=== PATIENT | female | born 1975 | race Hispanic/Latino ===

== ENCOUNTER 2021-03-12 21:48 | Emergency (ER) | payer BC ==
--- OUTSIDE RECORDS SUMMARY | 2021-03-12 21:56 | XMS REPORT | Continuity of Care Document ---
:1975 Author Organization [facility] t Address [address] [place] [address] Dr. Mel[address]. [address] [place] [address] Care Team Providers Name Role Phone General RNKesha Primary Care Physician Unavailable Kaylynn Alexander MD Attending Clinician Dillon Gonzáles MD Attending Clinician Ld CHAUDHRY Attending Clinician Jelly Cruz MD Attending Clinician Jonathan Oconnor MD Attending Clinician Lexie Chris MD Attending Clinician Patrick CHAUDHRY Attending Clinician ERICH ALEXANDER Attending Clinician Unavailable DR ANTON Attending Clinician Unavailable Natalya CHAUDHRY Attending Clinician DILLON GONZÁLES Admitting Clinician Unavailable Amy WILBURN Admitting Clinician Unavailable Payers Payer Name Policy Type Policy Effective Date Expiration Date Sour ce Number BLUE CROSS/BLUE [id number] 2021 [facility] [id number] -Tunde [id number], [place] [address] Problems Condition Condition Condition Status Onset Resolution Last Treating Co mments Source Name Details Category Date Date Treatment Clinician Date Type 2 Type [address] [facility]16 [facility] - mellitus mellitus 00:00: Medica l without without 00 Center complicati complicati on, on, without without long-term long-term current current use of use of insulin insulin Essential Essential Disease Active [facility] hypertensi hypertensi 4-16 Ailyn kes - on on 00:00: Medical 00 Center Diverticul Diverticul Disease Active [facility] of itis of -15 [facility] - large large 00:00: Medical intestine intestine 00 Cent er with with perforatio perforatio n and n and abscess abscess Diverticul Diverticul Disease Active Overview : [facility] Added [facility] - 00:00: automatic Medical 00 ally from Center request for surgery [id number] Allergies, Adverse Reactions, Alerts This patient has no known allergies or adverse reactions. Family History Family Member Diagnosis Comments Start Date Stop Date Source Natural father Heart disease [facility] Natural mother Diabetes [facility] Natural mother Hyperlipidemia [facility] Social History Social Habit Start Date Stop Date Quantity Comments Source Sex Assigned At [facility] Exposure to Not sure [facility] SARS-CoV-2 [facility] (event) Tobacco use and 2021-02-27 2021-02-27 Never used [facility] - exposure 00:00:00 00:00:00 [facility] Alcohol intake 2021-02-27 2021-02-27 Current drinker [facility] Yogesh Gomez - 00:00:00 00:00:00 of [facility] (finding) Alcohol Comment 2021-02-16 2021-02-16 2-[address] [facility] u[facility] - 00:00:00 00:00:[address] everyday Smoking Status Start Date Stop Date Source Never sm[facility] Ordered Filled Start Stop Current Ordering Indication Dosage Frequency Signature Comments Components Source Medication Medication Date Date Medication? Clinician (SIG) Name Name psyllium 2021- Yes 1{packe QD Take [address] [address] (METAMUCIL 5-04 05-04 t} packet by Jamila es - SUGAR-FREE) 00:00: 23:59 mouth Medi denise 3.4 gram 00 :00 daily. Center packet metoprolol Yes 50mg Q.5D Take [address] tartrate 5-03 by mouth 2 [facility] - (LOPRESSOR) 16:39: (two) Medic al 50 MG 02 times Center tablet daily. lisinopriL Yes 20mg Take [address] (PRINIVIL,Z 5-03 by mouth 2 Ailyn kes - ESTRIL) 20 16:39: (two) Medica l MG tablet 02 times Center daily before meals. metFORMIN Yes 500mg Take [address] [facility] (GLUCOPHAGE 5-03 mg by [facility] - ) 500 MG 16:39: mouth. Medical tablet 02 Center gabapentin 2021- Yes 300mg Q.[id number] Take [address] (NEURONTIN) 5- 05- [id number] capsule [facility] - 300 MG 00:00: 23:59 3D (300 mg Medical capsule 00 :00 total) by Center mouth 3 (three) times daily. cyclobenzap 2020- Yes 10mg Q.[id number] Take [address] rine -01 06- [id number] tablet (10 Ailyn kes - (FLEXERIL) 00:00: 23:59 3D mg total) M edical 10 MG 00 :00 by mouth 3 Center tablet (three) times daily for 10 days. simethicone 2020- Yes 80mg Take [address] [facility] (MYLICON) 03-06-13 tablet (80 Jamila es - 80 MG 00:00: 23:59 mg total) Medica l chewable 00 :00 by mouth Center tablet every 6 (six) hours as needed for Flatulence for up to 10 days. oxyCODONE 2020- Yes 5mg Take 1 [facility] (ROXICODONE - 05-13 tablet (5 Ailyn kes - ) 5 MG 00:00: 23:59 mg total) Medic al immediate 00 :00 by mouth Center release every 4 tablet (four) hours as needed for up to 10 days. Max Daily Amount: 30 mg FLUoxetine Yes 1{tbl} QD Take [address] 60 mg Tab 4-13 tablet by [facility] - 00:00: mouth Medical 00 daily. Center Vital Signs Vital Name Observation Time Observation Value Comments Source Systolic blood 2021-03-06 11:00:00 136 mm[Hg] [facility] Diastolic blood 2021-03-06 11:00:00 95 mm[Hg] [facility] Heart rate 2021-03-06 11:00:00 130 /min [facility] Respiratory rate 2021-03-06 11:00:00 18 /min [facility] Oxygen saturation in 2021-03-06 11:00:00 100 /min [facility] Arterial blood by Medical Ce nter Pulse oximetry Body temperature 2021-03-06 04:06:00 37 Tanisha [facility] Body weight 2021-03-04 05:58:00 82.146 kg [facility] BMI 2021-03-04 05:58:00 30.14 kg/m2 [facility] Body height 2021-02-16 20:34:00 165.1 cm [facility] Procedures Procedure Date / Time Performing Clinician Source Performed POCT-GLUCOSE METER 2021-03-06 07:36:00 [facility] CBC W/PLT COUNT & AUTO 2021-03-06 04:34:00 Duane Keys [facility] BASIC METABOLIC PANEL (7) 2021-03-06 04:34:00 Duane Keys [facility] MAGNESIUM 2021-03-06 04:34:00 Duane Keys [facility] PHOSPHORUS 2021-03-06 04:34:00 Duane Keys [facility] POCT-GLUCOSE METER 2021-03-05 21:32:00 Catherine, [facility] POCT-GLUCOSE METER 2021-03-05 11:39:00 [facility] POCT-GLUCOSE METER 2021-03-05 07:55:00 Catherine, [facility] CBC W/PLT COUNT & AUTO 2021-03-05 05:26:00 Duane Keys [facility] BASIC METABOLIC PANEL (7) 2021-03-05 05:26:00 Duane Keys [facility] MAGNESIUM 2021-03-05 05:26:00 Duane Keys [facility] PHOSPHORUS 2021-03-05 05:26:00 Duane Keys [facility] POCT-GLUCOSE METER 2021-03-04 21:06:00 Catherine, [facility] POCT-GLUCOSE METER 2021-03-04 17:26:00 Catherine, [facility] POCT-GLUCOSE METER 2021-03-04 11:51:00 Catherine, [facility] CBC (HEMOGRAM ONLY) 2021-03-04 11:13:00 Rodolfo Martinez [facility] POCT-GLUCOSE METER 2021-03-04 07:41:00 Catherine, [facility] CBC W/PLT COUNT & AUTO 2021-03-04 05:33:00 Duane Keys [facility] BASIC METABOLIC PANEL (7) 2021-03-04 05:33:00 Duane Keys [facility] MAGNESIUM 2021-03-04 05:33:00 Duane Keys [facility] PHOSPHORUS 2021-03-04 05:33:00 Duane Keys [facility] POCT-GLUCOSE METER 2021-03-03 21:07:00 Catherine, [facility] POCT-GLUCOSE METER 2021-03-03 16:45:00 Catherine, [facility] POCT-GLUCOSE METER 2021-03-03 11:34:00 Catherine, [facility] POCT-GLUCOSE METER 2021-03-03 04:58:00 Catherine, [facility] CBC W/PLT COUNT & AUTO 2021-03-03 04:51:00 MassimoDuane villagomez [facility] BASIC METABOLIC PANEL (7) 2021-03-03 04:51:00 Duane Keys [facility] MAGNESIUM 2021-03-03 04:51:00 MassimoDuane villagomez [facility] PHOSPHORUS 2021-03-03 04:51:00 MassimoDuane villagomez [facility] HEPATIC FUNCTION PANEL 2021-03-03 04:51:00 Cruz, Janette Reaves [facility] POCT-GLUCOSE METER 2021-03-02 22:14:00 Catherine, [facility] POCT-GLUCOSE METER 2021-03-02 18:19:00 Catherine, [facility] SARS-COV2/RT-PCR ([facility] & 2021-03-02 18:13:00 Cruz, Janette Ch [facility] POCT-GLUCOSE METER 2021-03-02 11:56:00 Catherine, [facility] POCT-GLUCOSE METER 2021-03-02 05:21:00 Catherine, [facility] CBC W/PLT COUNT & AUTO 2021-03-02 03:26:00 Duane Keys [facility] BASIC METABOLIC PANEL (7) 2021-03-02 03:26:00 Duane Keys [facility] MAGNESIUM 2021-03-02 03:26:00 MassimoDuane villagomez [facility] PHOSPHORUS 2021-03-02 03:26:00 Duane Keys [facility] POCT-GLUCOSE METER 2021-03-01 23:55:00 [facility] PO[facility] 2021-03-01 17:54:00 Catherine, [facility] POCT-GLUCOSE METER 2021-03-01 12:08:00 Catherine, [facility] POCT-GLUCOSE METER 2021-03-01 06:30:00 Cruz, Janette Reaves [facility] CBC W/PLT COUNT & AUTO 2021-03-01 04:19:00 Duane Keys [facility] BASIC METABOLIC PANEL (7) 2021-03-01 04:19:00 Duane Keys [facility] MAGNESIUM 2021-03-01 04:19:00 Duane Keys [facility] PHOSPHORUS 2021-03-01 04:19:00 Duane Keys [facility] POCT-GLUCOSE METER 2021-03-01 00:25:00 Cruz, Janette Reaves [facility] XR ABDOMEN / KUB 1 VIEW 2021-02-28 18:24:00 Lena Laura [facility] POCT-GLUCOSE METER 2021-02-28 17:59:00 Cruz, Janette Reaves [facility] POCT-GLUCOSE METER 2021-02-28 11:34:00 Cruz, Janette Reaves [facility] POCT-GLUCOSE METER 2021-02-28 05:53:00 Cruz, Janette Reaves [facility] CBC W/PLT COUNT & AUTO 2021-02-28 04:24:00 Duane Keys [facility] BASIC METABOLIC PANEL (7) 2021-02-28 04:24:00 Duane Keys [facility] MAGNESIUM 2021-02-28 04:24:00 Duane Keys [facility] PHOSPHORUS 2021-02-28 04:24:00 Duane Keys [facility] HEPATIC FUNCTION PANEL 2021-02-28 04:24:00 Cruz, Janette Jelly [facility] POCT-GLUCOSE METER 2021-02-28 00:09:00 Cruz, Janette Jelly [facility] PREPARE LEUKO-REDUCED RBC 2021-02-27 23:54:00 Cruz, Janette [facility] POCT-GLUCOSE METER 2021-02-27 18:09:00 Cruz, Janette Jelly [facility] HEMOGLOBIN AND HEMATOCRIT 2021-02-27 15:07:00 Khloe Phelps [facility] POCT-GLUCOSE METER 2021-02-27 11:49:00 Cruz, Janette Jelly [facility] POCT-GLUCOSE METER 2021-02-27 05:25:00 Cruz, Janette [facility] HEMOGLOBIN AND HEMATOCRIT 2021-02-27 03:16:00 Cruz, Janette Reaves [facility] CBC W/PLT COUNT & AUTO 2021-02-27 03:16:00 MassimoDuane villagomez [facility] BASIC METABOLIC PANEL (7) 2021-02-27 03:16:00 Duane Keys [facility] MAGNESIUM 2021-02-27 03:16:00 Duane Keys [facility] PHOSPHORUS 2021-02-27 03:16:00 Duane Keys [facility] POCT-GLUCOSE METER 2021-02-27 00:05:00 Cruz, Janette Reaves [facility] TRANSFUSE LEUKO-REDUCED 2021-02-26 23:49:[address] [facility] RED BLOOD CELLS [facility] TRANSFUSE LEUKO-REDUCED 2021-02-26 21:17:31 Cruz, Janette Reaves [facility] RED BLOOD CELLS [facility] ABORH, MANUAL 2021-02-26 17:00:00 Radha Gar [facility] TYPE AND SCREEN, 2021-02-26 15:32:00 Cruz, Janette [facility] CBC (HEMOGRAM ONLY) 2021-02-26 14:29:00 DawnaDiana anderson [facility] POCT-GLUCOSE METER 2021-02-26 11:08:00 Cruz, Janette Jelly [facility] POCT-GLUCOSE METER 2021-02-26 06:08:00 Cruz, Janette Jelly [facility] CBC W/PLT COUNT & AUTO 2021-02-26 03:26:00 Duane Keys [facility] BASIC METABOLIC PANEL (7) 2021-02-26 03:26:00 Duane Keys [facility] MAGNESIUM 2021-02-26 03:26:00 Duane Keys [facility] PHOSPHORUS 2021-02-26 03:26:00 Duane Keys [facility] POCT-GLUCOSE METER 2021-02-26 00:41:00 Cruz, Janette Reaves [facility] POCT-GLUCOSE METER 2021-02-25 18:25:00 Cruz, Janette Jelly [facility] POCT-GLUCOSE METER 2021-02-25 12:06:00 Cruz, Janette Jelly [facility] CBC W/PLT COUNT & AUTO 2021-02-25 05:24:00 Duane Keys [facility] BASIC METABOLIC PANEL (7) 2021-02-25 05:24:00 Duane Keys C [facility] MAGNESIUM 2021-02-25 05:24:00 Duane Keys [facility] PHOSPHORUS 2021-02-25 05:24:00 Duane Keys [facility] CALCIUM, IONIZED 2021-02-25 05:24:00 Duane Keys [facility] HEPATIC FUNCTION PANEL 2021-02-25 05:24:00 Duane Keys [facility] POCT-GLUCOSE METER 2021-02-25 05:08:00 Cruz, Janette Reaves [facility] POCT-GLUCOSE METER 2021-02-24 22:46:00 Cruz, Janette [facility] POCT-GLUCOSE METER 2021-02-24 18:45:00 Cruz, Janette [facility] POCT-GLUCOSE METER 2021-02-24 17:14:00 Cruz, Janette [facility] POCT-GLUCOSE METER 2021-02-24 14:25:00 Cruz, Janette [facility] POCT-GLUCOSE METER 2021-02-24 12:30:00 Crzu, Janette Jelly [facility] TISSUE EXAM 2021-02-24 10:11:00 Nelson Oconnor [facility] AFB CULTURE + SMEAR 2021-02-24 09:28:15 Nelson Oconnor [facility] (NON-SPUTUM) [facility] ANAEROBIC CULTURE 2021-02-24 09:28:15 [facility] + SMEAR 2021-02-24 09:28:15 Nelson Oconnor [facility] SURGICALLY OBTAINED 2021-02-24 09:28:15 Nelson Oconnor [facility] - CULTURE + GRAM STAIN Medical [facility] ter SPIN/CONCENTRATION CHARGE 2021-02-24 09:28:00 Nelson Oconnor [facility] LAPAROSCOPY,SIGMOIDECTOMY 2021-02-24 07:41:00 Nelson Oconnor reese [facility] CREATION,OSTOMY 2021-02-24 07:41:00 Nelson Oconnor [facility] SCREEN, URINE 2021-02-24 04:57:00 Ilene Coates [facility] CBC W/PLT COUNT & AUTO 2021-02-24 04:27:00 Duane Keys [facility] BASIC METABOLIC PANEL (7) 2021-02-24 04:27:00 Duane Keys [facility] MAGNESIUM 2021-02-24 04:27:00 Duane Keys [facility] PHOSPHORUS 2021-02-24 04:27:00 Duane Keys [facility] POCT-GLUCOSE METER 2021-02-24 00:11:00 Cruz, Janette Reaves [facility] SARS-COV2/RT-PCR ([facility] & 2021-02-23 18:27:00 Cruz, Janette Ch [facility] REF LABS) [facility] POCT-GLUCOSE METER 2021-02-23 17:40:00 Cruz, Janette Reaves [facility] POCT-GLUCOSE METER 2021-02-23 13:23:00 Cruz, Janette Reaves [facility] IR PICC LINE PLACEMENT 2021-02-23 12:22:00 Rodolfo Martinez [facility] OLDER THAN 5 YRS [facility] POCT-GLUCOSE METER 2021-02-23 06:17:00 Cruz, Janette Reaves [facility] CBC W/PLT COUNT & AUTO 2021-02-23 04:31:00 Duane Keys [facility] BASIC METABOLIC PANEL (7) 2021-02-23 04:31:00 Duane Keys [facility] MAGNESIUM 2021-02-23 04:31:00 Duane Keys [facility] PHOSPHORUS 2021-02-23 04:31:00 Duane Keys [facility] TRIGLYCERIDES 2021-02-23 04:31:00 Cruz, Janette Reaves [facility] POCT-GLUCOSE METER 2021-02-23 00:22:00 Cruz, Janette Reaves [facility] POCT-GLUCOSE METER 2021-02-22 18:17:00 Cruz, Janette Reaves [facility] CT ABDOMEN/PELVIS WITH IV 2021-02-22 16:32:00 Danielito Martinezhector THOMAS I [facility] POCT-GLUCOSE METER 2021-02-22 11:17:00 Nancy Janette Reaves [facility] POCT-GLUCOSE METER 2021-02-22 05:56:00 Ld, [facility] CBC W/PLT COUNT & AUTO 2021-02-22 04:02:00 Duane Keys [facility] BASIC METABOLIC PANEL (7) 2021-02-22 04:02:00 Duane Keys [facility] MAGNESIUM 2021-02-22 04:02:00 Duane Keys [facility] PHOSPHORUS 2021-02-22 04:02:00 Duane Keys [facility] POCT-GLUCOSE METER 2021-02-22 00:06:00 Ld, [facility] POCT-GLUCOSE METER 2021-02-21 17:58:00 Ld, [facility] POCT-GLUCOSE METER 2021-02-21 11:47:00 Ld, [facility] POCT-GLUCOSE METER 2021-02-21 05:56:00 Ld, [facility] CBC W/PLT COUNT & AUTO 2021-02-21 05:21:00 Duane Keys [facility] BASIC METABOLIC PANEL (7) 2021-02-21 05:21:00 Duane Keys [facility] MAGNESIUM 2021-02-21 05:21:00 MassimoDuane villagomez [facility] PHOSPHORUS 2021-02-21 05:21:00 Duane Keys [facility] POCT-GLUCOSE METER 2021-02-21 00:17:00 Ld, [facility] POCT-GLUCOSE METER 2021-02-20 17:56:00 Ld, [facility] POCT-GLUCOSE METER 2021-02-20 11:38:00 Ld, [facility] XR ABDOMEN / KUB 1 VIEW 2021-02-20 06:54:00 Rodolfo Martinez [facility] POCT-GLUCOSE METER 2021-02-20 05:09:00 Ld, [facility] CBC W/PLT COUNT & AUTO 2021-02-20 04:35:00 Duane Keys [facility] BASIC METABOLIC PANEL (7) 2021-02-20 04:35:00 Duane Keys [facility] MAGNESIUM 2021-02-20 04:35:00 Duane Keys [facility] PHOSPHORUS 2021-02-20 04:35:00 Duane Keys [facility] POCT-GLUCOSE METER 2021-02-19 23:26:00 Dl, [facility] POCT-GLUCOSE METER 2021-02-19 17:53:00 Ld, [facility] POCT-GLUCOSE METER 2021-02-19 12:14:00 Ld, [facility] POCT-GLUCOSE METER 2021-02-19 05:41:00 Ld, [facility] CBC W/PLT COUNT & AUTO 2021-02-19 04:01:00 Duane Keys [facility] BASIC METABOLIC PANEL (7) 2021-02-19 04:01:00 Duane Keys [facility] MAGNESIUM 2021-02-19 04:01:00 Duane Keys [facility] PHOSPHORUS 2021-02-19 04:01:00 Duane Keys [facility] POCT-GLUCOSE METER 2021-02-18 23:05:00 Ld, [facility] POCT-GLUCOSE METER 2021-02-18 18:23:00 Ld, [facility] WOUND CULTURE + GRAM 2021-02-18 13:08:00 Ld, [facility] POCT-GLUCOSE METER 2021-02-18 11:46:00 Ld, [facility] CBC W/PLT COUNT & AUTO 2021-02-18 10:10:00 Duane Keys [facility] BASIC METABOLIC PANEL (7) 2021-02-18 10:10:00 Duane Keys [facility] MAGNESIUM 2021-02-18 10:10:00 Duane Keys [facility] PHOSPHORUS 2021-02-18 10:10:00 [facility] POCT-GLUCOSE METER 2021-02-17 [facility] [facility] [address] [facility] 2021-02-17 13:47:00 Rodolfo Martinez [facility] POCT-GLUCOSE METER 2021-02-17 05:23:00 Guillermo Gonzáles [facility] CBC W/PLT COUNT & AUTO 2021-02-17 04:19:00 [facility] BASIC METABOLIC PANEL (7) 2021-02-17 04:19:00 [facility] HEPATIC FUNCTION PANEL 2021-02-17 04:19:00 [facility] HEMOGLOBIN A1C 2021-02-17 04:19:00 [facility] PROTHROMBIN TIME/INR 2021-02-17 04:19:00 [facility] MAGNESIUM 2021-02-17 04:19:00 [facility] SCREEN, URINE 2021-02-16 23:29:00 [facility] POCT-GLUCOSE METER 2021-02-16 23:28:00 Marcy [facility] Plan of Care Planned Activity Planned Date Details Comments Source Future Scheduled 2021-08-19 Hemoglobin A1c [facility] Test 00:00:00 measurement Medical Center (procedure) [code = 36828097] Future Scheduled 2021-07-[address] [facility] - Test 00:00:00 (Season Ended) [code = Medic al Center INFLUENZA VACCINE (Season Ended)] Future Scheduled 2021-06-04 INFLU[facility]ZA VACCINE [facility] 00:00:00 [code = INFLUENZA VACCINE] Future Scheduled [address] [facility] Test 00:[facility]:00 (procedure) [code = Medical Center 78158771] Future Scheduled 1994 [facility] 00:00:00 malignant neoplasm of cervix (procedure) [code = 632023718] Future Scheduled [address] [facility] - Test 00:00:00 [facility] cervix (procedure) [code = 860214376] Future Scheduled 1992 DTAP/TDAP/TD VACCINES [facility] Test 00:00:00 (1 - Tdap) [code = Medical C enter DTAP/TDAP/TD VACCINES (1 - Tdap)] Future Scheduled 1991 HEPATITIS C SCRE[facility]ING [facility] Test 00:00:00 [code = HEPATITIS C Medical Center SCREENING] Future Scheduled 1989 COVID-19 VACCINE (1) [facility] Test 00:00:00 [code = COVID-19 VACCINE (1)] Future Scheduled 1983 DIABETIC EYE EXAM [facility] - Test 00:00:00 [code = DIABETIC EYE Medical Center EXAM] Future Scheduled [address] [facility] - Test 00:00:00 examination Medical Center (regime/therapy) [code = 378970205] Future Scheduled 1983 Urine screening for [facility] - Test 00:00:00 protein (procedure) Medical Center [code = 964294465] Future Scheduled [address] [facility] - Test 00:00:00 0-64 YRS (1 of 1 - Medical C enter PPSV23) [code = PNEUMOCOCCAL VACCINE 0-64 YRS (1 of 1 - PPSV23)] Encounters Start End Encounter Admission Attending Care Care Encounter Source Date/Time Date/Time Type Type Clinicians Facility Department ID 2020-12-06 2020-12-06 [facility] [id number] [place] 10:27:00 23:59:00 [facility] 2020-11-09 2020-11-09 [facility] [id number] [place] 07:37:00 23:59:00 [facility] 2019-06-18 2019-06-19 Office GALLO Hoang [id number] 17:27:50 07:41:30 Visit Aymer AMBULATOR [id number] Y [id number] Results Test Description Test Time Test Comments Results Result Comments Source POC-Glucose meter 2021-03-06 07:50:00 Test Item Value Reference Range Interpretation Comme nts POC-Glucose Meter (test code = 146 mg/dL 70-110 H : TESTED AT [facility] [address]) [facility], [address] 30: Auditing Manager/Techni lyudmila ID = [id number] for GREGORY SHYANNESanchez Lab Interpretation (test code = Abnormal 31787-6) [facility] [id number] 07:50:00 Test Item Value Reference Range Interpretation Comments POC-GLUCOSE METER 146 mg/dL 70-110 H : TESTED A T [facility] [address] (BEAKER) (test code = [address]ERT[address] [facility], 1538) [address]: Auditing Manager/Techni lyudmila ID = [id number] for DAPHNE GHOTRA Basic Metabolic [id number] 05:39:00 Test Item Value Reference Range Interpretation Comments Sodium (test code = 133 meq/L 136-145 L 2951-2) Potassium (test code 3.9 meq/L 3.5-5.1 Specime n = 2823-3) moderately hemolyzed Chloride (test code = 99 meq/L 98-107 2074-0) CO2 (test code = 18 meq/L 22-29 L 2027-) BUN (test code = 15 mg/dL 7-21 3094-0) Creatinine (test code 0.79 mg/dL 0.57-1.25 Specim en = 2160-0) moderately hemolyzed Glucose (test code = 139 mg/dL 70-105 H 2345-7) Calcium (test code = 9.6 mg/dL 8.4-10.2 71727-9) EGFR ([place] = [place] [address]-4) CLINICAL DATA T O CALCULATE ESTIMATED GFR. LUZ (test code = LUZ) Auditing Manager ID - ADMIN Lab Interpretation Abnormal (test code = 90290-8) [facility] [id number] 05:39:00 Test Item Value Reference Range Interpretation Comments SODIUM (BEAKER) (test 133 meq/L 136-145 L code = 381) POTASSIUM (BEAKER) 3.9 meq/L 3.5-5.1 Specimen moderately (test code = 379) hemolyzed CHLORIDE (BEAKER) 99 meq/L 98-107 (test code = 382) CO2 (BEAKER) (test 18 meq/L 22-29 L code = 355) BLOOD UREA NITROGEN 15 mg/dL 7-21 (BEAKER) (test code = 354) CREATININE (BEAKER) 0.79 mg/dL 0.57-1.25 Specimen moderately (test code = 358) hemolyzed GLUCOSE RANDOM 139 mg/dL 70-105 H (BEAKER) (test code = 652) CALCIUM (BEAKER) 9.6 mg/dL 8.4-10.2 (test code = 697) EGFR (BEAKER) (test INSUFFIC IENT CLINICAL code = 1092) DATA TO CALCULA TE ESTIMATED GFR. Auditing Manager ID - [id number] 05:34:00 Test Item Value Reference Range Interpretation Comments Magnesium (test code = 1.6 mg/dL 1.6-2.6 Speci men 57951-1) moderately hemolyzed LUZ (test code = LUZ) Auditing Manager ID - ADMIN Lab Interpretation Normal (test code = 54266-4) [facility] 05:34:00 Test Item Value Reference Range Interpretation Comments Phosphorus (test code 4.5 mg/dL 2.3-4.7 Specim en = 2777-1) moderately hemolyzed LUZ (test code = LUZ) Auditing Manager ID - ADMIN Lab Interpretation Normal (test code = 75555-1) [facility] Test Item Value Reference Range Interpretation Comments MAGNESIUM (BEAKER) 1.6 mg/dL 1.6-2.6 Specimen moderately (test code = 627) hemolyzed Auditing Manager ID - [id number] 05:34:00 Test Item Value Reference Range Interpretation Comments PHOSPHORUS (BEAKER) 4.5 mg/dL 2.3-4.7 Specimen moderately (test code = 604) hemolyzed Auditing Manager ID - ADMINCBC with platelet count + automated [id number] 05:25:00 Test Item Value Reference Range Interpretation Comments WBC (test code = 6690-2) 8.0 See_Comment [A utomated message] The system TaKaDu generated this result transmitted ref erence range: 3.5 - 10 .5 K/L. The refe rence range was not u sed to interpret this result as normal/abnor mal. RBC (test code = 789-8) 4.07 See_Comment [Au tomated message] The system [employer] generated this result transmitted ref erence range: 3.93 - 5 .22 M/L. The refe rence range was not u sed to interpret this result as normal/abnor mal. MCHC (test code = 786-4) 33.0 See_Comment [A utomated message] The system [employer] generated this result transmitted ref erence range: 32.2 - 3 5.5 GM/DL. The refe rence range was not u sed to interpret this result as normal/abnor mal. Hematocrit (test code = 36.1 % 34.1-44.9 4544-3) MCV (test code = 787-2) 88.7 fL 79.4-94.8 MCH (test code = 785-6) 29.2 pg 25.6-32.2 RDW (test code = 788-0) 14.9 % 11.7-14.4 H Platelets (test code = 355 See_Comment [Aut omated message] 437-3) The system [employer] generated this result transmitted ref erence range: 150 - 45 0 K/CU MM. The referen ce range was not u sed to interpret this result as normal/abnor mal. MPV (test code = 11.1 fL 9.4-12.3 74176-7) nRBC (test code = 413) 0 See_Comment [Aut omated message] The system [employer] generated this result transmitted ref erence range: 0 - 0 /1 00 WBC. The refere nce range was not u sed to interpret this result as normal/abnor mal. % Neutros (test code = 48 % 429) % Lymphs (test code = 37 % 430) % Monos (test code = 9 % 431) % Eos (test code = 432) 5 % % Baso (test code = 437) 1 % # Neutros (test code = 3.79 See_Comment [Aut omated message] 670) The system [employer] generated this result transmitted ref erence range: 1.56 - 6 .13 K/L. The refe rence range was not u sed to interpret this result as normal/abnor mal. # Lymphs (test code = 2.96 See_Comment [Auto mated message] 414) The system [employer] generated this result transmitted ref erence range: 1.18 - 3 .74 K/L. The refe rence range was not u sed to interpret this result as normal/abnor mal. # Monos (test code = 0.71 See_Comment H [Autom ated message] 415) The system [employer] generated this result transmitted ref erence range: 0.24 - 0 .36 K/L. The refe rence range was not u sed to interpret this result as normal/abnor mal. # Eos (test code = 416) 0.43 See_Comment H [Au tomated message] The system [employer] generated this result transmitted ref erence range: 0.04 - 0 .36 K/L. The refe rence range was not u sed to interpret this result as normal/abnor mal. # Baso (test code = 417) 0.05 See_Comment [A utomated message] The system [employer] generated this result transmitted ref erence range: 0.01 - 0 .08 K/L. The refe rence range was not u sed to interpret this result as normal/abnor mal. Immature 0 % 0-1 Granulocytes-Relative (test code = 2801) Lab Interpretation (test Abnormal code = 40597-1) [facility] W/PLT COUNT & AUTO [id number] 05:25:00 Test Item Value Reference Range Interpretation Comments WHITE BLOOD CELL COUNT (BEAKER) 8.0 K/ L 3.5-10.5 (test code = 775) RED BLOOD CELL COUNT (BEAKER) 4.07 M/ L 3.93-5.22 (test code = 761) HEMOGLOBIN (BEAKER) (test code = 11.9 GM/DL 11.2-15.7 410) HEMATOCRIT (BEAKER) (test code = 36.1 % 34.1-44.9 411) MEAN CORPUSCULAR VOLUME (BEAKER) 88.7 fL 79.4-94.8 (test code = 753) MEAN CORPUSCULAR HEMOGLOBIN 29.2 pg 25.6-32.2 (BEAKER) (test code = 751) MEAN CORPUSCULAR HEMOGLOBIN CONC 33.0 GM/DL 32.2-35.5 (BEAKER) (test code = 752) RED CELL DISTRIBUTION WIDTH 14.9 % 11.7-14.4 H (BEAKER) (test code = 412) PLATELET COUNT (BEAKER) (test 355 K/CU MM 150-450 code = 756) MEAN PLATELET VOLUME (BEAKER) 11.1 fL 9.4-12.3 (test code = 754) NUCLEATED RED BLOOD CELLS 0 /100 WBC 0-0 (BEAKER) (test code = 413) NEUTROPHILS RELATIVE PERCENT 48 % (BEAKER) (test code = 429) LYMPHOCYTES RELATIVE PERCENT 37 % (BEAKER) (test code = 430) MONOCYTES RELATIVE PERCENT 9 % (BEAKER) (test code = 431) EOSINOPHILS RELATIVE PERCENT 5 % (BEAKER) (test code = 432) BASOPHILS RELATIVE PERCENT 1 % (BEAKER) (test code = 437) NEUTROPHILS ABSOLUTE COUNT 3.79 K/ L 1.56-6.13 (BEAKER) (test code = 670) LYMPHOCYTES ABSOLUTE COUNT 2.96 K/ L 1.18-3.74 (BEAKER) (test code = 414) MONOCYTES ABSOLUTE COUNT (BEAKER) 0.71 K/ L 0.24-0.36 H (test code = 415) EOSINOPHILS ABSOLUTE COUNT 0.43 K/ L 0.04-0.36 H (BEAKER) (test code = 416) BASOPHILS ABSOLUTE COUNT (BEAKER) 0.05 K/ L 0.01-0.08 (test code = 417) IMMATURE GRANULOCYTES-RELATIVE 0 % 0-1 PERCENT (BEAKER) (test code = 2801) POCT-GLUCOSE [id number] 21:44:00 Test Item Value Reference Range Interpretation Comments POC-GLUCOSE METER 156 mg/dL 70-110 H : TESTED A T [facility] 6720 (BEAKER) (test code = [facility], 1538) [address]: Auditing Manager/Techni lyudmila ID = [id number] for CORNELIO BENAVIDEZ POCT-GLUCOSE [id number] 11:50:00 Test Item Value Reference Range Interpretation Comments POC-GLUCOSE METER 136 mg/dL 70-110 H : TESTED A T [facility] 67[address] (BEAKER) (test code = [facility], 1538) 28[address]: Auditing Manager/Techni lyudmila ID = [id number] for JESU SAMANIEGO POCT-GLUCOSE [id number] 08:06:00 Test Item Value Reference Range Interpretation Comments POC-GLUCOSE METER 141 mg/dL 70-110 H : TESTED A T [facility] 67[address] (BEAKER) (test code = [facility], 1538) 78[address]: Auditing Manager/Techni lyudmila ID = [id number] for JESU SAMANIEGO BASIC METABOLIC [id number] 06:35:00 Test Item Value Reference Range Interpretation Comments SODIUM (BEAKER) (test 134 meq/L 136-145 L code = 381) POTASSIUM (BEAKER) 3.6 meq/L 3.5-5.1 (test code = 379) CHLORIDE (BEAKER) 101 meq/L 98-107 (test code = 382) CO2 (BEAKER) (test 19 meq/L 22-29 L code = 355) BLOOD UREA NITROGEN 10 mg/dL 7-21 (BEAKER) (test code = 354) CREATININE (BEAKER) 0.75 mg/dL 0.57-1.25 (test code = 358) GLUCOSE RANDOM 139 mg/dL 70-105 H (BEAKER) (test code = 652) CALCIUM (BEAKER) 9.3 mg/dL 8.4-10.2 (test code = 697) EGFR (BEAKER) (test INSUFFIC IENT CLINICAL code = 1092) DATA TO CALCULA TE ESTIMATED GFR. Auditing Manager ID - [id number] 06:21:00 Test Item Value Reference Range Interpretation Comments MAGNESIUM (BEAKER) (test code = 1.5 mg/dL 1.6-2.6 L 627) Auditing Manager ID - [id number] 06:21:00 Test Item Value Reference Range Interpretation Comments PHOSPHORUS (BEAKER) (test code = 4.4 mg/dL 2.3-4.7 604) Auditing Manager ID - ADMINCBC W/PLT COUNT & AUTO [id number] 06:03:00 Test Item Value Reference Range Interpretation Comments WHITE BLOOD CELL COUNT (BEAKER) 8.1 K/ L 3.5-10.5 (test code = 775) RED BLOOD CELL COUNT (BEAKER) 3.98 M/ L 3.93-5.22 (test code = 761) HEMOGLOBIN (BEAKER) (test code = 11.7 GM/DL 11.2-15.7 410) HEMATOCRIT (BEAKER) (test code = 35.6 % 34.1-44.9 411) MEAN CORPUSCULAR VOLUME (BEAKER) 89.4 fL 79.4-94.8 (test code = 753) MEAN CORPUSCULAR HEMOGLOBIN 29.4 pg 25.6-32.2 (BEAKER) (test code = 751) MEAN CORPUSCULAR HEMOGLOBIN CONC 32.9 GM/DL 32.2-35.5 (BEAKER) (test code = 752) RED CELL DISTRIBUTION WIDTH 15.2 % 11.7-14.4 H (BEAKER) (test code = 412) PLATELET COUNT (BEAKER) (test 343 K/CU MM 150-450 code = 756) MEAN PLATELET VOLUME (BEAKER) 10.8 fL 9.4-12.3 (test code = 754) NUCLEATED RED BLOOD CELLS 0 /100 WBC 0-0 (BEAKER) (test code = 413) NEUTROPHILS RELATIVE PERCENT 54 % (BEAKER) (test code = 429) LYMPHOCYTES RELATIVE PERCENT 31 % (BEAKER) (test code = 430) MONOCYTES RELATIVE PERCENT 8 % (BEAKER) (test code = 431) EOSINOPHILS RELATIVE PERCENT 5 % (BEAKER) (test code = 432) BASOPHILS RELATIVE PERCENT 1 % (BEAKER) (test code = 437) NEUTROPHILS ABSOLUTE COUNT 4.36 K/ L 1.56-6.13 (BEAKER) (test code = 670) LYMPHOCYTES ABSOLUTE COUNT 2.54 K/ L 1.18-3.74 ([facility]) (test code = 414) MONOCYTES ABSOLUTE COUNT (AKER) 0.68 K/ L 0.24-0.36 H (test code = 415) EOSINOPHILS ABSOLUTE COUNT 0.43 K/ L 0.04-0.36 H ([facility]) (test code = 416) BASOPHILS ABSOLUTE COUNT ([facility]) 0.06 K/ L 0.01-0.08 (test code = 417) IMMATURE GRANULOCYTES-RELATIVE 0 % 0-1 PERCENT ([facility]) (test code = 2801) POCT-GLUCOSE [id number] 21:18:00 Test Item Value Reference Range Interpretation Comments POC-GLUCOSE METER 136 mg/dL 70-110 H : Notified RN/MD: ([facility]) (test code = TESTED AT [place] [address] 153) [facility], [address]: Auditing Manager/Techni lyudmila ID = [id number] for [place], Ozzie POCT-GLUCOSE [id number] 17:37:00 Test Item Value Reference Range Interpretation Comments POC-GLUCOSE METER 98 mg/dL 70-110 : TESTED A T [place] [address] ([facility]) (test code = [facility], 1538) [address]: Auditing Manager/Techni lyudmila ID = [id number] for REBEKA S, MICHAEL POCT-GLUCOSE [id number] 12:03:00 Test Item Value Reference Range Interpretation Comments POC-GLUCOSE METER 117 mg/dL 70-110 H : TESTED A T [facility] ([facility]) (test code = [facility], 1538) [address]: Auditing Manager/Techni lyudmila ID = [id number] for RA MOS, MICHAEL CBC (Hemogram only)2021-03-04 11:22:00 Test Item Value Reference Range Interpretation Comments WBC (test code = 6690-2) 7.2 See_Comment [A utomated message] The system [employer]Ka[employer] generated this result transmitted ref erence range: 3.5 - 10 .5 K/L. The refe rence range was not u sed to interpret this result as normal/abnor mal. RBC (test code = 789-8) 3.68 See_Comment L [Au tomated message] The system [employer] generated this result transmitted ref erence range: 3.93 - 5 .22 M/L. The refe rence range was not u sed to interpret this result as normal/abnor mal. MCHC (test code = 786-4) 32.5 See_Comment L [A utomated message] The system [employer] generated this result transmitted ref erence range: 32.2 - 3 5.5 GM/DL. The refe rence range was not u sed to interpret this result as normal/abnor mal. Hematocrit (test code = 33.8 % 34.1-44.9 L 4544-3) MCV (test code = 787-2) 91.8 fL 79.4-94.8 MCH (test code = 785-6) 29.9 pg 25.6-32.2 RDW (test code = 788-0) 15.4 % 11.7-14.4 H Platelets (test code = 307 See_Comment [Aut omated message] 777-3) The system [employer] generated this result transmitted ref erence range: 150 - 45 0 K/CU MM. The referen ce range was not u sed to interpret this result as normal/abnor mal. MPV (test code = 10.3 fL 9.4-12.3 97882-6) nRBC (test code = 413) 0 See_Comment [Aut omated message] The system [employer] generated this result transmitted ref erence range: 0 - 0 /1 00 WBC. The refere nce range was not u sed to interpret this result as normal/abnor mal. Lab Interpretation (test Abnormal code = 71050-4) [facility] (HEMOGRAM ONLY)2021-03-04 11:22:00 Test Item Value Reference Range Interpretation Comments WHITE BLOOD CELL COUNT (BEAKER) 7.2 K/ L 3.5-10.5 (test code = 775) RED BLOOD CELL COUNT (BEAKER) 3.68 M/ L 3.93-5.22 L (test code = 761) HEMOGLOBIN (BEAKER) (test code = 11.0 GM/DL 11.2-15.7 L 410) HEMATOCRIT (BEAKER) (test code = 33.8 % 34.1-44.9 L 411) MEAN CORPUSCULAR VOLUME (BEAKER) 91.8 fL 79.4-94.8 (test code = 753) MEAN CORPUSCULAR HEMOGLOBIN 29.9 pg 25.6-32.2 (BEAKER) (test code = 751) MEAN CORPUSCULAR HEMOGLOBIN CONC 32.5 GM/DL 32.2-35.5 (BEAKER) (test code = 752) RED CELL DISTRIBUTION WIDTH 15.4 % 11.7-14.4 H (BEAKER) (test code = 412) PLATELET COUNT (BEAKER) (test 307 K/CU MM 150-450 code = 756) MEAN PLATELET VOLUME (BEAKER) 10.3 fL 9.4-12.3 (test code = 754) NUCLEATED RED BLOOD CELLS 0 /100 WBC 0-0 (BEAKER) (test code = 413) POCT-GLUCOSE [id number] 07:52:00 Test Item Value Reference Range Interpretation Comments POC-GLUCOSE METER 142 mg/dL 70-110 H : TESTED A T [facility] (BEAKER) (test code = [facility], 1538) [address]: Auditing Manager/Techni lyudmila ID = [id number] for RA MOS, MICHAEL CBC W/PLT COUNT & AUTO [id number] 06:32:00 Test Item Value Reference Range Interpretation Comments WHITE BLOOD CELL COUNT (BEAKER) 7.5 K/ L 3.5-10.5 (test code = 775) RED BLOOD CELL COUNT (BEAKER) 3.50 M/ L 3.93-5.22 L (test code = 761) HEMOGLOBIN (BEAKER) (test code = 10.5 GM/DL 11.2-15.7 L 410) HEMATOCRIT (BEAKER) (test code = 31.6 % 34.1-44.9 L 411) MEAN CORPUSCULAR VOLUME (BEAKER) 90.3 fL 79.4-94.8 (test code = 753) MEAN CORPUSCULAR HEMOGLOBIN 30.0 pg 25.6-32.2 (BEAKER) (test code = 751) MEAN CORPUSCULAR HEMOGLOBIN CONC 33.2 GM/DL 32.2-35.5 (BEAKER) (test code = 752) RED CELL DISTRIBUTION WIDTH 15.4 % 11.7-14.4 H (BEAKER) (test code = 412) PLATELET COUNT (BEAKER) (test 287 K/CU MM 150-450 code = 756) MEAN PLATELET VOLUME (BEAKER) 10.9 fL 9.4-12.3 (test code = 754) NUCLEATED RED BLOOD CELLS 0 /100 WBC 0-0 (BEAKER) (test code = 413) NEUTROPHILS RELATIVE PERCENT 51 % (BEAKER) (test code = 429) LYMPHOCYTES RELATIVE PERCENT 32 % (BEAKER) (test code = 430) MONOCYTES RELATIVE PERCENT 11 % (BEAKER) (test code = 431) EOSINOPHILS RELATIVE PERCENT 6 % (BEAKER) (test code = 432) BASOPHILS RELATIVE PERCENT 1 % (BEAKER) (test code = 437) NEUTROPHILS ABSOLUTE COUNT 3.80 K/ L 1.56-6.13 (BEAKER) (test code = 670) LYMPHOCYTES ABSOLUTE COUNT 2.37 K/ L 1.18-3.74 (BEAKER) (test code = 414) MONOCYTES ABSOLUTE COUNT (BEAKER) 0.80 K/ L 0.24-0.36 H (test code = 415) EOSINOPHILS ABSOLUTE COUNT 0.42 K/ L 0.04-0.36 H (BEAKER) (test code = 416) BASOPHILS ABSOLUTE COUNT (BEAKER) 0.04 K/ L 0.01-0.08 (test code = 417) IMMATURE GRANULOCYTES-RELATIVE 1 % 0-1 PERCENT (BEAKER) (test code = 2801) BASIC METABOLIC [id number] 06:20:00 Test Item Value Reference Range Interpretation Comments SODIUM (BEAKER) (test 135 meq/L 136-145 L code = 381) POTASSIUM (BEAKER) 3.3 meq/L 3.5-5.1 L (test code = 379) CHLORIDE (BEAKER) 100 meq/L 98-107 (test code = 382) CO2 (BEAKER) (test 24 meq/L 22-29 code = 355) BLOOD UREA NITROGEN 8 mg/dL 7-21 (BEAKER) (test code = 354) CREATININE (BEAKER) 0.70 mg/dL 0.57-1.25 (test code = 358) GLUCOSE RANDOM 132 mg/dL 70-105 H (BEAKER) (test code = 652) CALCIUM (BEAKER) 8.8 mg/dL 8.4-10.2 (test code = 697) EGFR (BEAKER) (test INSUFFIC IENT CLINICAL code = 1092) DATA TO CALCULA TE ESTIMATED GFR. Auditing Manager ID - GABRIELA [id number] 06:19:00 Test Item Value Reference Range Interpretation Comments MAGNESIUM (BEAKER) (test code = 1.5 mg/dL 1.6-2.6 L 627) Auditing Manager ID - GABRIELA [id number] 06:19:00 Test Item Value Reference Range Interpretation Comments PHOSPHORUS (BEAKER) (test code = 4.6 mg/dL 2.3-4.7 604) Auditing Manager ID - GABRIELA MPOCT-GLUCOSE [id number] 21:19:00 Test Item Value Reference Range Interpretation Comments POC-GLUCOSE METER 112 mg/dL 70-110 H : TESTED A T [facility] 67[facility] (BEAKER) (test code = [facility], 1538) [address]: Auditing Manager/Techni lyudmila ID = [id number] for Cindy Cordova POCT-GLUCOSE [id number] 16:56:00 Test Item Value Reference Range Interpretation Comments POC-GLUCOSE METER 133 mg/dL 70-110 H : TESTED A T [facility] 67[facility] (BEAKER) (test code = [facility], 1538) [address]: Auditing Manager/Techni lyudmila ID = [id number] for JESU SAMANIEGO POCT-GLUCOSE [id number] 11:45:00 Test Item Value Reference Range Interpretation Comments POC-GLUCOSE METER 180 mg/dL 70-110 H : TESTED A T [facility] 67[address] (BEAKER) (test code = [facility], 1538) [address]: Auditing Manager/Techni lyudmila ID = [id number] for JESU SAMANIEGO BASIC METABOLIC [id number] 05:49:00 Test Item Value Reference Range Interpretation Comments SODIUM (BEAKER) (test 137 meq/L 136-145 code = 381) POTASSIUM (BEAKER) 3.5 meq/L 3.5-5.1 (test code = 379) CHLORIDE (BEAKER) 102 meq/L 98-107 (test code = 382) CO2 (BEAKER) (test 25 meq/L 22-29 code = 355) BLOOD UREA NITROGEN 9 mg/dL 7-21 (BEAKER) (test code = 354) CREATININE (BEAKER) 0.63 mg/dL 0.57-1.25 (test code = 358) GLUCOSE RANDOM 117 mg/dL 70-105 H (BEAKER) (test code = 652) CALCIUM (BEAKER) 8.9 mg/dL 8.4-10.2 (test code = 697) EGFR (BEAKER) (test INSUFFIC IENT CLINICAL code = 1092) DATA TO CALCULA TE ESTIMATED GFR. Auditing Manager ID - EDASIHepatic function [id number] 05:45:00 Test Item Value Reference Range Interpretation Comments Protein, Total (test 7.0 See_Comment [Autom ated code = 2885-2) message] The system which generated this result transmit alcon reference range : 6.0 - 8.3 gm/dL . The reference range was not u sed to interpret th is result as normal/abnormal . Albumin (test code = 3.3 g/dL 3.5-5 L 50248-0) Total Bilirubin (test 1.0 mg/dL 0.2-1.2 code = 1975-2) Bilirubin, Direct 0.4 mg/dL 0.1-0.5 (test code = 1967-7) Alkaline Phosphatase 101 U/L 40-150 (test code = 6768-6) AST (test code = 24 U/L 5-34 1920-8) ALT (test code = 23 U/L 6-55 1742-6) LUZ (test code = LUZ) Auditing Manager ID - EDASI Lab Interpretation Abnormal (test code = 19002-4) [facility] Test Item Value Reference Range Interpretation Comments MAGNESIUM (BEAKER) (test code = 1.6 mg/dL 1.6-2.6 627) Auditing Manager ID - [id number] 05:45:00 Test Item Value Reference Range Interpretation Comments PHOSPHORUS (BEAKER) (test code = 4.6 mg/dL 2.3-4.7 604) Auditing Manager ID - EDASIHEPATIC FUNCTION [id number] 05:45:00 Test Item Value Reference Range Interpretation Comments TOTAL PROTEIN (BEAKER) (test code = 7.0 gm/dL 6.0-8.3 770) ALBUMIN (BEAKER) (test code = 1145) 3.3 g/dL 3.5-5.0 L BILIRUBIN TOTAL (BEAKER) (test code 1.0 mg/dL 0.2-1.2 = 377) BILIRUBIN DIRECT (BEAKER) (test 0.4 mg/dL 0.1-0.5 code = 706) ALKALINE PHOSPHATASE (BEAKER) (test 101 U/L 40-150 code = 346) AST (SGOT) (BEAKER) (test code = 24 U/L 5-34 353) ALT (SGPT) (BEAKER) (test code = 23 U/L 6-55 347) Auditing Manager ID - EDASICBC W/PLT COUNT & AUTO [id number] 05:33:00 Test Item Value Reference Range Interpretation Comments WHITE BLOOD CELL COUNT 7.6 K/ L 3.5-10.5 (BEAKER) (test code = 775) RED BLOOD CELL COUNT 3.42 M/ L 3.93-5.22 L (BEAKER) (test code = 761) HEMOGLOBIN (BEAKER) 10.3 GM/DL 11.2-15.7 L (test code = 410) HEMATOCRIT (BEAKER) 30.6 % 34.1-44.9 L (test code = 411) MEAN CORPUSCULAR 89.5 fL 79.4-94.8 Discordant MCV VOLUME (BEAKER) (test result s compared to code = 753) previous result s; clinical correl ation required. MEAN CORPUSCULAR 30.1 pg 25.6-32.2 HEMOGLOBIN (BEAKER) (test code = 751) MEAN CORPUSCULAR 33.7 GM/DL 32.2-35.5 HEMOGLOBIN CONC (BEAKER) (test code = 752) RED CELL DISTRIBUTION 15.6 % 11.7-14.4 H WIDTH (BEAKER) (test code = 412) PLATELET COUNT 284 K/CU MM 150-450 (BEAKER) (test code = 756) MEAN PLATELET VOLUME 10.8 fL 9.4-12.3 (BEAKER) (test code = 754) NUCLEATED RED BLOOD 0 /100 WBC 0-0 CELLS (BEAKER) (test code = 413) NEUTROPHILS RELATIVE 53 % PERCENT (BEAKER) (test code = 429) LYMPHOCYTES RELATIVE 30 % PERCENT (BEAKER) (test code = 430) MONOCYTES RELATIVE 10 % PERCENT (BEAKER) (test code = 431) EOSINOPHILS RELATIVE 6 % PERCENT (BEAKER) (test code = 432) BASOPHILS RELATIVE 0 % PERCENT (BEAKER) (test code = 437) NEUTROPHILS ABSOLUTE 4.02 K/ L 1.56-6.13 COUNT (BEAKER) (test code = 670) LYMPHOCYTES ABSOLUTE 2.29 K/ L 1.18-3.74 COUNT (BEAKER) (test code = 414) MONOCYTES ABSOLUTE 0.74 K/ L 0.24-0.36 H COUNT (BEAKER) (test code = 415) EOSINOPHILS ABSOLUTE 0.46 K/ L 0.04-0.36 H COUNT (BEAKER) (test code = 416) BASOPHILS ABSOLUTE 0.03 K/ L 0.01-0.08 COUNT (BEAKER) (test code = 417) IMMATURE 0 % 0-1 GRANULOCYTES-RELATIVE PERCENT (BEAKER) (test code = 2801) POCT-GLUCOSE [id number] 05:10:00 Test Item Value Reference Range Interpretation Comments POC-GLUCOSE METER 114 mg/dL 70-110 H : TESTED Amy Dunn [facility] [address] (BEAKER) (test code = [facility] [place], 1538) [address]: Auditing Manager/Techni lyudmila ID = [id number] for AN CORNELIO HICKEY SARS-CoV2/RT-PCR (Asymptomatic ONLY)2021-03-03 04:28:00 Test Item Value Reference Range Interpretation Comments SARS-COV2/RT-PCR Negative Not Detected, (test code = Negative, See 74509-2) external report for linked test SARS-COV-2 [facility] (test code = 74037-0) LUZ (test code = Negative result for this LUZ) test determines that SARS-CoV-2 RNA was not present in the specimen above the Limit of Detection (LOD). However, Negative results do not preclude SARS-CoV-2 infection and should not be used as the sole basis for treatment or patient management decisions. Negative results must be combined with clinical observations, patient history, and epidemiological information. A false negative result may occur if a specimen is improperly collected, transported or handled. A false negative result should be considered if patient's recent exposures or clinical presentation indicate that COVID-19 (SARS-CoV-2) is likely and diagnostic tests for other causes of illness are negative. Re-testing should be considered in cases of suspected false negatives. The limit of detection for this assay is 100 copies/mL. This SARS CoV-2 test is a real-time RT-PCR test intended for the qualitative detection of nucleic acid from SARS-CoV-2 in a nasopharyngeal swab specimen collected from individuals suspected of COVID-19 by their healthcare provider. This test has not been Food and Drug Administration (FDA) cleared or approved. This is a modified version of an approved Emergency Use Authorization (EUA) and is in the process of review by the FDA. Once authorized by the FDA, the issued EUA will be effective until the declaration that circumstances exist justifying the authorization of the emergency use of in vitro diagnostic tests for detection and/or diagnosis of COVID-19 is terminated under Section 564(b)(2) of the Act or the EUA is revoked under Section 564(g) of the Act. Testing was performed using the [employer] SARS-CoV-2 assay. Fact Sheet for Healthcare Providers:https://www.[employer]/dave/RT_SA YA-YrH-5_KAY_Tacp_Iiron_ [email or web address].pdf Fact Sheet for Healthcare Patients:https://www.[employer]/dave/RT_SAR G-HoC-6_Rwbrqyh_Sqfk_Nnu et_EN_[email or web address].pdf Performing Laboratory:[facility] [address], [place] [id number] [place], [place] [address]ARS-COV2/RT-PCR ([facility])2021-03-03 04:28:00 Test Item Value Reference Range Interpretation Comments SARS-COV2/RT-PCR (test Negative Not Detected, Negative, code = 3259530) See external report for linked test SARS-COV-[address] [facility] (test code = 2273153) Negative result for this test determines that SARS-CoV-2 RNA was not present in the specimen above the Limit of Detection (LOD). However, Negative results do not preclude SARS-CoV-2 infection and should not be used as the sole basis for treatment or patient management decisions. Negative results mustbe combined with clinical observations, patient history, and epidemiological information. A false negative result may occur if a specimen is improperly collected, transported or handled. A false negative result should be considered if patient's recent exposures or clinical presentation indicate that COVID-19 (SARS-CoV-2) is likely and diagnostic tests for other causes of illness are negative. Re-testing should be considered in cases of suspected false negatives.The limit of detection for this assay is 100 copies/mL.This SARS CoV-2 test is a real-time RT-PCR test intended for the qualitative detection of nucleic acid from SARS-CoV-2 in a nasopharyngeal swab specimen collected from individuals susp ected of COVID-19 by their healthcare provider.This test has not been Food and Drug Administration (FDA) cleared or approved. This is a modified version of an approved Emergency Use Authorization (EUA) and is in the process of review by the FDA. Once authorized by the FDA, the issued EUA will be effective until the declaration that circumstances exist justifying the authorization of the emergency use of in vitro diagnostic tests for detection and/or diagnosis of COVID-19 is terminated under Section 564(b)(2) of the Act or the EUA is revoked under Section 564(g) of the Act.Testing was performed using the [employer] SARS-CoV-2 assay.Fact Sheet for Healthcare Providers:https://www.[employer].mcmillan/dave/ JP_NJQN-SwV-2_CBA_Brkp_Qcnvf_80-765094.pdfFact Sheet for Healthcare Patients:https://www.[employer].BRIKA elda/dave/JC_XDWT-BqN-8_Kchrosm_Ccsv_Gqrxz_YB_59-647116C8.pdfPerforming Laboratory:[facility] [address] POCT-GLUCOSE [id number] 22:25:00 Test Item Value Reference Range Interpretation Comments POC-GLUCOSE METER 96 mg/dL 70-110 : TESTED A T [facility] 6720 (BEAKER) (test code = [facility] Alyson [facility], 1538) 50210: Auditing Manager/Techni lyudmila ID = [id number] for CORNELIO BATISTA POCT-GLUCOSE [id number] 18:30:00 Test Item Value Reference Range Interpretation Comments POC-GLUCOSE METER 127 mg/dL 70-110 H : TESTED A T [facility] 6720 (BEAKER) (test code = [facility] Alyson [facility], 1538) 57839: Auditing Manager/Techni lyudmila ID = [id number] for JESU SAMANIEGO POCT-GLUCOSE [id number] 12:08:00 Test Item Value Reference Range Interpretation Comments POC-GLUCOSE METER 130 mg/dL 70-110 H : TESTED A T [facility] 6720 (BEAKER) (test code = [facility], 1538) 68661: Auditing Manager/Techni lyudmila ID = [id number] for JESU SAMANIEGO POCT-GLUCOSE [id number] 05:33:00 Test Item Value Reference Range Interpretation Comments POC-GLUCOSE METER 106 mg/dL 70-110 : TESTED A T [facility] 6720 (BEAKER) (test code = [facility], 1538) 90301: Auditing Manager/Techni lyudmila ID = [id number] for Cindy Cordova BASIC METABOLIC [id number] 04:26:00 Test Item Value Reference Range Interpretation Comments SODIUM (BEAKER) (test 137 meq/L 136-145 code = 381) POTASSIUM (BEAKER) 3.7 meq/L 3.5-5.1 (test code = 379) CHLORIDE (BEAKER) 102 meq/L 98-107 (test code = 382) CO2 (BEAKER) (test 23 meq/L 22-29 code = 355) BLOOD UREA NITROGEN 6 mg/dL 7-21 L (BEAKER) (test code = 354) CREATININE (BEAKER) 0.60 mg/dL 0.57-1.25 (test code = 358) GLUCOSE RANDOM 104 mg/dL 70-105 (BEAKER) (test code = 652) CALCIUM (BEAKER) 9.1 mg/dL 8.4-10.2 (test code = 697) EGFR (BEAKER) (test INSUFFIC IENT CLINICAL code = 1092) DATA TO CALCULA TE ESTIMATED GFR. Auditing Manager ID - GABRIELA [id number] 04:21:00 Test Item Value Reference Range Interpretation Comments MAGNESIUM (BEAKER) (test code = 1.6 mg/dL 1.6-2.6 627) Auditing Manager ID - GABRIELA [id number] 04:21:00 Test Item Value Reference Range Interpretation Comments PHOSPHORUS (BEAKER) (test code = 4.4 mg/dL 2.3-4.7 604) Auditing Manager ID - GABRIELA [facility] W/PLT COUNT & AUTO [id number] 04:06:00 Test Item Value Reference Range Interpretation Comments WHITE BLOOD CELL COUNT (BEAKER) 10.5 K/ L 3.5-10.5 (test code = 775) RED BLOOD CELL COUNT (BEAKER) 3.37 M/ L 3.93-5.22 L (test code = 761) HEMOGLOBIN (BEAKER) (test code = 10.1 GM/DL 11.2-15.7 L 410) HEMATOCRIT (BEAKER) (test code = 31.6 % 34.1-44.9 L 411) MEAN CORPUSCULAR VOLUME (BEAKER) 93.8 fL 79.4-94.8 (test code = 753) MEAN CORPUSCULAR HEMOGLOBIN 30.0 pg 25.6-32.2 (BEAKER) (test code = 751) MEAN CORPUSCULAR HEMOGLOBIN CONC 32.0 GM/DL 32.2-35.5 L (BEAKER) (test code = 752) RED CELL DISTRIBUTION WIDTH 16.0 % 11.7-14.4 H (BEAKER) (test code = 412) PLATELET COUNT (BEAKER) (test 264 K/CU MM 150-450 code = 756) MEAN PLATELET VOLUME (BEAKER) 10.9 fL 9.4-12.3 (test code = 754) NUCLEATED RED BLOOD CELLS 0 /100 WBC 0-0 (BEAKER) (test code = 413) NEUTROPHILS RELATIVE PERCENT 66 % (BEAKER) (test code = 429) LYMPHOCYTES RELATIVE PERCENT 21 % (BEAKER) (test code = 430) MONOCYTES RELATIVE PERCENT 7 % (BEAKER) (test code = 431) EOSINOPHILS RELATIVE PERCENT 6 % (BEAKER) (test code = 432) BASOPHILS RELATIVE PERCENT 0 % (BEAKER) (test code = 437) NEUTROPHILS ABSOLUTE COUNT 6.86 K/ L 1.56-6.13 H (BEAKER) (test code = 670) LYMPHOCYTES ABSOLUTE COUNT 2.18 K/ L 1.18-3.74 (BEAKER) (test code = 414) MONOCYTES ABSOLUTE COUNT (BEAKER) 0.76 K/ L 0.24-0.36 H (test code = 415) EOSINOPHILS ABSOLUTE COUNT 0.60 K/ L 0.04-0.36 H (BEAKER) (test code = 416) BASOPHILS ABSOLUTE COUNT (BEAKER) 0.04 K/ L 0.01-0.08 (test code = 417) IMMATURE GRANULOCYTES-RELATIVE 0 % 0-1 PERCENT (BEAKER) (test code = 2801) POCT-GLUCOSE [id number] 00:07:00 Test Item Value Reference Range Interpretation Comments POC-GLUCOSE METER 104 mg/dL 70-110 : TESTED A T [facility] 6720 (BEAKER) (test code = [facility], 1538) 67276: Auditing Manager/Techni lyudmila ID = [id number] for Cindy Cordova POCT-GLUCOSE [id number] 18:05:00 Test Item Value Reference Range Interpretation Comments POC-GLUCOSE METER 91 mg/dL 70-110 : TESTED A T [facility] 6720 (BEAKER) (test code = [facility], 1538) 98635: Auditing Manager/Techni lyudmila ID = [id number] for Rj s, Jennifer POCT-GLUCOSE [id number] 12:19:00 Test Item Value Reference Range Interpretation Comments POC-GLUCOSE METER 96 mg/dL 70-110 : TESTED A T [facility] 6720 (BEAKER) (test code = [facility], 1538) 04244: Auditing Manager/Techni lyudmila ID = [id number] for Rj s, Jenniefr POCT-GLUCOSE [id number] 06:42:00 Test Item Value Reference Range Interpretation Comments POC-GLUCOSE METER 117 mg/dL 70-110 H : TESTED A T [facility] 6720 (BEAKER) (test code = [facility], 1538) 42947: Auditing Manager/Techni lyudmila ID = [id number] for ISHMAEL CAMARILLO, ADA BASIC METABOLIC [id number] 05:29:00 Test Item Value Reference Range Interpretation Comments SODIUM (BEAKER) (test 140 meq/L 136-145 code = 381) POTASSIUM (BEAKER) 3.7 meq/L 3.5-5.1 (test code = 379) CHLORIDE (BEAKER) 106 meq/L 98-107 (test code = 382) CO2 (BEAKER) (test 25 meq/L 22-29 code = 355) BLOOD UREA NITROGEN 10 mg/dL 7-21 (BEAKER) (test code = 354) CREATININE (BEAKER) 0.60 mg/dL 0.57-1.25 (test code = 358) GLUCOSE RANDOM 92 mg/dL 70-105 (BEAKER) (test code = 652) CALCIUM (BEAKER) 8.7 mg/dL 8.4-10.2 (test code = 697) EGFR (BEAKER) (test INSUFFIC IENT CLINICAL code = 1092) DATA TO CALCULA TE ESTIMATED GFR. Auditing Manager ID - GABRIELA [id number] 05:27:00 Test Item Value Reference Range Interpretation Comments MAGNESIUM (BEAKER) (test code = 1.8 mg/dL 1.6-2.6 627) Auditing Manager ID - GABRIELA [id number] 05:27:00 Test Item Value Reference Range Interpretation Comments PHOSPHORUS (BEAKER) (test code = 4.8 mg/dL 2.3-4.7 H 604) Auditing Manager ID - GABRIELA [facility] W/PLT COUNT & AUTO [id number] 04:57:00 Test Item Value Reference Range Interpretation Comments WHITE BLOOD CELL COUNT (BEAKER) 9.4 K/ L 3.5-10.5 (test code = 775) RED BLOOD CELL COUNT (BEAKER) 2.96 M/ L 3.93-5.22 L (test code = 761) HEMOGLOBIN (BEAKER) (test code = 9.0 GM/DL 11.2-15.7 L 410) HEMATOCRIT (BEAKER) (test code = 28.1 % 34.1-44.9 L 411) MEAN CORPUSCULAR VOLUME (BEAKER) 94.9 fL 79.4-94.8 H (test code = 753) MEAN CORPUSCULAR HEMOGLOBIN 30.4 pg 25.6-32.2 (BEAKER) (test code = 751) MEAN CORPUSCULAR HEMOGLOBIN CONC 32.0 GM/DL 32.2-35.5 L (BEAKER) (test code = 752) RED CELL DISTRIBUTION WIDTH 16.0 % 11.7-14.4 H (BEAKER) (test code = 412) PLATELET COUNT (BEAKER) (test 235 K/CU MM 150-450 code = 756) MEAN PLATELET VOLUME (BEAKER) 10.7 fL 9.4-12.3 (test code = 754) NUCLEATED RED BLOOD CELLS 0 /100 WBC 0-0 (BEAKER) (test code = 413) NEUTROPHILS RELATIVE PERCENT 66 % (BEAKER) (test code = 429) LYMPHOCYTES RELATIVE PERCENT 20 % (BEAKER) (test code = 430) MONOCYTES RELATIVE PERCENT 8 % (BEAKER) (test code = 431) EOSINOPHILS RELATIVE PERCENT 5 % (BEAKER) (test code = 432) BASOPHILS RELATIVE PERCENT 0 % (BEAKER) (test code = 437) NEUTROPHILS ABSOLUTE COUNT 6.12 K/ L 1.56-6.13 (BEAKER) (test code = 670) LYMPHOCYTES ABSOLUTE COUNT 1.89 K/ L 1.18-3.74 (BEAKER) (test code = 414) MONOCYTES ABSOLUTE COUNT (BEAKER) 0.78 K/ L 0.24-0.36 H (test code = 415) EOSINOPHILS ABSOLUTE COUNT 0.50 K/ L 0.04-0.36 H (BEAKER) (test code = 416) BASOPHILS ABSOLUTE COUNT (BEAKER) 0.04 K/ L 0.01-0.08 (test code = 417) IMMATURE GRANULOCYTES-RELATIVE 0 % 0-1 PERCENT (BEAKER) (test code = 2801) POCT-GLUCOSE [id number] 00:37:00 Test Item Value Reference Range Interpretation Comments POC-GLUCOSE METER 120 mg/dL 70-110 H : TESTED A T [facility] 6720 (BEAKER) (test code = SHARLA [facility], 1538) 65303: Auditing Manager/Techni lyudmila ID = [id number] for SAÚL TODD RAD, ABDOMEN/KUB, 1 VIEW [id number] 19:30:00Reason for exam:->nausea, vomiting, abdominal distentionShould this be performed at the bedside?->Yes [facility] : 1975 Sex: FFINAL REPORT CLINICAL HISTORY: Nausea, vomiting and abdominal distention COMPARISON: None. FINDINGS: 2 supine images of the abdomen are submitted. There are several gas dilated loops of small bowel in the central abdomen. The appearance is nonspecific and could reflect ileus though a small bowel obstruction is a consideration, depending on clinical presentation. A surgical drain overlies the pelvis. There is radiographic evidence of organomegaly. No acute bony abnormality is present. Please note that a supine examination is insensitive in the detection of free intraperitoneal air. Signed: [facility] Verified Date/Time: 02/28/2021 19:30:20 Electronic ally signed by: PAT SHAH M.D. on 02/28/2021 07:30 PMXR abdomen / KUB 1 [id number] 19:30:00Interface, External Ris In - 02/28/2021 7:32 PM CDTFINAL REPORT CLINICAL HISTORY: Nausea, vomiting and abdominal distention COMPARISON: None. FINDINGS: 2 supine images of the abdomen are submitted. There are several gas dilated loops of small bowel in the central abdomen. The appearance is nonspecific and could reflect ileus though a small bowel obstruction is a consideration, depending on clinical presentation. A surgical drain overlies the pelvis. There is radiographic evidence of organomegaly. No acute bony abnormality is present. Please note that a supine examination isinsensitive in the detection of free intraperitoneal air. Signed: [facility] Verified Date/Time: 02/28/2021 19:30:20 [facility] [id number] 18:10:00 Test Item Value Reference Range Interpretation Comments POC-GLUCOSE METER 156 mg/dL 70-110 H : TESTED A T [facility] 6720 ([employer]) (test code = [employer] [facility], 1538) 42710: Auditing Manager/Techni lyudmila ID = [id number] for Wi lliams, Areiona POCT-GLUCOSE [id number] 11:48:00 Test Item Value Reference Range Interpretation Comments POC-GLUCOSE METER 122 mg/dL 70-110 H : TESTED A T [facility] 6720 ([employer]) (test code = [employer] [facility], 1538) 92043: Auditing Manager/Techni lyudmila ID = [id number] for Shayla Luis Anaerobic [id number] 07:22:00 Test Item Value Reference Range Interpretation Comments Result (test code = No anaerobes isolated 6463-4) [facility] Center[facility] [id number] 07:22:00 Test Item Value Reference Range Interpretation Comments CULTURE (BEAKER) (test No anaerobes isolated code = 1095) POCT-GLUCOSE [id number] 06:17:00 Test Item Value Reference Range Interpretation Comments POC-GLUCOSE METER 136 mg/dL 70-110 H : TESTED A T [facility] 6720 (BEAKER) (test code = SHARLA R [facility], 1538) 81870: Auditing Manager/Techni lyudmila ID = [id number] for Cindy Cordova BASIC METABOLIC [id number] 05:12:00 Test Item Value Reference Range Interpretation Comments SODIUM (BEAKER) (test 136 meq/L 136-145 code = 381) POTASSIUM (BEAKER) 4.0 meq/L 3.5-5.1 (test code = 379) CHLORIDE (BEAKER) 103 meq/L 98-107 (test code = 382) CO2 (BEAKER) (test 25 meq/L 22-29 code = 355) BLOOD UREA NITROGEN 16 mg/dL 7-21 (BEAKER) (test code = 354) CREATININE (BEAKER) 0.56 mg/dL 0.57-1.25 L (test code = 358) GLUCOSE RANDOM 114 mg/dL 70-105 H (BEAKER) (test code = 652) CALCIUM (BEAKER) 8.2 mg/dL 8.4-10.2 L (test code = 697) EGFR (BEAKER) (test INSUFFIC IENT CLINICAL code = 1092) DATA TO CALCULA TE ESTIMATED GFR. Auditing Manager ID - GABRIELA [id number] 05:07:00 Test Item Value Reference Range Interpretation Comments MAGNESIUM (BEAKER) (test code = 1.8 mg/dL 1.6-2.6 627) Auditing Manager ID - GABRIELA [id number] 05:07:00 Test Item Value Reference Range Interpretation Comments PHOSPHORUS (BEAKER) (test code = 3.6 mg/dL 2.3-4.7 604) Auditing Manager ID - GABRIELA EPATIC FUNCTION [id number] 05:07:00 Test Item Value Reference Range Interpretation Comments TOTAL PROTEIN (BEAKER) (test code = 6.3 gm/dL 6.0-8.3 770) ALBUMIN (BEAKER) (test code = 1145) 3.1 g/dL 3.5-5.0 L BILIRUBIN TOTAL (BEAKER) (test code 0.8 mg/dL 0.2-1.2 = 377) BILIRUBIN DIRECT (BEAKER) (test 0.4 mg/dL 0.1-0.5 code = 706) ALKALINE PHOSPHATASE (BEAKER) (test 62 U/L 40-150 code = 346) AST (SGOT) (BEAKER) (test code = 15 U/L 5-34 353) ALT (SGPT) (BEAKER) (test code = 16 U/L 6-55 347) Auditing Manager ID - GABRIELA [facility] W/PLT COUNT & AUTO [id number] 04:48:00 Test Item Value Reference Range Interpretation Comments WHITE BLOOD CELL COUNT (BEAKER) 10.7 K/ L 3.5-10.5 H (test code = 775) RED BLOOD CELL COUNT (BEAKER) 2.78 M/ L 3.93-5.22 L (test code = 761) HEMOGLOBIN (BEAKER) (test code = 8.4 GM/DL 11.2-15.7 L 410) HEMATOCRIT (BEAKER) (test code = 26.4 % 34.1-44.9 L 411) MEAN CORPUSCULAR VOLUME (BEAKER) 95.0 fL 79.4-94.8 H (test code = 753) MEAN CORPUSCULAR HEMOGLOBIN 30.2 pg 25.6-32.2 (BEAKER) (test code = 751) MEAN CORPUSCULAR HEMOGLOBIN CONC 31.8 GM/DL 32.2-35.5 L (BEAKER) (test code = 752) RED CELL DISTRIBUTION WIDTH 16.2 % 11.7-14.4 H (BEAKER) (test code = 412) PLATELET COUNT (BEAKER) (test 204 K/CU MM 150-450 code = 756) MEAN PLATELET VOLUME (BEAKER) 10.6 fL 9.4-12.3 (test code = 754) NUCLEATED RED BLOOD CELLS 0 /100 WBC 0-0 (BEAKER) (test code = 413) NEUTROPHILS RELATIVE PERCENT 68 % (BEAKER) (test code = 429) LYMPHOCYTES RELATIVE PERCENT 20 % (BEAKER) (test code = 430) MONOCYTES RELATIVE PERCENT 6 % (BEAKER) (test code = 431) EOSINOPHILS RELATIVE PERCENT 5 % (BEAKER) (test code = 432) BASOPHILS RELATIVE PERCENT 1 % (BEAKER) (test code = 437) NEUTROPHILS ABSOLUTE COUNT 7.32 K/ L 1.56-6.13 H (BEAKER) (test code = 670) LYMPHOCYTES ABSOLUTE COUNT 2.12 K/ L 1.18-3.74 (BEAKER) (test code = 414) MONOCYTES ABSOLUTE COUNT (BEAKER) 0.69 K/ L 0.24-0.36 H (test code = 415) EOSINOPHILS ABSOLUTE COUNT 0.49 K/ L 0.04-0.36 H (BEAKER) (test code = 416) BASOPHILS ABSOLUTE COUNT (BEAKER) 0.05 K/ L 0.01-0.08 (test code = 417) IMMATURE GRANULOCYTES-RELATIVE 1 % 0-1 PERCENT (BEAKER) (test code = 2801) POCT-GLUCOSE [id number] 00:20:00 Test Item Value Reference Range Interpretation Comments POC-GLUCOSE METER 133 mg/dL 70-110 H : TESTED A T [facility] 6720 (BEAKER) (test code = [facility] [place], 1538) 61656: Auditing Manager/Techni lyudmila ID = [id number] for Cindy Cordova Prepare Leuko-Red [id number] 23:54:00 Test Item Value Reference Range Interpretation Comments CROSSMATCH (test code = 2264) COMPATIBLE Unit ABO (test code = O Pos 0807815) UNIT NUMBER (test code = [id number] 934-0) Status (test code = 1442836) TX_TIMEINCHART Blood Bank Product (test code RED BLOOD CELLS = 2263) PRODUCT CODE (test code = U6724Z73 933-2) [facility] [id number] 18:26:00 Test Item Value Reference Range Interpretation Comments POC-GLUCOSE METER 131 mg/dL 70-110 H : TESTED A T [facility] 6720 (BEAKER) (test code = [facility] [place], 1538) 65711: Auditing Manager/Techni lyudmila ID = [id number] for Pavel Boyle Tissue [id number] 18:09:00 Test Item Value Reference Range Interpretation Comments Case Report (test code Surgical Pathology = 104) Report Case: [id number] Authorizing Provider: Nelson Oconnor MD Collected: 02/24/2021 10:11 AM Ordering Location: [facility] Received: 02/24/2021 01:24 PM SERVICES Pathologist: Tony Sy MD Specimens: A) - Large Intestine, Colon - Sigmoid, sigmoid colon B) - Biopsy, Anastomotic Site, anastomotic rings C) - Small Bowel, NOS D) - Omentum DIAGNOSIS (test code = g1dlnJWnPKVbl3hnWKEzsKG 3220) uZzEwMzNcZnRuYmpcdWMxIH tccnRmMVxlcGljOTIwMlxhb yQxSIHygIQbI6OboaclABtk RH7sSH3voWainBMnnVQcYGT hRlKhu2mkk126gQKep0fcAV CVpeoipYu2mMwcO78ht4P8Y oakC08yhPBbGAecmKVpvtzg jaOrILSdEINADL5EPHURDYx CY6yBIELKIPEGN2CPM954XK BhciAtIERJVkVSVElDVUxJV HuMFYfPAExgZBYMRq6NTBMR Y70clNAvEV9pW0EOX2oIOVs zAGCMC9uQOrEAQLNCLJZjxP FvZB0rKAiFXFOTNedCMpUTS J5JUVXEU9BKVhRwYC4lVJzy KMQmrPGkICGoUHTAIF2WDVO CCzNBTF4WI5ZDBnGIHY7YTf zqXGoOHXUMZ966UVNseyBlQ Q7RKRVYIRwXHT2SKTEwAYbX J33MI4nGEPLplabxNSWgWz8 qS74ZHUguPa4IWIzdOXAVM8 PVLHxEKgjonTSqLT5pK20NC YoaKj4QBLyhC7sKNUGPONNG P1QZCOfUMajtSMOTZGMNHJg EYbtICG5NHIeIZjruHgzYZu 8FDPJsLA1PKKmFNR6XKYRVM M7KUVGEN6KHOHlnEXCdQRUE CDZQXGZAUEYIQYYKUB8XNYW JQUJMRVxwYXJccGFyIEQuIE 8YFE2PGG0dRYBIV7zEAO7ZM gqwSIKzPSYOPM6DH44wSpqV Py7AMJhPO6GCXANMI0LGVYF XZOAHCFPHZdTAL8pEDETEQl FOVUxBVElPTiBUSVNTVUUgQ E4KYCPYDTEDOObCKllCCN5P BYgNTotrFOU2f5turYCgJJO zdGUxODAwMFxhbnNpXGRlZm loqzyfFKHnXAK0xePxTKQrT HdkJBIcUInbAn4mnKGgjIma EhJkKEGjr5dtxqDNvelneTx 5z6avGBTkXkS0tYZqWBpeW5 jwyrCqmXDcPONqZJj5tP65C AOziV6rbWRzBLhctmRlUnQ4 FHwlJHQtWaU3ZUTvoNQxBIP nS5bxEIBwEAuuMCQbPZrxuI UvBRL3zMpfy7A6sRZehWIrb WvzJbUrFyNkSjRPa4QjFVh1 aPusP0TkCGUzCdF5uLAmHVE bXUhsCBTzWPTvuyB5kH27EM cpwhK0cIEjj1Bgp06yb794g P3tfSOvYWD8LPItDPIzxPIw WXDiWWW8LPNrqEUeJ6prWCX lMS9zvbyuLBzqXWxjVPStwP M0HCSkrEYpX6NwBZGiIMnbS IJgiyr1HrPnDh6ijYZgqEas JYafy6dgo8jamSNiDsd8WTW eBcPeJyhiDTtck2Zrt3vvHL Kjcx8zTUF8aTDubPqqw5K3o HUsQYOtmPOpHBIbIQ4bcDNv ZIJxxV5pcazlHFKqApIgsls jQOWccCcqjuGxZm9lkJgmVI U4XCpnA8owsO9eAvW0RGifL 8rywT9sZTe2REuwWIEvhKF9 jeX3PSNoxCQpM6PcvI7vKXM kUJ5letv4n9dgZPH8JZfaQC TuOsV3vbJ6EVSocYOdAPTvz RfmQAtix187DGP0UsUbOBSz m4IwZ2MlwMllK88jxProL84 jWGWfbKpndV6bxCyhlT9mUx ElIrIvRWxsgCbcUQ5sOURwJ 3whhHIpEPIvHLSbZ9ydLlCn mQ1qiJpaTRrfknLxXHGlLcm 4OVSygYKvDMImLip5EXTuAL DwM80bphmiING4xI4mo6uin 5ObPLipOKI1RMZex04jFCzw viK0OIfxJc8eBLQtQdc1Bua dLVK7bB== CPT Code(s) (test code f9coeRRkUTXobEA4SyLjHZA = 3357) zk1acu0GwzRGjsUThRCfdtL ZquxIdme58kTH0dV73UJ1dS ZRdXxM2CBUemrY9Syh8EUIl IWFfvKGhE554z6cbb2llefP igHK7jZkkXUHvLQPuUYirRH ZzMjAgODgzMDcgWCAyXHBhc iM5AJIlLQczXDQhWIxfQLWe cGFyfQ== CLINICAL HISTORY (test a7galJFaIKPysGO3IqQlZKV code = 3356) jl2qdv8PbkIJhzRSmWDmkpM QbhpYmpn59dCX8dA20WN0dW WDkDqY6EZDrynC0Wbr5RRBe YJErkRUtC073o9zll4grbpP fvEC6mKohUYZfMPXfPXaiTI PnTrWvWJx2RMS8kXL1qKi3c XNccGFyfQ== SPECIMEN SOURCE (test b8aliUFqXURdfLS3DgKrPNN code = 3377) fc6kyl3UmqOOflXCuHStijE YcxeCvqo48iEY8uD43EM7oJ DAhXpA0GFMzooP1Ylv5WIRm NBLzxPAuZ921i1rhl1zypwE huOX7vYhcBCFqICRrUPuqIC JgBsSjPU3fQXOpN89qhXHaW 41me23toOikGXGXQmXfCN8l v4CxcD58cDKdq5t4BWtkeA8 jLZSgKJWLcFVhdOZpk8docW piWc7VYGeldbWmYL7uQQ9uP O98sY6vaFKgpE== GROSS DESCRIPTION k8qarYXnAUEasQMgVcMgBVG (test code = 3366) bHYRus4pnHMLhhXQkQyXgMo NcZnRuYmpcdWMxXGRlZmYwe 3pgt897uDXct6noHXMhWiV2 sYVwMTMcbIVvP598b5non7h hsaXppUK3UBAnZEF5DNoyzr KnnnN0DJbkiYUbAkF0CQomc rHcEIqmcnQjqtGfKke6DNYd O312YHB9rEbqe5hbWYF5TMN zHCRuWzXbXi7liFWtF574SH JmMIHQRLUxtWt5ZYCqsyHvu jKobAFSq063O325j4sbWJOy zgQaqMuImoizf3hqT500LQS hcGVydzEyMjQwXHBhcGVyaD M6XVJiML4zwnbgRzAsRI7yw lonYdRxBS1vgqw2WlMgMU5h cmdiNzIwXGhlYWRlcnkwXGZ ei1XdjyhsKY2rM1Ovv7H7oN 9maXRcZGVmdGFiNzIwXGZvc r9olDWkZLkyj8AbTWD5bqN5 qTYskBMnGNTqXN15Cusmz2T mQxhyIHT5ZQFcgeXgz1Nln0 xbFvEgpgBdU4yaO3HbCERkI KCdPPOfAmSktjQym8Gea1Df zOXngHn8m5whQJOdWWAsbSn mi7amXFK7EVJgW1N5yRCna8 akMPiqBWGwuKA6vnzcAJyoQ AUkieL4ozdfSOiaKESbnYX9 qmqvWFvqQJLvVwA0gpuxZSy lCLMoEOK4MDaip589ARG6PZ xzYmtwYWdlXHBnbmNvbnRcc GduZGVjXHBsYWluXHBsYWlu XGYwXGZzMjRccWxccGxhaW5 mJyKgLoVqEAvhTI9xHPFdK4 scyCMoZGCwFRJrU3ibLhHkj B5yxUzxAXhwqkFpREQuWUYW ZWNlaXZlZCBmcmVzaCBsYWJ hbDPoAKYwPZNqIMCkZH50G4 QcdxSySLzcTRGvQQNycH0pE M22aEGrssVmmdGpLqVcQ85s oIWiK74mw39iUHWjCOKuSLY ld1DoZF51WEFzu3QupKRtbL Fng9UeF94an29rhFdpdAQaB M9rEEBtch1vZKSjNcTwLVYg MCBjbSBpbiBncmVhdGVzdCB zZC1izMuhPnxyYv8xTBXjBV osHMEtYL3zyLSrDjzwMETzn AKbLZFgFYHhg08sBRCim2Oh cLAplLOeChPrRBUuts7bNRC pcyByZWQtcGluaywgaHlwZX KxoPdaOMSfAGWsbHSlhMQ4q rUfDPTdZxN8YKQbUfOsvID6 thTau347rbQaYXUaKyOeeND 7bXMqSVJ1cmPbrJ0yaK5bLA AojJClaO0xteK5fDX4BUfbP UJjUbOfrQBtra5vGIZuSXCy wM1oUUS0TQ4xsmlpzcRwbL1 vKMNoHyp7ZVmdQCIqFMBbGK 4nGLMsVZJld09zlShjBU4oe E4cmE9cILWhXUTiGncaN5km LiAgVGhlIHNwZWNpbWVuIGl yZP9sET5uDLG3hwIzKQXrDI elDOD4IY3zzXpcggGasNJme 0DnmCkwkIFmbMTjzAC7yqJq b4XxGAtlQd2cDIBpKQISzeA iuTQpqtL0PYLgGKLof61qCH XlYOUnwu4zr3e3LITnpMRqP 5qwjTLjDkFfA4VktJfggljq BeRgQEVwKSjwLW24lQPvcBe lIGRpdmVydGljdWxpIHRocm 54M1qliVXqhEjiFASdgDlfI AXek6sbzp4aHQQdKSV3OWue NG5qLIC3xjRcMIUgZSHkION aFGZsxKL5zZckmf2ojBPgRK XcdgPTiWOgc0pfjoHjluQuB HhlCF35DKyZAoiip3Zuh0An LZoqPQVkty5fkN1zQKLwrUG nbbAljIUuUM8bAWAyOBNynE stXQ98mSemk8MsCxAsBQTdI nkgbXVsdGlwbGUgYWRoZXNp n50rZrPfVXvdWBPwXEOtuCK zJGudTF3cHH8xRUH9ptYjXQ TdGAmsORN5SD9oqLlsicQsy CYsb3OsdPviqSCjhATzuLP0 mtAiu3PrQXakjV3pHjlxnAB rxfCwVLQkzLIuHwOgFv6qRF qvW1KwtDWaaFZhyJ2ieoYjv fFcT3Zie8ZcyJXywOIdMKUy GXFiOR0jBTCjL8Xfd97zdjm fqqT2ZMBeaqYyIUbhgBoegJ bfwFChYGWxlZBlrwA0oBF2d cXqTnTqD99exYibY4tkTUGR hbHhwHRslwC5GJJyRYIge41 tYA5eWFYmpaQfkpA3yS2znl XiomHtD2Agi7JkxIOcpGUrT XFxUKJwRJ2cYSJejAWry9Fy vDP8zXXzRYSxE5Jzg86mWDC oWWFspDVjfIG2KBVkYITgSa 3ehV61kkzvpAAdRBUfsmIWD VE9hS5iDXTiSVKvfYGyUYQs ONIfYBAofA1mXM7xtfpedgE hRP9rUbNoAByvXRhvDlXkKB 32eHVecTwwvE9wMWAuGvg5V JLrzvYrYuhlU6yzrJToYQCr FPEhPNCpALHoQN5grLKnRQe rPDCdEIB0FUWmrhRPZF9GSP 1EPGDvnCPpgnMpG9FoVAboG PEyPFLzQoUiS99rq10ewFRg R5qhlaXbgtNqQXRgSNDboIW mZXJlbnRpYWxseSBpbmtlZC FjeVTkRPSiKDMieHKeo5ljT UZpBWxgnnGyxcSfFN64DFXq znGhPpOshNTgDLX8HJ73eAY smDyjLNf4sTZwIO4pHUHdYS PllqwgCVOdDx4lCVLqE3Mag mVkIGZyZXNoIGxhYmVsZWQg dGhlIHBhdGllbnQncyBuYW1 rBHXyY1Psc6Zum82juzNcYz JiZXRwEMZyXN1rs1NdkF79y TCzdqatJ9EyTWWpRYCcKAZt w3FbPF58JXCgWSHmbfIfJWX gxG0gcUqixeVjq4UmL63zc3 2uqOxcfBGeMR4vZMZkvn7bY JFyMh9hFaJeE66clW4iA4Df SEQjy2NxSKpufMM8CWPtWWS gPJYqeoVceVWstLrbpAk2PF F7onIdF2CbQVI1IWIwcb3mq L7yLTPzx2GzbGg4IWNsjDAg KM8qdP28ywjxw99qv0CaLL5 8D43aGI7dRSYzRVRoIOBqzN 5zIGFyZSBkaWZmZXJlbnRpY WxseSBpbmtlZCBibHVlIGFu MSWcrMZbxqzbKI5nNGNlFPI ksYCqqH7qijIjTLXmDJLbHC clkWb7ZLTtT2Whe52dHC1mN RFcoQLru0UzvGE1zAXsYPSp L1Tdg24zAYZeAULooZZdcTN 5FFTbvN3bIsJlBdUpXHKiyc uaYPSzCC1nSGDgIOWotDBuR SS9oEJfTWNvyvkaXdwtSdd3 YUkvNSQzD3PnlZhmUPAhaN1 bVcIBjHMib9njOUBwrMBcTD MuICBSZWNlaXZlZCBmcmVza CBsYWJlbGVkIHRoZSBwYXRp ZH30G6JfqqUfXOqcYXKmBRJ alZ8qNW25nLIsnmSebgKzCq GrILyrMJJvz6KnFVALE9NwN YEySFPqBLPna9QwHT55FMQc v5KzoBBmtMOfp6Bon43icIl qMe34EYtnmJzboCDzKN9aYW Qfba4tIQarGH4xRV6hZUJbR RylYNpyVWK5FFF8GHhueuo6 bXJahJFgXgTlW17qrG1zGRy jpGR2IADuUZVKePHus4Zad6 MaDSwxFGImGN8xgB7eSLUwe XBlcmVtaWMsIHByZWRvbWlu PU48dWsam4CsPmVvPQLbBba gbXVsdGlwbGUgYWRoZXNpb2 3hJATkgDPch9U5eoLrTY49B WP1mUOjkJDhVL5eZALcb9Re KFuzIT49vJUzrCvnQJVvZY7 zvJOhMDkxAAYcLRX2cdS2vT TzEGE0jfHmmI7rkR5cBGyqe Y8fjykiM6IzaqXfC2jhFkPg nv0uAYWfBh7lGhvjS55tkD0 lP9ZwAGZjl3MmPMpyAE6lpF 9uLiAgVGhlIGRlZmVjdHMgY XZtQZszB3F5ZRNuBl0mYOZu LUPvn34umPsmHYUtx3Fts4P fpMWpP8ovZlHaVZqsAWKdKZ TaqBJaJBntXY8sYV0lCKV2k cVtEPAdABhsERZ4WR4jlGol etncIx9aXPlfvHNjHHHgKKY epJUeeHYdg9WvGKYqRQTeQT utbCaemWGvli8jjHAeSQRsq BFeXtRxZo3wRJlwM3UhtBBk sPMteS2obqCerbQnzBWjujH xSoxtEW3lUNBcDYK1IKcdMY 4xBYG7cgRjUMDkWRTfFHImD YMprEH4rPnhei4aFHVjeDBh m1XykLO7vTTsBDQvK4Opl78 gJVDpCWTfcCJxsFA4TSNkAV RiDk6djO66dmzopHJzJQZrc kOKYGM0cO8zDCZnWBPlbEBp ZHOdJBnfarcjm5Rde0IanPI upNNqMVZabT4aRMMvWQEzX3 FdDUWhGzSxvtIuqQccnTe0P Ylyn3AfQXPyxVFmQU1oQNAp DDIhQHBcasUMWo4JHi7zs60 kSTU2IUAhJ49mwuOjfCClvy ZlpXSrzMDzLVVrG0JoiXKkG TZ0CBkjpcuyz7Qdd8UekVTh fLIrMGhoa7vgsqYpnLYtXAS 9DXYcF60cTNZol08tGBH1RN OkL10pmwLeuHQcN0hcfbPqb iBmYWNlLCBkaWZmZXJlbnRp YWxseSBibHVlLWJsYWNrXHB jcxZAWg3hUCKdvfYhxR1xU4 SqhSOlKNgySI36LJXpIN5rp JJcSReqSPIuMQG2QZHvswPK Pt0dyR2xeGGxmMBqCXhfTC8 1RI6latgtjcMzRZ5gZnDqJR iuXLvlCaEqIQ61mGXobYoyn R4kUGLjWgi3KAEdagAqMfdt D2rfiMPxKMA5ETJ7MGLdu7F 5QXT6ZADvA76mflGzqXAdrz UteQLvvXIqFGOhQ5ArxMMpO WDogxUDWuNkMqHdCIx3SWGq LdEai0fjmSVfADioKJZ9yGU zpAW7lYZbrIswMI4hpLFnJC XsJ4Kxe5yzntMsvT8oFCUkP C5eRXSluTTahWHaJjQrgbVk FFV3IvWueFW7FmvhyUSaGoB eO77slL5njEvfeoGmRaF9ZV 9umVMibX11SPPtm0QcfJv8D DwtcF5pynawH3zfHPRflKHe v3BukKS1VFTmIRH3cHNnrHg lzV2qyTNmgHStSV8aOX98iH 7lGYEXLSG8qD4piV7qBGOqp oQlwEYmASM8WB1gzDPpqB62 FANoaJTcu9HxyMJ1QFY1nBW wnYEdQPBdFdBgKs1mMGxxB2 VelYJfhNQmrM4foqReciZnY 9Ccr4WxcGEupKZcWJGvJPMx JK0xIBTkpEPbs4CvnRM2fEP cJXCgJ6Lmb30dVFTdNJFbrX YshNX2WWZzhE9gOVKrEHRpV HBhclxwYXIgUGlsYXIgQXJn dWVsbGVzLCBQQSwgSFQgKEF AI4MzCOJinx2= MICROSCOPIC v2yylRQtJRAtkGF3HnTqMMT DESCRIPTION (test code ud8woq0FddQRtvTOsBCzmxX = 3371) PbiyRfng93iEQ6oH38NS0cI QQwOdH5MVJjisO5Kmw7DHUl EJBgiUEvN120w6ibr1itovI asAI0tJakSQUiGSDsLLggVU NzZaObPXWpOf0kpDWiYwucW XJ9 Gross assessment was [facility] performed at ([facility], code = 2777) Department of Pathology, [address] [place] [address], Technical component [facility]. [place] was performed at ([facility], code = 2778) Department of Pathology, [address] [place] [address], Professional component [facility] [place]'s was performed at ([facility], code = 2779) Department of Pathology, [address] [place] [address], [facility] [id number] 18:09:00Surgical Pathology Report Case: [id number] Authorizing Provider: Nelson Oconnor MD Collected: 02/24/2021 10:11 AM Ordering Location: [facility] Received: 02/24/2021 01:24 PM SERVICES Pathologist: Tony Sy MD Specimens: A) -Large Intestine, Colon - Sigmoid, sigmoid colon B) - Biopsy, Anastomotic Site, anastomotic rings C) - SmallBowel, NOS D) - Omentum A. COLON, SIGMOID, RESECTION:- DIVERTICULITIS WITH PERFORATION- SURGICAL MARGINS VIABLE- TWO BENIGN LYMPH NODES (0/2)B. COLON, ANASTOMOTIC RINGS, EXCISION:- NO PATHOLOGIC DIAGNOSISC. SMALL BOWEL, RESECTION:- SMALL BOWEL WITH PERFORATION, ACUTE INFLAMMATION, FIBROSIS AND GRANULATION TISSUE- SURGICAL MARGINS VIABLED. OMENTUM, EXCISION:- BENIGN FIBROADIPOSE TISSUE WITH FIBROSIS, GRANULATION TISSUE AND ACUTE INFLAMMATION Signing Pathologist Direct Phone Line: [phone] signed by Tony Sy MD on at 6:09 [id number]. Sigmoid colonB. Anastomotic siteC. Small bowel, NOSD. OmentumA. Received fresh labeled the patient's name, accession number and "sigmoid colon" are 2 unoriented segments of colon that range from 13.5-16.0 cm in greatest length by 3.0 cm in di ameter.The longer segment (S1) serosa is red-pink, hyperemic and displays a 0.2 x 0.2 cm transmural defect with surrounding adhesions that is 4.2 cm from the closest margin (inked blue), and 11.0 cm from the opposing end (black). The specimen is opened to reveal a sanders-pink mucosa that displays normalfolds. No discrete lesions are grossly appreciated. Sectioning reveals multiple diverticuli throughout the entire colon. The wall measures up to 0.4 cm thick.The shorter segment (S2) serosa is sanders-pink, hyperemic and predominantly surfaced by multiple adhesions. The specimen is opened to reveal a sanders-pink mucosa that displays normal to flattened folds. No discrete lesions are grossly appreciated. Sectioning reveals a wall that measures up to 0.2 cm thick. No discrete lesions or perforations are grossly appreciated. [employer] sections are submitted as follows:Section codeA1-S1 colon margins en face, differentially inked blue and ooirmU4-V2-J6 transmural iepyhlJ2-J7-E2 diverticulaA6-S2 colon margins en face, differentially inked blue and blackA7- in store representative M8Y9-npodjssu lymph nodesB. Received fresh labeled the patient's name, accession number and "anastomotic rings" are 2 unoriented, annular portions of colon that range from 1.7-2.6 cm in greatest diameter, and are partially surfaced by sanders-pink, focally erythematous, smooth mucosa. The margins are differentially inked blue and black, and the specimens are radially sectioned. [employer] sections are submitted in B1-B2.Ink codeSutured ring: BlueStapled ring: BlackC. Received fresh labeled the patient's name, accession number and "small bowel, NOS" are 3 unoriented segments of small bowel that range from 7.8-11.0 cm in greatest length by 3.0 cm in diameter. The serosa is red-pink, hyperemic, predominantly surfaced by multiple adhesions, fibropurulent exudate and displays multiple transmural defects with surrounding hemorrhage ranging from 0.2-0.7 cm in greatest dimension. The defects are located 2.3 cm from the closest margin. The specimen is opened to reveal a sanders-pink, focally edematous mucosa that displays normal folds. No discrete lesions are identified. The wall measures up to 0.4 cm thick. [employer] sections are submitted as follows:Section codeC1-longest segment margins en face, differentially inked blue and epltfY7-Y2-cqkslwd segment transmural defectC4- longest segment adhesionsC5-second longest segment margins en face, differentially wupe-yurilL0-jvzzjn longest segment transmural defectC7-shortest segment margins en face, differentially inked blue and jmzxzE8-K6-dibdwfcv segment transmural defectD. Received fresh labeled the patient's name, accession number and "omentum" is a 16.0 x 6.7 x 2.2 cm portion of sanders-yellow, focally hemorrhagic, fibrofatty, partially indurated omentum. Sectioning reveals a sanders-yellow, fibrofatty cut surface. No discrete lesions are grossly appreciated. [employer] sections are submitted in D1-D3.SARIKA Song, HT (ASCP)Performed.[facility], Department of Pathology, [address] [place] [address], [facility], Department of Pathology, [address] [place] [address], [facility], Department of Pathology, [address] [place] [address], Ozsschojep and [id number] 15:16:00 Test Item Value Reference Range Interpretation Comments Hemoglobin (test code 8.4 See_Comment L [Auto mated = 786-4) message] The system which generated this result transmit alcon reference range : 11.2 - 15.7 GM/ DL. The reference range was not u sed to interpret th is result as normal/abnormal . Hematocrit (test code 26.4 % 34.1-44.9 L = 4544-3) LUZ (test code = LUZ) Auditing Manager ID - [id number] Lab Interpretation Abnormal (test code = 25262-7) [facility] AND [id number] 15:16:00 Test Item Value Reference Range Interpretation Comments HEMOGLOBIN (BEAKER) (test code = 8.4 GM/DL 11.2-15.7 L 410) HEMATOCRIT (BEAKER) (test code = 26.4 % 34.1-44.9 L 411) Auditing Manager ID - [id number]-GLUCOSE [id number] 12:07:00 Test Item Value Reference Range Interpretation Comments POC-GLUCOSE METER 136 mg/dL 70-110 H : TESTED A T [facility] 6720 (BEAKER) (test code = [facility], 153) [address]: Auditing Manager/Techni lyudmila ID = [id number] for Pavel Boyle POCT-GLUCOSE [id number] 05:38:00 Test Item Value Reference Range Interpretation Comments POC-GLUCOSE METER 144 mg/dL 70-110 H : TESTED A T [facility] 6720 (BEAKER) (test code = [facility], 153) 33367: Auditing Manager/Techni lyudmila ID = [id number] for NADEGE LUIS BASIC METABOLIC [id number] 04:04:00 Test Item Value Reference Range Interpretation Comments SODIUM (BEAKER) (test 142 meq/L 136-145 code = 381) POTASSIUM (BEAKER) 4.1 meq/L 3.5-5.1 (test code = 379) CHLORIDE (BEAKER) 107 meq/L 98-107 (test code = 382) CO2 (BEAKER) (test 26 meq/L 22-29 code = 355) BLOOD UREA NITROGEN 17 mg/dL 7-21 (BEAKER) (test code = 354) CREATININE (BEAKER) 0.59 mg/dL 0.57-1.25 (test code = 358) GLUCOSE RANDOM 113 mg/dL 70-105 H (BEAKER) (test code = 652) CALCIUM (BEAKER) 8.4 mg/dL 8.4-10.2 (test code = 697) EGFR (BEAKER) (test INSUFFIC IENT CLINICAL code = 1092) DATA TO CALCULA TE ESTIMATED GFR. Auditing Manager ID - GABRIELA MCBC W/PLT COUNT & AUTO [id number] 04:02:00 Test Item Value Reference Range Interpretation Comments WHITE BLOOD CELL COUNT (BEAKER) 10.8 K/ L 3.5-10.5 H (test code = 775) RED BLOOD CELL COUNT (BEAKER) 2.86 M/ L 3.93-5.22 L (test code = 761) HEMOGLOBIN (BEAKER) (test code = 8.7 GM/DL 11.2-15.7 L 410) HEMATOCRIT (BEAKER) (test code = 27.3 % 34.1-44.9 L 411) MEAN CORPUSCULAR VOLUME (BEAKER) 95.5 fL 79.4-94.8 H (test code = 753) MEAN CORPUSCULAR HEMOGLOBIN 30.4 pg 25.6-32.2 (BEAKER) (test code = 751) MEAN CORPUSCULAR HEMOGLOBIN CONC 31.9 GM/DL 32.2-35.5 L (BEAKER) (test code = 752) RED CELL DISTRIBUTION WIDTH 17.2 % 11.7-14.4 H (BEAKER) (test code = 412) PLATELET COUNT (BEAKER) (test 230 K/CU MM 150-450 code = 756) MEAN PLATELET VOLUME (BEAKER) 10.4 fL 9.4-12.3 (test code = 754) NUCLEATED RED BLOOD CELLS 0 /100 WBC 0-0 (BEAKER) (test code = 413) NEUTROPHILS RELATIVE PERCENT 59 % (BEAKER) (test code = 429) LYMPHOCYTES RELATIVE PERCENT 31 % (BEAKER) (test code = 430) MONOCYTES RELATIVE PERCENT 6 % (BEAKER) (test code = 431) EOSINOPHILS RELATIVE PERCENT 3 % (BEAKER) (test code = 432) BASOPHILS RELATIVE PERCENT 1 % (BEAKER) (test code = 437) NEUTROPHILS ABSOLUTE COUNT 6.41 K/ L 1.56-6.13 H (BEAKER) (test code = 670) LYMPHOCYTES ABSOLUTE COUNT 3.36 K/ L 1.18-3.74 (BEAKER) (test code = 414) MONOCYTES ABSOLUTE COUNT (BEAKER) 0.66 K/ L 0.24-0.36 H (test code = 415) EOSINOPHILS ABSOLUTE COUNT 0.27 K/ L 0.04-0.36 (BEAKER) (test code = 416) BASOPHILS ABSOLUTE COUNT (BEAKER) 0.05 K/ L 0.01-0.08 (test code = 417) IMMATURE GRANULOCYTES-RELATIVE 1 % 0-1 PERCENT (BEAKER) (test code = 2801) [id number] 04:02:00 Test Item Value Reference Range Interpretation Comments MAGNESIUM (BEAKER) (test code = 1.9 mg/dL 1.6-2.6 627) Auditing Manager ID - GABRIELA [id number] 04:02:00 Test Item Value Reference Range Interpretation Comments PHOSPHORUS (BEAKER) (test code = 3.1 mg/dL 2.3-4.7 604) Auditing Manager ID - GABRIELA MHEMOGLOBIN AND [id number] 03:43:00 Test Item Value Reference Range Interpretation Comments HEMOGLOBIN (BEAKER) (test code = 8.7 GM/DL 11.2-15.7 L 410) HEMATOCRIT (BEAKER) (test code = 27.3 % 34.1-44.9 L 411) POCT-GLUCOSE [id number] 00:19:00 Test Item Value Reference Range Interpretation Comments POC-GLUCOSE METER 125 mg/dL 70-110 H : TESTED A T [facility] 6720 (BEAKER) (test code = SHARLA Shields [facility], 1538) 85267: Auditing Manager/Techni lyudmila ID = [id number] for GA NADEGE MOSS, [id number] 17:42:00 Test Item Value Reference Range Interpretation Comments ABO Grouping (test code = 2588) O Rh Factor (test code = 2589) POS [facility] CenterType and screen, [id number] 16:21:00 Test Item Value Reference Range Interpretation Comments ABO/RH AUTOMATED (BEAKER) (test O POSITIVE code = 2260) Ab Scrn (test code = 890-4) NEGATIVE [facility]CBC (HEMOGRAM ONLY)2021-02-26 14:43:00 Test Item Value Reference Range Interpretation Comments WHITE BLOOD CELL COUNT (BEAKER) 13.6 K/ L 3.5-10.5 H (test code = 775) RED BLOOD CELL COUNT (BEAKER) 2.07 M/ L 3.93-5.22 L (test code = 761) HEMOGLOBIN (BEAKER) (test code = 6.8 GM/DL 11.2-15.7 L 410) HEMATOCRIT (BEAKER) (test code = 21.3 % 34.1-44.9 L 411) MEAN CORPUSCULAR VOLUME (BEAKER) 102.9 fL 79.4-94.8 H (test code = 753) MEAN CORPUSCULAR HEMOGLOBIN 32.9 pg 25.6-32.2 H (BEAKER) (test code = 751) MEAN CORPUSCULAR HEMOGLOBIN CONC 31.9 GM/DL 32.2-35.5 L (BEAKER) (test code = 752) RED CELL DISTRIBUTION WIDTH 13.6 % 11.7-14.4 (BEAKER) (test code = 412) PLATELET COUNT (BEAKER) (test 233 K/CU MM 150-450 code = 756) MEAN PLATELET VOLUME (BEAKER) 10.3 fL 9.4-12.3 (test code = 754) NUCLEATED RED BLOOD CELLS 0 /100 WBC 0-0 (BEAKER) (test code = 413) Surgically obtained culture + gram [id number] 11:42:00 Test Item Value Reference Range Interpretation Comments Result (test code = 6463-4) No growth Gram Stain Result (test No organisms seen code = 1123) [facility]AM [id number] 11:42:00 Test Item Value Reference Range Interpretation Comments CULTURE (BEAKER) (test code No growth = 1095) GRAM STAIN RESULT (BEAKER) <1+ WBCs (test code = 1123) GRAM STAIN RESULT (BEAKER) No organisms seen (test code = 04141) POCT-GLUCOSE [id number] 11:20:00 Test Item Value Reference Range Interpretation Comments POC-GLUCOSE METER 135 mg/dL 70-110 H : [facility] ([facility]ER[facility] (test code = SHARLA Shield[place], 1538) 112[address]: Auditing Manager/Techni lyudmila ID = [id number] for PRINCESS JEOVANNY POCT-GLUCOSE [id number] 06:19:00 Test Item Value Reference Range Interpretation Comments POC-GLUCOSE METER 152 mg/dL 70-110 H : TESTED A T [facility] 6720 (BEAKER) (test code = [facility] Alyson [facility], 1538) 09878: Auditing Manager/Techni lyudmila ID = [id number] for Cindy Cordova BASIC METABOLIC [id number] 05:55:00 Test Item Value Reference Range Interpretation Comments SODIUM (BEAKER) (test 138 meq/L 136-145 code = 381) POTASSIUM (BEAKER) 4.3 meq/L 3.5-5.1 (test code = 379) CHLORIDE (BEAKER) 107 meq/L 98-107 (test code = 382) CO2 (BEAKER) (test 23 meq/L 22-29 code = 355) BLOOD UREA NITROGEN 18 mg/dL 7-21 (BEAKER) (test code = 354) CREATININE (BEAKER) 0.66 mg/dL 0.57-1.25 (test code = 358) GLUCOSE RANDOM 138 mg/dL 70-105 H (BEAKER) (test code = 652) CALCIUM (BEAKER) 8.5 mg/dL 8.4-10.2 (test code = 697) EGFR (BEAKER) (test INSUFFIC IENT CLINICAL code = 1092) DATA TO CALCULA TE ESTIMATED GFR. Auditing Manager ID - [id number] 05:22:00 Test Item Value Reference Range Interpretation Comments MAGNESIUM (BEAKER) (test code = 2.2 mg/dL 1.6-2.6 627) Auditing Manager ID - [id number] 05:22:00 Test Item Value Reference Range Interpretation Comments PHOSPHORUS (BEAKER) (test code = 2.5 mg/dL 2.3-4.7 604) Auditing Manager ID - DBCBC W/PLT COUNT & AUTO [id number] 05:00:00 Test Item Value Reference Range Interpretation Comments WHITE BLOOD CELL COUNT (BEAKER) 19.2 K/ L 3.5-10.5 H (test code = 775) RED BLOOD CELL COUNT (BEAKER) 2.37 M/ L 3.93-5.22 L (test code = 761) HEMOGLOBIN (BEAKER) (test code = 7.5 GM/DL 11.2-15.7 L 410) HEMATOCRIT (BEAKER) (test code = 23.9 % 34.1-44.9 L 411) MEAN CORPUSCULAR VOLUME (BEAKER) 100.8 fL 79.4-94.8 H (test code = 753) MEAN CORPUSCULAR HEMOGLOBIN 31.6 pg 25.6-32.2 (BEAKER) (test code = 751) MEAN CORPUSCULAR HEMOGLOBIN CONC 31.4 GM/DL 32.2-35.5 L (BEAKER) (test code = 752) RED CELL DISTRIBUTION WIDTH 13.8 % 11.7-14.4 (BEAKER) (test code = 412) PLATELET COUNT (BEAKER) (test 295 K/CU MM 150-450 code = 756) MEAN PLATELET VOLUME (BEAKER) 10.6 fL 9.4-12.3 (test code = 754) NUCLEATED RED BLOOD CELLS 0 /100 WBC 0-0 (BEAKER) (test code = 413) NEUTROPHILS RELATIVE PERCENT 81 % (BEAKER) (test code = 429) LYMPHOCYTES RELATIVE PERCENT 11 % (BEAKER) (test code = 430) MONOCYTES RELATIVE PERCENT 7 % (BEAKER) (test code = 431) EOSINOPHILS RELATIVE PERCENT 0 % (BEAKER) (test code = 432) BASOPHILS RELATIVE PERCENT 0 % (BEAKER) (test code = 437) NEUTROPHILS ABSOLUTE COUNT 15.64 K/ L 1.56-6.13 H (BEAKER) (test code = 670) LYMPHOCYTES ABSOLUTE COUNT 2.17 K/ L 1.18-3.74 (BEAKER) (test code = 414) MONOCYTES ABSOLUTE COUNT (BEAKER) 1.25 K/ L 0.24-0.36 H (test code = 415) EOSINOPHILS ABSOLUTE COUNT 0.01 K/ L 0.04-0.36 L (BEAKER) (test code = 416) BASOPHILS ABSOLUTE COUNT (BEAKER) 0.02 K/ L 0.01-0.08 (test code = 417) IMMATURE GRANULOCYTES-RELATIVE 1 % 0-1 PERCENT (BEAKER) (test code = 2801) POCT-GLUCOSE [id number] 00:53:00 Test Item Value Reference Range Interpretation Comments POC-GLUCOSE METER 165 mg/dL 70-110 H : [facility] ([facility]) (test code = [facility], 153) [address]: Auditing Manager/Techni lyudmila ID = [id number] for Cindy Cordova POCT-GLUCOSE [id number] 19:10:00 Test Item Value Reference Range Interpretation Comments POC-GLUCOSE METER 151 mg/dL 70-110 H : Notified RN/MD: ([facility]) (test code = TESTED AT [facility] 6720 1538) [facility], [address]: Auditing Manager/Techni lyudmila ID = [id number] for [place], Ozzie POCT-GLUCOSE [id number] 18:50:00 Test Item Value Reference Range Interpretation Comments POC-GLUCOSE METER 148 mg/dL 70-110 H : Notified RN/MD: ([facility]) (test code = TESTED AT [facility] 67[address] 1538) [facility], [address]: Auditing Manager/Techni lyudmila ID = [id number] for [place], Ozzie POCT-GLUCOSE [id number] 18:22:00 Test Item Value Reference Range Interpretation Comments POC-GLUCOSE METER 156 mg/dL 70-110 H : [facility] ([facility]) (test code = [facility], 153) [address]13[address]: Auditing Manager/Techni lyudmila ID = [id number] for NADEGE LUIS SPIN/CONCENTRATION [id number] 09:26:00 Test Item Value Reference Range Interpretation Comments Concentration charged (test code = Done 2657) [facility] [id number] 09:26:00 Test Item Value Reference Range Interpretation Comments CONCENTRATION CHARGED (BEAKER) (test Done code = 2657) [id number] 06:37:00 Test Item Value Reference Range Interpretation Comments PHOSPHORUS (BEAKER) (test code = 1.5 mg/dL 2.3-4.7 LL 604) Auditing Manager ID - GABRIELA [id number] 06:32:00 Test Item Value Reference Range Interpretation Comments MAGNESIUM (BEAKER) (test code = 2.1 mg/dL 1.6-2.6 627) Auditing Manager ID - GABRIELA MHEPATIC FUNCTION [id number] 06:32:00 Test Item Value Reference Range Interpretation Comments TOTAL PROTEIN (BEAKER) (test code = 6.5 gm/dL 6.0-8.3 770) ALBUMIN (BEAKER) (test code = 1145) 3.3 g/dL 3.5-5.0 L BILIRUBIN TOTAL (BEAKER) (test code 0.6 mg/dL 0.2-1.2 = 377) BILIRUBIN DIRECT (BEAKER) (test 0.3 mg/dL 0.1-0.5 code = 706) ALKALINE PHOSPHATASE (BEAKER) (test 56 U/L 40-150 code = 346) AST (SGOT) (BEAKER) (test code = 21 U/L 5-34 353) ALT (SGPT) (BEAKER) (test code = 21 U/L 6-55 347) Auditing Manager FAM OCHOA MBASIC METABOLIC [id number] 06:32:00 Test Item Value Reference Range Interpretation Comments SODIUM (BEAKER) (test 136 meq/L 136-145 code = 381) POTASSIUM (BEAKER) 4.8 meq/L 3.5-5.1 (test code = 379) CHLORIDE (BEAKER) 109 meq/L 98-107 H (test code = 382) CO2 (BEAKER) (test 20 meq/L 22-29 L code = 355) BLOOD UREA NITROGEN 21 mg/dL 7-21 (BEAKER) (test code = 354) CREATININE (BEAKER) 0.66 mg/dL 0.57-1.25 (test code = 358) GLUCOSE RANDOM 151 mg/dL 70-105 H (BEAKER) (test code = 652) CALCIUM (BEAKER) 8.3 mg/dL 8.4-10.2 L (test code = 697) EGFR (BEAKER) (test INSUFFIC IENT CLINICAL code = 1092) DATA TO CALCULA TE ESTIMATED GFR. Auditing Manager FAM OCHOA MCBC W/PLT COUNT & AUTO [id number] 05:52:00 Test Item Value Reference Range Interpretation Comments WHITE BLOOD CELL COUNT (BEAKER) 16.3 K/ L 3.5-10.5 H (test code = 775) RED BLOOD CELL COUNT (BEAKER) 2.72 M/ L 3.93-5.22 L (test code = 761) HEMOGLOBIN (BEAKER) (test code = 8.8 GM/DL 11.2-15.7 L 410) HEMATOCRIT (BEAKER) (test code = 26.5 % 34.1-44.9 L 411) MEAN CORPUSCULAR VOLUME (BEAKER) 97.4 fL 79.4-94.8 H (test code = 753) MEAN CORPUSCULAR HEMOGLOBIN 32.4 pg 25.6-32.2 H (BEAKER) (test code = 751) MEAN CORPUSCULAR HEMOGLOBIN CONC 33.2 GM/DL 32.2-35.5 (BEAKER) (test code = 752) RED CELL DISTRIBUTION WIDTH 13.2 % 11.7-14.4 (BEAKER) (test code = 412) PLATELET COUNT (BEAKER) (test 324 K/CU MM 150-450 code = 756) MEAN PLATELET VOLUME (BEAKER) 10.1 fL 9.4-12.3 (test code = 754) NUCLEATED RED BLOOD CELLS 0 /100 WBC 0-0 (BEAKER) (test code = 413) NEUTROPHILS RELATIVE PERCENT 88 % (BEAKER) (test code = 429) LYMPHOCYTES RELATIVE PERCENT 6 % (BEAKER) (test code = 430) MONOCYTES RELATIVE PERCENT 6 % (BEAKER) (test code = 431) EOSINOPHILS RELATIVE PERCENT 0 % (BEAKER) (test code = 432) BASOPHILS RELATIVE PERCENT 0 % (BEAKER) (test code = 437) NEUTROPHILS ABSOLUTE COUNT 14.29 K/ L 1.56-6.13 H (BEAKER) (test code = 670) LYMPHOCYTES ABSOLUTE COUNT 1.02 K/ L 1.18-3.74 L (BEAKER) (test code = 414) MONOCYTES ABSOLUTE COUNT (BEAKER) 0.91 K/ L 0.24-0.36 H (test code = 415) EOSINOPHILS ABSOLUTE COUNT 0.00 K/ L 0.04-0.36 L (BEAKER) (test code = 416) BASOPHILS ABSOLUTE COUNT (BEAKER) 0.01 K/ L 0.01-0.08 (test code = 417) IMMATURE GRANULOCYTES-RELATIVE 1 % 0-1 PERCENT (BEAKER) (test code = 2801) Calcium, [id number] 05:34:00 Test Item Value Reference Range Interpretation Comments Calcium, Ion (test code = 1993-) 1.20 mmol/L 1.12-1.27 pH, Blood (test code = 81721-6) 7.37 [facility], [id number] 05:34:00 Test Item Value Reference Range Interpretation Comments CALCIUM IONIZED (BEAKER) (test 1.20 mmol/L 1.12-1.27 code = 698) PH, BLOOD (BEAKER) (test code = 7.37 1810) POCT-GLUCOSE [id number] 23:05:00 Test Item Value Reference Range Interpretation Comments POC-GLUCOSE METER 181 mg/dL 70-110 H : TESTED A T [facility] 6720 (BEAKER) (test code = [facility], 153) [address]: Auditing Manager/Techni lyudmila ID = [id number] for NADEGE LUIS POCT-GLUCOSE [id number] 18:56:00 Test Item Value Reference Range Interpretation Comments POC-GLUCOSE METER 273 mg/dL 70-110 H : TESTED A T [facility] 6720 (BEAKER) (test code = [facility], 153) 72443: Auditing Manager/Techni lyudmila ID = [id number] for PA ANMOL, WALLY POCT-GLUCOSE [id number] 17:26:00 Test Item Value Reference Range Interpretation Comments POC-GLUCOSE METER 328 mg/dL 70-110 H : TESTED A T [facility] 6720 (BEAKER) (test code = [facility], 153) 28517: Auditing Manager/Techni lyudmila ID = [id number] for PA ANMOL, WALLY POCT-GLUCOSE [id number] 14:36:00 Test Item Value Reference Range Interpretation Comments POC-GLUCOSE METER 300 mg/dL 70-110 H : TESTED A T [facility] 6720 (BEAKER) (test code = [facility], 153) 89292: Auditing Manager/Techni lyudmila ID = [id number] for PAULINE ECHEVERRIA POCT-GLUCOSE [id number] 12:42:00 Test Item Value Reference Range Interpretation Comments POC-GLUCOSE METER 267 mg/dL 70-110 H : TESTED A T [facility] 6720 (BEAKER) (test code [facility], = 1538) [address]: Auditing Manager/Techni lyudmila ID = [id number] for JESSE Z, MARYAN Screen, [id number] 05:54:00 Test Item Value Reference Range Interpretation Comments Preg Test, Ur (test code = 2112-1) Negative [facility] SCREEN, [id number] 05:54:00 Test Item Value Reference Range Interpretation Comments TEST URINE (BEAKER) (test Negative code = 583) SARS-COV2/RT-PCR ([facility])2021-02-24 05:23:00 Test Item Value Reference Range Interpretation Comments SARS-COV2/RT-PCR (test Negative Not Detected, Negative, code = 7226531) See external report for linked test SARS-COV-[address] [facility] (test code = 9509841) Negative result for this test determines that SARS-CoV-2 RNA was not present in the specimen above the Limit of Detection (LOD). However, Negative results do not preclude SARS-CoV-2 infection and should not be used as the sole basis for treatment or patient management decisions. Negative results mustbe combined with clinical observations, patient history, and epidemiological information. A false negative result may occur if a specimen is improperly collected, transported or handled. A false negative result should be considered if patient's recent exposures or clinical presentation indicate that COVID-19 (SARS-CoV-2) is likely and diagnostic tests for other causes of illness are negative. Re-testing should be considered in cases of suspected false negatives.The limit of detection for this assay is 100 copies/mL.This SARS CoV-2 test is a real-time RT-PCR test intended for the qualitative detection of nucleic acid from SARS-CoV-2 in a nasopharyngeal swab specimen collected from individuals susp ected of COVID-19 by their healthcare provider.This test has not been Food and Drug Administration (FDA) cleared or approved. This is a modified version of an approved Emergency Use Authorization (EUA) and is in the process of review by the FDA. Once authorized by the FDA, the issued EUA will be effective until the declaration that circumstances exist justifying the authorization of the emergency use of in vitro diagnostic tests for detection and/or diagnosis of COVID-19 is terminated under Section 564(b)(2) of the Act or the EUA is revoked under Section 564(g) of the Act.Testing was performed using the [employer] SARS-CoV-2 assay.Fact Sheet for Healthcare Providers:https://www.[employer].mcmillan/dave/ GG_SMZW-LhZ-8_BJC_Bxdr_Cbsdf_04-717482.pdfFact Sheet for Healthcare Patients:https://www.[employer].BRIKA elda/dave/AC_BYZM-TuX-7_Lnzpkmv_Skgt_Brtrw_OZ_60-201653G9.pdfPerforming Laboratory:[place] [address] [place] [address] BASIC METABOLIC [id number] 05:05:00 Test Item Value Reference Range Interpretation Comments SODIUM (BEAKER) (test 135 meq/L 136-145 L code = 381) POTASSIUM (BEAKER) 3.9 meq/L 3.5-5.1 (test code = 379) CHLORIDE (BEAKER) 104 meq/L 98-107 (test code = 382) CO2 (BEAKER) (test 20 meq/L 22-29 L code = 355) BLOOD UREA NITROGEN 11 mg/dL 7-21 (BEAKER) (test code = 354) CREATININE (BEAKER) 0.69 mg/dL 0.57-1.25 (test code = 358) GLUCOSE RANDOM 130 mg/dL 70-105 H (BEAKER) (test code = 652) CALCIUM (BEAKER) 9.7 mg/dL 8.4-10.2 (test code = 697) EGFR (BEAKER) (test INSUFFIC IENT CLINICAL code = 1092) DATA TO CALCULA TE ESTIMATED GFR. Auditing Manager ID - [id number] 05:03:00 Test Item Value Reference Range Interpretation Comments MAGNESIUM (BEAKER) (test code = 2.3 mg/dL 1.6-2.6 627) Auditing Manager ID - [id number] 05:03:00 Test Item Value Reference Range Interpretation Comments PHOSPHORUS (BEAKER) (test code = 3.1 mg/dL 2.3-4.7 604) Auditing Manager ID - DBCBC W/PLT COUNT & AUTO [id number] 04:44:00 Test Item Value Reference Range Interpretation Comments WHITE BLOOD CELL COUNT (BEAKER) 8.2 K/ L 3.5-10.5 (test code = 775) RED BLOOD CELL COUNT (BEAKER) 3.70 M/ L 3.93-5.22 L (test code = 761) HEMOGLOBIN (BEAKER) (test code = 11.6 GM/DL 11.2-15.7 410) HEMATOCRIT (BEAKER) (test code = 35.6 % 34.1-44.9 411) MEAN CORPUSCULAR VOLUME (BEAKER) 96.2 fL 79.4-94.8 H (test code = 753) MEAN CORPUSCULAR HEMOGLOBIN 31.4 pg 25.6-32.2 (BEAKER) (test code = 751) MEAN CORPUSCULAR HEMOGLOBIN CONC 32.6 GM/DL 32.2-35.5 (BEAKER) (test code = 752) RED CELL DISTRIBUTION WIDTH 13.0 % 11.7-14.4 (BEAKER) (test code = 412) PLATELET COUNT (BEAKER) (test 425 K/CU MM 150-450 code = 756) MEAN PLATELET VOLUME (BEAKER) 9.7 fL 9.4-12.3 (test code = 754) NUCLEATED RED BLOOD CELLS 0 /100 WBC 0-0 (BEAKER) (test code = 413) NEUTROPHILS RELATIVE PERCENT 62 % (BEAKER) (test code = 429) LYMPHOCYTES RELATIVE PERCENT 24 % (BEAKER) (test code = 430) MONOCYTES RELATIVE PERCENT 9 % (BEAKER) (test code = 431) EOSINOPHILS RELATIVE PERCENT 4 % (BEAKER) (test code = 432) BASOPHILS RELATIVE PERCENT 1 % (BEAKER) (test code = 437) NEUTROPHILS ABSOLUTE COUNT 5.11 K/ L 1.56-6.13 (BEAKER) (test code = 670) LYMPHOCYTES ABSOLUTE COUNT 1.96 K/ L 1.18-3.74 (BEAKER) (test code = 414) MONOCYTES ABSOLUTE COUNT (BEAKER) 0.71 K/ L 0.24-0.36 H (test code = 415) EOSINOPHILS ABSOLUTE COUNT 0.34 K/ L 0.04-0.36 (BEAKER) (test code = 416) BASOPHILS ABSOLUTE COUNT (BEAKER) 0.06 K/ L 0.01-0.08 (test code = 417) IMMATURE GRANULOCYTES-RELATIVE 0 % 0-1 PERCENT (BEAKER) (test code = 2801) POCT-GLUCOSE [id number] 00:23:00 Test Item Value Reference Range Interpretation Comments POC-GLUCOSE METER 105 mg/dL 70-110 : Notified RN/MD: (YOVANI) (test code = TESTED AT [facility] 0899 7921) [facility], [address]: Auditing Manager/Techni lyudmila ID = [id number] for Sa minaz, Ozzie ANG, NON-TUNNELED CATH/PICC >5 Y.O. WITH [id number] 18:20:00Reason for exam:->Need for TPN; PICC team unable to complete procedure bedside due to poor peripheral targets [facility] 1975 Sex: FFINAL REPORT PICC placement, 02/23/2021. History: Need for TPN. Head Bander And Liner Operator: Camryn. Workforce Planning Analyst: None. Modality: Sonography andfluoroscopy. Sedation: None. Anesthesia: Two percent Lidocaine without epinephrine. Approach: Brachial vein - right. Estimated blood loss: < 5 cc. Specimen: None. Fluoroscopy Time: 0.2 min. Dose (Ka,r): 2 mGy. Technique: Informed written consent was obtained. Discussion of risks, benefits, and alternatives were made with the patient. The patient expressed understanding and agreed to proceed. All elements maximal sterile barrier technique was utilized for this procedure, including utilization of sterile scrub solution for skin prep, a large sterile sheet to cover the areas of the patient that were not prepped, and hand hygiene, mask, head covering, and sterile gown for performing radiologist and scrub technologist. The skin was anesthetized with 2% lidocaine. Ultrasound evaluation showed a patent and compressible right brachial vein, which was punctured under direct real-time ultrasound guidance with a micropuncture needle. An ultrasound image was saved to PACS. A 0.018 inch wire was placed through the needle into the right atrium. A 5 Maldivian peel-away sheath was placed. The 5 Maldivian double- lumen PICC line was measured and cut, and advanced through the sheath, with its distal tip terminating in the superior right atrium. The peel-away sheath was removed. The ports were flushed and aspirated easily following placement. The PICC line was secured with suture material. Vital signs were monitored throughou t the procedure by a nurse, and remained stable. The patient tolerated the procedure well and left the department in the same condition. Results: Spot radiograph of the chest demonstrates the new right upper extremity PICC line to lie in the expected position with its tip overlying the superior right atrium. Impression: Successful, uncomplicated placement of a right upper extremity PICC using sonographic and fluoroscopic guidance. Signed: Toney Cowaneport Verified Date/Time: 02/23/2021 18:20:46 Reading Location:[place] [address] Angio Body Reading Room IR PICC line placement older than 5 [id number] 18:20:00Interface, External Ris In - 02/23/2021 6:22 PM CDTFINAL REPORT PICC placement, 02/23/2021. History: Need for TPN. Pr imary Auditing Manager: Camryn. Workforce Planning Analyst: None. Modality: Sonography and fluoroscopy. Sedation: None. Anesthesia: Two percent Lidocaine without epinephrine. Approach: Brachial vein - right. Estimated blood loss: < 5 cc. Specimen: None. Fluoroscopy Time: 0.2 min. Dose (Ka,r): 2 mGy. Technique: Informed written consent was obtained. Discussion of risks, benefits, and alternatives were made with the patient. The patient expressed understanding and agreed to proceed. All elements maximal sterile barrier technique was utilized for this procedure, including utilization of sterile scrub solution for skin prep, a large sterile sheet to cover the areas of the patient that were not prepped, and hand hygiene, mask, head covering, and sterile gown for performing radiologist and scrub technologist. The skin was anesthetized with 2% lidocaine. Ultrasound evaluation showed a patent and compressible right brachial vein, which was punctured under direct real-time ultrasound guidance with a micropuncture needle. An ultrasound image was saved to PACS. A0.018 inch wire was placed through the needle into the right atrium. A 5 Maldivian peel-away sheath wasplaced. The 5 Maldivian double-lumen PICC line was measured and cut, and advanced through the sheath,with its distal tip terminating in the superior right atrium. The peel-away sheath was removed. Theports were flushed and aspirated easily following placement. The PICC line was secured with suture material. Vital signs were monitored throughout the procedure by a nurse, and remained stable. The patient tolerated the procedure well and left the department in the same condition. Results: Spot radiograph of the chest demonstrates the new right upper extremity PICC line to lie in the expected position with its tip overlying the superior right atrium. Impression: Successful, uncomplicated placement of a right upper extremity PICC using sonographic and fluoroscopic guidance. Signed: Toney Cowan Verified Date/Time: 02/23/2021 18:20:46 Reading Location: [place] [address] Angio Body Reading [facility] [id number] 17:52:00 Test Item Value Reference Range Interpretation Comments POC-GLUCOSE METER 103 mg/dL 70-110 : TESTED A T [facility] 6720 (BEAKER) (test code = [facility] [place], 1538) [address]: Auditing Manager/Techni lyudmila ID = [id number] for Wi chun, Christiana Wound culture + gram [id number] 15:09:00 Test Item Value Reference Range Interpretation Comments Result (test code = 2+ Streptococcus A 6463-4) constellatus Gram Stain Result (test No organisms seen code = 1123) Lab Interpretation Abnormal (test code = 94440-3) [facility] [id number] 15:09:00 Test Item Value Reference Range Interpretation Comments CULTURE (BEAKER) A 2+ Streptoc occus (test code = constellatus 1095) GRAM STAIN 2+ WBCs RESULT (BEAKER) (test code = 1123) GRAM STAIN No organisms seen RESULT (BEAKER) (test code = 05819) POCT-GLUCOSE [id number] 13:36:00 Test Item Value Reference Range Interpretation Comments POC-GLUCOSE METER 93 mg/dL 70-110 : TESTED A T [facility] 6720 (BEAKER) (test code = SHARLA Shields [facility], 1538) [address]: Auditing Manager/Techni lyudmila ID = [id number] for Shayla Khoury POCT-GLUCOSE [id number] 06:31:00 Test Item Value Reference Range Interpretation Comments POC-GLUCOSE METER 107 mg/dL 70-110 : TESTED A T [facility] 6720 (BEAKER) (test code = ADILSONNC Alyson [facility], 1538) [address]: Auditing Manager/Techni lyudmila ID = [id number] for NADEGE LUIS [id number] 06:14:00 Test Item Value Reference Range Interpretation Comments Triglycerides (test 171 mg/dL code = 2571-8) LUZ (test code = LUZ) TRIGLYCERIDE REFERENCE RANGELow Risk <150Borderline Risk 150-199High Risk 200-499Very High Risk >=500Operator ID - GABRIELA Santo [facility] [id number] 06:14:00 Test Item Value Reference Range Interpretation Comments MAGNESIUM (BEAKER) (test code = 2.0 mg/dL 1.6-2.6 627) Auditing Manager ID - GABRIELA [id number] 06:14:00 Test Item Value Reference Range Interpretation Comments PHOSPHORUS (BEAKER) (test code = 3.7 mg/dL 2.3-4.7 604) Auditing Manager ID - GABRIELA [id number] 06:14:00 Test Item Value Reference Range Interpretation Comments TRIGLYCERIDES (BEAKER) (test code = 171 mg/dL 540) TRIGLYCERIDE REFERENCE RANGELow Risk <150Borderline Risk 150-199High Risk 200-499Very High Risk>=500Operator ID - GABRIELA MBASIC METABOLIC [id number] 06:14:00 Test Item Value Reference Range Interpretation Comments SODIUM (BEAKER) (test 140 meq/L 136-145 code = 381) POTASSIUM (BEAKER) 3.2 meq/L 3.5-5.1 L (test code = 379) CHLORIDE (BEAKER) 106 meq/L 98-107 (test code = 382) CO2 (BEAKER) (test 25 meq/L 22-29 code = 355) BLOOD UREA NITROGEN 2 mg/dL 7-21 L (BEAKER) (test code = 354) CREATININE (BEAKER) 0.67 mg/dL 0.57-1.25 (test code = 358) GLUCOSE RANDOM 113 mg/dL 70-105 H (BEAKER) (test code = 652) CALCIUM (BEAKER) 8.8 mg/dL 8.4-10.2 (test code = 697) EGFR (BEAKER) (test INSUFFIC IENT CLINICAL code = 1092) DATA TO CALCULA TE ESTIMATED GFR. Auditing Manager ID - GABRIELA MCBC W/PLT COUNT & AUTO [id number] 06:01:00 Test Item Value Reference Range Interpretation Comments WHITE BLOOD CELL COUNT (BEAKER) 6.5 K/ L 3.5-10.5 (test code = 775) RED BLOOD CELL COUNT (BEAKER) 3.42 M/ L 3.93-5.22 L (test code = 761) HEMOGLOBIN (BEAKER) (test code = 10.7 GM/DL 11.2-15.7 L 410) HEMATOCRIT (BEAKER) (test code = 32.9 % 34.1-44.9 L 411) MEAN CORPUSCULAR VOLUME (BEAKER) 96.2 fL 79.4-94.8 H (test code = 753) MEAN CORPUSCULAR HEMOGLOBIN 31.3 pg 25.6-32.2 (BEAKER) (test code = 751) MEAN CORPUSCULAR HEMOGLOBIN CONC 32.5 GM/DL 32.2-35.5 (BEAKER) (test code = 752) RED CELL DISTRIBUTION WIDTH 12.8 % 11.7-14.4 (BEAKER) (test code = 412) PLATELET COUNT (BEAKER) (test 407 K/CU MM 150-450 code = 756) MEAN PLATELET VOLUME (BEAKER) 10.3 fL 9.4-12.3 (test code = 754) NUCLEATED RED BLOOD CELLS 0 /100 WBC 0-0 (BEAKER) (test code = 413) NEUTROPHILS RELATIVE PERCENT 59 % (BEAKER) (test code = 429) LYMPHOCYTES RELATIVE PERCENT 28 % (BEAKER) (test code = 430) MONOCYTES RELATIVE PERCENT 7 % (BEAKER) (test code = 431) EOSINOPHILS RELATIVE PERCENT 5 % (BEAKER) (test code = 432) BASOPHILS RELATIVE PERCENT 1 % (BEAKER) (test code = 437) NEUTROPHILS ABSOLUTE COUNT 3.82 K/ L 1.56-6.13 (BEAKER) (test code = 670) LYMPHOCYTES ABSOLUTE COUNT 1.85 K/ L 1.18-3.74 (BEAKER) (test code = 414) MONOCYTES ABSOLUTE COUNT (BEAKER) 0.46 K/ L 0.24-0.36 H (test code = 415) EOSINOPHILS ABSOLUTE COUNT 0.31 K/ L 0.04-0.36 (BEAKER) (test code = 416) BASOPHILS ABSOLUTE COUNT (BEAKER) 0.05 K/ L 0.01-0.08 (test code = 417) IMMATURE GRANULOCYTES-RELATIVE 0 % 0-1 PERCENT (BEAKER) (test code = 2801) POCT-GLUCOSE [id number] 00:44:00 Test Item Value Reference Range Interpretation Comments POC-GLUCOSE METER 88 mg/dL 70-110 : TESTED A T [facility] 6720 (BEAKER) (test code = [facility], 1538) [address]: Auditing Manager/Techni lyudmila ID = [id number] for NADEGE KHOURY POCT-GLUCOSE [id number] 18:28:00 Test Item Value Reference Range Interpretation Comments POC-GLUCOSE METER 74 mg/dL 70-110 : TESTED A T [facility] 6720 (BEAKER) (test code = [facility], 1538) [address]: Auditing Manager/Techni lyudmila ID = [id number] for [facility] CT, [id number] 17:22:00Unlisted Reason for Exam - Click Yes and Enter Reason Below->YesUnlisted Reason for Exam->Perforated diverticulitis with abdominal distention / tympanitic abdomen; evalaute for interval changes in abdominal fluid collection as well as bowel distentionWill this procedure require oral contrast?->Yes [facility] : 1975 Sex: FFINAL REPORT CT, ABDOMEN \\T\\ PELVIS, WITH IV CONTRAST HISTORY: Unlisted Reason for ExamPerforated diverticulitis with abdominal distention / tympanitic abdomen; evaluate for interval changes in abdominal fluid collection as well as bowel distention COMPARISON: CT pelvis 02/17/[address] abdomen and pelvis 02/16/2021 TECHNIQUE: CT of the abdomen and pelvis WITH int ravenous contrast and WITH oral contrast. The examination was performed according to the departmental dose-optimization program, which includes automated exposure control, adjustment of the mA and/or kV according to patient size and/or use of iterative reconstruction technique. FINDINGS: Lower th orax: Unremarkable.Liver: Focal fat deposition along the falciform ligament.Gallbladder and bile ducts: Unremarkable.Spleen: Unremarkable.Pancreas: Unremarkable.Adrenals: UnremarkableKidneys and ureters: Unremarkable.Bowel: Sigmoid colon is decompressed, with mild residual wall thickening. The appendix is not visualized. Oral contrast opacifies only the proximal small bowel. Mild dilation with gas and liquid of the jejunum and proximal ileum, with transition point to mostly decompressed small bowelloops in the anterior upper midline pelvis near the drainage catheter.Bladder: Unremarkable.Reproductive organs: Small calcified structure at the left adnexa, unchanged, without fat density, likely a corpus albicans. Trace free fluid along the left adnexa, diminished from prior exam, with persistent tethering/inflammatory changes extending from the sigmoid colon to the left adnexa.Lymph nodes: Unremarkable.Peritoneum: Trace residual free fluid in the pelvis. No residual fluid about the drainage catheter tip in the upper midline pelvis. Persistent but improved fat stranding and fascial thickening inthe left lower quadrant and pelvisVessels: Unremarkable.Abdominal wall: Unremarkable.Bones: Unremarkable. IMPRESSION: 1.A low grade small bowel obstruction, transition point in the mid ileum in the ante rior upper midline pelvis near the drainage catheter. 2.No residual fluid about the drainage catheter tip. Diminished free fluid in the pelvis. No residual drainable fluid collections. 3.Moderately improved inflammatory changes in the pelvis and of the sigmoid colon Signed: Silvia Rodriguez MDReport Verified Date/Time: 02/22/2021 17:22:00 Reading Location: [facility] C013T Transitional Reading Room CT abdomen/pelvis with IV [id number] 17:22:00Interface, External Ris In - 02/22/2021 5:[address], ABDOMEN \\T\\ PELVIS, WITH IV CONTRAST HISTORY: Unlisted Reason for ExamPerforated diverticulitis with abdominal distention / tympanitic abdomen; evaluate for interval changes in abdominal fluid collection as well as bowel distention COMPARISON: CT pelvis 02/17/[address] abdomen and pelvis 02/16/2021 LETICIA HNIQUE: CT of the abdomen and pelvis WITH intravenous contrast and WITH oral contrast. The examination was performed according to the departmental dose- optimization program, which includes automated exposure control, adjustment of the mA and/or kV according to patient size and/or use of iterative jason nstruction technique. FINDINGS: Lower thorax: Unremarkable.Liver: Focal fat deposition along the falciform ligament.Gallbladder and bile ducts: Unremarkable.Spleen: Unremarkable.Pancreas: Unremarkable.Adrenals: UnremarkableKidneys and ureters: Unremarkable.Bowel: Sigmoid colon is decompressed, with mild residual wall thickening. The appendix is not visualized. Oral contrast opacifies only the proximal small bowel. Mild dilation with gas and liquid of the jejunum and proximal ileum, with transition point to mostly decompressed small bowel loops in the anterior upper midline pelvis near the drainage catheter.Bladder: Unremarkable.Reproductive organs: Small calcified structure at the left adnexa, unchanged, without fat density, likely a corpus albicans. Trace free fluid along the left adnexa, diminished from prior exam, with persistent tethering/inflammatory changes extending from the sigmoidcolon to the left adnexa.Lymph nodes: Unremarkable.Peritoneum: Trace residual free fluid in the pelvis. No residual fluid about the drainage catheter tip in the upper midline pelvis. Persistent but improved fat stranding and fascial thickening in the left lower quadrant and pelvisVessels: Unremarkable. Abdominal wall: Unremarkable.Bones: Unremarkable. IMPRESSION: 1.A low grade small bowel obstruction,transition point in the mid ileum in the anterior upper midline pelvis near the drainage catheter. 2.No residual fluid about the drainage catheter tip. Diminished free fluid in the pelvis. No residual d rainable fluid collections. 3.Moderately improved inflammatory changes in the pelvis and of the sigmoid colon Signed: Silvia Rodriguez Verified Date/Time: 02/22/2021 17:22:00 Reading Location: [address] Transitional Reading [facility]PO[facility] [id number] 11:28:00 Test Item Value Reference Range Interpretation Comments POC-GLUCOSE METER 105 mg/dL 70-110 : TESTED A T [facility] 6720 (BEAKER) (test code = [facility], 1538) [address]: Auditing Manager/Techni lyudmila ID = [id number] for CRISTOPHER UPESS POCT-GLUCOSE [id number] 06:08:00 Test Item Value Reference Range Interpretation Comments POC-GLUCOSE METER 117 mg/dL 70-110 H : TESTED A T [facility] 6720 (BEAKER) (test code = [facility], 1538) [address]: Auditing Manager/Techni lyudmila ID = [id number] for Cindy Cordova BASIC METABOLIC [id number] 04:42:00 Test Item Value Reference Range Interpretation Comments SODIUM (BEAKER) (test 140 meq/L 136-145 code = 381) POTASSIUM (BEAKER) 3.6 meq/L 3.5-5.1 (test code = 379) CHLORIDE (BEAKER) 107 meq/L 98-107 (test code = 382) CO2 (BEAKER) (test 25 meq/L 22-29 code = 355) BLOOD UREA NITROGEN 2 mg/dL 7-21 L (BEAKER) (test code = 354) CREATININE (BEAKER) 0.62 mg/dL 0.57-1.25 (test code = 358) GLUCOSE RANDOM 129 mg/dL 70-105 H (BEAKER) (test code = 652) CALCIUM (BEAKER) 8.5 mg/dL 8.4-10.2 (test code = 697) EGFR (BEAKER) (test INSUFFIC IENT CLINICAL code = 1092) DATA TO CALCULA TE ESTIMATED GFR. Auditing Manager ID - SHARMAINE [id number] 04:40:00 Test Item Value Reference Range Interpretation Comments MAGNESIUM (BEAKER) (test code = 1.9 mg/dL 1.6-2.6 627) Auditing Manager ID - SHARMAINE [id number] 04:40:00 Test Item Value Reference Range Interpretation Comments PHOSPHORUS (BEAKER) (test code = 3.5 mg/dL 2.3-4.7 604) Auditing Manager ID - SHARMAINE WCBC W/PLT COUNT & AUTO [id number] 04:17:00 Test Item Value Reference Range Interpretation Comments WHITE BLOOD CELL COUNT (BEAKER) 7.7 K/ L 3.5-10.5 (test code = 775) RED BLOOD CELL COUNT (BEAKER) 3.03 M/ L 3.93-5.22 L (test code = 761) HEMOGLOBIN (BEAKER) (test code = 9.6 GM/DL 11.2-15.7 L 410) HEMATOCRIT (BEAKER) (test code = 29.1 % 34.1-44.9 L 411) MEAN CORPUSCULAR VOLUME (BEAKER) 96.0 fL 79.4-94.8 H (test code = 753) MEAN CORPUSCULAR HEMOGLOBIN 31.7 pg 25.6-32.2 (BEAKER) (test code = 751) MEAN CORPUSCULAR HEMOGLOBIN CONC 33.0 GM/DL 32.2-35.5 (BEAKER) (test code = 752) RED CELL DISTRIBUTION WIDTH 12.7 % 11.7-14.4 (BEAKER) (test code = 412) PLATELET COUNT (BEAKER) (test 417 K/CU MM 150-450 code = 756) MEAN PLATELET VOLUME (BEAKER) 9.7 fL 9.4-12.3 (test code = 754) NUCLEATED RED BLOOD CELLS 0 /100 WBC 0-0 (BEAKER) (test code = 413) NEUTROPHILS RELATIVE PERCENT 63 % (BEAKER) (test code = 429) LYMPHOCYTES RELATIVE PERCENT 27 % (BEAKER) (test code = 430) MONOCYTES RELATIVE PERCENT 6 % (BEAKER) (test code = 431) EOSINOPHILS RELATIVE PERCENT 3 % (BEAKER) (test code = 432) BASOPHILS RELATIVE PERCENT 1 % (BEAKER) (test code = 437) NEUTROPHILS ABSOLUTE COUNT 4.89 K/ L 1.56-6.13 (BEAKER) (test code = 670) LYMPHOCYTES ABSOLUTE COUNT 2.05 K/ L 1.18-3.74 (BEAKER) (test code = 414) MONOCYTES ABSOLUTE COUNT (BEAKER) 0.46 K/ L 0.24-0.36 H (test code = 415) EOSINOPHILS ABSOLUTE COUNT 0.25 K/ L 0.04-0.36 (BEAKER) (test code = 416) BASOPHILS ABSOLUTE COUNT (BEAKER) 0.04 K/ L 0.01-0.08 (test code = 417) IMMATURE GRANULOCYTES-RELATIVE 0 % 0-1 PERCENT (BEAKER) (test code = 2801) POCT-GLUCOSE [id number] 00:19:00 Test Item Value Reference Range Interpretation Comments POC-GLUCOSE METER 108 mg/dL 70-110 : TESTED A T [facility] 6720 (BEAKER) (test code = [facility], 1538) [address]: Auditing Manager/Techni lyudmila ID = [id number] for Cindy Cordova POCT-GLUCOSE [id number] 18:24:00 Test Item Value Reference Range Interpretation Comments POC-GLUCOSE METER 100 mg/dL 70-110 : TESTED A T [facility] 6720 (BEAKER) (test code = [facility], 153) [address]: Auditing Manager/Techni lyudmila ID = [id number] for Wi lliams, Areiona POCT-GLUCOSE [id number] 12:01:00 Test Item Value Reference Range Interpretation Comments POC-GLUCOSE METER 119 mg/dL 70-110 H : TESTED A T [facility] 6720 (BEAKER) (test code = [facility], 1538) 99[address]: Auditing Manager/Techni lyudmila ID = [id number] for Wi lliams, Areiona BASIC METABOLIC [id number] 06:41:00 Test Item Value Reference Range Interpretation Comments SODIUM (BEAKER) (test 139 meq/L 136-145 code = 381) POTASSIUM (BEAKER) 3.4 meq/L 3.5-5.1 L (test code = 379) CHLORIDE (BEAKER) 104 meq/L 98-107 (test code = 382) CO2 (BEAKER) (test 28 meq/L 22-29 code = 355) BLOOD UREA NITROGEN 2 mg/dL 7-21 L (BEAKER) (test code = 354) CREATININE (BEAKER) 0.62 mg/dL 0.57-1.25 (test code = 358) GLUCOSE RANDOM 111 mg/dL 70-105 H (BEAKER) (test code = 652) CALCIUM (BEAKER) 8.3 mg/dL 8.4-10.2 L (test code = 697) EGFR (BEAKER) (test INSUFFIC IENT CLINICAL code = 1092) DATA TO CALCULA TE ESTIMATED GFR. Auditing Manager ID - GABRIELA [id number] 06:28:00 Test Item Value Reference Range Interpretation Comments MAGNESIUM (BEAKER) (test code = 1.8 mg/dL 1.6-2.6 627) Auditing Manager ID - GABRIELA [id number] 06:28:00 Test Item Value Reference Range Interpretation Comments PHOSPHORUS (BEAKER) (test code = 3.4 mg/dL 2.3-4.7 604) Auditing Manager ID - GABRIELA MPOCT-GLUCOSE [id number] 06:08:00 Test Item Value Reference Range Interpretation Comments POC-GLUCOSE METER 98 mg/dL 70-110 : TESTED A T [facility] 6720 (BEAKER) (test code = [facility] [place], 1538) [address]: Auditing Manager/Techni lyudmila ID = [id number] for Cindy Mckeon CBC W/PLT COUNT & AUTO [id number] 06:04:00 Test Item Value Reference Range Interpretation Comments WHITE BLOOD CELL COUNT (BEAKER) 6.3 K/ L 3.5-10.5 (test code = 775) RED BLOOD CELL COUNT (BEAKER) 2.93 M/ L 3.93-5.22 L (test code = 761) HEMOGLOBIN (BEAKER) (test code = 9.3 GM/DL 11.2-15.7 L 410) HEMATOCRIT (BEAKER) (test code = 28.9 % 34.1-44.9 L 411) MEAN CORPUSCULAR VOLUME (BEAKER) 98.6 fL 79.4-94.8 H (test code = 753) MEAN CORPUSCULAR HEMOGLOBIN 31.7 pg 25.6-32.2 (BEAKER) (test code = 751) MEAN CORPUSCULAR HEMOGLOBIN CONC 32.2 GM/DL 32.2-35.5 (BEAKER) (test code = 752) RED CELL DISTRIBUTION WIDTH 12.7 % 11.7-14.4 (BEAKER) (test code = 412) PLATELET COUNT (BEAKER) (test 403 K/CU MM 150-450 code = 756) MEAN PLATELET VOLUME (BEAKER) 9.8 fL 9.4-12.3 (test code = 754) NUCLEATED RED BLOOD CELLS 0 /100 WBC 0-0 (BEAKER) (test code = 413) NEUTROPHILS RELATIVE PERCENT 59 % (BEAKER) (test code = 429) LYMPHOCYTES RELATIVE PERCENT 29 % (BEAKER) (test code = 430) MONOCYTES RELATIVE PERCENT 8 % (BEAKER) (test code = 431) EOSINOPHILS RELATIVE PERCENT 4 % (BEAKER) (test code = 432) BASOPHILS RELATIVE PERCENT 1 % (BEAKER) (test code = 437) NEUTROPHILS ABSOLUTE COUNT 3.67 K/ L 1.56-6.13 (BEAKER) (test code = 670) LYMPHOCYTES ABSOLUTE COUNT 1.83 K/ L 1.18-3.74 (BEAKER) (test code = 414) MONOCYTES ABSOLUTE COUNT (BEAKER) 0.47 K/ L 0.24-0.36 H (test code = 415) EOSINOPHILS ABSOLUTE COUNT 0.24 K/ L 0.04-0.36 (BEAKER) (test code = 416) BASOPHILS ABSOLUTE COUNT (BEAKER) 0.04 K/ L 0.01-0.08 (test code = 417) IMMATURE GRANULOCYTES-RELATIVE 0 % 0-1 PERCENT (BEAKER) (test code = 2801) POCT-GLUCOSE [id number] 00:30:00 Test Item Value Reference Range Interpretation Comments POC-GLUCOSE METER 105 mg/dL 70-110 : TESTED A T [facility] 6720 (BEAKER) (test code = [facility], 1538) 25641: Auditing Manager/Techni lyudmila ID = [id number] for Cindy Cordova POCT-GLUCOSE [id number] 18:09:00 Test Item Value Reference Range Interpretation Comments POC-GLUCOSE METER 116 mg/dL 70-110 H : TESTED A T [facility] 6720 (BEAKER) (test code = [facility], 1538) 13674: Auditing Manager/Techni lyudmila ID = [id number] for Wi jackieiamsGermaniona POCT-GLUCOSE [id number] 11:51:00 Test Item Value Reference Range Interpretation Comments POC-GLUCOSE METER 112 mg/dL 70-110 H : TESTED A T [facility] 67[facility] (BEAKER) (test code = [facility] [place], 1538) 77168: Auditing Manager/Techni lyudmila ID = [id number] for Wi lliams, Areiona RAD, ABDOMEN/KUB, 1 VIEW [id number] 07:48:00Reason for exam:->Persistent distention and tympanitic; eval for ileus v pSBOShould this be performed at the bedside?->Yes[facility]: [facility] : 1975 Sex: FFINAL REPORT RAD, ABDOMEN/KUB, 1 VIEW AP CLINICAL INDICATION: Persistent distention and tympanitic; eval for ileus v pSBO COMPARISON: None TECHNIQUE: Single, frontal radiograph of the abdomen. FINDINGS: The bowel gas pattern demonstrates multiple distended loops of small bowel. There is relative decompression of distal loops and low-grade obstruction is difficult to exclude radiographically. A single air-filled loop of colon is noted in the right lower quadrant withadjacent surgical clips. Catheter overlies the mid pelvis. Evaluation for free air is limited by portable supine technique. Within these limitations, no free air is identified. Signed: Clarissa Tucker MDReport Verified Date/Time: 02/20/2021 07:48:55 Reading Location: [facility] Radiology ReadingRoom BASIC METABOLIC [id number] 05:43:00 Test Item Value Reference Range Interpretation Comments SODIUM (BEAKER) (test 138 meq/L 136-145 code = 381) POTASSIUM (BEAKER) 3.5 meq/L 3.5-5.1 (test code = 379) CHLORIDE (BEAKER) 101 meq/L 98-107 (test code = 382) CO2 (BEAKER) (test 30 meq/L 22-29 H code = 355) BLOOD UREA NITROGEN 3 mg/dL 7-21 L (BEAKER) (test code = 354) CREATININE (BEAKER) 0.57 mg/dL 0.57-1.25 (test code = 358) GLUCOSE RANDOM 126 mg/dL 70-105 H (BEAKER) (test code = 652) CALCIUM (BEAKER) 8.3 mg/dL 8.4-10.2 L (test code = 697) EGFR (BEAKER) (test INSUFFIC IENT CLINICAL code = 1092) DATA TO CALCULA TE ESTIMATED GFR. Auditing Manager ID - [id number] 05:42:00 Test Item Value Reference Range Interpretation Comments MAGNESIUM (BEAKER) (test code = 1.7 mg/dL 1.6-2.6 627) Auditing Manager ID - [id number] 05:42:00 Test Item Value Reference Range Interpretation Comments PHOSPHORUS (BEAKER) (test code = 3.9 mg/dL 2.3-4.7 604) Auditing Manager ID - ADMINPOCT-GLUCOSE [id number] 05:22:00 Test Item Value Reference Range Interpretation Comments POC-GLUCOSE METER 106 mg/dL 70-110 : TESTED A T [facility] 67[facility] (BEAKER) (test code = [facility], 1538) 51000: Auditing Manager/Techni lyudmila ID = [id number] for ARIN ROJASSAMIRMS NADEGE CBC W/PLT COUNT & AUTO [id number] 05:10:00 Test Item Value Reference Range Interpretation Comments WHITE BLOOD CELL COUNT (BEAKER) 6.3 K/ L 3.5-10.5 (test code = 775) RED BLOOD CELL COUNT (BEAKER) 2.92 M/ L 3.93-5.22 L (test code = 761) HEMOGLOBIN (BEAKER) (test code = 9.2 GM/DL 11.2-15.7 L 410) HEMATOCRIT (BEAKER) (test code = 29.0 % 34.1-44.9 L 411) MEAN CORPUSCULAR VOLUME (BEAKER) 99.3 fL 79.4-94.8 H (test code = 753) MEAN CORPUSCULAR HEMOGLOBIN 31.5 pg 25.6-32.2 (BEAKER) (test code = 751) MEAN CORPUSCULAR HEMOGLOBIN CONC 31.7 GM/DL 32.2-35.5 L (BEAKER) (test code = 752) RED CELL DISTRIBUTION WIDTH 12.8 % 11.7-14.4 (BEAKER) (test code = 412) PLATELET COUNT (BEAKER) (test 413 K/CU MM 150-450 code = 756) MEAN PLATELET VOLUME (BEAKER) 9.8 fL 9.4-12.3 (test code = 754) NUCLEATED RED BLOOD CELLS 0 /100 WBC 0-0 (BEAKER) (test code = 413) NEUTROPHILS RELATIVE PERCENT 60 % (BEAKER) (test code = 429) LYMPHOCYTES RELATIVE PERCENT 28 % (BEAKER) (test code = 430) MONOCYTES RELATIVE PERCENT 8 % (BEAKER) (test code = 431) EOSINOPHILS RELATIVE PERCENT 3 % (BEAKER) (test code = 432) BASOPHILS RELATIVE PERCENT 1 % (BEAKER) (test code = 437) NEUTROPHILS ABSOLUTE COUNT 3.80 K/ L 1.56-6.13 (BEAKER) (test code = 670) LYMPHOCYTES ABSOLUTE COUNT 1.79 K/ L 1.18-3.74 (BEAKER) (test code = 414) MONOCYTES ABSOLUTE COUNT (BEAKER) 0.48 K/ L 0.24-0.36 H (test code = 415) EOSINOPHILS ABSOLUTE COUNT 0.19 K/ L 0.04-0.36 (BEAKER) (test code = 416) BASOPHILS ABSOLUTE COUNT (BEAKER) 0.04 K/ L 0.01-0.08 (test code = 417) IMMATURE GRANULOCYTES-RELATIVE 0 % 0-1 PERCENT (BEAKER) (test code = 2801) POCT-GLUCOSE [id number] 23:39:00 Test Item Value Reference Range Interpretation Comments POC-GLUCOSE METER 128 mg/dL 70-110 H : TESTED A T [facility] 67[facility] (BEAKER) (test code = [facility], [facility]8) 75645: Auditing Manager/Techni lyudmila ID = [id number] for NADEGE LUIS POCT-GLUCOSE [id number] 18:05:00 Test Item Value Reference Range Interpretation Comments POC-GLUCOSE METER 127 mg/dL 70-110 H : TESTED A T [facility] 6720 (BEAKER) (test code = [facility], 1538) 47041: Auditing Manager/Techni lyudmila ID = [id number] for JESU SAMANIEGO POCT-GLUCOSE [id number] 12:26:00 Test Item Value Reference Range Interpretation Comments POC-GLUCOSE METER 134 mg/dL 70-110 H : TESTED A T [facility] 6720 (BEAKER) (test code = [facility], [facility]8) 53587: Auditing Manager/Techni lyudmila ID = [id number] for JESU SAMANIEGO POCT-GLUCOSE [id number] 05:53:00 Test Item Value Reference Range Interpretation Comments POC-GLUCOSE METER 71 mg/dL 70-110 : TESTED A T [facility] 6720 (BEAKER) (test code = [facility], [facility]) 26216: Auditing Manager/Techni lyudmila ID = [id number] for NADEGE KHOURY [id number] 05:03:00 Test Item Value Reference Range Interpretation Comments MAGNESIUM (BEAKER) (test code = 1.6 mg/dL 1.6-2.6 627) Auditing Manager ID - [id number] 05:03:00 Test Item Value Reference Range Interpretation Comments PHOSPHORUS (BEAKER) (test code = 3.8 mg/dL 2.3-4.7 604) Auditing Manager ID - EDASIBASIC METABOLIC [id number] 05:03:00 Test Item Value Reference Range Interpretation Comments SODIUM (BEAKER) (test 138 meq/L 136-145 code = 381) POTASSIUM (BEAKER) 4.3 meq/L 3.5-5.1 (test code = 379) CHLORIDE (BEAKER) 101 meq/L 98-107 (test code = 382) CO2 (BEAKER) (test 26 meq/L 22-29 code = 355) BLOOD UREA NITROGEN 4 mg/dL 7-21 L (BEAKER) (test code = 354) CREATININE (BEAKER) 0.55 mg/dL 0.57-1.25 L (test code = 358) GLUCOSE RANDOM 80 mg/dL 70-105 (BEAKER) (test code = 652) CALCIUM (BEAKER) 8.6 mg/dL 8.4-10.2 (test code = 697) EGFR (BEAKER) (test INSUFFIC IENT CLINICAL code = 1092) DATA TO CALCULA TE ESTIMATED GFR. Auditing Manager ID - EDASICBC W/PLT COUNT & AUTO [id number] 04:36:00 Test Item Value Reference Range Interpretation Comments WHITE BLOOD CELL COUNT (BEAKER) 8.1 K/ L 3.5-10.5 (test code = 775) RED BLOOD CELL COUNT (BEAKER) 3.13 M/ L 3.93-5.22 L (test code = 761) HEMOGLOBIN (BEAKER) (test code = 10.0 GM/DL 11.2-15.7 L 410) HEMATOCRIT (BEAKER) (test code = 30.1 % 34.1-44.9 L 411) MEAN CORPUSCULAR VOLUME (BEAKER) 96.2 fL 79.4-94.8 H (test code = 753) MEAN CORPUSCULAR HEMOGLOBIN 31.9 pg 25.6-32.2 (BEAKER) (test code = 751) MEAN CORPUSCULAR HEMOGLOBIN CONC 33.2 GM/DL 32.2-35.5 (BEAKER) (test code = 752) RED CELL DISTRIBUTION WIDTH 12.8 % 11.7-14.4 (BEAKER) (test code = 412) PLATELET COUNT (BEAKER) (test 410 K/CU MM 150-450 code = 756) MEAN PLATELET VOLUME (BEAKER) 9.8 fL 9.4-12.3 (test code = 754) NUCLEATED RED BLOOD CELLS 0 /100 WBC 0-0 (BEAKER) (test code = 413) NEUTROPHILS RELATIVE PERCENT 63 % (BEAKER) (test code = 429) LYMPHOCYTES RELATIVE PERCENT 27 % (BEAKER) (test code = 430) MONOCYTES RELATIVE PERCENT 6 % (BEAKER) (test code = 431) EOSINOPHILS RELATIVE PERCENT 3 % (BEAKER) (test code = 432) BASOPHILS RELATIVE PERCENT 0 % (BEAKER) (test code = 437) NEUTROPHILS ABSOLUTE COUNT 5.15 K/ L 1.56-6.13 (BEAKER) (test code = 670) LYMPHOCYTES ABSOLUTE COUNT 2.21 K/ L 1.18-3.74 (BEAKER) (test code = 414) MONOCYTES ABSOLUTE COUNT (BEAKER) 0.48 K/ L 0.24-0.36 H (test code = 415) EOSINOPHILS ABSOLUTE COUNT 0.23 K/ L 0.04-0.36 (BEAKER) (test code = 416) BASOPHILS ABSOLUTE COUNT (BEAKER) 0.03 K/ L 0.01-0.08 (test code = 417) IMMATURE GRANULOCYTES-RELATIVE 1 % 0-1 PERCENT (BEAKER) (test code = 2801) POCT-GLUCOSE [id number] 23:27:00 Test Item Value Reference Range Interpretation Comments POC-GLUCOSE METER 76 mg/dL 70-110 : TESTED A T [facility] 6720 (BEAKER) (test code = [facility], 153) 81541: Auditing Manager/Techni lyudmila ID = [id number] for NADEGE KHOURY POCT-GLUCOSE [id number] 18:35:00 Test Item Value Reference Range Interpretation Comments POC-GLUCOSE METER 82 mg/dL 70-110 : TESTED A T [facility] 6720 (BEAKER) (test code = [facility], 153) 08826: Auditing Manager/Techni lyudmila ID = [id number] for JESU JIMENEZ POCT-GLUCOSE [id number] 11:58:00 Test Item Value Reference Range Interpretation Comments POC-GLUCOSE METER 97 mg/dL 70-110 : TESTED A T [facility] 6720 (BEAKER) (test code = [facility], 153) 24504: Auditing Manager/Techni lyudmila ID = [id number] for JESU JIMENEZ BASIC METABOLIC [id number] 10:46:00 Test Item Value Reference Range Interpretation Comments SODIUM (BEAKER) (test 136 meq/L 136-145 code = 381) POTASSIUM (BEAKER) 3.6 meq/L 3.5-5.1 (test code = 379) CHLORIDE (BEAKER) 100 meq/L 98-107 (test code = 382) CO2 (BEAKER) (test 25 meq/L 22-29 code = 355) BLOOD UREA NITROGEN 5 mg/dL 7-21 L (BEAKER) (test code = 354) CREATININE (BEAKER) 0.58 mg/dL 0.57-1.25 (test code = 358) GLUCOSE RANDOM 107 mg/dL 70-105 H (BEAKER) (test code = 652) CALCIUM (BEAKER) 8.7 mg/dL 8.4-10.2 (test code = 697) EGFR (BEAKER) (test INSUFFIC IENT CLINICAL code = 1092) DATA TO CALCULA TE ESTIMATED GFR. Auditing Manager ID - GABRIELA [id number] 10:40:00 Test Item Value Reference Range Interpretation Comments MAGNESIUM (BEAKER) (test code = 1.7 mg/dL 1.6-2.6 627) Auditing Manager ID - GABRIELA [id number] 10:40:00 Test Item Value Reference Range Interpretation Comments PHOSPHORUS (BEAKER) (test code = 3.8 mg/dL 2.3-4.7 604) Auditing Manager ID - GABRIELA MCBC W/PLT COUNT & AUTO [id number] 10:26:00 Test Item Value Reference Range Interpretation Comments WHITE BLOOD CELL COUNT (BEAKER) 11.1 K/ L 3.5-10.5 H (test code = 775) RED BLOOD CELL COUNT (BEAKER) 3.33 M/ L 3.93-5.22 L (test code = 761) HEMOGLOBIN (BEAKER) (test code = 10.8 GM/DL 11.2-15.7 L 410) HEMATOCRIT (BEAKER) (test code = 31.6 % 34.1-44.9 L 411) MEAN CORPUSCULAR VOLUME (BEAKER) 94.9 fL 79.4-94.8 H (test code = 753) MEAN CORPUSCULAR HEMOGLOBIN 32.4 pg 25.6-32.2 H (BEAKER) (test code = 751) MEAN CORPUSCULAR HEMOGLOBIN CONC 34.2 GM/DL 32.2-35.5 (BEAKER) (test code = 752) RED CELL DISTRIBUTION WIDTH 12.8 % 11.7-14.4 (BEAKER) (test code = 412) PLATELET COUNT (BEAKER) (test 438 K/CU MM 150-450 code = 756) MEAN PLATELET VOLUME (BEAKER) 10.4 fL 9.4-12.3 (test code = 754) NUCLEATED RED BLOOD CELLS 0 /100 WBC 0-0 (BEAKER) (test code = 413) NEUTROPHILS RELATIVE PERCENT 72 % (BEAKER) (test code = 429) LYMPHOCYTES RELATIVE PERCENT 19 % (BEAKER) (test code = 430) MONOCYTES RELATIVE PERCENT 6 % (BEAKER) (test code = 431) EOSINOPHILS RELATIVE PERCENT 2 % (BEAKER) (test code = 432) BASOPHILS RELATIVE PERCENT 0 % (BEAKER) (test code = 437) NEUTROPHILS ABSOLUTE COUNT 8.03 K/ L 1.56-6.13 H (BEAKER) (test code = 670) LYMPHOCYTES ABSOLUTE COUNT 2.12 K/ L 1.18-3.74 (BEAKER) (test code = 414) MONOCYTES ABSOLUTE COUNT (BEAKER) 0.65 K/ L 0.24-0.36 H (test code = 415) EOSINOPHILS ABSOLUTE COUNT 0.18 K/ L 0.04-0.36 (BEAKER) (test code = 416) BASOPHILS ABSOLUTE COUNT (BEAKER) 0.04 K/ L 0.01-0.08 (test code = 417) IMMATURE GRANULOCYTES-RELATIVE 1 % 0-1 PERCENT (BEAKER) (test code = 2801) POCT-GLUCOSE [id number] 17:33:00 Test Item Value Reference Range Interpretation Comments POC-GLUCOSE METER 109 mg/dL 70-110 : TESTED A T [facility] (BEAKER) (test code = [facility] [place], 1538) 23647: Auditing Manager/Techni lyudmila ID = [id number] for RA MOS, MICHAEL CT, DRAINAGE, [id number] 15:00:00Reason for exam:->Pelvic abscess 2/2 perforated sigmoid diverticulitis ([place] Ib / II) [facility]: [facility] : 1975 Sex: FFINAL REPORT CT-guided drainage catheter placement dated 02/17/2021 Name of practitioner performing procedure:Juan Luis Nolan M.D. Names of service assistant:None Procedure: Drainage catheter placement into the sigmoid diverticula abscess Preprocedure diagnosis:Sigmoid diverticulitiswith peridiverticular abscess Postprocedure diagnosis:Sigmoid diverticula abscess Specimens removed:10 cc of purulent material removed Estimated blood loss:None Complication:None Conscious sedation: 1 mg Versed and [address] Juan Luis Nolan was responsible for the moderate sedation. Total sedation time: 20 minutes Anesthesia: 1% Xylocaine local anesthesia. Graft/Implants:None Technique: This exam was performed according to our departmental dose-optimization program, which includes automated exposure control, adjustment of the mA and/or kV according to patient size and/or use of interactive reconstruction technique. After obtaining informed consent, CT-guided drainage catheter placement was per formed under usual sterile technique. After placing introducer needle and guidewire, the tract was dilated with a 6 and 8 Maldivian dilators. An 8 Maldivian drainage catheter was placed. The drainage catheter was left in place, secured skin with suture, and connected to bulb suction. Patient tolerated the procedure well. Impression: Successful CT-guided drainage catheter placement into the sigmoid diverticula abscess. Signed: Juan Luis Nolan MDReport Verified Date/Time: 02/17/2021 15:00:00 Reading Location: [address] Body Reading Room CT drainage [id number] 15:00:00Interface, External Ris In - 02/17/2021 3:[address]-guided drainage catheter placement dated 02/17/2021 Name of practitioner performing procedure:Juan Luis Nolan M.D.Names of service assistant:None Procedure: Drainage catheter placement into the sigmoid diverticula abscess Preprocedure diagnosis:Sigmoid diverticulitis with peridiverticular abscess Postprocedure diagnosis:Sigmoid diverticula abscess Specimens removed:10 cc of purulent material removed Estimated blood loss:None Complication:None Conscious sedation: 1 mg Versed and [address] Juan Luis Nolan was responsible for the moderate sedation. Total sedation time: 20 minutes Anesthesia: 1% Xylocaine local anesthesia. Graft/Implants:None Technique: This exam was performed according to our departmental dose-optimization program, which includes automated exposure control, adjustment of the mA and/or kV according to patient size and/or use of interactive reconstruction technique. After obtaining informed consent,CT-guided drainage catheter placement was performed under usual sterile technique. After placing introducer needle and guidewire, the tract was dilated with a 6 and 8 Maldivian dilators. An 8 Maldivian drainage catheter was placed. The drainage catheter was left in place, secured skin with suture, and connected to bulb suction. Patient tolerated the procedure well. Impression: Successful CT-guided drainagecatheter placement into the sigmoid diverticula abscess. Signed: Juan Luis Nolaneport Verified Date/Time: 02/17/2021 15:00:00 Reading Location: [facility] C013Y CT Body [facility] [id number] 08:28:00 Test Item Value Reference Range Interpretation Comments Hemoglobin A1C (test code = 4548-4) 7.6 % 4.3-6.1 H Lab Interpretation (test code = Abnormal 69237-3) [facility] [id number] 08:28:00 Test Item Value Reference Range Interpretation Comments HEMOGLOBIN A1C (BEAKER) (test code = 7.6 % 4.3-6.1 H 368) POCT-GLUCOSE [id number] 05:35:00 Test Item Value Reference Range Interpretation Comments POC-GLUCOSE METER 134 mg/dL 70-110 H : [facility] ([facility] (test code = [facility], 1538) 52502: Auditing Manager/Techni lyudmila ID = [id number] for SHERRY WALLACE BASIC METABOLIC [id number] 05:32:00 Test Item Value Reference Range Interpretation Comments SODIUM (BEAKER) (test 137 meq/L 136-145 code = 381) POTASSIUM (BEAKER) 3.8 meq/L 3.5-5.1 (test code = 379) CHLORIDE (BEAKER) 104 meq/L 98-107 (test code = 382) CO2 (BEAKER) (test 22 meq/L 22-29 code = 355) BLOOD UREA NITROGEN 6 mg/dL 7-21 L (BEAKER) (test code = 354) CREATININE (BEAKER) 0.62 mg/dL 0.57-1.25 (test code = 358) GLUCOSE RANDOM 144 mg/dL 70-105 H (BEAKER) (test code = 652) CALCIUM (BEAKER) 8.5 mg/dL 8.4-10.2 (test code = 697) EGFR (BEAKER) (test INSUFFIC IENT CLINICAL code = 1092) DATA TO CALCULA TE ESTIMATED GFR. Auditing Manager ID - [id number] 05:29:00 Test Item Value Reference Range Interpretation Comments MAGNESIUM (BEAKER) (test code = 1.8 mg/dL 1.6-2.6 627) Auditing Manager ID - DBHEPATIC FUNCTION [id number] 05:29:00 Test Item Value Reference Range Interpretation Comments TOTAL PROTEIN (BEAKER) (test code = 6.7 gm/dL 6.0-8.3 770) ALBUMIN (BEAKER) (test code = 1145) 3.0 g/dL 3.5-5.0 L BILIRUBIN TOTAL (BEAKER) (test code 0.5 mg/dL 0.2-1.2 = 377) BILIRUBIN DIRECT (BEAKER) (test 0.3 mg/dL 0.1-0.5 code = 706) ALKALINE PHOSPHATASE (BEAKER) (test 142 U/L 40-150 code = 346) AST (SGOT) (BEAKER) (test code = 15 U/L 5-34 353) ALT (SGPT) (BEAKER) (test code = 11 U/L 6-55 347) Auditing Manager ID - DBProthrombin time/[id number] 05:06:00 Test Item Value Reference Interpretation Comments Range Protime (test code = 15.4 See_Comment H [Autom ated 2212-2) message] The system which generated this result transmitted reference range : 11.9 - 14.2 seconds. The reference range was not used to interpret this result as normal/abnormal . INR (test code = 1.26 See_Comment [Automated 2381-6) message] The system which generated this result transmitted reference range : <=5.90. The reference range was not used to interpret this result as normal/abnormal . LUZ (test code = Effective 04/01/2019: LUZ) PT Reference Range ChangeNew: 11.9-14.2 Previous: 11.7-14.7 RECOMMENDED COUMADIN/WARFARIN INR THERAPY RANGESSTANDARD DOSE: 2.0-3.0 Includes: PROPHYLAXIS for venous thrombosis, systemic embolization; TREATMENT for venous thrombosis and/or pulmonary embolus.HIGH RISK: Target INR is 2.5-3.5 for patients wiht mechanical heart valves. Lab Interpretation Abnormal (test code = 00300-7) [facility] CenterPROTHROMBIN [id number] 05:06:00 Test Item Value Reference Range Interpretation Comments PROTIME (BEAKER) 15.4 seconds 11.9-14.2 H (test code = 759) INR (BEAKER) (test 1.26 See_Comment [Automat ed message] code = 370) The system [employer] generated this result transmitted ref erence range: <=5.90. The reference range was not used to int erpret this result as normal/abnormal . Effective 04/01/2019: PT Reference Range ChangeNew: 11.9-14.2 Previous: 11.7- 14.7RECOMMENDED COUMADIN/WARFARIN INR THERAPY RANGESSTANDARD DOSE: 2.0-3.0 Includes: PROPHYLAXIS for venous thrombosis, systemic embolization; TREATMENT for venous thrombosis and/or pulmonary embolus.HIGH RISK: Target INR is2.5-3.5 for patients wiht mechanical heart valves.CBC W/PLT COUNT & AUTO [id number] 05:02:00 Test Item Value Reference Range Interpretation Comments WHITE BLOOD CELL COUNT (BEAKER) 15.1 K/ L 3.5-10.5 H (test code = 775) RED BLOOD CELL COUNT (BEAKER) 3.24 M/ L 3.93-5.22 L (test code = 761) HEMOGLOBIN (BEAKER) (test code = 10.3 GM/DL 11.2-15.7 L 410) HEMATOCRIT (BEAKER) (test code = 31.6 % 34.1-44.9 L 411) MEAN CORPUSCULAR VOLUME (BEAKER) 97.5 fL 79.4-94.8 H (test code = 753) MEAN CORPUSCULAR HEMOGLOBIN 31.8 pg 25.6-32.2 (BEAKER) (test code = 751) MEAN CORPUSCULAR HEMOGLOBIN CONC 32.6 GM/DL 32.2-35.5 (BEAKER) (test code = 752) RED CELL DISTRIBUTION WIDTH 13.2 % 11.7-14.4 (BEAKER) (test code = 412) PLATELET COUNT (BEAKER) (test 402 K/CU MM 150-450 code = 756) MEAN PLATELET VOLUME (BEAKER) 10.1 fL 9.4-12.3 (test code = 754) NUCLEATED RED BLOOD CELLS 0 /100 WBC 0-0 (BEAKER) (test code = 413) NEUTROPHILS RELATIVE PERCENT 81 % (BEAKER) (test code = 429) LYMPHOCYTES RELATIVE PERCENT 10 % (BEAKER) (test code = 430) MONOCYTES RELATIVE PERCENT 7 % (BEAKER) (test code = 431) EOSINOPHILS RELATIVE PERCENT 1 % (BEAKER) (test code = 432) BASOPHILS RELATIVE PERCENT 0 % (BEAKER) (test code = 437) NEUTROPHILS ABSOLUTE COUNT 12.20 K/ L 1.56-6.13 H (BEAKER) (test code = 670) LYMPHOCYTES ABSOLUTE COUNT 1.56 K/ L 1.18-3.74 (BEAKER) (test code = 414) MONOCYTES ABSOLUTE COUNT (BEAKER) 1.09 K/ L 0.24-0.36 H (test code = 415) EOSINOPHILS ABSOLUTE COUNT 0.15 K/ L 0.04-0.36 (BEAKER) (test code = 416) BASOPHILS ABSOLUTE COUNT (BEAKER) 0.05 K/ L 0.01-0.08 (test code = 417) IMMATURE GRANULOCYTES-RELATIVE 1 % 0-1 PERCENT (BEAKER) (test code = 2801) SCREEN, [id number] 01:12:00 Test Item Value Reference Range Interpretation Comments TEST URINE (BEAKER) (test Negative code = 583) POCT-GLUCOSE [id number] 23:41:00 Test Item Value Reference Range Interpretation Comments POC-GLUCOSE METER 127 mg/dL 70-110 H : TESTED A T [facility] (BEAKER) (test code = SH[place], 1538) [address]: Auditing Manager/Techni lyudmila ID = [id number] for SHERRY WALLACE
[2021-03-12] MEDS ORDERED: MORPHINE 4 MG/ML SYR ONE (23:28)
[2021-03-12] MEDS ORDERED: NA CHLORIDE 0.9% 1,000 ML ONE (23:29)
[2021-03-13] LABS: Absolute Lymphocytes (CBC) 2.9 K/uL (0.7-4.9); Basophils % 1.1 % (0-1.3); Hematocrit 31.9 % (36.0-45.0); Lymphocytes % 32.6 % (15.3-44.8); MPV 9.6 fL (7.6-11.3); RBC Red Blood Cell Count 3.62 M/uL (3.86-4.86)
[2021-03-13 00:09] LABS: ALT/SGPT 48 U/L (12-78); AST/SGOT 34 U/L (15-37); Alkaline Phosphatase 134 U/L (45-117); BUN Blood Urea Nitrogen 13 mg/dL (7-18); Bicarbonate 23 mmol/L (21-32); Bilirubin Direct < 0.1 mg/dL (0-0.2); Bilirubin Total 0.4 mg/dL (0.2-1.0); Glucose Level 138 mg/dL (74-106); Lipase 180 U/L (73-393); Potassium 3.5 mmol/L (3.5-5.1); Protein, Total 7.8 g/dL (6.4-8.2); Sodium Level 136 mmol/L (136-145)
[2021-03-13] MEDS ORDERED: Ciprofloxacin 200mg IV 200 MG/100 ML IV.SOLN. IV ONE (02:02)
[2021-03-13] MEDS ORDERED: METRONIDAZOLE 500mg IVPB 500 MG/100 ML BAG IV ONE (02:02)
[2021-03-13] MEDS ORDERED: MORPHINE 4 MG/ML SYR ONE (02:10)
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
--- NOTE | 2021-03-13 02:18 | EDPHYS ---
Physician Documentation [facility] [place] Name: Sylwia Rogel Age: 45 yrs Sex: Female : 1975 Arrival Date: 03/12/2021 Time: 21:52 Bed 18 Private MD: ED Physician Damian Tovar HPI: 03/12 22:55 This 45 yrs old Female presents to ER via Ambulatory with complaints of SKIN cp AROUND STOMA LOOKS INFECTED, Other. 22:55 The patient presents with abdominal pain in the lower abdomen. cp 22:55 Onset: The symptoms/episode began/occurred gradually. The symptoms do not radiate. cp Associated signs and symptoms: Pertinent negatives: nausea and vomiting, blood in stools, constipation, fever. Patient reports having bowel resection surgery performed at [facility] on 02-24-2021. Patient concerned that stoma appears infected and surrounding abdominal skin appears infected. Patient reports being unable to apply colostomy bag to abdomen wall. 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 - Social history:: Smoking status: Patient denies any tobacco usage or history of. ROS: 23:00 Constitutional: Negative for body aches, chills, fever. cp 23:00 Eyes: Negative for injury, pain, redness, and discharge. cp 23:00 ENT: Negative for ear pain, sore throat, difficulty swallowing, difficulty handling secretions. 23:00 Cardiovascular: Negative for chest pain. 23:00 Respiratory: Negative for cough, shortness of breath, wheezing. 23:00 Abdomen/GI: Positive for abdominal pain, Negative for vomiting, diarrhea, constipation. 23:00 Skin: Positive for cellulitis, of the right lower quadrant. 23:00 Neuro: Negative for altered mental status, headache, weakness. 23:00 All other systems are negative. Exam: 23:10 Constitutional: The patient appears in no acute distress, alert, awake, cp non-diaphoretic, non-toxic, well developed, well nourished. 23:10 Head/Face: Normocephalic, atraumatic. cp 23:10 Eyes: Periorbital structures: appear normal, Conjunctiva: normal, no exudate, no cp injection, Sclera: no appreciated abnormality, Lids and lashes: appear normal, bilaterally. 23:10 ENT: External ear(s): are unremarkable, Nose: is normal, Mouth: Lips: moist, Oral mucosa: moist, Posterior pharynx: Airway: no evidence of obstruction, patent. 23:10 Chest/axilla: Inspection: normal, Palpation: is normal, no crepitus, no tenderness. 23:10 Cardiovascular: Rate: tachycardic, Rhythm: regular. 23:10 Respiratory: the patient does not display signs of respiratory distress, Respirations: normal, no use of accessory muscles, no retractions, labored breathing, is not present, Breath sounds: are clear throughout, no decreased breath sounds, no stridor, no wheezing. 23:10 Abdomen/GI: Inspection: stoma noted RLQ appears with erythema and swelling, surrounding skin appears with erythema, marked tender to palpation, Bowel sounds: active, all quadrants, Palpation: soft, in all quadrants, moderate abdominal tenderness, in the right lower quadrant, rebound tenderness, is not appreciated, voluntary guarding, is elicited in the right lower quadrant. 23:10 Back: pain, is absent, ROM is normal. 23:10 Neuro: Orientation: to person, place \T\ time. Mentation: is normal. Vital Signs: 22:37 BP 138 / 109; Pulse 133; Resp 18 S; Temp 98.4(O); Pulse Ox 96% on R/A; Weight 78.93 kg bb (R); Height 5 ft. 6 in. (167.64 cm) (R); Pain 10/10; 05 00:16 BP 125 / 85; Pulse 116; Resp 18 S; Pulse Ox 100% on R/A; ad5 01:13 BP 126 / 75; Pulse 111; Resp 17 S; Pulse Ox 100% on R/A; Pain 7/10; ad5 02:30 BP 118 / 78; Pulse 105; Resp 18 S; Pulse Ox 100% on R/A; ad5 04:13 BP 117 / 74; Pulse 107; Resp 18 S; Pulse Ox 100% on R/A; ad5 03/12 22:37 Body Mass Index 28.08 (78.93 kg, 167.64 cm) bb MDM: 03/12 22:55 Patient medically screened. cp 23:45 Differential diagnosis: bowel obstruction, Ureterolithiasis, urinary tract infection, cp colitis, enteritis, cellulitis. 03/13 02:13 Data reviewed: vital signs, nurses notes, lab test result(s), radiologic studies, CT cp scan. Counseling: I had a detailed discussion with the patient and/or guardian regarding: the historical points, exam findings, and any diagnostic results supporting the discharge/admit diagnosis, lab results, radiology results. ED course: Discussed results of labs, CT abdomen/pelvis and concern for infected surgical site with patient. Patient reports recent post-op f/u this past Saturday with surgeon and reports surgeon had no immediate concern about surgical site. Patient refuses transfer to [facility] at this time and will f/u outpatient. 03/12 23:06 Order name: Basic Metabolic Panel; Complete Time: 00:18 cp 03/13 00:19 Interpretation: Normal except: GLUC 138; GFR 84. cp 03/12 23:06 Order name: CBC with Diff; Complete Time: 00:18 cp 03/13 00:18 Interpretation: Normal except: RBC 3.62; HGB 11.0; HCT 31.9; RDW 16.0; EOSINOPHIL % 5.6.cp 03/12 23:06 Order name: Hepatic Function; Complete Time: 00:18 cp 03/13 00:19 Interpretation: Normal except: ALK 134; ALB 3.0; GLOB 4.8; A/G 0.6. cp 03/12 23:06 Order name: Lipase; Complete Time: 00:18 cp 03/12 23:06 Order name: CT Abd/Pelvis - IV Contrast Only cp 03/12 23:06 Order name: IV Saline Lock; Complete Time: 23:38 cp 03/12 23:06 Order name: Labs collected and sent; Complete Time: 23:38 cp 03/12 23:06 Order name: Urine Dipstick-Ancillary (obtain specimen) cp 03/12 23:06 Order name: Urine Test (obtain specimen) cp Administered Medications: 03/12 23:35 Drug: NS 0.9% 1000 ml Route: IV; Rate: 1 bolus; Site: right antecubital; ad5 03/13 01:14 Follow up: IV Status: Completed infusion; IV Intake: 1000ml ad5 03/12 23:35 Drug: morphine 4 mg Route: IVP; Site: right antecubital; ad5 03/13 01:13 Follow up: Response: No adverse reaction; Pain is decreased ad5 01:32 Follow up: Response: No adverse reaction; Pain is decreased; RASS: Alert and Calm (0) ad5 01:55 Drug: morphine 4 mg {Note: RASS 0.} Route: IVP; Site: right antecubital; ad5 03:13 Follow up: Response: No adverse reaction; Pain is decreased; RASS: Alert and Calm (0) ad5 01:56 Drug: Cipro (ciprofloxacin) 400 mg Volume: 200 ml; Route: IVPB; Infused Over: 60 mins; ad5 Site: right antecubital; 03:14 Follow up: IV Status: Completed infusion; IV Intake: 200ml ad5 03:00 Drug: metroNIDAZOLE 500 mg Volume: 100 ml; Route: IVPB; Infused Over: 30 mins; Site: ad5 right antecubital; 04:00 Follow up: IV Status: Completed infusion ad5 Disposition: 03/13/21 02:17 Discharged to Home. Impression: Cellulitis of abdominal wall, Unspecified abdominal pain. - Condition is Stable. - Discharge Instructions: Abdominal Pain, Adult, Surgical Site Infections FAQs - JON. - Prescriptions for Cipro 500 mg Oral Tablet - take 1 tablet by ORAL route every 12 hours for 10 days; 20 tablet. Metronidazole 500 mg Oral Tablet - take 1 tablet by ORAL route every 8 hours; 30 tablet. Zofran 4 mg Oral Tablet - take 1 tablet by ORAL route every 12 hours As needed; 20 tablet. Tramadol 50 mg Oral Tablet - take 1 tablet by ORAL route every 8 hours as needed; 12 tablet. - Medication Reconciliation Form, Thank You Letter, Antibiotic Education, Prescription Opioid Use form. - Follow up: Private Physician; When: 2 - 3 days; Reason: Recheck today's complaints. - Problem is new. - Symptoms have improved. Addendum: 03/28/2021 05:09 Co-signature as Attending Physician, Damian Tovar MD I agree with the assessment and t w4 plan of care. Signatures: [facility] Anabelle Fragoso, RN RN Gold Luna PA PA Damian Carr MD MD tw4 Genaro Hines ad5 Corrections: (The following items were deleted from the chart) 03/13 04:20 02:17 03/13/2021 02:17 Discharged to Home. Impression: Cellulitis of abdominal wall; ad5 Unspecified abdominal pain. Condition is Stable. Forms are Medication Reconciliation Form, Thank You Letter, Antibiotic Education, Prescription Opioid Use. Follow up: Private Physician; When: 2 - 3 days; Reason: Recheck today's complaints. Problem is new. Symptoms have improved. cp
[2021-03-13 04:40] VITALS: TEMP 98.4
[2021-03-13 04:41] VITALS: O2SAT 100
[2021-03-13 04:45] VITALS: BP 117/74
--- NOTE | 2021-03-13 11:19 | RAD REPORT ---
EXAM DESCRIPTION: CT - Abdomen Pelvis W Contrast - 03/13/2021 12:55 am CLINICAL HISTORY: The patient is 45 years old and is Female; ABD PAIN TECHNIQUE: Axial computed tomography images of the abdomen and pelvis with intravenous contrast. S agittal and coronal reformatted images were created and reviewed. This CT exam was performed using one or more of the following dose reduction techniques: automated exposure control, adjustment of t he mA and/or kV according to patient size, and/or use of iterative reconstruction technique. COMPARISON: CT of the chest, abdomen, pelvis February 04, 2021 FINDINGS: LUNG BASES: Unremarkable. No mass. No consolidation. ABDOMEN: LIVER: The liver is enlarged and diffusely fatty. GALLBLADDER AND BILE DUCTS: No calcified stones. No ductal dilation. PANCREAS: No ductal dilation. No mass. SPLEEN: Unremarkable. ADRENALS: Unremarkable. No mass. KIDNEYS AND URETERS: Unremarkable. The kidneys enhance symmetrically. No obstructing renal or ur eteral calculus is seen. No hydronephrosis or hydroureter. No perinephric fluid or stranding. STOMACH AND BOWEL: The stomach is distended with fluid and food contents. The small bowel is nor mal in caliber. Postsurgical change of the left colon consistent with bowel resection is present. A r ight lower quadrant ostomy is present. A few of the proximal small bowel loops are fluid-filled with suggestion of mild mucosal enhancement. PELVIS: APPENDIX: No findings to suggest acute appendicitis. BLADDER: The bladder is well distended. Mild amount air is present within the dome of the bladde r. REPRODUCTIVE: Unremarkable as visualized. ABDOMEN and PELVIS: INTRAPERITONEAL SPACE: Mild inflammatory fat stranding within the mesentery in left abdomen is n oted which may be postsurgical. No free air. No significant fluid collection. BONES/JOINTS: No acute fracture. SOFT TISSUES: Midline abdominal incision is present. No underlying fluid collection. VASCULATURE: Unremarkable. No abdominal aortic aneurysm. LYMPH NODES: Unremarkable. No enlarged lymph nodes. IMPRESSION: 1. Evidence of recent bowel resection with formation of the right lower quadrant ostom y. There is no evidence of bowel obstruction. 2. A few of the small bowel loops are fluid-filled with mild mucosal enhancement suggesting an ente ritis. 3. Nonspecific inflammatory stranding within the mesentery, likely postsurgical. Electronically signed by: Alejandra Pacheco MD 03/13/2021 1:24 AM CDT Due to temporary technical issues with the PACS/Fluency reporting system, reports are being signed by the in house radiologist without review as a courtesy to ensure prompt reporting. The interpreting r adiologist is fully responsible for the content of the report.
== END 2021-03-13 04:20 | disposition home or self-care (01) ==
LOC: ER 21:48
DX: L03.311 Cellulitis of abdominal wall (principal); I10 Essential (primary) hypertension; E11.9 Type 2 diabetes mellitus without complications; F41.8 Other specified anxiety disorders; Z98.890 Other specified postprocedural states
CPT/HCPCS: 96365; 96361; 85025; 80048; 36415; 80076; 83690; 74177; 96375; 99284; Q9967; J0744; J7030

== ENCOUNTER 2021-03-13 15:44 | Emergency (ER) | payer BC ==
--- OUTSIDE RECORDS SUMMARY | 2021-03-13 15:50 | XMS REPORT | Continuity of Care Document ---
:1975 Author Organization [facility] t Address [address] [place] [address] Dr. Melgoza. [address] [place] [address] Care Team Providers Name Role Phone General RN, Kesha Primary Care Physician Unavailable Kaylynn Alexander MD [...] Expiration Date Sour ce Number BLUE CROSS/BLUE [id number] 2021 [facility] - [facility] [id number] -Tunde [id number], [place] [address] Problems Condition Condition Condition Status Onset Resolution [...] 00 ally from Center request for surgery [id number] Allergies, Adverse Reactions, Alerts This patient has no known allergies or adverse reactions. Family History Family Member Diagnosis Comments Start Date Stop Date Source Natural father Heart disease [facility] Natural mother Diabetes [facility] Natural mother Hyperlipidemia [facility] Social History Social Habit Start Date Stop Date Quantity Comments Source Sex Assigned At [facility] Exposure to Not sure [facility] SARS-CoV2 [facility] (event) Tobacco use and 2021-02-27 2021-02-27 Never used [facility] - exposure 00:00:00 00:00:00 [facility] Alcohol intake 2021-02-27 2021-02-27 Current drinker [facility] Yogesh doan elliott - 00:00:00 00:00:00 of [facility] (finding) Alcohol Comment 2021-02-16 2021-02-16 2-[address] [facility] [facility] - 00:00:00 00:00:[address] everyday Smoking Status Start Date Stop Date Source Never smoker [facility] edical [place] Medications Ordered Filled Start Stop Current Ordering [...] tablet 02 Center gabapentin 2021- Yes 300mg [id number] Take [address] (NEURONTIN) 5- 05- [id number] capsule [facility] - 300 MG 00:00: 23:59 3D (300 mg Medical capsule 00 :00 total) by Center mouth 3 (three) times daily. cyclobenzap 2020- Yes 10mg Q.[id number] Take [address] rine -01 06- [id number] tablet (10 Ailyn kes - (FLEXERIL) 00:00: 23:59 3D mg total) M edical 10 MG 00 :00 by mouth 3 Center tablet (three) times daily for 10 days. simethicone 2020- Yes 80mg Take [address] [facility] (MYLICON) -01 06-13 tablet (80 Jamila es - 80 MG [...] Source Systolic blood 2021-03-06 11:00:00 136 mm[Hg] [facility] Diastolic blood 2021-03-06 11:00:00 95 mm[Hg] [facility] Heart rate 2021-03-06 11:00:00 130 /min [facility] Respiratory rate 2021-03-06 11:00:00 18 /min [facility] Oxygen saturation in 2021-03-06 11:00:00 100 /min [facility] Arterial blood by Medical Ce nter Pulse oximetry Body temperature 2021-03-06 04:06:00 37 Tanisha [facility] Body weight 2021-03-04 05:58:00 82.146 kg [facility] BMI 2021-03-04 05:58:00 30.14 kg/m2 [facility] Body height 2021-02-16 20:34:00 165.1 cm [facility] Procedures Procedure Date / Time Performing Clinician Source Performed POCT-GLUCOSE METER 2021-03-06 07:36:00 Catherine [facility] CBC W/PLT COUNT & AUTO 2021-03-06 04:34:00 Duane Keys [facility] BASIC METABOLIC PANEL (7) 2021-03-06 04:34:00 Duane Keys [facility] MAGNESIUM 2021-03-06 04:34:00 Duane Keys [facility] PHOSPHORUS 2021-03-06 04:34:00 Duane Keys [facility] POCT-GLUCOSE METER 2021-03-05 21:32:00 Catherine, [facility] POCT-GLUCOSE METER 2021-03-05 11:39:00 Catherine, [facility] POCT-GLUCOSE METER 2021-03-05 07:55:00 Catherine, [facility] CBC W/PLT COUNT & AUTO 2021-03-05 05:26:00 Duane Keys [facility] BASIC METABOLIC PANEL (7) 2021-03-05 05:26:00 Duane Keys [facility] MAGNESIUM 2021-03-05 05:26:00 Duane Keys [facility] PHOSPHORUS 2021-03-05 05:26:00 Duane Keys [facility] POCT-GLUCOSE METER 2021-03-04 21:06:00 Catherine, [facility] POCT-GLUCOSE METER 2021-03-04 17:26:00 Catherine, [facility] POCT-GLUCOSE METER 2021-03-04 11:51:00 Catherine, [facility] CBC (HEMOGRAM ONLY) 2021-03-04 11:13:00 Rodolfo Martinez [facility] POCT-GLUCOSE METER 2021-03-04 07:41:00 Catherine, [facility] CBC W/PLT COUNT & AUTO 2021-03-04 05:33:00 Duane Keys [facility] BASIC METABOLIC PANEL (7) 2021-03-04 05:33:00 Duane Keys [facility] MAGNESIUM 2021-03-04 05:33:00 Duane Keys [facility] PHOSPHORUS 2021-03-04 05:33:00 Duane Keys [facility] POCT-GLUCOSE METER 2021-03-03 21:07:00 Catherine, [facility] POCT-GLUCOSE METER 2021-03-03 16:45:00 Catherine, [facility] POCT-GLUCOSE METER 2021-03-03 11:34:00 Catherine, [facility] POCT-GLUCOSE METER 2021-03-03 04:58:00 Catherine, [facility] CBC W/PLT COUNT & AUTO 2021-03-03 04:51:00 MassimoDuane villagomez [facility] BASIC METABOLIC PANEL (7) 2021-03-03 04:51:00 Duane Keys [facility] MAGNESIUM 2021-03-03 04:51:00 MassimoDuane villagomez [facility] PHOSPHORUS 2021-03-03 04:51:00 MassimoDuane villagomez [facility] HEPATIC FUNCTION PANEL 2021-03-03 04:51:00 Cruz, Janette Reaves [facility] POCT-GLUCOSE METER 2021-03-02 22:14:00 Catherine, [facility] POCT-GLUCOSE METER 2021-03-02 18:19:00 Catherine, [facility] SARS-COV2/RT-PCR ([facility] & 2021-03-02 18:13:00 Cruz, Janette [facility] POCT-GLUCOSE METER 2021-03-02 11:56:00 Catherine, [facility] POCT-GLUCOSE METER 2021-03-02 05:21:00 Catherine, [facility] CBC W/PLT COUNT & AUTO 2021-03-02 03:26:00 Duane Keys [facility] BASIC METABOLIC PANEL (7) 2021-03-02 03:26:00 Duane Keys [facility] MAGNESIUM 2021-03-02 03:26:00 Duane Keys [facility] PHOSPHORUS 2021-03-02 03:26:00 Duane Keys [facility] POCT-GLUCOSE METER 2021-03-01 23:55:00 Catherine, [facility] POCT-GLUCOSE METER 2021-03-01 17:54:00 Catherine, [facility] POCT-GLUCOSE METER 2021-03-01 12:08:00 Catherine, [facility] POCT-GLUCOSE METER 2021-03-01 06:30:00 Cruz, Janette Reaves [facility] CBC W/PLT COUNT & AUTO 2021-03-01 04:19:00 Duane Keys [facility] BASIC METABOLIC PANEL (7) 2021-03-01 04:19:00 Duane Keys [facility] MAGNESIUM 2021-03-01 04:19:00 Duane Keys [facility] PHOSPHORUS 2021-03-01 04:19:00 Duane Keys [facility] POCT-GLUCOSE METER 2021-03-01 00:25:00 Cruz, Janette Reaves [facility] XR ABDOMEN / KUB 1 VIEW 2021-02-28 18:24:00 Lena Laura [facility] POCT-GLUCOSE METER 2021-02-28 17:59:00 Cruz, Janette Reaves [facility] POCT-GLUCOSE METER 2021-02-28 11:34:00 Cruz, Janette Reaves [facility] POCT-GLUCOSE METER 2021-02-28 05:53:00 Cruz, Janette Reaves [facility] CBC W/PLT COUNT & AUTO 2021-02-28 04:24:00 Duane Keys [facility] BASIC METABOLIC PANEL (7) 2021-02-28 04:24:00 Duane Keys [facility] MAGNESIUM 2021-02-28 04:24:00 Duane Keys [facility] PHOSPHORUS 2021-02-28 04:24:00 Duane Keys [facility] HEPATIC FUNCTION PANEL 2021-02-28 04:24:00 Cruz, Janette Jelly [facility] POCT-GLUCOSE METER 2021-02-28 00:09:00 Cruz, Janette [facility] PREPARE LEUKO-REDUCED RBC 2021-02-27 23:54:00 Cruz, Janette Jelly [facility] POCT-GLUCOSE METER 2021-02-27 18:09:00 Cruz, Janette Jelly [facility] HEMOGLOBIN AND HEMATOCRIT 2021-02-27 15:07:00 Khloe Phelps [facility] POCT-GLUCOSE METER 2021-02-27 11:49:00 Cruz, Janette [facility] POCT-GLUCOSE METER 2021-02-27 05:25:00 Rcuz, Janette [facility] HEMOGLOBIN AND HEMATOCRIT 2021-02-27 03:16:00 Cruz, Janette Reaves [facility] CBC W/PLT COUNT & AUTO 2021-02-27 03:16:00 MassimoDuane villagomez [facility] BASIC METABOLIC PANEL (7) 2021-02-27 03:16:00 Duane Keys [facility] MAGNESIUM 2021-02-27 03:16:00 Duane Keys [facility] PHOSPHORUS 2021-02-27 03:16:00 Duane Keys [facility] POCT-GLUCOSE METER 2021-02-27 00:05:00 Cruz, Janette Jelly [facility] TRANSFUSE LEUKO-REDUCED 2021-02-26 23:49:31 Rodolfo Martinez [facility] RED BLOOD CELLS [facility] TRANSFUSE LEUKO-REDUCED 2021-02-26 21:17:31 Cruz, Janette Reaves [facility] RED BLOOD CELLS [facility] ABORH, MANUAL 2021-02-26 17:00:00 Radha Gar [facility] TYPE AND SCREEN, 2021-02-26 15:32:00 Cruz, Janette Mastersonn [facility] CBC (HEMOGRAM ONLY) 2021-02-26 14:29:00 DawnaDiana anderson [facility] POCT-GLUCOSE METER 2021-02-26 11:08:00 Cruz, Janette Jelly [facility] POCT-GLUCOSE METER 2021-02-26 06:08:00 Cruz, Janette Jelly [facility] CBC W/PLT COUNT & AUTO 2021-02-26 03:26:00 Duane Keys [facility] BASIC METABOLIC PANEL (7) 2021-02-26 03:26:00 Duane Keys [facility] MAGNESIUM 2021-02-26 03:26:00 Duane Keys [facility] PHOSPHORUS 2021-02-26 03:26:00 Duane Keys [facility] POCT-GLUCOSE METER 2021-02-26 00:41:00 Cruz, Janette Reaves [facility] POCT-GLUCOSE METER 2021-02-25 18:25:00 Cruz, Janette Jelly [facility] POCT-GLUCOSE METER 2021-02-25 12:06:00 Cruz, Janette Jelly [facility] CBC W/PLT COUNT & AUTO 2021-02-25 05:24:00 Duane Keys [facility] BASIC METABOLIC PANEL (7) 2021-02-25 05:24:00 Duane Keys [facility] MAGNESIUM 2021-02-25 05:24:00 Duane Keys [facility] PHOSPHORUS 2021-02-25 05:24:00 Duane Keys [facility] CALCIUM, IONIZED 2021-02-25 05:24:00 Duane Keys [facility] HEPATIC FUNCTION PANEL 2021-02-25 05:24:00 Duane Keys [facility] POCT-GLUCOSE METER 2021-02-25 05:08:00 Cruz, Janette Jelly [facility] POCT-GLUCOSE METER 2021-02-24 22:46:00 Cruz, Janette Jelly [facility] POCT-GLUCOSE METER 2021-02-24 18:45:00 Cruz, Janette [facility] POCT-GLUCOSE METER 2021-02-24 17:14:00 Cruz, Janette Jelly [facility] POCT-GLUCOSE METER 2021-02-24 14:25:00 Cruz, Janette [facility] POCT-GLUCOSE METER 2021-02-24 12:30:00 Cruz, Janette Jelly [facility] TISSUE EXAM 2021-02-24 10:11:00 Nelson Oconnor [facility] AFB CULTURE + SMEAR 2021-02-24 09:28:[address] [facility] (NON-SPUTUM) [facility] ANAEROBIC CULTURE 2021-02-24 09:28:15 Nelson Oconnor [facility] FUNGUS CULTURE + SMEAR 2021-02-24 09:28:15 Nelson Oconnor [facility] SURGICALLY OBTAINED 2021-02-24 09:28:15 Nelson Oconnor [facility] - CULTURE + GRAM STAIN [facility] ter SPIN/CONCENTRATION CHARGE 2021-02-24 09:28:00 Nelson Oconnor [facility] LAPAROSCOPY,SIGMOIDECTOMY 2021-02-24 07:41:00 Nelson Oconnor reese [facility] CREATION,OSTOMY 2021-02-24 07:41:00 Nelson Oconnor [facility] SCREEN, URINE 2021-02-24 04:57:00 Ilene Coates [facility] CBC W/PLT COUNT & AUTO 2021-02-24 04:27:00 Duane Keys [facility] BASIC METABOLIC PANEL (7) 2021-02-24 04:27:00 Duane Keys [facility] MAGNESIUM 2021-02-24 04:27:00 Duane Keys [facility] PHOSPHORUS 2021-02-24 04:27:00 Duane Keys [facility] POCT-GLUCOSE METER 2021-02-24 00:11:00 Cruz, Janette Reaves [facility] SARS-COV2/RT-PCR ([facility] & 2021-02-23 18:27:00 Cruz, Janette Ch [facility] REF LABS) [facility] POCT-GLUCOSE METER 2021-02-23 17:40:00 Cruz, Janette Reaves [facility] POCT-GLUCOSE METER 2021-02-23 13:23:00 Cruz, Janette Reaves [facility] IR PICC LINE PLACEMENT 2021-02-23 12:22:00 Rodolfo Martinez [facility] OLDER THAN 5 YRS [facility] POCT-GLUCOSE METER 2021-02-23 06:17:00 Cruz, Janette Reaves [facility] CBC W/PLT COUNT & AUTO 2021-02-23 04:31:00 Duane Keys [facility] BASIC METABOLIC PANEL (7) 2021-02-23 04:31:00 Duane Keys [facility] MAGNESIUM 2021-02-23 04:31:00 Duane Keys [facility] PHOSPHORUS 2021-02-23 04:31:00 Duane Keys [facility] TRIGLYCERIDES 2021-02-23 04:31:00 Cruz, Janette Reaves [facility] POCT-GLUCOSE METER 2021-02-23 00:22:00 Cruz, Janette Reaves [facility] POCT-GLUCOSE METER 2021-02-22 18:17:00 Cruz, Janette Reaves [facility] CT ABDOMEN/PELVIS WITH IV 2021-02-22 16:32:00 Garret Martinezn [facility] POCT-GLUCOSE METER 2021-02-22 11:17:00 Nancy Janette Jelly [facility] POCT-GLUCOSE METER 2021-02-22 05:56:00 Ld, [facility] CBC W/PLT COUNT & AUTO 2021-02-22 04:02:00 Duane Keys [facility] BASIC METABOLIC PANEL (7) 2021-02-22 04:02:00 Duane Keys [facility] MAGNESIUM 2021-02-22 04:02:00 Duane Keys [facility] PHOSPHORUS 2021-02-22 04:02:00 Duane Keys [facility] POCT-GLUCOSE METER 2021-02-22 00:06:00 Ld, [facility] POCT-GLUCOSE METER 2021-02-21 17:58:00 Ld, [facility] POCT-GLUCOSE METER 2021-02-21 11:47:00 Ld, [facility] POCT-GLUCOSE METER 2021-02-21 05:56:00 Ld, [facility] CBC W/PLT COUNT & AUTO 2021-02-21 05:21:00 Duane Keys [facility] BASIC METABOLIC PANEL (7) 2021-02-21 05:21:00 Duane Keys [facility] MAGNESIUM 2021-02-21 05:21:00 Duane Keys [facility] PHOSPHORUS 2021-02-21 05:21:00 Duane Keys [facility] POCT-GLUCOSE METER 2021-02-21 00:17:00 Ld, [facility] POCT-GLUCOSE METER 2021-02-20 17:56:00 Ld, [facility] POCT-GLUCOSE METER 2021-02-20 11:38:00 Ld, [facility] XR ABDOMEN / KUB 1 VIEW 2021-02-20 06:54:00 MartinezGarretn [facility] POCT-GLUCOSE METER 2021-02-20 05:09:00 Ld, [facility] CBC W/PLT COUNT & AUTO 2021-02-20 04:35:00 Duane Keys [facility] BASIC METABOLIC PANEL (7) 2021-02-20 04:35:00 Duane Keys [facility] MAGNESIUM 2021-02-20 04:35:00 Duane Keys [facility] PHOSPHORUS 2021-02-20 04:35:00 Duane Keys [facility] POCT-GLUCOSE METER 2021-02-19 23:26:00 Ld, [facility] POCT-GLUCOSE METER 2021-02-19 17:53:00 Ld, [facility] POCT-GLUCOSE METER 2021-02-19 12:14:00 Ld, [facility] POCT-GLUCOSE METER 2021-02-19 05:41:00 Ld, [facility] CBC W/PLT COUNT & AUTO 2021-02-19 04:01:00 Duane Keys [facility] BASIC METABOLIC PANEL (7) 2021-02-19 04:01:00 Duane Keys [facility] MAGNESIUM 2021-02-19 04:01:00 Duane Keys [facility] PHOSPHORUS 2021-02-19 04:01:00 Duane Keys [facility] POCT-GLUCOSE METER 2021-02-18 23:05:00 Ld, [facility] POCT-GLUCOSE METER 2021-02-18 18:23:00 Ld, [facility] WOUND CULTURE + GRAM 2021-02-18 13:08:00 Ld, [facility] POCT-GLUCOSE METER 2021-02-18 11:46:00 [facility] CBC W/PLT COUNT & AUTO 2021-02-18 10:10:00 Duane Keys [facility] BASIC METABOLIC PANEL (7) 2021-02-18 10:10:00 Duane Keys [facility] MAGNESIUM 2021-02-18 10:10:00 Duane Keys [facility] PHOSPHORUS 2021-02-18 10:10:00 [facility] POCT-GLUCOSE METER 2021-02-17 [facility]:20[facility]INAL 2021-02-17 13:47:00 Rodolfo Martinez [facility] POCT-GLUCOSE METER 2021-02-17 05:23:00 Guillermo Gonzáles [facility] CBC W/PLT COUNT & AUTO 2021-02-17 04:19:00 [facility] BASIC METABOLIC PANEL (7) 2021-02-17 04:19:00 [facility] HEPATIC FUNCTION PANEL 2021-02-17 04:19:00 [facility] HEMOGLOBIN A1C 2021-02-17 04:19:00 [facility] PROTHROMBIN TIME/INR 2021-02-17 04:19:00 [facility] MAGNESIUM 2021-02-17 04:19:00 [facility] SCREEN, URINE 2021-02-16 23:29:00 [facility] POCT-GLUCOSE METER 2021-02-16 23:28:00 [facility] Plan of Care Planned Activity Planned Date Details Comments Source Future Scheduled 2021-08-19 Hemoglobin A1c [facility] Test 00:00:00 measurement [facility] Center (procedure) [code = 03629544] Future Scheduled 2021-07-[address] [facility] Test 00:00:00 (Season Ended) [code = Medic al Center INFLUENZA VACCINE (Season Ended)] Future Scheduled 2021-06-04 INFLUENZA VACCINE [facility] Test 00:00:00 [code = INFLUENZA VACCINE] Future Scheduled [address] [facility] Test 00:[facility]00 (procedure) [code = Medical Center 09096323] Future Scheduled 1994 [facility] for [facility] 00:00:00 malignant neoplasm of cervix (procedure) [code = 087650270] Future Scheduled [address] [facility] 00:00[facility]00 [facility] [code = 710913905] Future Scheduled 1992 DTAP/TDAP/TD VACCINES [facility] Test 00:00:00 (1 - Tdap) [code = Medical C enter DTAP/TDAP/TD VACCINES (1 - Tdap)] Future Scheduled 1991 HEPATITIS C SCRE[facility]ING [facility] Test 00:00:00 [code = HEPATITIS C Medical Center SCREENING] Future Scheduled 1989 COVID-19 VACCINE (1) [facility] Test 00:00:00 [code = COVID-19 VACCINE (1)] Future Scheduled 1983 DIABETIC EYE EXAM [facility] Test 00:00:00 [code = DIABETIC EYE Medical Center EXAM] Future Scheduled [address] [facility] Test 00:00:00 examination Medical Center (regime/therapy) [code = 227136257] Future Scheduled 1983 Urine screening for [facility] - Test 00:00:00 protein (procedure) Medical Center [code = 220851606] Future Scheduled [address] [facility] - Test 00:00:00 0-64 YRS (1 of 1 - Medical C enter PPSV23) [code = PNEUMOCOCCAL VACCINE 0-64 YRS (1 of 1 - PPSV23)] Encounters Start End Encounter Admission Attending Care Care Encounter Source Date/Time Date/Time Type Type Clinicians Facility Department ID 2020-12-06 2020-12-06 [id number] [facility] 10:27:00 23:59:00 [facility] 2020-11-09 2020-11-09 [facility] [id number] [place] 07:37:00 23:59:00 [facility] 2019-06-18 2019-06-19 Office GALLO Hoang [id number] 17:27:50 07:41:30 Visit Aymer AMBULATOR [id number] Y [id number] Results Test Description Test Time Test Comments Results Result Comments Source POC-Glucose meter 2021-03-06 07:50:00 Test Item Value Reference Range Interpretation Comme nts POC-Glucose Meter (test code = 146 mg/dL 70-110 H : [facility] [address] [facility], [address] 30: Marketing Mgr/Techni lyudmila ID = [id number] for DAPHNE JENKINS Lab Interpretation (test code = Abnormal 61037-9) [facility] [id number] 07:50:00 Test Item Value Reference Range Interpretation Comments POC-GLUCOSE METER 146 mg/dL 70-110 H : TESTED [facility] T [facility] [address] (BEAKER) (test code = BERTNE R [facility], 1538) [address]: Marketing Mgr/Techni lyudmila ID = [id number] for DAPHNE GHOTRA Basic Metabolic [id number] 05:39:00 Test Item Value Reference Range Interpretation [...] Calcium (test code = 9.6 mg/dL 8.4-10.2 64866-4) EGFR (test code = [place] [address]-4) CLINICAL DATA T O CALCULATE ESTIMATED GFR. LUZ (test code = LUZ) Marketing Mgr ID - ADMIN Lab Interpretation Abnormal (test code = 15908-9) [facility] [id number] 05:39:00 Test Item Value Reference Range Interpretation [...] 1092) DATA TO CALCULA TE ESTIMATED GFR. Marketing Mgr ID - [id number] 05:34:00 Test Item Value Reference Range Interpretation Comments Magnesium (test code = 1.6 mg/dL 1.6-2.6 Speci men 28104-9) moderately hemolyzed LUZ (test code = LUZ) Marketing Mgr ID - ADMIN Lab Interpretation Normal (test code = 29929-7) [facility] 05:34:00 Test Item Value Reference Range Interpretation Comments Phosphorus (test code 4.5 mg/dL 2.3-4.7 Specim en = 2777-1) moderately hemolyzed LUZ (test code = LUZ) Marketing Mgr ID - ADMIN Lab Interpretation Normal (test code = 45270-7) [facility] 05:34:00 Test Item Value Reference Range Interpretation Comments MAGNESIUM (BEAKER) 1.6 mg/dL 1.6-2.6 Specimen moderately (test code = 627) hemolyzed Marketing Mgr ID - [id number] 05:34:00 Test Item Value Reference Range Interpretation Comments PHOSPHORUS (BEAKER) 4.5 mg/dL 2.3-4.7 Specimen moderately (test code = 604) hemolyzed Marketing Mgr ID - ADMINCBC with platelet count + automated [id number] 05:25:00 Test Item Value Reference Range Interpretation Comments WBC (test code = 6690-2) 8.0 See_Comment [A utomated message] The system [employer] generated this result transmitted ref erence range: 3.5 - 10 .5 K/L. The refe rence range was not u sed to interpret this result as normal/abnor mal. RBC (test code = 789-8) 4.07 See_Comment [Au tomated message] The system [employer] generated this result transmitted ref erence range: 3.93 - 5 .22 M/L. The refe rence range was not u sed to interpret this result as normal/abnor mal. MCHC (test code = 786-4) 33.0 See_Comment [A utomated message] The system [employer] generated this result transmitted ref erence range: [...] code = 355 See_Comment [Aut omated message] 477-3) The system [employer] generated this result transmitted ref erence range: 150 - 45 0 K/CU MM. The referen ce range was not u sed to interpret this result as normal/abnor mal. MPV (test code = 11.1 fL 9.4-12.3 18696-0) nRBC (test code = 413) 0 See_Comment [Aut omated message] The system [employer] generated this result transmitted ref erence range: [...] See_Comment [Aut omated message] 670) The system [employer] generated this result transmitted ref erence range: 1.56 - 6 .13 K/L. The refe rence range was not u sed to interpret this result as normal/abnor mal. # Lymphs (test code = 2.96 See_Comment [Auto mated message] 414) The system [employer] generated this result transmitted ref erence range: 1.18 - 3 .74 K/L. The refe rence range was not u sed to interpret this result as normal/abnor mal. # Monos (test code = 0.71 See_Comment H [Autom ated message] 415) The system [employer] generated this result transmitted ref erence range: 0.24 - 0 .36 K/L. The refe rence range was not u sed to interpret this result as normal/abnor mal. # Eos (test code = 416) 0.43 See_Comment H [Au tomated message] The system [employer] generated this result transmitted ref erence range: 0.04 - 0 .36 K/L. The refe rence range was not u sed to interpret this result as normal/abnor mal. # Baso (test code = 417) 0.05 See_Comment [A utomated message] The system [employer] generated this result transmitted ref erence range: 0.01 - 0 .08 K/L. The refe rence range was not u sed to interpret this result as normal/abnor mal. Immature 0 % 0-1 Granulocytes-Relative (test code = 2801) Lab Interpretation (test Abnormal code = 57384-1) [facility] W/PLT COUNT & AUTO [id number] 05:25:00 Test Item Value Reference Range Interpretation [...] PERCENT (BEAKER) (test code = 2801) POCT-GLUCOSE [id number] 21:44:00 Test Item Value Reference Range Interpretation Comments POC-GLUCOSE METER 156 mg/dL 70-110 H : TESTED A T [facility] 6720 (BEAKER) (test code = [facility], 1538) 8[address]: Marketing Mgr/Techni lyudmila ID = [id number] for CORNELIO BENAVIDEZ POCT-GLUCOSE [id number] 11:50:00 Test Item Value Reference Range Interpretation Comments POC-GLUCOSE METER 136 mg/dL 70-110 H : TESTED A T [facility] 6720 (BEAKER) (test code = [facility], 1538) 06409: Marketing Mgr/Techni lyudmila ID = [id number] for JESU SAMANIEGO POCT-GLUCOSE [id number] 08:06:00 Test Item Value Reference Range Interpretation Comments POC-GLUCOSE METER 141 mg/dL 70-110 H : TESTED A T [facility] 6720 (BEAKER) (test code = [facility], 1538) 38637: Marketing Mgr/Techni lyudmila ID = [id number] for JESU SAMANIEGO BASIC METABOLIC [id number] 06:35:00 Test Item Value Reference Range Interpretation [...] 1092) DATA TO CALCULA TE ESTIMATED GFR. Marketing Mgr ID - [id number] 06:21:00 Test Item Value Reference Range Interpretation Comments MAGNESIUM (BEAKER) (test code = 1.5 mg/dL 1.6-2.6 L 627) Marketing Mgr ID - [id number] 06:21:00 Test Item Value Reference Range Interpretation Comments PHOSPHORUS (BEAKER) (test code = 4.4 mg/dL 2.3-4.7 604) Marketing Mgr ID - ADMINCBC W/PLT COUNT & AUTO [id number] 06:03:00 Test Item Value Reference Range Interpretation [...] LYMPHOCYTES ABSOLUTE COUNT 2.54 K/ L 1.18-3.74 ([facility]) (test code = 414) MONOCYTES ABSOLUTE COUNT (BEAKER) 0.68 K/ L 0.24-0.36 H (test code = 415) EOSINOPHILS ABSOLUTE COUNT 0.43 K/ L 0.04-0.36 H ([facility]) (test code = 416) BASOPHILS ABSOLUTE COUNT ([facility]) 0.06 K/ L 0.01-0.08 (test code = 417) IMMATURE GRANULOCYTES-RELATIVE 0 % 0-1 PERCENT ([facility]) (test code = 2801) POCT-GLUCOSE [id number] 21:18:00 Test Item Value Reference Range Interpretation Comments POC-GLUCOSE METER 136 mg/dL 70-110 H : Notified RN/MD: ([facility]) (test code = TESTED AT [place] [address] 1538) [facility], [address]: Marketing Mgr/Techni lyudmila ID = [id number] for Sa nchez, Ozzie POCT-GLUCOSE [id number] 17:37:00 Test Item Value Reference Range Interpretation Comments POC-GLUCOSE METER 98 mg/dL 70-110 : TESTED A T [place] [address] ([facility]) (test code = [facility], 1538) [address]12[address]: Marketing Mgr/Techni lyudmila ID = [id number] for REBEKA S, MICHAEL POCT-GLUCOSE [id number] 12:03:00 Test Item Value Reference Range Interpretation Comments POC-GLUCOSE METER 117 mg/dL 70-110 H : TESTED A T [facility] 67[facility] ([facility]) (test code = [facility], 1538) 80843: Marketing Mgr/Techni lyudmila ID = [id number] for RA MOS, MICHAEL CBC (Hemogram only)2021-03-04 11:22:00 Test Item Value Reference Range Interpretation Comments WBC (test code = 6690-2) 7.2 See_Comment [A utomated message] The system [employer] generated this result transmitted ref erence range: 3.5 - 10 .5 K/L. The refe rence range was not u sed to interpret this result as normal/abnor mal. RBC (test code = 789-8) 3.68 See_Comment L [Au tomated message] The system [employer] generated this result transmitted ref erence range: 3.93 - 5 .22 M/L. The refe rence range was not u sed to interpret this result as normal/abnor mal. MCHC (test code = 786-4) 32.5 See_Comment L [A utomated message] The system [employer] generated this result transmitted ref erence range: [...] See_Comment [Aut omated message] 777-3) The system [employer] generated this result transmitted ref erence range: 150 - 45 0 K/CU MM. The referen ce range was not u sed to interpret this result as normal/abnor mal. MPV (test code = 10.3 fL 9.4-12.3 75518-8) nRBC (test code = 413) 0 See_Comment [Aut omated message] The system [employer] generated this result transmitted ref erence range: 0 - 0 /1 00 WBC. The refere nce range was not u sed to interpret this result as normal/abnor mal. Lab Interpretation (test Abnormal code = 31625-8) [facility] (HEMOGRAM ONLY)2021-03-04 11:22:00 Test Item Value Reference [...] 0-0 (BEAKER) (test code = 413) POCT-GLUCOSE [id number] 07:52:00 Test Item Value Reference Range Interpretation Comments POC-GLUCOSE METER 142 mg/dL 70-110 H : TESTED A T [facility] 67[facility] (BEAKER) (test code = [place], 1538) [address]: Marketing Mgr/Techni lyudmila ID = [id number] for RA MOS, MICHAEL CBC W/PLT COUNT & AUTO [id number] 06:32:00 Test Item Value Reference Range Interpretation [...] (BEAKER) (test code = 2801) BASIC METABOLIC [id number] 06:20:00 Test Item Value Reference Range Interpretation [...] 1092) DATA TO CALCULA TE ESTIMATED GFR. Marketing Mgr ID - GABRIELA [id number] 06:19:00 Test Item Value Reference Range Interpretation Comments MAGNESIUM (BEAKER) (test code = 1.5 mg/dL 1.6-2.6 L 627) Marketing Mgr ID - GABRIELA [id number] 06:19:00 Test Item Value Reference Range Interpretation Comments PHOSPHORUS (BEAKER) (test code = 4.6 mg/dL 2.3-4.7 604) Marketing Mgr ID - GABRIELA MPOCT-GLUCOSE [id number] 21:19:00 Test Item Value Reference Range Interpretation Comments POC-GLUCOSE METER 112 mg/dL 70-110 H : TESTED A T [facility] 6720 (BEAKER) (test code = [facility], 1538) 03865: Marketing Mgr/Techni lyudmila ID = [id number] for Cindy Cordova POCT-GLUCOSE [id number] 16:56:00 Test Item Value Reference Range Interpretation Comments POC-GLUCOSE METER 133 mg/dL 70-110 H : TESTED A T [facility] 6720 (BEAKER) (test code = [facility], 1538) 91299: Marketing Mgr/Techni lyudmila ID = [id number] for JESU SAMANIEGO POCT-GLUCOSE [id number] 11:45:00 Test Item Value Reference Range Interpretation Comments POC-GLUCOSE METER 180 mg/dL 70-110 H : TESTED A T [facility] 6720 (BEAKER) (test code = [facility], 1538) 93626: Marketing Mgr/Techni lyudmila ID = [id number] for JESU SAMANIEGO BASIC METABOLIC [id number] 05:49:00 Test Item Value Reference Range Interpretation [...] 1092) DATA TO CALCULA TE ESTIMATED GFR. Marketing Mgr ID - EDASIHepatic function [id number] 05:45:00 Test Item Value Reference Range Interpretation Comments Protein, Total (test 7.0 See_Comment [Autom ated code = 2885-2) message] The system which generated this result transmit alcon reference range : 6.0 - 8.3 gm/dL . The reference range was not u sed to interpret th is result as normal/abnormal . Albumin (test code = 3.3 g/dL 3.5-5 L 04428-6) Total Bilirubin (test 1.0 mg/dL 0.2-1.2 code = 1975-2) Bilirubin, Direct 0.4 mg/dL 0.1-0.5 (test code = 1968-7) Alkaline Phosphatase 101 U/L 40-150 (test code = 6768-6) AST (test code = 24 U/L 5-34 1920-8) ALT (test code = 23 U/L 6-55 1742-6) LUZ (test code = LUZ) Marketing Mgr ID - EDASI Lab Interpretation Abnormal (test code = 01507-7) [facility] Test Item Value Reference Range Interpretation Comments MAGNESIUM (BEAKER) (test code = 1.6 mg/dL 1.6-2.6 627) Marketing Mgr ID - [id number] 05:45:00 Test Item Value Reference Range Interpretation Comments PHOSPHORUS (BEAKER) (test code = 4.6 mg/dL 2.3-4.7 604) Marketing Mgr ID - EDASIHEPATIC FUNCTION [id number] 05:45:00 Test Item Value Reference Range Interpretation [...] (test code = 23 U/L 6-55 347) Marketing Mgr ID - EDASICBC W/PLT COUNT & AUTO [id number] 05:33:00 Test Item Value Reference Range Interpretation [...] PERCENT (BEAKER) (test code = 2801) POCT-GLUCOSE [id number] 05:10:00 Test Item Value Reference Range Interpretation Comments POC-GLUCOSE METER 114 mg/dL 70-110 H : TESTED Amy Doan [facility] 67[facility] (BEAKER) (test code = [facility], 1538) [address]: Marketing Mgr/Techni lyudmila ID = [id number] for AN CORNELIO HICKEY SARS-CoV2/RT-PCR (Asymptomatic ONLY)2021-03-03 04:28:00 Test Item Value Reference Range Interpretation Comments SARS-COV2/RT-PCR Negative Not Detected, (test code = Negative, See 92243-6) external report for linked test SARS-COV-2 [facility] PERFORM[facility] (test code = 60543-8) LUZ (test code = Negative result for [...] the Act. Testing was performed using the Turbogen SARS-CoV-2 assay. Fact Sheet for Healthcare Providers:https://www.[employer]/dave/RT_SA AZ-XuM-3_EIN_Pzvv_Yejii_ 51-118017.pdf Fact Sheet for Healthcare Patients:https://www.[employer]/dave/RT_SAR N-ElY-6_Kgibyyu_Sfac_Ymk et_EN_51-445670K7.pdf Performing Laboratory:[place] [address] [address], [place] [address] [place], [place] [address]ARS-COV2/RT-PCR ([facility])2021-03-03 04:28:00 Test Item Value Reference Range Interpretation Comments SARS-COV2/RT-PCR (test Negative Not Detected, Negative, code = 8247505) See external report for linked test SARS-COV-[address] [facility] (test code = 6288366) Negative result for this test determines that [...] the Mcmillan SARS-CoV-2 assay.Fact Sheet for Healthcare Providers:https://www.[employer].mcmillan/dave/ JM_DMVP-EkV-4_OEZ_Qozx_Hqsfe_47-311997.pdfFact Sheet for Healthcare Patients:https://www.[employer].Me[employer] elda/dave/QC_HLMK-ZyE-6_Ofjihjw_Yinf_Lazmj_QF_83-085574X0.pdfPerforming Laboratory:[facility] [address] POCT-GLUCOSE [id number] 22:25:00 Test Item Value Reference Range Interpretation Comments POC-GLUCOSE METER 96 mg/dL 70-110 : TESTED A T [facility] 6720 (BEAKER) (test code = [facility] Aly[facility], 1538) 705[address]: Marketing Mgr/Techni lyudmila ID = [id number] for CORNELIO BATISTA POCT-GLUCOSE [id number] 18:30:00 Test Item Value Reference Range Interpretation Comments POC-GLUCOSE METER 127 mg/dL 70-110 H : TESTED A T [facility] 6720 (BEAKER) (test code = [facility], 1538) 45[address]: Marketing Mgr/Techni lyudmila ID = [id number] for JESU SAMANIEGO POCT-GLUCOSE [id number] 12:08:00 Test Item Value Reference Range Interpretation Comments POC-GLUCOSE METER 130 mg/dL 70-110 H : TESTED A T [facility] 6720 (BEAKER) (test code = [facility], 1538) 80110: Marketing Mgr/Techni lyudmila ID = [id number] for JESU SAMANIEGO POCT-GLUCOSE [id number] 05:33:00 Test Item Value Reference Range Interpretation Comments POC-GLUCOSE METER 106 mg/dL 70-110 : TESTED A T [facility] 6720 (BEAKER) (test code = [facility], 1538) 24800: Marketing Mgr/Techni lyudmila ID = [id number] for Cindy Cordova BASIC METABOLIC [id number] 04:26:00 Test Item Value Reference Range Interpretation [...] 1092) DATA TO CALCULA TE ESTIMATED GFR. Marketing Mgr ID - GABRIELA [id number] 04:21:00 Test Item Value Reference Range Interpretation Comments MAGNESIUM (BEAKER) (test code = 1.6 mg/dL 1.6-2.6 627) Marketing Mgr ID - GABRIELA [id number] 04:21:00 Test Item Value Reference Range Interpretation Comments PHOSPHORUS (BEAKER) (test code = 4.4 mg/dL 2.3-4.7 604) Marketing Mgr ID - GABRIELA MCBC W/PLT COUNT & AUTO [id number] 04:06:00 Test Item Value Reference Range Interpretation [...] PERCENT (BEAKER) (test code = 2801) POCT-GLUCOSE [id number] 00:07:00 Test Item Value Reference Range Interpretation Comments POC-GLUCOSE METER 104 mg/dL 70-110 : TESTED A T [facility] 6720 (BEAKER) (test code = [facility], 1538) 96105: Marketing Mgr/Techni lyudmila ID = [id number] for Cindy Cordova POCT-GLUCOSE [id number] 18:05:00 Test Item Value Reference Range Interpretation Comments POC-GLUCOSE METER 91 mg/dL 70-110 : TESTED A T [facility] 6720 (BEAKER) (test code = [facility], 1538) 40702: Marketing Mgr/Techni lyudmila ID = [id number] for Rj s, Jennifer POCT-GLUCOSE [id number] 12:19:00 Test Item Value Reference Range Interpretation Comments POC-GLUCOSE METER 96 mg/dL 70-110 : TESTED A T [facility] 6720 (BEAKER) (test code = [facility], 1538) 35787: Marketing Mgr/Techni lyudmila ID = [id number] for Rj s, Jennifer POCT-GLUCOSE [id number] 06:42:00 Test Item Value Reference Range Interpretation Comments POC-GLUCOSE METER 117 mg/dL 70-110 H : TESTED A T [facility] 6720 (BEAKER) (test code = [facility], 1538) 52906: Marketing Mgr/Techni lyudmila ID = [id number] for ISHMAEL CAMARILLO, ADA BASIC METABOLIC [id number] 05:29:00 Test Item Value Reference Range Interpretation [...] 1092) DATA TO CALCULA TE ESTIMATED GFR. Marketing Mgr ID - GABRIELA [id number] 05:27:00 Test Item Value Reference Range Interpretation Comments MAGNESIUM (BEAKER) (test code = 1.8 mg/dL 1.6-2.6 627) Marketing Mgr ID - GABRIELA [id number] 05:27:00 Test Item Value Reference Range Interpretation Comments PHOSPHORUS (BEAKER) (test code = 4.8 mg/dL 2.3-4.7 H 604) Marketing Mgr ID - GABRIELA MCBC W/PLT COUNT & AUTO [id number] 04:57:00 Test Item Value Reference Range Interpretation [...] PERCENT (BEAKER) (test code = 2801) POCT-GLUCOSE [id number] 00:37:00 Test Item Value Reference Range Interpretation Comments POC-GLUCOSE METER 120 mg/dL 70-110 H : TESTED A T [facility] (BEAKER) (test code = [facility], 1538) 29363: Marketing Mgr/Techni lyudmila ID = [id number] for SAÚL TODD RAD, ABDOMEN/KUB, 1 VIEW [id number] 19:30:00Reason for exam:->nausea, vomiting, abdominal distentionShould this be performed at the bedside?->Yes [facility] 1975 Sex: FFINAL REPORT [...] detection of free intraperitoneal air. Signed: Pat Shah MDReport Verified Date/Time: 02/28/2021 19:30:20 Electronic ally signed by: PAT SHAH M.D. on 02/28/2021 07:30 PMXR abdomen / KUB 1 [id number] 19:30:00Interface, External Ris In - 02/28/2021 7:32 [...] detection of free intraperitoneal air. Signed: Pat Shaheport Verified Date/Time: 02/28/2021 19:30:20 [facility] [id number] 18:10:00 Test Item Value Reference Range Interpretation Comments POC-GLUCOSE METER 156 mg/dL 70-110 H : TESTED A T [facility] 6720 (Help/Systems) (test code = [employer] [facility], 1538) 02858: Marketing Mgr/Techni lyudmila ID = [id number] for Wi chun, Christiana POCT-GLUCOSE [id number] 11:48:00 Test Item Value Reference Range Interpretation Comments POC-GLUCOSE METER 122 mg/dL 70-110 H : TESTED A T [facility] 6720 (Help/Systems) (test code = [employer] [place], 1538) [address]: Marketing Mgr/Techni lyudmila ID = [id number] for Shayla Luis Anaerobic [id number] 07:22:00 Test Item Value Reference Range Interpretation Comments Result (test code = No anaerobes isolated 6463-4) [facility] [id number] 07:22:00 Test Item Value Reference Range Interpretation Comments CULTURE (BEAKER) (test No anaerobes isolated code = 1095) POCT-GLUCOSE [id number] 06:17:00 Test Item Value Reference Range Interpretation Comments POC-GLUCOSE METER 136 mg/dL 70-110 H : TESTED A T [facility] 6720 (BEAKER) (test code = [facility] [place], 1538) [address]: Marketing Mgr/Techni lyudmila ID = [id number] for Cindy Cordova BASIC METABOLIC [id number] 05:12:00 Test Item Value Reference Range Interpretation [...] 1092) DATA TO CALCULA TE ESTIMATED GFR. Marketing Mgr ID - GABRIELA [id number] 05:07:00 Test Item Value Reference Range Interpretation Comments MAGNESIUM (BEAKER) (test code = 1.8 mg/dL 1.6-2.6 627) Marketing Mgr ID - GABRIELA [id number] 05:07:00 Test Item Value Reference Range Interpretation Comments PHOSPHORUS (BEAKER) (test code = 3.6 mg/dL 2.3-4.7 604) Marketing Mgr ID - GABRIELA EPATIC FUNCTION [id number] 05:07:00 Test Item Value Reference Range Interpretation [...] (test code = 16 U/L 6-55 347) Marketing Mgr ID - GABRIELA MCBC W/PLT COUNT & AUTO [id number] 04:48:00 Test Item Value Reference Range Interpretation [...] PERCENT (BEAKER) (test code = 2801) POCT-GLUCOSE [id number] 00:20:00 Test Item Value Reference Range Interpretation Comments POC-GLUCOSE METER 133 mg/dL 70-110 H : TESTED A T [facility] 6720 (BEAKER) (test code = [facility], 1538) 38859: Marketing Mgr/Techni lyudmila ID = [id number] for Cindy Cordova Prepare Leuko-Red [id number] 23:54:00 Test Item Value Reference Range Interpretation Comments CROSSMATCH (test code = 2264) COMPATIBLE Unit ABO (test code = O Pos 9315842) UNIT NUMBER (test code = [id number] 934-0) Status (test code = 9452967) TX_TIMEINCHART Blood Bank Product (test code RED BLOOD CELLS = 2263) PRODUCT CODE (test code = G2654S29 933-2) [facility] [id number] 18:26:00 Test Item Value Reference Range Interpretation Comments POC-GLUCOSE METER 131 mg/dL 70-110 H : TESTED A T [facility] 6720 (BEAKER) (test code = [facility], 1538) 87982: Marketing Mgr/Techni lyudmila ID = [id number] for Pavel Boyle Tissue [id number] 18:09:00 Test Item Value Reference Range Interpretation Comments Case Report (test code Surgical Pathology = 104) Report Case: [id number] Authorizing Provider: Nelson Oconnor MD Collected: 02/24/2021 10:11 AM Ordering Location: [facility] PERIOPERATIVE Received: 02/24/2021 01:24 PM SERVICES Pathologist: Tony Sy MD Specimens: A) - Large Intestine, Colon - Sigmoid, sigmoid colon B) - Biopsy, Anastomotic Site, anastomotic rings C) - Small Bowel, NOS D) - Omentum DIAGNOSIS (test code = m1tyfTWaPQQum3ihFVKpjKB 3220) uZzEwMzNcZnRuYmpcdWMxIH tccnRmMVxlcGljOTIwMlxhb eYbRTNsgBDjC2CjfypwCFre XG3kQY6hiGwkxSXzmJGsBZY uOgBnj2rra369wASsg3qeGL YZvlblaLd5zZwhI12dn6H3B vhmD43lpUNkRLcqbREwarhh bhYySXQtTMEIYM8RYREPTXl WK3iZOOLYKZBTE2FQR837OF BhciAtIERJVkVSVElDVUxJV FkHURiEGDuhLHDUZv0QVOPB C46yrUInXB9iM0ZKF9nHKBr uQTLRJ2zKKrYFKLDTLIZacL YrYF5xFVcPSKTHKgnHNaOMK Y8PLOESH2CQMkRuJV4lXDpa HDChvASxCZPuFXKGCB9HYDG RZoKMCS5NL5VIKoERDT9THp ksEFqGGWWKC930EGZwfsGlF N6GTSBLAIfDYR3DOSQmYFeB V61KM6vMORQezyctZTYdEg4 cD27RETmhEe4IBKxbGJTUM3 ZYPJfJPtwpfLBkQX2mQ63YC HnyFn9EBDgiN8oJBIINJJDV D9WXISkTNtlcDEIIDUVHISx BVvkTAA9JPZfRXtyaHwiUWj 8LAQHfWX1QUNyYUF7DBWLLV Y1YZGJVG7CKFVygOOHoUART BJVQSCSHPUPPZVWYTH7LDGS JQUJMRVxwYXJccGFyIEQuIE 0WUQ8HYK6zNHAGQ9wRKF8SW vchYPQgGDABDY3NT39gAuoB Xs0DIGrQZ7IFMLZET0RBJHB CCOUSLPGGCeEEH5rLDNBMUt FOVUxBVElPTiBUSVNTVUUgQ L0ECAQFSSBOWXkLHvrWHV2R XPzFXgxpMXN7o8fvkOHsVXO zdGUxODAwMFxhbnNpXGRlZm jlfurdJBEdZEG0olIxEVLpV VyyBDMvUDmqYa4xdWNfsQaf PfSrAJKwd7qikhIYvhhehCk 1d5kzYWDwSdK6cCGnXFttV3 xiarDexHXyBRGgCXf1dO60Y OYaeK2axUBtPTwpozCrCxI5 LHzzVNBiXfJ6NAJcwFNxWJO gX2osHTKfNHxoVQDpIRbbbW HaIFI8iXlxm9T5vDHdlNGnu HtnOxPpEwRyMhGCo8WfKMk8 tClwK3VoXOFtPbK5pZRoFFZ wJRwoOQGiELHnscO8kO70FG cvwiU3mJRvt0Fft91dq431k J0ejAEcMQR7SUGwPVSbsNEy IKNxIQH0YDSnnKKzJ0atYAE gWS6eodmyLHhzSKvvVOLslY P7BUFvzLVzK6RxCKDuOIzvB EIyqdr9JhBbNg3lsGGcaEdr TYxyv2tti4yapPUdShm7DIU yYwRdRddnYIbxa5Toa5opRS Dmou0fMOD1rJPriEocq0U4q YVqERMhmIDqWABfSU9tgEBx VTJzvW5apfdlFQVzEcCzhuz xPOQllWyuynFmNx1flUsbWO Q2NTruK0tiyK6gUgT9ATvqT 4snyO1sFAq7MHnzOPAvxKG6 hnN8NKXabNZcY4NvbI3pXVN mQA6bmpf0q7gjIYF9VFieOD NePhG3uiA9CATveDGhJNUrh WmnUVlyi339EWF0ViBxIOOq l8FjO8JdhNemG42teCjlI21 pZBOjpMqdeT0wkMevcT0hYc GhXzFwVQhjgQsfUQ6kIQEpY 5quoCIeSTCfCQJtJ0peEmYh aK2gaDwpVNopvvYoTYIgQwg 0QLMzeDQrEWEoShr4AJWcFQ MpU22mulvwNVU6aF3nl9bsu 5JmJIncBEL7MBDlb21jMRho imA2CWbdBr4mQVNhKtk2Wuz wFOI1mZ== CPT Code(s) (test code w2ihwWQcZPJijQB9NdNiJMF = 3357) tw5pby5KhyXNeoABlSDjqgG LtceUjwf05rZI7zZ40IN5hF ISfPjT1AGSeucN6Ynw1JKYv TZGgyRUnT397t1fbo5pzzvQ cgKQ3pRhyRMVwISYjBEefDU ZzMjAgODgzMDcgWCAyXHBhc tY3GFUyUPogSCMgUSivXPKv cGFyfQ== CLINICAL HISTORY (test b3jrdWMoZWKesVZ1LjDuXIZ code = 3356) xa0gxk7YgtAOwlZFzZGjtsZ EuzbVpba88xFH3nR07PE1mU CPrKgN3KLHtcuP5Oyi8VRYq XZUbuXCkO778k7usr7tdjyR poVW7aToyKYGwQKCcUEnwKE CgOsOnVXr6MEW5uVU4rRo1v XNccGFyfQ== SPECIMEN SOURCE (test d5cibUOuBBNtwAE0JxYxJIK code = 3377) ov4elo6YkgCHukRCzYPgdfA BpudGmlr22wBW7qJ74KG8sP SPwQjR8MKSzynI0Wbw0XOKy WMNnlVLgZ633q9iet9spygM vfMG2ePpwPLGeXXVmGBcqGB IqHkRvHC0iHKCpF09ptFTeW 94zl13bxAiwZHEDTiBdSR2y o3WzqN93qMXij8j0PWjgpJ5 bPHBaBYIJzFWvvLIkl7pzwP qxBk1TIJpxsqCfZQ2nGA8dJ Y99dK2baBTqnC== GROSS DESCRIPTION a3fnsKSwVZAatDZiWpJyITJ (test code = 3366) rTZRrv9hlELYqtNDzAgRmXv NcZnRuYmpcdWMxXGRlZmYwe 3xbt033iOVzx2pgGTIhJwP1 nRFsJDArdFNjE136k0kbs1u wvoMfnAA1BDMdFHD0ACpmhx LeleF6SLxebUJnYxE7QIzuw pLjFVzevjTvmzAmCaa9QSGh T190NJO7aWter1egXHE7YMU cFQHuCvCpHv9fvWBoQ839QA GcASJMOJDqhJy1NLMucyAey jLazEZVg999S613e9hpILTd bgQyoCoVrdyxd8thT370RTJ hcGVydzEyMjQwXHBhcGVyaD U7FQIuNT8uzzbdSeZnMM2bc nnwFoNyPL0qvit2JdBcJX6x cmdiNzIwXGhlYWRlcnkwXGZ cy7PkxlefMX9bV6Eug8Z1zS 9maXRcZGVmdGFiNzIwXGZvc j9tpLPqQHsze1VeKWY3dxA0 oXEvsVTjJCGmGK78Lnuhl8R oHgloICB4VPGansTyg4Mis0 maWtNlclPkI8rzH1PfGUAjS GRpONJgTyAixaSno6Utk4Uk wSKllAd1j9juSCZoOGNxgOv gn5jwJPP5FEIzK9E9aJKcb1 tqFZnpZQXckYZ2dwplINygG PXlwrT1rcbuSHqrFNZksYS4 booyZMomOJUtSzP0yuaqGAu gITPxKMK7SAewx135MPP6KP xzYmtwYWdlXHBnbmNvbnRcc GduZGVjXHBsYWluXHBsYWlu XGYwXGZzMjRccWxccGxhaW5 nAbUqMdDcFIziPL1eUNByY1 hpdOGfSIJrYMJaW5koKhDeh H4neHukATcgzbRzEHUvFIOJ ZWNlaXZlZCBmcmVzaCBsYWJ lcJTuQLVmGNQqKYIdUN24H5 AbniRfBHpbLHCgZGNtsK7oK R70nHIxgdEbuyWaAlXqA57g sSKjA62wj04qCSPtUEMbOWA ip3FiCK30HDKxd4FuqGUfxM Qcq9YcS82cv65ekQmupGGeE D6eWUEkek8sDHXeSqUrMUJe MCBjbSBpbiBncmVhdGVzdCB eSO5zhBfpHzekDo0jNCPnDG aqLAZxBZ9ppZVsDmnaTABnd ULcCJBgJHHur50wBRNpx4Re nBPmmEQhOcQwCBErxs1hUZQ pcyByZWQtcGluaywgaHlwZX BynMxlVMHrZZXexMBytUW5q rHcXLKlEaL7FKJzDmUawLI6 zcHzk760daScACViIjGrhFJ 6oFOsSXQ4fpHurM8vsF8zBM WljTOqkF3qzaR8eOE9WWceE DSoIoBrdAKcpe0sHHUwWPAt eB1zYYF2KX0qsapdhsAtyA2 rFCZkQzt9UXtfEVReKEEtLD 9pPPAiVSOfp26vrMyuLP5ij J6jrP8nVRBzRPPwJbipL2ig LiAgVGhlIHNwZWNpbWVuIGl pTR9nSC7tQIG8gyAvZVGfXP xvBKC5LV5rcDwbpiXiwSXdg 0GioVtrgUAeoMNurVS7ruXw b1VySJknQb0tTVLtSWGSsyV kwZKswyN7FVNjMZFou37oMV OwFJObpz4la5h1BZFmyBIwO 9tiyLAxUcIwT9IafNtdlvdl YeSaAZOgUDysPF97zKLrcMv lIGRpdmVydGljdWxpIHRocm 62U1wslICkaVbiIACsmKdsA QAlu5duqm2fBFQlLPN3MGra AO5vPRG8epUzZTIuPOUeFGO pQAAlpGF7gYmnwr9foXTqOF CfdlSOpUMfn2kjbdNzisSrR XdtNH79DQpSOmwvt3Uwv3Jd NPlrZDYkfl4kgG1lLGHsqMQ aguHfrEAoMJ1tBAXzAQOqxR vrRH26fPfkq5WvGnXnIFHaD nkgbXVsdGlwbGUgYWRoZXNp d18tYuOuEVdqOHHeXLMvsCP pIFokUA9pXH2tSGQ0qfKbUC RlOYkxTPQ9AE9hzKnfcnTlc YFaf5BwvZqftUVuxHEfsRT3 fdQng3JgPMkdsC1bTrncaNA gxlUcMKWyjAWhNgPlLk0uJR odH5EhmILfiCLanC3kwmNta tSoH3Ubw1EhbTHltUKkPNKf QJKvZC0lKRKuF7Wvc24qvcw blfB9NYKhnqGgMJvjlZeojW ubdXPyXAAcsXLzezM8pOP9g iTxHvHuA54aiCktX0eoTKUP rsEcbPKmsgK4OQRlYAVhn60 xYJ0kTUHhleWfkgI2hQ6hfg MiqlQfT6Fit0UleFVcgKFrG JRpKYYiBU6aVRWypRSom7Rx bFN9jPTlKRLvP9Oig41qAMM cJMLslSXvfKP5VPKoHPOzMa 2dbK75xmhziKZpNLFavpXNR DL2yD9lQSRxXOOgbIKnZPIb ZRGvZWJseY9bKR6ydxiceiB iEJ2gXsTiMHwyHGnbRnXxRA 32lDMkoKjizT9iSIHdJxm4P SGzcrLfVzasN7wzpDGrJBJn ONAiZFBqJDWyZE4jeLVkJBf gFSCiMOA2XUZyftWSNF2PNC 6XPJFadPEeizRgO2TyEJdoY FCrDABrKbXyS81sg33rzFKk U3quovFtyfGwNSYlRJUikNT mZXJlbnRpYWxseSBpbmtlZC ZidYUhMWCeTMIlmERvz4mlX IAxRJroemTzmnIrZX01SUCh wqTtBiVncXDgOIX0PT33jAZ yrAjjSRb2yEKwVT8gGJAnMO SwqbabTTMkMf7eIKCoK9Aui mVkIGZyZXNoIGxhYmVsZWQg dGhlIHBhdGllbnQncyBuYW1 eBMNuV5Teh3Koh94ksrKwTq IqNMAyGXNwMI8ke0RelP11e RZtcsawT8MgWHRtGXNfUNZk k3DwPY71TFSdVABlibUqNOL rfI0ygDzihqEqx7KmF93qw1 8fdRyjnOItGG8pZITffz0kM CTkKa2bFjGlI07zyO1mB7Ep TTUvi4BlGZsywEJ8ZATrLEQ oVLAnvkBsfUXnmPjcaEx7DH Q1cvJdX9QvJML4VHAowc5sg K0bAFYys4ZwwEr0CXWsnEWp YX5vvW31whnhq56ye7EaCZ9 5M79oPM8gPGVcYPFtEERnuG 5zIGFyZSBkaWZmZXJlbnRpY WxseSBpbmtlZCBibHVlIGFu JNNgjMEvwddfBX1oYAVsBRX rcSKmeW7tfwPtNEZmGACoGQ tenLz7BHJxO1Lmz59oLX4nC JHumHWsr0JzzYB4jIBpDAEa H6Lxq29sJSQkSZQftDGhbAI 2WKWbmX0zEhZqNvXsYEDajf jvTSLiPU6vHVPvLZEweCMjY QM2oOOvTMTtqkywPzqfDaj8 DVpjOULnI2WxkViaXRNyyH5 lYnMMaVDjn8smIAImbOVlMA MuICBSZWNlaXZlZCBmcmVza CBsYWJlbGVkIHRoZSBwYXRp DI59K0IzzeOgSMwzXUAfMCG zsB9tHV44yTNkisVbzuIeNg MsFFvoKMMss9OdNZVAC3VtP YHkKLPkXMXun9OvIG02FKQz g3TmwYAfkDBpy8Opf10dsIi rUh55WYqsoUqbuODtHH7aEV Fcyq7qLMgvEO3pIH3hIZLjG GiqICvcFQA6KFE4IKjmlpu6 hLUeyJEaFcZtT52teD5iODp miQH4VDPkUBCTcFWpk8Zjt9 FmBWygHZIcUA1wxD6zCWXan XBlcmVtaWMsIHByZWRvbWlu XZ96iItfj7DfOnVqLHRdZbw gbXVsdGlwbGUgYWRoZXNpb2 7tHUKdpJMdk5Y4lsJsPS58I MR4yYSntGKiXB8sICBhj1Wv RUikMB81zTEdcSgqMXYaVS1 oyCBfJVjkAJWcVSM1kkG6iC NgSAQ5xmBljG0dbT3hCRohm G5dhfkbJ1CydtDiD8lhNhOi aq7jHIZmIf3bQqivH10mgK0 oW9PvPFVbu6JzVTdtNE7ckX 9uLiAgVGhlIGRlZmVjdHMgY APfKVqqN2F9RKVeVj0jNIPg GFTrr17wwBekSDPnf4Pye7F vzMPhI3ehFoSzZNuqTDQbRO VjdDToOGeiNH7mSB0cVXP6z wFzJHZeZOjqDLU1BG1isUhc uifzJm2qDYpdbMVhBOZpLCJ obTMeuKEtq0CmILCzNTLtCR fwpZstyIAfbg5wlSNcVRBts JQtNrAvAl9oLAaaK4PccKPz aHDyhU6gqfZqmtUdkGDxhqH fAexqIK4lJEZgWKO9FZpeSS 0gUXT8cjXjCLRnWOOoMPIyF PKldIM3pQcchu4rKZTurUOh n3WaoIO2tWNrFXXyJ6Xsx42 cAEGfHTKkyUSoeTC3JIKwRV OwIx6mzV46ujlbkROsOWPvg vUJFKR0sI4sBKPwQNPrwGJb IMPuJRkveuflc9Nqa5VxnNI stDDdUHUhkZ2nPXMsTCXnJ0 TxWCHsYlMbukLsgCgpgGd5P Hbbg8YhTBEimHZuJG7pFTXq KIIjBUXcqpOPHz8GDp7at73 gMVZ7HXBpA17ktzYxtXPfvg PurCOyxTIdHVXpS7VamYKvR MH2KAsypobbj8Dma7YyxUCb hKWbVNhlq9ptohAewHBqAJS 9HZXyU31nIDGyo61tGVV6NG BhH29mphDlzOFlA8wqmgDpr iBmYWNlLCBkaWZmZXJlbnRp YWxseSBibHVlLWJsYWNrXHB sjsBFCw5nWSXwdlWovN7oA4 MmzJOuTGsmAM87GRNvCQ8kz COnRUgmMFGfMKE4LLLnshBT Hf9xdU6mxDXtbBBjLZzaLT7 0FP9iqnlxuhHiRD9lPbUiGA jgTFdmYqMcIQ79hJAawJxwg G3zIJBvXfq3MVGzrqJwXmmo T3jcrQRcKAT2QQD3EZOmt3T 2QTG3QLGyN49yrmIycIYosz DypHMczXTxWWRkQ2GwkOTqY XDmwsPGGqEjZtTaKTl1VOZk PhAsj0mckVCkZUohNZI4cVS dvOQ9yANbpLgpCL0daLTyVY QiB6Xko4vdnwNzbP8tAALiP M1mZLOvlEWxaSXhVjZibyZa QKP4OrXhiLS9JmbqlUXxGzF pN45kdL1pnTphpyRzTtR4WX 8uwCMxoF04HAIat4EyqEs2B VrvuE0ukjutS7fdYAFyqJWs u9VzcDV0BUHvDDF0eVCwfNw epD4qbDSshGVfKP1dAQ19gH 2aHZQKKJP4sV6azT4lCIHws vZdyCCoKKR9OT7gaPUaxS56 JJJqaTVes9OatJO5ISU9zHB juQEfOCKcOdShBe7wFGtvM4 SihIDfiZJydF2hwcEignIeI 6Thu8RreIErpQCbGVBhKQMl HP9lCKZdxZIgb2GyrCH4eNY uVSVzA7Fyo37aPTQrBLAniU SooRK4SEYhsC9wKLRmONYoW HBhclxwYXIgUGlsYXIgQXJn dWVsbGVzLCBQQSwgSFQgKEF IT1UeKFQljk2= MICROSCOPIC y8ldmHCcOIFjkUJ1OkIpSBL DESCRIPTION (test code lt9kvr5CezDXaxVStHFphqA = 3371) VyjqLaai74oOI9qJ94DO2lZ WOmFfG5VQCfhyX3Uco9MTXi TLRxvHLxJ925u0bww8bzvbX vjCE8sPweZCEpXHUxEPmzDE SxXpSbQNNwPw5vaRIyVquvK XJ9 Gross assessment was [facility] performed at ([facility], code = 2777) Department of Pathology, [address] [place] [address], Technical component [facility] [place] was performed at ([facility], code = 2778) Department of Pathology, [address] [place] [address], Professional component [facility] was performed at ([facility], code = 2779) Department of Pathology, [address] [place] [address], [facility] [id number] 18:09:00Surgical Pathology Report Case: [id number] Authorizing Provider: Nelson Oconnor MD Collected: 02/24/2021 10:11 AM Ordering Location: [facility] PERIOPERATIVE Received: 02/24/2021 01:24 PM SERVICES Pathologist: [...] ACUTE INFLAMMATION Signing Pathologist Direct Phone Line: [phone] signed by Tony Sy MD on at 6:09 [id number]. Sigmoid colonB. Anastomotic siteC. Small bowel, NOSD. [...] discrete lesions or perforations are grossly appreciated. Vulcanizer Operator sections are submitted as follows:Section codeA1-S1 colon margins en face, differentially inked blue and wbqsuI0-B8-K5 transmural boglrjS2-I9-Q7 diverticulaA6-S2 colon margins en face, differentially inked blue and blackA7- sales representative electric service K6U2-zsxvxuai lymph nodesB. Received fresh labeled the patient's name, accession number and "anastomotic rings" are 2 unoriented, annular portions of colon that range from 1.7-2.6 cm in greatest diameter, and are partially surfaced by sanders-pink, focally erythematous, smooth mucosa. The margins are differentially inked blue and black, and the specimens are radially sectioned. Vulcanizer Operator sections are submitted in B1-B2.Ink codeSutured ring: [...] wall measures up to 0.4 cm thick. Vulcanizer Operator sections are submitted as follows:Section codeC1-longest segment margins en face, differentially inked blue and hwqjqN5-L1-gsxpegx segment transmural defectC4- longest segment adhesionsC5-second longest segment margins en face, differentially efqy-ricnyT1-kizshl longest segment transmural defectC7-shortest segment margins en face, differentially inked blue and ziisaC1-H7-drrwelgm segment transmural defectD. Received fresh labeled the patient's name, accession number and "omentum" is a 16.0 x 6.7 x 2.2 cm portion of sanders-yellow, focally hemorrhagic, fibrofatty, partially indurated omentum. Sectioning reveals a sanders-yellow, fibrofatty cut surface. No discrete lesions are grossly appreciated. Vulcanizer Operator sections are submitted in D1-D3.SARIKA Song, HT (ASCP)Performed.[facility], Department of Pathology, [address] [place] [address], [facility], Department of Pathology, [address] [place] [address], [facility], Department of Pathology, [address] [place] [address], Dpzthhrlbb and [id number] 15:16:00 Test Item Value Reference Range Interpretation [...] = 4544-3) LUZ (test code = LUZ) Marketing Mgr ID - [id number] Lab Interpretation Abnormal (test code = 62895-8) [facility] HospitalHEMOGLOBIN AND [id number] 15:16:00 Test Item Value Reference Range Interpretation Comments HEMOGLOBIN (BEAKER) (test code = 8.4 GM/DL 11.2-15.7 L 410) HEMATOCRIT (BEAKER) (test code = 26.4 % 34.1-44.9 L 411) Marketing Mgr ID - [id number]-GLUCOSE [id number] 12:07:00 Test Item Value Reference Range Interpretation Comments POC-GLUCOSE METER 136 mg/dL 70-110 H : TESTED A T [facility] 6720 (BEAKER) (test code = [facility], 153) [address]: Marketing Mgr/Techni lyudmila ID = [id number] for Pavel Boyle POCT-GLUCOSE [id number] 05:38:00 Test Item Value Reference Range Interpretation Comments POC-GLUCOSE METER 144 mg/dL 70-110 H : TESTED A T [facility] 6720 (BEAKER) (test code = [facility], 153) [address]191: Marketing Mgr/Techni lyudmila ID = [id number] for NADEGE LUIS BASIC METABOLIC [id number] 04:04:00 Test Item Value Reference Range Interpretation [...] 1092) DATA TO CALCULA TE ESTIMATED GFR. Marketing Mgr ID - GABRIELA MCBC W/PLT COUNT & AUTO [id number] 04:02:00 Test Item Value Reference Range Interpretation [...] 0-1 PERCENT (BEAKER) (test code = 2801) [id number] 04:02:00 Test Item Value Reference Range Interpretation Comments MAGNESIUM (BEAKER) (test code = 1.9 mg/dL 1.6-2.6 627) Marketing Mgr ID - GABRIELA [id number] 04:02:00 Test Item Value Reference Range Interpretation Comments PHOSPHORUS (BEAKER) (test code = 3.1 mg/dL 2.3-4.7 604) Marketing Mgr ID - GABRIELA MHEMOGLOBIN AND [id number] 03:43:00 Test Item Value Reference Range Interpretation Comments HEMOGLOBIN (BEAKER) (test code = 8.7 GM/DL 11.2-15.7 L 410) HEMATOCRIT (BEAKER) (test code = 27.3 % 34.1-44.9 L 411) POCT-GLUCOSE [id number] 00:19:00 Test Item Value Reference Range Interpretation Comments POC-GLUCOSE METER 125 mg/dL 70-110 H : TESTED A T [facility] 6720 (BEAKER) (test code = SHARLA Shields [facility], 1538) [address]: Marketing Mgr/Techni lyudmila ID = [id number] for NADEGE LUIS, [id number] 17:42:00 Test Item Value Reference Range Interpretation Comments ABO Grouping (test code = 2588) O Rh Factor (test code = 2589) POS [facility] HospitalType and screen, [id number] 16:21:00 Test Item Value Reference Range Interpretation Comments ABO/RH AUTOMATED (BEAKER) (test O POSITIVE code = 2260) Ab Scrn (test code = 890-4) NEGATIVE [facility] HospitalCBC (HEMOGRAM ONLY)2021-02-26 14:43:00 Test Item Value Reference [...] = 413) Surgically obtained culture + gram [id number] 11:42:00 Test Item Value Reference Range Interpretation Comments Result (test code = 6463-4) No growth Gram Stain Result (test No organisms seen code = 1123) [facility] Center[facility] OBTAINED CULTURE + GRAM [id number] 11:42:00 Test Item Value Reference Range Interpretation Comments CULTURE (BEAKER) (test code No growth = 1095) GRAM STAIN RESULT (BEAKER) <1+ WBCs (test code = 1123) GRAM STAIN RESULT (BEAKER) No organisms seen (test code = 12745) POCT-GLUCOSE [id number] 11:20:00 Test Item Value Reference Range Interpretation Comments POC-GLUCOSE METER 135 mg/dL 70-110 H : [facility] ([facility]ER[facility] (test code = SHARLA Shields [place], 1538) [address]: Marketing Mgr/Techni lyudmila ID = [id number] for PRINCESS JEOVANNY POCT-GLUCOSE [id number] 06:19:00 Test Item Value Reference Range Interpretation Comments POC-GLUCOSE METER 152 mg/dL 70-110 H : TESTED A T [facility] 6720 (BEAKER) (test code = [facility] A[facility], 1538) [address]: Marketing Mgr/Techni lyudmila ID = [id number] for Cindy Cordova BASIC METABOLIC [id number] 05:55:00 Test Item Value Reference Range Interpretation [...] 1092) DATA TO CALCULA TE ESTIMATED GFR. Marketing Mgr ID - [id number] 05:22:00 Test Item Value Reference Range Interpretation Comments MAGNESIUM (BEAKER) (test code = 2.2 mg/dL 1.6-2.6 627) Marketing Mgr ID - [id number] 05:22:00 Test Item Value Reference Range Interpretation Comments PHOSPHORUS (BEAKER) (test code = 2.5 mg/dL 2.3-4.7 604) Marketing Mgr ID - DBCBC W/PLT COUNT & AUTO [id number] 05:00:00 Test Item Value Reference Range Interpretation [...] PERCENT (BEAKER) (test code = 2801) POCT-GLUCOSE [id number] 00:53:00 Test Item Value Reference Range Interpretation Comments POC-GLUCOSE METER 165 mg/dL 70-110 H : [facility] ([facility]) (test code = [facility], 153) [address]: Marketing Mgr/Techni lyudmila ID = [id number] for Cindy Cordova POCT-GLUCOSE [id number] 19:10:00 Test Item Value Reference Range Interpretation Comments POC-GLUCOSE METER 151 mg/dL 70-110 H : Notified RN/MD: ([facility]) (test code = TESTED AT [facility] 6720 1538) [facility], [address]: Marketing Mgr/Techni lyudmila ID = [id number] for Sa nchez, Ozzie POCT-GLUCOSE [id number] 18:50:00 Test Item Value Reference Range Interpretation Comments POC-GLUCOSE METER 148 mg/dL 70-110 H : Notified RN/MD: ([facility]) (test code = TESTED AT [facility] 6720 1538) [facility], [address]: Marketing Mgr/Techni lyudmila ID = [id number] for Sa nchez, Ozzie POCT-GLUCOSE [id number] 18:22:00 Test Item Value Reference Range Interpretation Comments POC-GLUCOSE METER 156 mg/dL 70-110 H : [facility] ([facility]) (test code = [facility], 153) [address]: Marketing Mgr/Techni lyudmila ID = [id number] for NADEGE LUIS SPIN/CONCENTRATION [id number] 09:26:00 Test Item Value Reference Range Interpretation Comments Concentration charged (test code = Done 2657) [facility]TRATION [id number] 09:26:00 Test Item Value Reference Range Interpretation Comments CONCENTRATION CHARGED (BEAKER) (test Done code = 2657) [id number] 06:37:00 Test Item Value Reference Range Interpretation Comments PHOSPHORUS (BEAKER) (test code = 1.5 mg/dL 2.3-4.7 LL 604) Marketing Mgr ID - GABRIELA [id number] 06:32:00 Test Item Value Reference Range Interpretation Comments MAGNESIUM (BEAKER) (test code = 2.1 mg/dL 1.6-2.6 627) Marketing Mgr ID - GABRIELA MHEPATIC FUNCTION [id number] 06:32:00 Test Item Value Reference Range Interpretation [...] (test code = 21 U/L 6-55 347) Marketing Mgr FAM - GABRIELA MBASIC METABOLIC [id number] 06:32:00 Test Item Value Reference Range Interpretation [...] 1092) DATA TO CALCULA TE ESTIMATED GFR. Marketing Mgr FAM - GABRIELA MCBC W/PLT COUNT & AUTO [id number] 05:52:00 Test Item Value Reference Range Interpretation [...] PERCENT (BEAKER) (test code = 2801) Calcium, [id number] 05:34:00 Test Item Value Reference Range Interpretation Comments Calcium, Ion (test code = 1993-) 1.20 mmol/L 1.12-1.27 pH, Blood (test code = 26117-7) 7.37 [facility] Center[facility], [id number] 05:34:00 Test Item Value Reference Range Interpretation Comments CALCIUM IONIZED (BEAKER) (test 1.20 mmol/L 1.12-1.27 code = 698) PH, BLOOD (BEAKER) (test code = 7.37 1810) POCT-GLUCOSE [id number] 23:05:00 Test Item Value Reference Range Interpretation Comments POC-GLUCOSE METER 181 mg/dL 70-110 H : TESTED A T [facility] 6720 (BEAKER) (test code = [facility], 153) 26931: Marketing Mgr/Techni lyudmila ID = [id number] for NADEGE LUIS POCT-GLUCOSE [id number] 18:56:00 Test Item Value Reference Range Interpretation Comments POC-GLUCOSE METER 273 mg/dL 70-110 H : TESTED A T [facility] 6720 (BEAKER) (test code = [facility], 153) [address]398: Marketing Mgr/Techni lyudmila ID = [id number] for PA ANMOL, WALLY POCT-GLUCOSE [id number] 17:26:00 Test Item Value Reference Range Interpretation Comments POC-GLUCOSE METER 328 mg/dL 70-110 H : TESTED A T [facility] 6720 (BEAKER) (test code = [facility], 153) 27243: Marketing Mgr/Techni lyudmila ID = [id number] for PA ANMOL, WALLY POCT-GLUCOSE [id number] 14:36:00 Test Item Value Reference Range Interpretation Comments POC-GLUCOSE METER 300 mg/dL 70-110 H : TESTED A T [facility] 6720 (BEAKER) (test code = [facility], 153) [address]: Marketing Mgr/Techni lyudmila ID = [id number] for PAULINE ECHEVERRIA POCT-GLUCOSE [id number] 12:42:00 Test Item Value Reference Range Interpretation Comments POC-GLUCOSE METER 267 mg/dL 70-110 H : TESTED A T [facility] 6720 (BEAKER) (test code [facility], = 1538) [address]: Marketing Mgr/Techni lyudmila ID = [id number] for JESSE Z, MARYAN Screen, [id number] 05:54:00 Test Item Value Reference Range Interpretation Comments Preg Test, Ur (test code = 2112-1) Negative [facility] CenterPREGNANCY SCREEN, [id number] 05:54:00 Test Item Value Reference Range Interpretation Comments TEST URINE (BEAKER) (test Negative code = 583) SARS-COV2/RT-PCR ([facility])2021-02-24 05:23:00 Test Item Value Reference Range Interpretation Comments SARS-COV2/RT-PCR (test Negative Not Detected, Negative, code = 8930212) See external report for linked test SARS-COV-[address] [facility] MARK (test code = 7984309) Negative result for this test determines that [...] the Mcmillan SARS-CoV-2 assay.Fact Sheet for Healthcare Providers:https://www.[employer].mcmillan/dave/ OX_INSY-JgU-2_SRU_Xpwu_Zenhg_60-276759.pdfFact Sheet for Healthcare Patients:https://www.[employer].Me![employer] elda/dave/ZL_COIM-WmW-6_Aqfvdvy_Bqav_Cijvm_KE_20-515056W4.pdfPerforming Laboratory:[place] [address] [place] [address] BASIC METABOLIC [id number] 05:05:00 Test Item Value Reference Range Interpretation [...] 1092) DATA TO CALCULA TE ESTIMATED GFR. Marketing Mgr ID - [id number] 05:03:00 Test Item Value Reference Range Interpretation Comments MAGNESIUM (BEAKER) (test code = 2.3 mg/dL 1.6-2.6 627) Marketing Mgr ID - [id number] 05:03:00 Test Item Value Reference Range Interpretation Comments PHOSPHORUS (BEAKER) (test code = 3.1 mg/dL 2.3-4.7 604) Marketing Mgr ID - DBCBC W/PLT COUNT & AUTO [id number] 04:44:00 Test Item Value Reference Range Interpretation [...] PERCENT (BEAKER) (test code = 2801) POCT-GLUCOSE [id number] 00:23:00 Test Item Value Reference Range Interpretation Comments POC-GLUCOSE METER 105 mg/dL 70-110 : Notified RN/MD: (YOVANI) (test code = TESTED AT [facility] 2104 6765) [facility], [address]: Marketing Mgr/Techni lyudmila ID = [id number] for Sa jessica, Ozzie ANG, NON-TUNNELED CATH/PICC >5 Y.O. WITH [id number] 18:20:00Reason for exam:->Need for TPN; PICC team unable to complete procedure bedside due to poor peripheral targets [facility] 1975 Sex: FFINAL REPORT PICC placement, 02/23/2021. History: Need for TPN. Juice Scaleman: Camryn. Direct Care Worker: None. Modality: Sonography andfluoroscopy. Sedation: None. Anesthesia: [...] needle into the right atrium. A 5 Mozambican peel-away sheath was placed. The 5 Mozambican double- lumen PICC line was measured and [...] Toney Cowaneport Verified Date/Time: 02/23/2021 18:20:46 Reading Location:[place] [address] Angio Body Reading Room IR PICC line placement older than 5 [id number] 18:20:00Interface, External Ris In - 02/23/2021 6:22 PM CDTFINAL REPORT PICC placement, 02/23/2021. History: Need for TPN. Pr imary Marketing Mgr: Camryn. Direct Care Worker: None. Modality: Sonography and fluoroscopy. Sedation: None. [...] needle into the right atrium. A 5 Mozambican peel-away sheath wasplaced. The 5 Mozambican double-lumen PICC line was measured and cut, [...] Cowan Verified Date/Time: 02/23/2021 18:20:46 Reading Location: [place] [address] Angio Body Reading Room [facility] [id number] 17:52:00 Test Item Value Reference Range Interpretation Comments POC-GLUCOSE METER 103 mg/dL 70-110 : TESTED A T [facility] 6720 (BEAKER) (test code = SHARLA Shields [facility], 1538) [address]: Marketing Mgr/Techni lyudmila ID = [id number] for Wi chun, Christiana Wound culture + gram [id number] 15:09:00 Test Item Value Reference Range Interpretation Comments Result (test code = 2+ Streptococcus A 6463-4) constellatus Gram Stain Result (test No organisms seen code = 1123) Lab Interpretation Abnormal (test code = 25332-3) [facility] + GRAM [id number] 15:09:00 Test Item Value Reference Range Interpretation Comments CULTURE (BEAKER) A 2+ Streptoc occus (test code = constellatus 1095) GRAM STAIN 2+ WBCs RESULT (BEAKER) (test code = 1123) GRAM STAIN No organisms seen RESULT (BEAKER) (test code = 28456) POCT-GLUCOSE [id number] 13:36:00 Test Item Value Reference Range Interpretation Comments POC-GLUCOSE METER 93 mg/dL 70-110 : TESTED A T [facility] 6720 (BEAKER) (test code = [facility], 1538) [address]: Marketing Mgr/Techni lyudmila ID = [id number] for Shayla Khoury POCT-GLUCOSE [id number] 06:31:00 Test Item Value Reference Range Interpretation Comments POC-GLUCOSE METER 107 mg/dL 70-110 : TESTED A T [facility] 6720 (BEAKER) (test code = [facility], 1538) [address]: Marketing Mgr/Techni lyudmila ID = [id number] for NDAEGE LUIS [id number] 06:14:00 Test Item Value Reference Range Interpretation Comments Triglycerides (test 171 mg/dL code = 2571-8) LUZ (test code = LUZ) TRIGLYCERIDE REFERENCE RANGELow Risk <150Borderline Risk 150-199High Risk 200-499Very High Risk >=500Operator ID - GABRIELA [facility] HospitalMAGNESIUM2021-04-22 06:14:00 Test Item Value Reference Range Interpretation Comments MAGNESIUM (BEAKER) (test code = 2.0 mg/dL 1.6-2.6 627) Marketing Mgr ID - GABRIELA [id number] 06:14:00 Test Item Value Reference Range Interpretation Comments PHOSPHORUS (BEAKER) (test code = 3.7 mg/dL 2.3-4.7 604) Marketing Mgr ID - GABRIELA [id number] 06:14:00 Test Item Value Reference Range Interpretation Comments TRIGLYCERIDES (BEAKER) (test code = 171 mg/dL 540) TRIGLYCERIDE REFERENCE RANGELow Risk <150Borderline Risk 150-199High Risk 200-499Very High Risk>=500Operator ID - GABRIELA MBASIC METABOLIC [id number] 06:14:00 Test Item Value Reference Range Interpretation [...] 1092) DATA TO CALCULA TE ESTIMATED GFR. Marketing Mgr ID - GABRIELA MCBC W/PLT COUNT & AUTO [id number] 06:01:00 Test Item Value Reference Range Interpretation [...] PERCENT (BEAKER) (test code = 2801) POCT-GLUCOSE [id number] 00:44:00 Test Item Value Reference Range Interpretation Comments POC-GLUCOSE METER 88 mg/dL 70-110 : TESTED A T [facility] 6720 (BEAKER) (test code = [facility], 1538) [address]: Marketing Mgr/Techni lyudmila ID = [id number] for NADEGE KHOURY POCT-GLUCOSE [id number] 18:28:00 Test Item Value Reference Range Interpretation Comments POC-GLUCOSE METER 74 mg/dL 70-110 : TESTED A T [facility] 6720 (BEAKER) (test code = [facility], 1538) [address]: Marketing Mgr/Techni lyudmila ID = [id number] for [facility], [id number] 17:22:00Unlisted Reason for Exam - Click Yes and Enter Reason Below->YesUnlisted Reason for Exam->Perforated diverticulitis with abdominal distention / tympanitic abdomen; evalaute for interval changes in abdominal fluid collection as well as bowel distentionWill this procedure require oral contrast?->Yes [facility] : 1975 Sex: FFINAL REPORT CT, ABDOMEN [...] MDReport Verified Date/Time: 02/22/2021 17:22:00 Reading Location: [facility] C013T Transitional Reading Room CT abdomen/pelvis with IV [id number] 17:22:00Interface, External Ris In - 02/22/2021 5:24 [...] Rodriguez Verified Date/Time: 02/22/2021 17:22:00 Reading Location: [address] Transitional Reading [facility] [id number] 11:28:00 Test Item Value Reference Range Interpretation Comments POC-GLUCOSE METER 105 mg/dL 70-110 : TESTED A T [facility] 6720 (BEAKER) (test code = [facility], 1538) 02576: Marketing Mgr/Techni lyudmila ID = [id number] for CRISTOPHER UPESS POCT-GLUCOSE [id number] 06:08:00 Test Item Value Reference Range Interpretation Comments POC-GLUCOSE METER 117 mg/dL 70-110 H : TESTED A T [facility] 6720 (BEAKER) (test code = [facility], 1538) 59923: Marketing Mgr/Techni lyudmila ID = [id number] for Cindy Cordova BASIC METABOLIC [id number] 04:42:00 Test Item Value Reference Range Interpretation [...] 1092) DATA TO CALCULA TE ESTIMATED GFR. Marketing Mgr ID - SHARMAINE [id number] 04:40:00 Test Item Value Reference Range Interpretation Comments MAGNESIUM (BEAKER) (test code = 1.9 mg/dL 1.6-2.6 627) Marketing Mgr ID - SHARMAINE [id number] 04:40:00 Test Item Value Reference Range Interpretation Comments PHOSPHORUS (BEAKER) (test code = 3.5 mg/dL 2.3-4.7 604) Marketing Mgr ID - SHARMAINE WCBC W/PLT COUNT & AUTO [id number] 04:17:00 Test Item Value Reference Range Interpretation [...] PERCENT (BEAKER) (test code = 2801) POCT-GLUCOSE [id number] 00:19:00 Test Item Value Reference Range Interpretation Comments POC-GLUCOSE METER 108 mg/dL 70-110 : TESTED A T [facility] 6720 (BEAKER) (test code = [facility], 1538) 86460: Marketing Mgr/Techni lyudmila ID = [id number] for Cindy Cordova POCT-GLUCOSE [id number] 18:24:00 Test Item Value Reference Range Interpretation Comments POC-GLUCOSE METER 100 mg/dL 70-110 : TESTED A T [facility] 6720 (BEAKER) (test code = [facility], 153) 00279: Marketing Mgr/Techni lyudmial ID = [id number] for Wi lliams, Areiona POCT-GLUCOSE [id number] 12:01:00 Test Item Value Reference Range Interpretation Comments POC-GLUCOSE METER 119 mg/dL 70-110 H : TESTED A T [facility] 6720 (BEAKER) (test code = [facility], 1538) 67119: Marketing Mgr/Techni lyudmila ID = [id number] for Wi lliams, Areiona BASIC METABOLIC [id number] 06:41:00 Test Item Value Reference Range Interpretation [...] 1092) DATA TO CALCULA TE ESTIMATED GFR. Marketing Mgr ID - GABRIELA [id number] 06:28:00 Test Item Value Reference Range Interpretation Comments MAGNESIUM (BEAKER) (test code = 1.8 mg/dL 1.6-2.6 627) Marketing Mgr ID - GABRIELA [id number] 06:28:00 Test Item Value Reference Range Interpretation Comments PHOSPHORUS (BEAKER) (test code = 3.4 mg/dL 2.3-4.7 604) Marketing Mgr ID - GABRIELA MPOCT-GLUCOSE [id number] 06:08:00 Test Item Value Reference Range Interpretation Comments POC-GLUCOSE METER 98 mg/dL 70-110 : TESTED A T [facility] (BEAKER) (test code = [place], 1538) [address]: Marketing Mgr/Techni lyudmila ID = [id number] for Cindy Mckeon CBC W/PLT COUNT & AUTO [id number] 06:04:00 Test Item Value Reference Range Interpretation [...] PERCENT (BEAKER) (test code = 2801) POCT-GLUCOSE [id number] 00:30:00 Test Item Value Reference Range Interpretation Comments POC-GLUCOSE METER 105 mg/dL 70-110 : TESTED A T [facility] 6720 (BEAKER) (test code = [facility], 1538) 47[address]: Marketing Mgr/Techni lyudmila ID = [id number] for Cindy Cordova POCT-GLUCOSE [id number] 18:09:00 Test Item Value Reference Range Interpretation Comments POC-GLUCOSE METER 116 mg/dL 70-110 H : TESTED A T [facility] 67[address] (BEAKER) (test code = [facility], 1538) 016[address]: Marketing Mgr/Techni lyudmila ID = [id number] for Wi lliams, Areiona POCT-GLUCOSE [id number] 11:51:00 Test Item Value Reference Range Interpretation Comments POC-GLUCOSE METER 112 mg/dL 70-110 H : TESTED A T [facility] (BEAKER) (test code = [place], 1538) [address]: Marketing Mgr/Techni lyudmila ID = [id number] for Wi lliams, Areiona RAD, ABDOMEN/KUB, 1 VIEW [id number] 07:48:00Reason for exam:->Persistent distention and tympanitic; eval for ileus v pSBOShould this be performed at the bedside?->YesCOL[facility] : 1975 Sex: FFINAL REPORT [...] MDReport Verified Date/Time: 02/20/2021 07:48:55 Reading Location: [facility] Radiology ReadingRoom BASIC METABOLIC [id number] 05:43:00 Test Item Value Reference Range Interpretation [...] 1092) DATA TO CALCULA TE ESTIMATED GFR. Marketing Mgr ID - [id number] 05:42:00 Test Item Value Reference Range Interpretation Comments MAGNESIUM (BEAKER) (test code = 1.7 mg/dL 1.6-2.6 627) Marketing Mgr ID - [id number] 05:42:00 Test Item Value Reference Range Interpretation Comments PHOSPHORUS (BEAKER) (test code = 3.9 mg/dL 2.3-4.7 604) Marketing Mgr ID - ADMINPOCT-GLUCOSE [id number] 05:22:00 Test Item Value Reference Range Interpretation Comments POC-GLUCOSE METER 106 mg/dL 70-110 : TESTED A T [facility] (BEAKER) (test code = [place] [facility], 1538) 268[address]: Marketing Mgr/Techni lyudmila ID = [id number] for ARIN ROJASJEFF NADEGE CBC W/PLT COUNT & AUTO [id number] 05:10:00 Test Item Value Reference Range Interpretation [...] PERCENT (BEAKER) (test code = 2801) POCT-GLUCOSE [id number] 23:39:00 Test Item Value Reference Range Interpretation Comments POC-GLUCOSE METER 128 mg/dL 70-110 H : TESTED A T [facility] (BEAKER) (test code = [facility], 153) 810[address]: Marketing Mgr/Techni lyudmila ID = [id number] for NADEGE LUIS POCT-GLUCOSE [id number] 18:05:00 Test Item Value Reference Range Interpretation Comments POC-GLUCOSE METER 127 mg/dL 70-110 H : TESTED A T [facility] 67[address] (BEAKER) (test code = [facility], [facility]) 84195: Marketing Mgr/Techni lyudmila ID = [id number] for JESU SAMANIEGO POCT-GLUCOSE [id number] 12:26:00 Test Item Value Reference Range Interpretation Comments POC-GLUCOSE METER 134 mg/dL 70-110 H : TESTED A T [facility] [address] (BEAKER) (test code = [facility], [facility]) 47184: Marketing Mgr/Techni lyudmila ID = [id number] for JESU SAMANIEGO POCT-GLUCOSE [id number] 05:53:00 Test Item Value Reference Range Interpretation Comments POC-GLUCOSE METER 71 mg/dL 70-110 : TESTED A T [facility] [address] (BEAKER) (test code = [facility], [facility]) 50055: Marketing Mgr/Techni lyudmila ID = [id number] for NADEGE KHOURY [id number] 05:03:00 Test Item Value Reference Range Interpretation Comments MAGNESIUM (BEAKER) (test code = 1.6 mg/dL 1.6-2.6 627) Marketing Mgr ID - [id number] 05:03:00 Test Item Value Reference Range Interpretation Comments PHOSPHORUS (BEAKER) (test code = 3.8 mg/dL 2.3-4.7 604) Marketing Mgr ID - EDASIBASIC METABOLIC [id number] 05:03:00 Test Item Value Reference Range Interpretation [...] 1092) DATA TO CALCULA TE ESTIMATED GFR. Marketing Mgr ID - EDASICBC W/PLT COUNT & AUTO [id number] 04:36:00 Test Item Value Reference Range Interpretation [...] PERCENT (BEAKER) (test code = 2801) POCT-GLUCOSE [id number] 23:27:00 Test Item Value Reference Range Interpretation Comments POC-GLUCOSE METER 76 mg/dL 70-110 : TESTED A T [facility] [address] (BEAKER) (test code = [facility], 153) 52679: Marketing Mgr/Techni lyudmila ID = [id number] for NADEGE KHOURY POCT-GLUCOSE [id number] 18:35:00 Test Item Value Reference Range Interpretation Comments POC-GLUCOSE METER 82 mg/dL 70-110 : TESTED A T [facility] [address] (BEAKER) (test code = [facility], 153) 33386: Marketing Mgr/Techni lyudmila ID = [id number] for JESU JIMENEZ POCT-GLUCOSE [id number] 11:58:00 Test Item Value Reference Range Interpretation Comments POC-GLUCOSE METER 97 mg/dL 70-110 : TESTED A T [facility] [address] (BEAKER) (test code = [facility], 153) 45128: Marketing Mgr/Techni lyudmila ID = [id number] for JESU JIMENEZ BASIC METABOLIC [id number] 10:46:00 Test Item Value Reference Range Interpretation [...] 1092) DATA TO CALCULA TE ESTIMATED GFR. Marketing Mgr ID - GABRIELA [id number] 10:40:00 Test Item Value Reference Range Interpretation Comments MAGNESIUM (BEAKER) (test code = 1.7 mg/dL 1.6-2.6 627) Marketing Mgr ID - GABRIELA [id number] 10:40:00 Test Item Value Reference Range Interpretation Comments PHOSPHORUS (BEAKER) (test code = 3.8 mg/dL 2.3-4.7 604) Marketing Mgr ID - GABRIELA MCBC W/PLT COUNT & AUTO [id number] 10:26:00 Test Item Value Reference Range Interpretation [...] PERCENT (BEAKER) (test code = 2801) POCT-GLUCOSE [id number] 17:33:00 Test Item Value Reference Range Interpretation Comments POC-GLUCOSE METER 109 mg/dL 70-110 : TESTED A T [facility] (BEAKER) (test code = [place], 1538) [address]: Marketing Mgr/Techni lyudmila ID = [id number] for RA MOS, MICHAEL CT, DRAINAGE, [id number] 15:00:00Reason for exam:->Pelvic abscess 2/2 perforated sigmoid diverticulitis ([place] Ib / II) [facility] : 1975 Sex: FFINAL REPORT CT-guided drainage catheter placement dated 02/17/2021 Name of practitioner performing procedure:Juan Luis Nolan M.D. Names of assistant branch manager:None Procedure: Drainage catheter placement into the sigmoid [...] was dilated with a 6 and 8 Mozambican dilators. An 8 Mozambican drainage catheter was placed. The drainage catheter was left in place, secured skin with suture, and connected to bulb suction. Patient tolerated the procedure well. Impression: Successful CT-guided drainage catheter placement into the sigmoid diverticula abscess. Signed: Juan Luis Nolan MDReport Verified Date/Time: 02/17/2021 15:00:00 Reading Location: [address] Body Reading Room CT drainage [id number] 15:00:00Interface, External Ris In - 02/17/2021 3:[address]-guided drainage catheter placement dated 02/17/2021 Name of practitioner performing procedure:Juan Luis Nolan M.D.Names of assistant branch manager:None Procedure: Drainage catheter placement into the sigmoid [...] was dilated with a 6 and 8 Mozambican dilators. An 8 Mozambican drainage catheter was placed. The drainage catheter was left in place, secured skin with suture, and connected to bulb suction. Patient tolerated the procedure well. Impression: Successful CT-guided drainagecatheter placement into the sigmoid diverticula abscess. Signed: Juan Luis Nolan MDReport Verified Date/Time: 02/17/2021 15:00:00 Reading Location: [facility] C013Y CT Body Reading [facility] [id number] 08:28:00 Test Item Value Reference Range Interpretation Comments Hemoglobin A1C (test code = 4548-4) 7.6 % 4.3-6.1 H Lab Interpretation (test code = Abnormal 33380-2) [facility] [id number] 08:28:00 Test Item Value Reference Range Interpretation Comments HEMOGLOBIN A1C (BEAKER) (test code = 7.6 % 4.3-6.1 H 368) POCT-GLUCOSE [id number] 05:35:00 Test Item Value Reference Range Interpretation Comments POC-GLUCOSE METER 134 mg/dL 70-110 H : TESTED A T [facility] (BEAKER) (test code = [place] [facility], 1538) 47[address]: Marketing Mgr/Techni lyudmila ID = [id number] for DENICE AMBROCIO SHERRY BASIC METABOLIC [id number] 05:32:00 Test Item Value Reference Range Interpretation [...] 1092) DATA TO CALCULA TE ESTIMATED GFR. Marketing Mgr ID - [id number] 05:29:00 Test Item Value Reference Range Interpretation Comments MAGNESIUM (BEAKER) (test code = 1.8 mg/dL 1.6-2.6 627) Marketing Mgr ID - DBHEPATIC FUNCTION [id number] 05:29:00 Test Item Value Reference Range Interpretation [...] (test code = 11 U/L 6-55 347) Marketing Mgr ID - DBProthrombin [id number] 05:06:00 Test Item Value Reference Interpretation Comments Range Protime (test code = 15.4 See_Comment H [Autom ated 7662-2) message] The system which generated this result transmitted reference range : 11.9 - 14.2 seconds. The reference range was not used to interpret this result as normal/abnormal . INR (test code = 1.26 See_Comment [Automated 0171-6) message] The system which generated this result [...] valves. Lab Interpretation Abnormal (test code = 21813-5) [id number] 05:06:00 Test Item Value Reference Range Interpretation Comments PROTIME (BEAKER) 15.4 seconds 11.9-14.2 H (test code = 759) INR (BEAKER) (test 1.26 See_Comment [Automat ed message] code = 370) The system [employer] generated this result transmitted ref erence range: [...] mechanical heart valves.CBC W/PLT COUNT & AUTO [id number] 05:02:00 Test Item Value Reference Range Interpretation [...] PERCENT (BEAKER) (test code = 2801) SCREEN, [id number] 01:12:00 Test Item Value Reference Range Interpretation Comments TEST URINE (BEAKER) (test Negative code = 583) POCT-GLUCOSE [id number] 23:41:00 Test Item Value Reference Range Interpretation Comments POC-GLUCOSE METER 127 mg/dL 70-110 H : [facility] (test code = [place], 1538) [address]: Marketing Mgr/Techni lyudmila ID = [id number] for SHERRY WALLACE
[2021-03-13] MEDS ORDERED: NA CHLORIDE 0.9% 1,000 ML ONE (18:49)
[2021-03-13] MEDS ORDERED: ONDANSETRON 4 MG/2 ML VIAL ONE (18:49)
[2021-03-13] MEDS ORDERED: MORPHINE 4 MG/ML SYR ONE (18:49)
--- NOTE | 2021-03-13 20:04 | ER ---
Nurse's Notes [facility] Name: Sylwia Rogel Age: 45 yrs Sex: Female : 1975 Arrival Date: 03/13/2021 Time: 15:45 Bed 7 Private MD: Diagnosis: Encounter for attention to colostomy-excoriated skin around stoma Presentation: 03/13 16:19 Chief complaint: Patient states: "i came last night and I was told I needed to go to [address] for my infected stoma. today it has only gotten worse and I feel like I need to get it taken care of.". Coronavirus screen: At this time, the client does not indicate any symptoms associated with coronavirus-19. Ebola Screen: Patient negative for fever greater than or equal to 101.5 degrees Fahrenheit, and additional compatible Ebola Virus Disease symptoms. Initial Sepsis Screen: Does the patient meet any 2 criteria? No. Patient's initial sepsis screen is negative. Does the patient have a suspected source of infection? No. Patient's initial sepsis screen is negative. Risk Assessment: Do you want to hurt yourself or someone else? Patient reports no desire to harm self or others. Onset of symptoms was March 13, 2021. 16:19 Method Of Arrival: Ambulatory [facility] 16:19 Acuity: ALEJANDRO 3 [facility] Triage Assessment: 17:45 General: Appears distressed, uncomfortable, Behavior is cooperative, appropriate for bp age, anxious. Pain: Complains of pain in back. EENT: No deficits noted. Neuro: No deficits noted. Cardiovascular: No deficits noted. Respiratory: No deficits noted. GI: Reports upper abdominal pain. : No signs and/or symptoms were reported regarding the genitourinary system. Derm: No deficits noted. Musculoskeletal: No deficits noted. 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 - Social history:: Smoking status: Patient denies any tobacco usage or history of. Screenin:45 Abuse screen: Denies threats or abuse. Denies injuries from another. Nutritional bp screening: No deficits noted. Tuberculosis screening: No symptoms or risk factors identified. Fall Risk None identified. Assessment: 17:45 General: SEE TRIAGE NOTE. bp 18:56 Reassessment: Patient appears in no apparent distress at this time. No changes from bp previously documented assessment. Patient and/or family updated on plan of care and expected duration. Pain level reassessed. IVF INFUSING. 19:15 General: Appears in no apparent distress. Behavior is calm, cooperative, appropriate ea for age. Neuro: Level of Consciousness is awake, alert, obeys commands, Oriented to person, place, time. Cardiovascular: Patient's skin is warm and dry. Respiratory: Airway is patent Respiratory effort is even, unlabored, Respiratory pattern is regular, symmetrical. Derm: Skin is pink, warm \\T\\ dry. 20:44 Reassessment: Patient and/or family updated on plan of care and expected duration. Pain ea level reassessed. Patient is alert, oriented x 3, equal unlabored respirations, skin warm/dry/pink. Discharge instruction given to patient verbalized the understanding fo instruction. Pt left ED ambulatory tolerating well. Pt accompanied by family. Vital Signs: 16:22 BP 130 / 99; Pulse 121; Resp 17 S; Temp 97.9(TE); Pulse Ox 100% on R/A; Weight 78.93 kg jd3 (R); Height 5 ft. 5 in. (165.10 cm) (R); Pain 9/10; 18:56 BP 127 / 86; Pulse 98; Resp 16; Pulse Ox 100% ; bp 20:45 BP 120 / 70; Pulse 88; Resp 18; Pulse Ox 99% on R/A; ea 16:22 Body Mass Index 28.95 (78.93 kg, 165.10 cm) jd3 ED Course: 15:45 Patient arrived in ED. as 16:21 Triage completed. jd3 16:24 Arm band placed on. jd3 17:45 Patient has correct armband on for positive identification. Bed in low position. Call bp light in reach. Side rails up X2. 17:48 Marinas, Richie, CELLULOID TRIMMER is PHCP. pm1 17:48 Alfredo Rios MD is Attending Physician. pm1 18:14 Jayden Elmore, RN is Primary Nurse. bp 18:35 Warm blanket given. Pulse ox on. NIBP on. mh5 18:35 Inserted saline lock: 18 gauge in right antecubital area, using aseptic technique. 5 20:45 No provider procedures requiring assistance completed. IV discontinued, intact, ea bleeding controlled, No redness/swelling at site. Pressure dressing applied. Administered Medications: 18:30 Drug: NS 0.9% 1000 ml Route: IV; Rate: 1000 ml; Site: right antecubital; bp 20:00 Follow up: Response: No adverse reaction; IV Status: Completed infusion; IV Intake: ea 1000ml 18:30 Drug: morphine 4 mg Route: IVP; Site: right antecubital; bp 20:00 Follow up: Response: No adverse reaction ea 18:30 Drug: Zofran (Ondansetron) 4 mg Route: IVP; Site: right antecubital; bp 20:00 Follow up: Response: No adverse reaction ea Intake: 20:00 IV: 1000ml; Total: 1000ml. ea Outcome: 20:03 Discharge ordered by . pm1 20:45 Discharged to home ambulatory, with family. ea 20:45 Condition: stable 20:45 Discharge instructions given to patient, Instructed on discharge instructions, follow up and referral plans. Demonstrated understanding of instructions, follow-up care. 20:46 Patient left the ED. ea Signatures: Jeanne Moura Patrick, NP CELLULOID TRIMMER pm1 Eri Moura [facility] Abbi Dickinson RN RN ea Davies, Jonathon, RN RN jd3 Peltier, Brian, RN RN bp
--- NOTE | 2021-03-13 20:04 | EDPHYS ---
Physician Documentation [facility] Name: Sylwia Rogel Age: 45 yrs Sex: Female : 1975 Arrival Date: 03/13/2021 Time: 15:45 Bed 7 Private MD: ED Physician Alfredo Rios HPI: 03/13 17:54 This 45 yrs old Female presents to ER via Ambulatory with complaints of pm1 Abdominal Pain. 17:54 The patient presents with Pain to skin excoriation surrounding stoma. pm1 17:54 Onset: The symptoms/episode began/occurred gradually. Associated signs and symptoms: pm1 Pertinent negatives: fever, discharge. Modifying factors: the symptoms are aggravated by not being able to get the stoma bag to fit. Worse at night because she applies a towel on top of the stoma. Severity of pain: in the emergency department the pain is unchanged. The patient has been recently seen by a physician: a general surgeon, with similar presenting complaints, 3 days ago for the same complaint and was instructed to work with the materials for her stoma bag , The patient has been recently seen at the [facility] Emergency Department, yesterday, for similar complaints labs were performed, CT scan was performed, was given a prescription for antibiotics, was given a prescription for pain medications. 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 - Social history:: Smoking status: Patient denies any tobacco usage or history of. ROS: 17:54 Constitutional: Negative for fever, chills, and weight loss, Cardiovascular: Negative pm1 for chest pain, palpitations, and edema, Respiratory: Negative for shortness of breath, cough, wheezing, and pleuritic chest pain, Abdomen/GI: Negative for abdominal pain, nausea, vomiting, diarrhea, and constipation, MS/Extremity: Negative for injury and deformity. 17:54 Skin: Positive for excoriated skin around stoma. 17:54 All other systems are negative. Exam: 17:54 Constitutional: This is a well developed, well nourished patient who is awake, alert, pm1 and in no acute distress. Head/Face: Normocephalic, atraumatic. Eyes: Pupils equal round and reactive to light, extra-ocular motions intact. Lids and lashes normal. Conjunctiva and sclera are non-icteric and not injected. Cornea within normal limits. Periorbital areas with no swelling, redness, or edema. 17:54 Neck: Trachea midline, no thyromegaly or masses palpated, and no cervical lymphadenopathy. Supple, full range of motion without nuchal rigidity, or vertebral point tenderness. No Meningismus. 17:54 Back: No spinal tenderness. No costovertebral tenderness. Full range of motion. MS/ Extremity: Pulses equal, no cyanosis. Neurovascular intact. Full, normal range of motion. 17:54 ENT: Exam is negative for acute changes, External ear(s): are unremarkable, Mouth: Oral mucosa: normal, pink and intact, moist, Voice: no acute changes. 17:54 Cardiovascular: Rate: normal, Rhythm: regular, Pulses: no pulse deficits are appreciated. 17:54 Respiratory: Exam negative for acute changes, respiratory distress, shortness of breath. 17:54 Abdomen/GI: Inspection: excoriated skin surrounding stoma. No signs of cellulitis or abscess present, Palpation: abdomen is soft and non-tender, in all quadrants. 17:54 Skin: Appearance: normal except for affected area, excoriated skin surrounding stoma. 17:54 Neuro: Exam negative for acute changes, Orientation: is normal, Mentation: is normal, Motor: is normal, moves all fours, Gait: is steady, at a normal pace, without difficulty. Vital Signs: 16:22 BP 130 / 99; Pulse 121; Resp 17 S; Temp 97.9(TE); Pulse Ox 100% on R/A; Weight 78.93 kg jd3 (R); Height 5 ft. 5 in. (165.10 cm) (R); Pain 9/10; 18:56 BP 127 / 86; Pulse 98; Resp 16; Pulse Ox 100% ; bp 20:45 BP 120 / 70; Pulse 88; Resp 18; Pulse Ox 99% on R/A; ea 16:22 Body Mass Index 28.95 (78.93 kg, 165.10 cm) jd3 MDM: 17:53 Patient medically screened. pm1 20:00 Data reviewed: vital signs. Data interpreted: Pulse oximetry: on room air is 100 %. pm1 Interpretation: normal. Counseling: I had a detailed discussion with the patient and/or guardian regarding: the historical points, exam findings, and any diagnostic results supporting the discharge/admit diagnosis, the need for outpatient follow up, to return to the emergency department if symptoms worsen or persist or if there are any questions or concerns that arise at home. 03/13 17:54 Order name: IV Saline Lock; Complete Time: 18:35 pm1 03/13 17:54 Order name: Labs collected and sent; Complete Time: 18:35 pm1 Administered Medications: 18:30 Drug: NS 0.9% 1000 ml Route: IV; Rate: 1000 ml; Site: right antecubital; bp 20:00 Follow up: Response: No adverse reaction; IV Status: Completed infusion; IV Intake: ea 1000ml 18:30 Drug: morphine 4 mg Route: IVP; Site: right antecubital; bp 20:00 Follow up: Response: No adverse reaction ea 18:30 Drug: Zofran (Ondansetron) 4 mg Route: IVP; Site: right antecubital; bp 20:00 Follow up: Response: No adverse reaction ea Disposition: 03/14 06:51 Co-signature as Attending Physician, Alfredo Rios MD. rn Disposition: 03/13/21 20:03 Discharged to Home. Impression: Encounter for attention to colostomy - excoriated skin around stoma. - Condition is Stable. - Discharge Instructions: Colostomy Home Guide, Adult. - Medication Reconciliation Form, Thank You Letter, Antibiotic Education, Prescription Opioid Use form. - Follow up: Emergency Department; When: As needed; Reason: Worsening of condition. Follow up: Private Physician; When: 2 - 3 days; Reason: Recheck today's complaints, Continuance of care, Re-evaluation by your physician. - Problem is new. - Symptoms have improved. Signatures: Dispatcher [employer] EDMS Alfredo Rios MD MD rn Marinas, Patrick, COMPRESSOR OPERATOR COMPRESSOR OPERATOR pm1 Abbi Dickinson RN RN ea Davies, Jonathon, RN RN jd3 Jayden Elmore RN RN bp Corrections: (The following items were deleted from the chart) 03/13 18:01 17:54 BASIC METABOLIC PANEL+C.LAB.BRZ ordered. EDMT EDMS 18:01 17:54 CBC+H.LAB.BRZ ordered. EDMT EDMS 18:01 17:54 HEPATIC FUNCTION+C.LAB.BRZ ordered. EDMT EDMS 18: 17:54 LIPASE+C.LAB.BRZ ordered. EDMT EDMS 20:46 20:03 03/13/2021 20:03 Discharged to Home. Impression: Encounter for attention to ea colostomy - excoriated skin around stoma. Condition is Stable. Forms are Medication Reconciliation Form, Thank You Letter, Antibiotic Education, Prescription Opioid Use. Follow up: Emergency Department; When: As needed; Reason: Worsening of condition. Follow up: Private Physician; When: 2 - 3 days; Reason: Recheck today's complaints, Continuance of care, Re-evaluation by your physician. Problem is new. Symptoms have improved. pm1
[2021-03-13 22:52] VITALS: TEMP 97.9
[2021-03-13 22:56] VITALS: BP 120/70; O2SAT 99
== END 2021-03-13 20:46 | disposition home or self-care (01) ==
LOC: ER 15:44
DX: Z43.3 Encounter for attention to colostomy (principal); I10 Essential (primary) hypertension; E11.9 Type 2 diabetes mellitus without complications; F41.8 Other specified anxiety disorders
CPT/HCPCS: 96361; 96375; 96374; 99283; J7030; J2405

== ENCOUNTER 2023-03-21 20:04 | Emergency (ER) | payer OTHER ==
--- OUTSIDE RECORDS SUMMARY | 2023-03-21 20:17 | XMS REPORT | Continuity of Care Document ---
:1975 Author Organization [facility] t Address [address] [place] [address] Care Team Providers Name Role Phone DOUG PETERSEN Primary Care Physician Unavailable JUAN LUIS ALBA Attending Clinician Unavailable GENNY OCONNOR Attending Clinician Unavailable KAYLYNN ALEJANDRO Attending Clinician Unavailable JUAN LUIS ALBA Attending Clinician Unavailable JUANJOSE AMADO Attending Clinician Unavailable RYLAN ROJAS Attending Clinician Unavailable LAB90 Attending Clinician Unavailable IVETT PALOMO Attending Clinician Unavailable MARIAELENA VEGA Attending Clinician Unavailable DOUG PETERSEN Attending Clinician Unavailable MD EFRAIN Attending Clinician Unavailable DAMARIS SWANN Attending Clinician Unavailable CHRISTIAN NEWBY Attending Clinician Unavailable KEVIN ONEILL Attending Clinician Unavailable NADEGE RODRIGUEZ Attending Clinician Unavailable Chante Attending Clinician Unavailable Darian Watts PA-C Attending Clinician DARIAN WATTS Attending Clinician Unavailable Patricia Jaffe MD Attending Clinician Fernanda Hernandez MD Attending Clinician Catherine CHAUDHRY, Kaylynn Giron Attending Clinician Lin CHAUDHRY, Rosaura Attending Clinician Kenny CHAUDHRY, Josh Alvarez Attending Clinician Dario Baldwin MD Attending Clinician DR MATT WALTON Attending Clinician Unavailable Natalya CHAUDHRY, Ronald Attending Clinician JUAN LUIS ALBA Admitting Clinician Unavailable GENNY OCONNOR Admitting Clinician Unavailable KAYLYNN ALEJANDRO Admitting Clinician Unavailable KANDY_CASIMIRO_Bea Admitting Clinician Unavailable FERNANDA HERNANDEZ Admitting Clinician Unavailable YUMIKO GONZÁLES Admitting Clinician Unavailable JOHN WILBURN Admitting Clinician Unavailable Payers Payer Name Policy Type Policy Number Effective Date Expiration Date S ource [employer] HMO POS QPOS [id number] 2022 00:00:00 BCBS ADV HMO [id number] 2021 EXCHANGE 00:00:00 AETNA MP CVS 9 [id number] 2022 [place]ILVER: HMO [employer] 87 00:00:00 ON Saturday [facility] [id number] [place] CV[place] [id number] Problems Condition Condition Condition Status Onset Resolution Last Treating Co mments Source Name Details Category Date Date Treatment Clinician Date Incisional Incisional Disease Active K elsey hernia hernia 4-11 Seybold 00:00: - 00 Externa l Chronic Chronic Disease Active Inge pain of pain of 28 Seybold both knees both knees 00:00: - 00 Externa l Iron Iron Disease Active Inge deficiency deficiency - Se ybold anemia anemia 00:00: - 00 Externa l Gastroesop Gastroesop Disease Active K elsey hageal hageal 3-28 [facility] reflux reflux 00:00: - disease disease 00 Externa without without l esophagiti esophagiti s s Screening Screening Disease Active Sheldon sey for for 3- Seybold cervical cervical 00:00: - cancer cancer 00 Externa l Primary Primary Disease Active Inge hypertensi hypertensi 2-20 Se ybold on - on - 00:00: - Controlled Controlled 00 Ex terna l Depression Depression Disease Active K elsey 2-20 Seybold 00:00: - 00 Externa l Anemia Anemia Disease Active Inge 2-20 Seybold 00:00: - 00 Externa l Hyperlipid Hyperlipid Disease Active K elsefaisal emia emia 2-20 Seybold 00:00: - 00 Externa l Elevated Elevated Disease Active Kelse y triglyceri triglyceri 2-20 Se ybold kuldip with kuldip with 00:00: - high high 00 Externa cholestero cholestero l l - l - Unchanged Unchanged Type 2 Type 2 Disease Active Inge diabetes diabetes 2-20 Seybol d mellitus mellitus 00:00: - without without 00 Externa complicati complicati l on, with on, with long-term long-term current current use of use of insulin insulin (HCC) - (HCC) - Unchanged Unchanged SBO (small SBO (small Disease Recurre 2020-[address] [facility] bowel bowel nce 0-31 [facility] obstructio obstructio 00:[facility]: Me dical n) n) 00 Center Type 2 Type [address] [facility] diabetes diabetes nce 4-16 [facility] mellitus mellitus 00:00: Medica l without without 00 Center complicati complicati on, on, without without long-term long-term current current use of use of insulin insulin Essential Essential Disease Active [facility] hypertensi hypertensi 4-16 Ailyn k[facility] on on 00:00: Medical 00 Center Diverticul Diverticul Disease Active [facility] itis of itis of 4-15 [facility] large large 00:00: Medical intestine intestine 00 Cent er with with perforatio perforatio n and n and abscess abscess Diverticul Diverticul Disease Active Overview : [facility] 00:[facility]: g of this Medical 00 note Center might be different from the original. Added automatic ally from request for surgery [id number] Type 2 Type 2 Disease Active [facility] diabetes diabetes 8-16 [facility] mellitus mellitus 00:00: of without without 00 Medicin complicati complicati e on, on, without without long-term long-term current current use of use of insulin insulin (HCCode) (HCCode) Type II Type II Problem Active Y[facility] diabetes Diabetes 1-02 Medica l mellitus Mellitus 00:00: uncontroll Uncontroll 00 ed ed Fatigue Fatigue Problem Active 2016-11 [facility] 2- Medical 00:00: 00 Obesity Obesity Problem Active [facility] Major Major Problem Active [facility] depressive Depressive Me dical disorder Disorder Endometrio Endometrio Problem Active [facility] sis [facility] Medical pelvis Pelvis Dysfunctio Dysfunctio Problem Active [facility] n[facility] nal Medical uterine Uterine bleeding Bleeding Osteoarthr Osteoarthr Problem Active [facility] it[facility] itis of Medical knee Knee Attention Attention Problem Active Janet via deficit Deficit Medical hyperactiv Hyperactiv ity ity disorder, Disorder, predominan Predominan tly tly inattentiv Inattentiv e type e Type Allergies, Adverse Reactions, Alerts Allergy Allergy Status Severity Reaction(s) Onset Inactive Treating Comm ents Source Name Type Date Date Clinician NO KNOWN Allergy Active [facility] No Known DA Active [facility] Family History Family Member Diagnosis Comments Start Date Stop Date Source Natural father Heart disease [facility] Natural mother Diabetes [facility] Natural mother Hyperlipidemia [facility] Social History Social Habit Start Date Stop Date Quantity Comments Source History SDOH [facility] Alcohol Frequency [facility] History SDOH [facility] Alcohol Std Drinks Medica l Center History SDOH [facility] Alcohol Binge [facility] Gender identity [facility] Alcohol intake 2021-09-03 2021-09-03 [facility] Center (finding) Tobacco use and 2021-02-16 2021-02-[address] [facility] [address] A[facility]n kes exposure 00:00:00 00:00:00 Medical Center Alcohol Comment 2021-02-16 2021-02-16 2-[address] [facility] 00:00:00 00:00:[address] everyday History of Social 2017-05-06 2017-05-[address] function 00:00:00 00:00:00 Hospital Sex Ass[birth year] At [birth year] ALEXA Elise kes 00:00:00 00:00:00 Medical Center Smoking Status Start Date Stop Date Source Never smoked tobacco Inge Weiner old - External Medications Ordered Filled Start Stop Current Ordering Indication Dosage Frequency Signature Comments Components Source Medication Medication Date Date Medication? Clinician (SIG) Name Name Fluoxetine Yes [id number] 20mg Take 1 K elsey HCl 20 MG 4-11 capsule Seybold oral 00:00: (20 mg - Capsule 00 total) by Externa mouth 3 l times daily Trazodone Yes [id number] 100mg Take 2 Ke lsey HCl 50 MG 4-11 tablets Seybold oral Tablet 00:00: (100 mg - 00 total) by Externa mouth l nightly Trazodone 2022- No Inge HCl 50 MG 4-10 04-11 Seybold oral Tablet 00:00: 00:00 - 00 :00 Externa l Glucose 0 2023- Yes [id number] Use Brandi ey Blood in 4-05 04-05 Accu-Chec Seybo ld vitro Strip 00:00: 04:59 guide test - 00 :00 strips to Externa check FSBS l fasting, ac/hs and PRN Pantoprazol Yes [id number] 40mg Take 1 Inge e Sodium 40 3-28 tablet (40 Se ybold MG oral 00:00: mg total) - Tablet 00 by mouth Externa Delayed daily l Response Lidocaine 4 Yes 1{patch Apply 1 Inge % apply 3-28 } patch Seybold externally 00:00: topically - Patch 00 daily Externa l Pantoprazol Yes [id number] 40mg Take 1 Inge e Sodium 40 3-28 tablet (40 Se ybold MG oral 00:00: mg total) - Tablet 00 by mouth Externa Delayed daily l Response Lidocaine 4 Yes 1{patch Apply 1 Inge % apply 3-28 } patch Seybold externally 00:00: topically - Patch 00 daily Externa l Nitrofurant 2022-0 2022- No [id number] 100mg Take 1 Inge oin Monohyd 2-22 03-28 capsule Seyb old Macro 100 00:00: 00:00 (100 mg - MG oral 00 :00 total) by Externa Capsule mouth 2 l times daily Gemfibrozil 2022-0 2023- No 600mg Take 600 Inge 600 MG oral 2-20 02-20 mg by Seybol d Tablet 08:40: 00:00 mouth in - 09 :00 the Externa morning l and 600 mg in the evening. Take before meals. Metformin 2022-0 Yes [id number] 1000mg Take 1 Inge HCl 1000 MG 2-20 tablet Seybol d oral Tablet 00:00: (1,000 mg - 00 total) by Externa mouth in l the morning and 1 tablet (1,000 mg total) in the evening. Take with meals. Fluoxetine 2022-0 Yes [id number] 20mg Take 1 K elsey HCl 20 MG 2-20 capsule Seybold oral 00:00: (20 mg - Capsule 00 total) by Externa mouth 3 l times daily Metoprolol 2022-0 Yes [id number] 50mg Take 1 K elsey Succinate 2-20 tablet (50 Seyb old 50 MG oral 00:00: mg total) - TABLET SR 00 by mouth [employer] a 24 HR daily l Amlodipine 2022-0 Yes [id number] 10mg Take 1 K elsey Besylate 10 2-20 tablet (10 Se ybold MG oral 00:00: mg total) - Tablet 00 by mouth Externa daily l Gemfibrozil 2022-0 Yes [id number] 600mg Take 1 Inge 600 MG oral 2-20 tablet Seybol d Tablet 00:00: (600 mg - 00 total) by Externa mouth in l the morning and 1 tablet (600 mg total) in the evening. Take before meals. Metformin 2022-0 Yes [id number] 1000mg Take 1 Inge HCl 1000 MG 2-20 tablet Seybol d oral Tablet 00:00: (1,000 mg - 00 total) by Externa mouth in l the morning and 1 tablet (1,000 mg total) in the evening. Take with meals. Metoprolol 2022-0 Yes [id number] 50mg Take 1 K elsey Succinate 2-20 tablet (50 Seyb old 50 MG oral 00:00: mg total) - TABLET SR 00 by mouth [employer] a 24 HR daily l Amlodipine 2022-0 Yes [id number] 10mg Take 1 K elsey Besylate 10 2-20 tablet (10 Se ybold MG oral 00:00: mg total) - Tablet 00 by mouth Externa daily l Gemfibrozil 2022-0 Yes [id number] 600mg Take 1 Inge 600 MG oral 2-20 tablet Seybol d Tablet 00:00: (600 mg - 00 total) by Externa mouth in l the morning and 1 tablet (600 mg total) in the evening. Take before meals. Metformin 2022-0 Yes [id number] 1000mg Take 1 Inge HCl 1000 MG 2-20 tablet Seybol d oral Tablet 00:00: (1,000 mg - 00 total) by Externa mouth in l the morning and 1 tablet (1,000 mg total) in the evening. Take with meals. Metoprolol 2022-0 Yes [id number] 50mg Take 1 K elsey Succinate 2-20 tablet (50 Seyb old 50 MG oral 00:00: mg total) - TABLET SR 00 by mouth [employer] a 24 HR daily l Amlodipine 2022-0 Yes [id number] 10mg Take 1 K elsey Besylate 10 2-20 tablet (10 Se ybold MG oral 00:00: mg total) - Tablet 00 by mouth Externa daily l Gemfibrozil 2022-0 Yes [id number] 600mg Take 1 Inge 600 MG oral 2-20 tablet Seybol d Tablet 00:00: (600 mg - 00 total) by Externa mouth in l the morning and 1 tablet (600 mg total) in the evening. Take before meals. Fluoxetine 2022-0 2022- No [id number] 20mg Take 1 Inge HCl 20 MG 2-20 - capsule Seybol d oral 00:00: 00:00 (20 mg - Capsule 00 :00 total) by Externa mouth 3 l times daily Metoprolol 2022-0 2022- No 50mg Take 50 mg Inge Succinate 2-14 -20 by mouth Seybo ld 50 MG oral 00:00: 00:00 daily - TABLET SR 00 :00 Externa 24 HR l Amlodipine 2022-0 2022- No 10mg Take 10 mg Inge Besylate 10 2-09 -20 by mouth Sey bold MG oral 00:00: 00:00 daily - Tablet 00 :00 Externa l Fluoxetine 2022- No 60mg Take 60 mg Inge HCl 20 MG 12-04-20 by mouth 3 Sey bold oral 00:00: 00:00 times - Capsule 00 :00 daily Externa l Levemir Yes [id number] INJECT 20 Inge FlexTouch 1-16 UNITS Seybold 100 UNIT/ML 00:00: UNDER THE - subcutaneou 00 SKIN EVERY Ex terna s Solution NIGHT l Pen-injecto r Levemir Yes [id number] INJECT 20 Inge FlexTouch 1-16 UNITS Seybold 100 UNIT/ML 00:00: UNDER THE - subcutaneou 00 SKIN EVERY Ex terna s Solution NIGHT l Pen-injecto r Levemir Yes [id number] INJECT 20 Inge FlexTouch 1-16 UNITS Seybold 100 UNIT/ML 00:00: UNDER THE - subcutaneou 00 SKIN EVERY Ex terna s Solution NIGHT l Pen-injecto r Metformin 2022- No 1000mg Take 1,000 Inge HCl 1000 MG 11-11 02-20 mg by Seybol d oral Tablet 00:00: 00:00 mouth in - 00 :00 the Externa morning l and 1,000 mg in the evening. Take with meals. Drospirenon 2022- No Kelse y e-Ethinyl 11-08 02-20 Seybold Estradiol 00:00: 00:00 - 3-0.03 MG 00 :00 Externa oral Tablet l TAKE 2021-11 No TABLET 2-13 TWICE 00:00: DAILY. 00 TAKE 2021-11 No TABLET 2-13 TWICE 00:00: DAILY. 00 TAKE 2 2021-11 No TABLETS 2-13 TWICE DAILY 00:00: 00 TAKE 2021-11 No TABLET (500 2-13 MG TOTAL) 00:00: BY MOUTH 1 00 (ONE) TIME EACH DAY Dose 2021-11 No Unknown 2-13 00:00: 00 TAKE 2021-11 No CAPSULE BY 2-13 MOUTH EVERY 00:00: DAY 00 TAKE 2021-11 No TABLET (10 2-13 MG TOTAL) 00:00: BY MOUTH 1 00 (ONE) TIME EACH DAY HOLD IF SBP (TOP BP) IS LESS THAN 120 Dose 2022-1 No Unknown 2-13 00:00: 00 PLACE 1 2021-11 No TABLET ON 2-13 TONGUE AND 00:00: ALLOW TO 00 DISSOLVE 3 TIMES DAILY NEEDED. Dose 2021- No Unknown 2-13 00:00: 00 Dose 2021- No Unknown 2-13 00:00: 00 Dose 2021- No Unknown 2-13 00:00: 00 Dose 2021- No Unknown 2-13 00:00: 00 Dose 2021- No Unknown 2-13 00:00: 00 Dose 2021- No Unknown 2-13 00:00: 00 Dose 2021- No Unknown 2-13 00:00: 00 Dose 2021- No Unknown 2-13 00:00: 00 Dose 2021-11 No Unknown 2-13 00:00: 00 Dose 2021-11 No Unknown 2-13 00:00: 00 Dose 2021-11 No Unknown 2-13 00:00: 00 TAKE 2 2021-11 No TABLETS BY 2-13 MOUTH TWICE 00:00: A DAY 00 METFORMIN 2021-11 No HYDROCHLORI 2-13 DE 1000MG 00:00: TAB 00 METOPROLOL 2021-11 No TARTRATE 2-13 50MG TAB 00:00: 00 TAKE 1 2021-11 No CAPSULE BY 2-13 MOUTH ONCE 00:00: DAILY 00 Dose 2021-11 No Unknown 2-13 00:00: 00 AMLODIPINE 2021-11 No BESYLATE 2-13 10MG TAB 00:00: 00 TAKE 1 2021-11 No CAPSULE BY 0-04 MOUTH ONCE 00:00: DAILY 00 TAKE 1 2021-11 No CAPSULE BY 0-04 MOUTH ONCE 00:00: DAILY 00 TAKE 1 2021-11 No CAPSULE BY 0-04 MOUTH ONCE 00:00: DAILY 00 TAKE 1 2021-0 No TABLET BY 9-05 MOUTH EVERY 00:00: DAY 00 TAKE 1 2021-0 No TABLET BY 9-05 MOUTH EVERY 00:00: DAY 00 TAKE 1 2021-0 No TABLET (60 9-05 MG) BY 00:00: MOUTH DAILY 00 TAKE 1 2021-0 No 60 TABLET BY 9-05 MOUTH EVERY 00:00: DAY 00 Dose 2021-0 No Unknown 6- 00:00: 00 Dose 2021-0 No Unknown 6- 00:00: 00 Dose 2021-0 No Unknown 6-27 00:00: 00 Dose 2-0 No Unknown 6- 00:00: 00 Dose 2-0 No Unknown 6- 00:00: 00 Dose 2-0 No Unknown 6- 00:00: 00 Dose 2-0 No Unknown 6- 00:00: 00 Dose 2-0 No Unknown 6- 00:00: 00 Dose 2022-0 No Unknown 5-31 00:00: 00 Dose 2022-0 No Unknown 5-31 00:00: 00 Dose 2022-0 No Unknown 5-31 00:00: 00 Dose 2-0 No Unknown 5-31 00:00: 00 diclofenac 2-0 No 1% 1 % topical 5-30 gel 00:00: 00 Levemir 2-0 No 20(3 FlexTouch 5-30 mL) U-100 00:00: Insulin 100 00 unit/mL (3 mL) subcutaneou s pen metformin 2021-0 No 1mg 1,000 mg 5-30 tablet 00:00: 00 Dose 2-0 No Unknown 5-30 00:00: 00 Dose 2-0 No Unknown 5-30 00:00: 00 diclofenac 2-0 No 1% 1 % topical 5-30 gel 00:00: 00 Levemir 2-0 No 20(3 FlexTouch 5-30 mL) U-100 00:00: Insulin 100 00 unit/mL (3 mL) subcutaneou s pen metformin 2-0 No 1mg 1,000 mg 5-30 tablet 00:00: 00 Dose 2-0 No Unknown 5-30 00:00: 00 Dose 2022-0 No Unknown 5-30 00:00: 00 diclofenac 2-0 No 1% 1 % topical 5-30 gel 00:00: 00 Levemir 2-0 No 20(3 FlexTouch 5-30 mL) U-100 00:00: Insulin 100 00 unit/mL (3 mL) subcutaneou s pen metformin 2-0 No 1mg 1,000 mg 5-30 tablet 00:00: 00 ibuprofen 2022-0 No 1mg 800 mg 5-30 tablet 00:00: 00 Dose 2022-0 No Unknown 5-30 00:00: 00 Dose 2022-0 No Unknown 5-30 00:00: 00 Dose 2022-0 No Unknown 5-30 00:00: 00 Dose 2022-0 No Unknown 5-30 00:00: 00 Dose 2022-0 No Unknown 5-30 00:00: 00 Dose 2022-0 No Unknown 5-30 00:00: 00 gabapentin 2022-0 No 1mg 300 mg 5-20 capsule 00:00: 00 gabapentin 2022-0 No 1mg 300 mg 5-20 capsule 00:00: 00 gabapentin 2022-0 No 1mg 300 mg 5-20 capsule 00:00: 00 Dose 2022-0 No Unknown 5-20 00:00: 00 Dose 2022-0 No Unknown 5- 00:00: 00 Dose 2022-0 No Unknown 5- 00:00: 00 Abilify 15 2022-0 No 1mg mg tablet 5- 00:00: 00 Dose 2022-0 No Unknown 5- 00:00: 00 Prozac 40 2022-0 No 1mg mg capsule 5- 00:00: 00 Dose 2022-0 No Unknown 5- 00:00: 00 Dose 2022-0 No Unknown 5- 00:00: 00 Dose 2022-0 No Unknown 5- 00:00: 00 Dose 2022-0 No Unknown 5- 00:00: 00 Abilify 15 2022-0 No 1mg mg tablet 5- 00:00: 00 Abilify 15 2022-0 No 1mg mg tablet 5- 00:00: 00 Prozac 40 2022-0 No 1mg mg capsule 5- 00:00: 00 Prozac 40 2022-0 No 1mg mg capsule 5- 00:00: 00 Dose 2022-0 No Unknown 5-19 00:00: 00 Dose 2022-0 No Unknown 5- 00:00: 00 Dose 2022-0 No Unknown 5-19 00:00: 00 Abilify 15 2022-0 No 1mg mg tablet 5-19 00:00: 00 Abilify 15 2022-0 No 1mg mg tablet 5-19 00:00: 00 Prozac 40 2022-0 No 1mg mg capsule 5- 00:00: 00 Prozac 40 2022-0 No 1mg mg capsule 5-19 00:00: 00 Dose 2022-0 No Unknown 5-19 00:00: 00 Dose 2-0 No Unknown 03-22 00:00: 00 Dose 2-0 No Unknown 03-22 00:00: 00 Abilify 15 2021-0 No 1mg mg tablet 03-22 00:00: 00 Abilify 15 2021-0 No 1mg mg tablet 03-22 00:00: 00 Prozac 40 2021-0 No 1mg mg capsule 03-22 00:00: 00 Prozac 40 2021-0 No 1mg mg capsule 03-22 00:00: 00 Dose 2-0 No Unknown 03-22 00:00: 00 metformin 2020-11 Yes 500mg Take 500 [place] [facility] (GLUCOPHAGE 1-15 mg by [place] -XR) 500 MG 13:11: mouth of XR tablet 47 daily. Medicin e OXYCODONE 2020-11 Yes Take by [facility] OR 1-15 mouth. [place] 13:11: of 47 Medicin e metformin 2020-11 Yes 500mg Take 500 [place] [facility] (GLUCOPHAGE 1-15 mg by [place] -XR) 500 MG 13:11: mouth of XR tablet 47 daily. Medicin e OXYCODONE 2020-11 Yes Take by [facility] OR 1-15 mouth. [place] 13:11: of 47 Medicin e metoprolol 2020-11 Yes 50mg Q.5D Take [address] tartrate 1-05 by mouth 2 [facility] (LOPRESSOR) 11:46: (two) Medic al 50 MG 36 times Center tablet daily. lisinopriL 2020-11 Yes 20mg Take [address] (PRINIVIL,Z 1-05 by mouth 2 Ailyn kes ESTRIL) 20 11:46: (two) Medica l MG tablet 36 times Center daily before meals. metFORMIN 2020-11 Yes 500mg Take [address] [facility] (GLUCOPHAGE 1-05 mg by [facility] ) 500 MG 11:46: mouth Medical tablet 36 daily with Center breakfast . amLODIPine 2020-11 Yes 10mg QD Take [address] (NORVASC) 1-05 by mouth [facility] 10 MG 11:46: daily. Medical tablet 36 Center medroxyPROG 2020-11 Yes 150mg Inject [address] [facility] ESTERone 1-05 mg [facility] (DEPO-PROVE 11:46: intramuscu Medical RA) 150 36 larly Center mg/mL every 3 injection (three) months. ramelteon 2020-11 Yes 8mg QD Take [address] [facility] (ROZEREM) 8 1-05 by mouth [facility] mg tablet 11:46: nightly. [facility] 36 [place] omega-3 2020-11 Yes 2g Q.5D Take [address] [facility] fatty 1-05 by mouth 2 [facility] acids-fish 11:46: (two) Medica l oil 36 times Center 340-1,000 daily. mg Cap per capsule metoprolol 2020-11 Yes 50mg Q.5D Take [address] tartrate 1-05 by mouth 2 [facility] (LOPRESSOR) 11:46: (two) Medic al 50 MG 36 times Center tablet daily. lisinopriL 2020-11 Yes 20mg Take [address] (PRINIVIL,Z 1-05 by mouth 2 Ailyn kes ESTRIL) 20 11:46: (two) Medica l MG tablet 36 times Center daily before meals. metFORMIN 2020-11 Yes 500mg Take [address] [facility] (GLUCOPHAGE 1-05 mg by [facility] ) 500 MG 11:46: mouth Medical tablet 36 daily with Center breakfast . amLODIPine 2020-11 Yes 10mg QD Take [address] (NORVASC) 1-05 by mouth [facility] 10 MG 11:46: daily. Medical tablet 36 Center medroxyPROG 2020-11 Yes 150mg Inject [address] [facility] ESTERone 1-05 mg [facility] (DEPO-PROVE 11:46: intramuscu Medical RA) 150 36 larly Center mg/mL every 3 injection (three) months. ramelteon 2020-11 Yes 8mg QD Take [address] [facility] (ROZEREM) 8 1-05 by mouth Luke s mg tablet 11:46: nightly. [facility] 36 [place] omega-3 2020-11 Yes 2g Q.5D Take [address] [facility] fatty 1-05 by mouth 2 [facility] acids-fish 11:46: (two) Medica l oil 36 times Center 340-1,000 daily. mg Cap per capsule metoprolol 2020-11 Yes 50mg Q.5D Take [address] tartrate 1-05 by mouth 2 [facility] (LOPRESSOR) 11:46: (two) Medic al 50 MG 36 times Center tablet daily. lisinopriL 2020-11 Yes 20mg Take [address] (PRINIVIL,Z 1-05 by mouth 2 Ailyn kes ESTRIL) 20 11:46: (two) Medica l MG tablet 36 times Center daily before meals. metFORMIN 2020-11 Yes 500mg Take [address] [facility] [address] (GLUCOPHAGE 1-05 mg by [facility] ) 500 MG 11:46: mouth Medical tablet 36 daily with Center breakfast . amLODIPine 2020-11 Yes 10mg QD Take [address] (NORVASC) 1-05 by mouth [facility] 10 MG 11:46: daily. Medical tablet 36 Center medroxyPROG 2020-11 Yes 150mg Inject [address] [facility] ESTERone 1-05 mg [facility] (DEPO-PROVE 11:46: intramuscu Medical RA) 150 36 larly Center mg/mL every 3 injection (three) months. ramelteon 2020-11 Yes 8mg QD Take [address] [facility] [address] (ROZEREM) 8 1-05 by mouth Luke s mg tablet 11:46: nightly. Medi denise 36 Center omega-3 2020-11 Yes 2g Q.5D Take [address] [facility] fatty 1-05 by mouth 2 [facility] acids-fish 11:46: (two) Medica l oil 36 times Center 340-1,000 daily. mg Cap per capsule HYDROcodone 2020-11- No 1{tbl} Take [address] -acetaminop 1-05 11-15 tablet by Ailyn morales (NORCO 00:00: 23:59 mouth Medic al 5-325) 00 :00 every 6 Center 5-325 mg (six) per tablet hours as needed for Pain for up to 10 days. Max Daily Amount: 4 tablets loperamide Yes [id number] TAKE 2 [facility] (IMMODIUM) 7-20 TABLETS BY Col lege 2 MG 00:00: MOUTH TWO of capsule 00 TIMES Medicin DAILY e UNTIL SURGERY. loperamide Yes [id number] TAKE 2 [facility] (IMMODIUM) 7-20 TABLETS BY Col lege 2 MG 00:00: MOUTH TWO of capsule 00 TIMES Medicin DAILY e UNTIL SURGERY. acetaminoph Yes [id number] 1{tbl} Take 1 [facility] en-codeine 5-12 [id number] Tablet by Leon jordan (TYLENOL 00:00: mouth of #3) 300-30 00 every 6 Medici n MG per hours as e tablet needed for Pain. acetaminoph Yes [id number] 1{tbl} Take 1 [facility] en-codeine 03-15 [id number] Tablet by Leon jordan (TYLENOL 00:00: mouth of #3) 300-30 00 every 6 Medici n MG per hours as e tablet needed for Pain. metformin Yes 500mg Take 500 [place] [facility] (GLUCOPHAGE 5-07 mg by [place] -XR) 500 MG 15:07: mouth of XR tablet 26 daily. Medicin e OXYCODONE Yes Take by [facility] [place] 5-07 mouth. [place] 15:07: of Medicin e tramadol Yes 5mg Take 5 mg [facility] (ULTRAM) 50 5-07 by mouth [place] ege MG tablet 15:07: every 6 of 26 hours as Medicin needed for e Pain. loperamide 2020- No 2{tbl} Take 2 [facility] (IMODIUM 03-10-07 Tablets by [place] Reyes-D) 2 MG 00:00: 04:59 mouth two of tablet 00 :00 times Medicin daily for e 30 days. gabapentin Yes [id number] 300mg Take 3 [facility] (NEURONTIN) 5- [id number] Capsules Co llege 100 MG 00:00: by mouth 3 of capsule 00 times Medicin daily. e lidocaine Yes [id number] 1{patch Place 1 [facility] (LIDODERM) 5- [id number] } Patch onto C ollege 5 % patch 00:00: the skin of 00 every 24 Medicin hours. e gabapentin 2020-0 Yes [id number] 300mg Take 3 [facility] (NEURONTIN) 5- [id number] Capsules Co llege 100 MG 00:00: by mouth 3 of capsule 00 times Medicin daily. e lidocaine 2020-0 Yes [id number] 1{patch Place 1 [facility] (LIDODERM) 5- [id number] } Patch onto C ollege 5 % patch 00:00: the skin of 00 every 24 Medicin hours. e gabapentin 2020-0 2021- No 300mg Q.[id number] Take [address] [facility] (NEURONTIN) 03-06- [id number] capsule [facility] 300 MG 00:00: 23:59 3D (300 mg Medical capsule 00 :00 total) by Center mouth 3 (three) times daily. gabapentin 2021- No 300mg Q.[id number] Take [address] [facility] (NEURONTIN) 5- 05- [id number] capsule [facility] 300 MG 00:00: 23:59 3D (300 mg Medical capsule 00 :00 total) by Center mouth 3 (three) times daily. FLUoxetine Yes 1{tbl} QD Take [address] [facility] 60 mg Tab 4-13 tablet by [facility] 00:00: mouth Medical 00 daily. [place] FLUoxetine Yes 1{tbl} QD Take [address] [facility] 60 mg Tab 4-13 tablet by [facility] 00:00: mouth Medical 00 daily. [place] FLUoxetine Yes 1{tbl} QD Take [address] [facility] 60 mg Tab 4-13 tablet by [facility] 00:00: mouth Medical 00 daily. [place] lisinopril Yes TAKE 1 [facility] (PRINIVIL, 4-06 TABLET BY [place] ege ZESTRIL) 20 00:00: MOUTH of MG tablet 00 TWICE A Medicin DAY e lisinopril Yes TAKE 1 [facility] (PRINIVIL, 4-06 TABLET BY [place] [facility] ZESTRIL) 20 00:00: MOUTH of MG tablet 00 TWICE A Medicin DAY e lisinopril Yes TAKE 1 [facility] (PRINIVIL, 4-06 TABLET BY [place] [facility] ZESTRIL) 20 00:00: MOUTH of MG tablet 00 TWICE A Medicin DAY e metformin 2018-11 Yes TAKE TWO [facility] (GLUCOPHAGE 11-08 (2) [facility] -XR) 500 MG 00:00: TABLET(S) o f XR tablet 00 BY MOUTH Medici n TWICE A e DAY. medroxyPROG 2018-11 Yes 150mg 1 mL every [facility] ESTERone 11-08 90 days. [facility] Acetate 00:00: of (DEPO-PROVE 00 Medicin RA) 150 e MG/ML Syringe fluoxetine 2018-11 Yes 40mg Take 1 [facility] (PROZAC) 40 11-08 by mouth [place] [facility] capsule 00:00: daily. of 00 Medicin e metronidazo 2018-11 Yes Apply and [facility] le 1-05 rub a thin [facility] (METROGEL) 00:00: film twice o f 0.75 % gel 00 daily, Medicin morning e and evening, to entire affected areas after washing. metformin 2018-11 Yes TAKE TWO [facility] (GLUCOPHAGE 11-08 (2) [facility] -XR) 500 MG 00:00: TABLET(S) o f XR tablet 00 BY MOUTH Medici n TWICE A e DAY. medroxyPROG 2018-11 Yes 150mg 1 mL every [facility] ESTERone 11-08 90 days. [facility] Acet[facility] 00:00: of (DEPO-PROVE 00 Medicin RA) 150 e MG/ML Syringe fluoxetine 2018-11 Yes 40mg Take 1 [facility] (PROZAC) 40 05 by mouth [place] [facility] capsule 00:00: daily. of Medicin e metronidazo 2018-11 Yes Apply and [facility] 05 rub a thin [facility] (METROGEL) 00:00: film twice o f 0.75 % gel 00 daily, Medicin morning e and evening, to entire affected areas after washing. aripiprazol Yes 10mg Take 1 Tab [facility] (ABILIFY) 9-16 by mouth [place] [facility] 10 MG 00:00: daily. of tablet 00 Medicin e aripiprazol Yes 10mg Take 1 Tab [facility] (ABILIFY) 9-16 by mouth [place] [facility] 10 MG 00:00: daily. of tablet 00 Medicin e metformin No 2mg ER 500 mg 8-29 tablet,exte 00:00: nded 00 release 24 hr metformin No 2mg ER 500 mg 8-29 tablet,exte 00:00: nded 00 release 24 hr metformin No 2mg ER 500 mg 8-29 tablet,exte 00:00: nded 00 release 24 hr Dose 2019-0 No Unknown 8-29 00:00: 00 fluoxetine 0 2019- No 40mg Take 40 mg [facility] (PROZAC) 40 8-15 08-15 by mouth [facility] capsule 22:58: 00:00 daily. of 34 :00 Medicin e aripiprazol 2018- No 10mg Take 10 mg [facility] (ABILIFY) 8-15 08-15 by mouth [facility] 10 MG 22:58: 00:00 daily. of tablet 34 :00 Medicin e desonide 0 Yes AAA once [facility] (DESOWEN) 8-15 daily [facility] 0.05 % 00:00: of cream 00 Medicin e desonide 2018-0 Yes AAA once [facility] (DESOWEN) 8-15 daily [facility] 0.05 % 00:00: of cream 00 Medicin e fluoxetine 0 Yes 40mg Take 1 [facility] (PROZAC) 40 8-15 by mouth [place] [facility] capsule 00:00: daily. of 00 Medicin e aripiprazol Yes 10mg Take 1 Tab [facility] (ABILIFY) 8-15 by mouth [place] [facility] 10 MG 00:00: daily. of tablet 00 Medicin e desonide Yes AAA once [facility] (DESOWEN) 8-15 daily [facility] 0.05 % 00:00: of cream Medicin e metformin 2019- No 500mg Take 1 Tab [facility] (GLUCOPHAGE 815 09-15 by mouth 3 [facility] -XR) 500 MG 00:00: 04:59 times of XR tablet 00 :00 daily for Medic in 30 days. e metformin 2019- No 500mg Take 500 [facility] (GLUCOPHAGE 8-02 08-15 mg by Colleg e -XR) 500 MG 00:00: 00:00 mouth 3 of XR tablet 00 :00 times Medicin daily. e gemfibrozil 2018-0 No 1mg 600 mg 2-13 tablet 00:00: 00 Vitamin D2 2019-0 No 1(50,00 1,250 mcg 2-13 0 unit) (50,000 00:00: unit) 00 capsule gemfibrozil 2018-0 No 1mg 600 mg 2-13 tablet 00:00: 00 Vitamin D2 2019-0 No 1(50,00 1,250 mcg 2-13 0 unit) (50,000 00:00: unit) 00 capsule gemfibrozil 2018-0 No 1mg 600 mg 2-13 tablet 00:00: 00 Vitamin D2 2019-0 No 1(50,00 1,250 mcg 2-13 0 unit) (50,000 00:00: unit) 00 capsule Dose 2019-0 No Unknown 2-13 00:00: 00 lisinopril 2019-0 No 1mg 10 mg 2-11 tablet 00:00: 00 metformin 2019-0 No 2mg ER 500 mg 2-11 tablet,exte 00:00: nded 00 release 24 hr lovastatin 2019-0 No 1mg 20 mg 2-11 tablet 00:00: 00 lisinopril 2019-0 No 1mg 10 mg 2-11 tablet 00:00: 00 metformin 2019-0 No 2mg ER 500 mg 2-11 tablet,exte 00:00: nded 00 release 24 hr lovastatin 2019-0 No 1mg 20 mg 2-11 tablet 00:00: 00 lisinopril 2019-0 No 1mg 10 mg 2-11 tablet 00:00: 00 metformin 2019-0 No 2mg ER 500 mg 2-11 tablet,exte 00:00: nded 00 release 24 hr lovastatin 2019-0 No 1mg 20 mg 2-11 tablet 00:00: 00 lisinopril 2019-0 No 1mg 10 mg 2-11 tablet 00:00: 00 metformin 2019-0 No 2mg ER 500 mg 2-11 tablet,exte 00:00: nded 00 release 24 hr lovastatin 2019-0 No 1mg 20 mg 2-11 tablet 00:00: 00 Seroquel 25 2019-0 No 1mg mg tablet 2-05 00:00: 00 Prozac 40 2019-0 No 1mg mg capsule 2-05 00:00: 00 Seroquel 25 2019-0 No 1mg mg tablet 2-05 00:00: 00 Seroquel 25 2019-0 No 1mg mg tablet 2-05 00:00: 00 Prozac 40 2019-0 No 1mg mg capsule 2-05 00:00: 00 Prozac 40 2019-0 No 1mg mg capsule 2-05 00:00: 00 Dose 2019-0 No Unknown 2-05 00:00: 00 Prozac 40 2019-0 No 1mg mg capsule 2-05 00:00: 00 Seroquel 25 2019-0 No 1mg mg tablet 1-30 00:00: 00 Prozac 40 2019-0 No 1mg mg capsule 1-30 00:00: 00 Seroquel 25 2019-0 No 1mg mg tablet 1-30 00:00: 00 Prozac 40 2019-0 No 1mg mg capsule 1- 00:00: 00 Seroquel 25 2019-0 No 1mg mg tablet 1- 00:00: 00 Prozac 40 2018-0 No 1mg mg capsule - 00:00: 00 Seroquel 25 2018-0 No 1mg mg tablet - 00:00: 00 Prozac 40 2018-0 No 1mg mg capsule - 00:00: 00 Seroquel 25 2017-1 No 1mg mg tablet 2- 00:00: 00 Prozac 40 2017-1 No 1mg mg capsule 2- 00:00: 00 Seroquel 25 2017-1 No 1mg mg tablet 2- 00:00: 00 Prozac 40 2017-1 No 1mg mg capsule 2- 00:00: 00 Seroquel 25 2017-1 No 1mg mg tablet 2- 00:00: 00 Prozac 40 2017-1 No 1mg mg capsule 2- 00:00: 00 Seroquel 25 2017-1 No 1mg mg tablet 2- 00:00: 00 Prozac 40 2017-1 No 1mg mg capsule 2- 00:00: 00 Trileptal 2018-1 No 1mg 300 mg 2-03 tablet 00:00: 00 Prozac 40 2017-1 No 1mg mg capsule 2- 00:00: 00 Trileptal 2018-1 No 1mg 300 mg 2-03 tablet 00:00: 00 Prozac 40 2018-1 No 1mg mg capsule 2- 00:00: 00 Trileptal 2018-1 No 1mg 300 mg 2-03 tablet 00:00: 00 Prozac 40 2018-1 No 1mg mg capsule 2-03 00:00: 00 Trileptal 2018-1 No 1mg 300 mg 2-03 tablet 00:00: 00 Prozac 40 2017-1 No 1mg mg capsule 2-03 00:00: 00 Abili 5 2018-1 No 1mg mg tablet 1-05 00:00: 00 Trileptal 2018-1 No 1mg 150 mg 1-05 tablet 00:00: 00 Prozac 40 2017-1 No 1mg mg capsule 1-05 00:00: 00 Prozac 20 2018-1 No 1mg mg capsule 1-05 00:00: 00 Abilify 5 2018-1 No 1mg mg tablet 1-05 00:00: 00 Trileptal 2018-1 No 1mg 150 mg 1-05 tablet 00:00: 00 Prozac 40 2017-1 No 1mg mg capsule 1-05 00:00: 00 Prozac 20 2017-1 No 1mg mg capsule 1-05 00:00: 00 Abilify 5 2017-1 No 1mg mg tablet 1-05 00:00: 00 Trileptal 2017-1 No 1mg 150 mg 1-05 tablet 00:00: 00 Prozac 40 2017-1 No 1mg mg capsule 1-05 00:00: 00 Prozac 20 2017-1 No 1mg mg capsule 1-05 00:00: 00 Abilify 5 2017-1 No 1mg mg tablet 1-05 00:00: 00 Trileptal 2017-1 No 1mg 150 mg 1-05 tablet 00:00: 00 Prozac 40 2017-1 No 1mg mg capsule 1-05 00:00: 00 Prozac 20 2017-1 No 1mg mg capsule 1-05 00:00: 00 Prozac 40 2017-1 No 1mg mg capsule 0-09 00:00: 00 Prozac 20 2017-1 No 1mg mg capsule 0-09 00:00: 00 Prozac 40 2018-1 No 1mg mg capsule 0-09 00:00: 00 Prozac 20 2017-1 No 1mg mg capsule 0-09 00:00: 00 Prozac 40 2017-1 No 1mg mg capsule 0-09 00:00: 00 Prozac 20 2017-1 No 1mg mg capsule 0-09 00:00: 00 Prozac 40 2017-1 No 1mg mg capsule 0-09 00:00: 00 Prozac 20 2017-1 No 1mg mg capsule 0-09 00:00: 00 Prozac 40 2017-1 No 15mg mg capsule 0-01 00:00: 00 Prozac 40 2017-1 No 15mg mg capsule 0- 00:00: 00 Prozac 40 2017-1 No 15mg mg capsule 0- 00:00: 00 Prozac 40 2017-1 No 15mg mg capsule 0-01 00:00: 00 metformin 2018-0 No 2mg ER 500 mg 9-30 tablet,exte 00:00: nded 00 release 24 hr metformin 2018-0 No 2mg ER 500 mg 9-30 tablet,exte 00:00: nded 00 release 24 hr metformin 2018-0 No 2mg ER 500 mg 9-30 tablet,exte 00:00: nded 00 release 24 hr metformin 2018-0 No 2mg ER 500 mg 9-30 tablet,exte 00:00: nded 00 release 24 hr Abilify 2018-0 No 1mg mg tablet 08-01 00:00: 00 Prozac 40 2018-0 No 1mg mg capsule 08-01 00:00: 00 Abilify 10 2018-0 No 1mg mg tablet 08-01 00:00: 00 Prozac 40 2018-0 No 1mg mg capsule 08-01 00:00: 00 Abilify 10 2018-0 No 1mg mg tablet 08-01 00:00: 00 Prozac 40 2018-0 No 1mg mg capsule 08-01 00:00: 00 Abilify 2018-0 No 1mg mg tablet 08-01 00:00: 00 Prozac 40 2018-0 No 1mg mg capsule 08-01 00:00: 00 ranitidine 2018-0 No 1mg 150 mg 9-26 tablet 00:00: 00 ranitidine 2018-0 No 1mg 150 mg 9-26 tablet 00:00: 00 ranitidine 2018-0 No 1mg 150 mg 9- tablet 00:00: 00 ranitidine 2018-0 No 1mg 150 mg 9-26 tablet 00:00: 00 Abilify 2018-0 No 1mg mg tablet 05-05 00:00: 00 Abilify 2018-0 No 1mg mg tablet 05-05 00:00: 00 buspirone 2018-0 No 1mg 7.5 mg 7- tablet 00:00: 00 buspirone 2018-0 No 1mg 7.5 mg - tablet 00:00: 00 Prozac 40 2018-0 No 1mg mg capsule 05-05 00:00: 00 Prozac 40 2018-0 No 1mg mg capsule 05-05 00:00: 00 Abilify 2018-0 No 1mg mg tablet 05-05 00:00: 00 buspirone 2018-0 No 1mg 7.5 mg 7-02 tablet 00:00: 00 Prozac 40 2018-0 No 1mg mg capsule 7- 00:00: 00 Abilify 10 2018-0 No 1mg mg tablet 7- 00:00: 00 buspirone 2018-0 No 1mg 7.5 mg 7-02 tablet 00:00: 00 Prozac 40 2018-0 No 1mg mg capsule 7- 00:00: 00 Abilify 10 2018-0 No 1mg mg tablet 6- 00:00: 00 Abilify 10 2018-0 No 1mg mg tablet 6- 00:00: 00 Abilify 10 2018-0 No 1mg mg tablet 6- 00:00: 00 Abilify 10 2018-0 No 1mg mg tablet 6- 00:00: 00 Prozac 40 2018-0 No 1mg mg capsule 6-19 00:00: 00 Prozac 40 2018-0 No 1mg mg capsule 6- 00:00: 00 Prozac 40 2018-0 No 1mg mg capsule 6-19 00:00: 00 Prozac 40 2018-0 No 1mg mg capsule 6-19 00:00: 00 Abilify 10 2018-0 No 1mg mg tablet 5-14 00:00: 00 buspirone 2018-0 No 1mg 7.5 mg 5-14 tablet 00:00: 00 Abilify 10 2018-0 No 1mg mg tablet 5-14 00:00: 00 buspirone 2018-0 No 1mg 7.5 mg 5-14 tablet 00:00: 00 Abilify 10 2018-0 No 1mg mg tablet 5-14 00:00: 00 buspirone 2018-0 No 1mg 7.5 mg 5-14 tablet 00:00: 00 Abilify 10 2018-0 No 1mg mg tablet 5-14 00:00: 00 buspirone 2018-0 No 1mg 7.5 mg 5-14 tablet 00:00: 00 Trileptal 2018-0 No 1mg 150 mg 4-09 tablet 00:00: 00 Prozac 40 2018-0 No 1mg mg capsule 4-09 00:00: 00 Trileptal 2018-0 No 1mg 150 mg 4-09 tablet 00:00: 00 Prozac 40 2018-0 No 1mg mg capsule 4- 00:00: 00 Trileptal 2018-0 No 1mg 150 mg 4- tablet 00:00: 00 Prozac 40 2018-0 No 1mg mg capsule 4- 00:00: 00 Trileptal 2018-0 No 1mg 150 mg 4- tablet 00:00: 00 Prozac 40 2018-0 No 1mg mg capsule 4- 00:00: 00 Abilify 15 2018-0 No 1mg mg tablet 3- 00:00: 00 Abilify 15 2018-0 No 1mg mg tablet 3 00:00: 00 Abilify 15 2018-0 No 1mg mg tablet 3 00:00: 00 Abilify 15 2018-0 No 1mg mg tablet 3 00:00: 00 Prozac 40 2017-1 No 1mg mg capsule 1- 00:00: 00 Prozac 40 2016-1 No 1mg mg capsule 1- 00:00: 00 Prozac 40 2017-1 No 1mg mg capsule 1- 00:00: 00 Prozac 40 2016-1 No 1mg mg capsule 1-22 00:00: 00 Abilify 15 2017-1 No 1mg mg tablet 0-04 00:00: 00 Prozac 40 2017-1 No 1mg mg capsule 0-04 00:00: 00 Abilify 15 2017-1 No 1mg mg tablet 0-04 00:00: 00 Prozac 40 2017-1 No 1mg mg capsule 0-04 00:00: 00 Abilify 15 2017-1 No 1mg mg tablet 0-04 00:00: 00 Prozac 40 2017-1 No 1mg mg capsule 0-04 00:00: 00 Abilify 15 2017-1 No 1mg mg tablet 0-04 00:00: 00 Prozac 40 2017-1 No 1mg mg capsule 0-04 00:00: 00 Abilify 15 2017-0 No 1mg mg tablet 8- 00:00: 00 Prozac 40 2017-0 No 1mg mg capsule 8- 00:00: 00 Abilify 15 2017-0 No 1mg mg tablet 8- 00:00: 00 Prozac 40 2017-0 No 1mg mg capsule 8 00:00: 00 Abilify 15 2017-0 No 1mg mg tablet 8 00:00: 00 Prozac 40 2017-0 No 1mg mg capsule 06-12 00:00: 00 Abilify 15 2017-0 No 1mg mg tablet 06-12 00:00: 00 Prozac 40 2017-0 No 1mg mg capsule 8 00:00: 00 Abilify 15 2017-0 No 1mg mg tablet 7- 00:00: 00 Prozac 40 2017-0 No 1mg mg capsule 7- 00:00: 00 Abilify 15 2017-0 No 1mg mg tablet 7- 00:00: 00 Prozac 40 2017-0 No 1mg mg capsule 7- 00:00: 00 Abilify 15 2017-0 No 1mg mg tablet 7- 00:00: 00 Prozac 40 2017-0 No 1mg mg capsule 7- 00:00: 00 Abilify 15 2017-0 No 1mg mg tablet 7- 00:00: 00 Prozac 40 2017-0 No 1mg mg capsule 7-12 00:00: 00 Prozac 40 2017-0 No 1mg mg capsule 6-14 00:00: 00 Abilify 15 2017-0 No 1mg mg tablet 6-14 00:00: 00 Prozac 40 2017-0 No 1mg mg capsule 6-14 00:00: 00 Abilify 15 2017-0 No 1mg mg tablet 6-14 00:00: 00 Prozac 40 2017-0 No 1mg mg capsule 6-14 00:00: 00 Abilify 15 2017-0 No 1mg mg tablet 6-14 00:00: 00 Prozac 40 2017-0 No 1mg mg capsule 6-14 00:00: 00 Abilify 15 2017-0 No 1mg mg tablet 6-14 00:00: 00 Prozac 40 2017-0 No 1mg mg capsule 6-04 00:00: 00 Prozac 40 2017-0 No 1mg mg capsule 6-04 00:00: 00 Prozac 40 2017-0 No 1mg mg capsule 6-04 00:00: 00 Prozac 40 2017-0 No 1mg mg capsule 04-07 00:00: 00 Abilify 5 2017-0 No 1mg mg tablet 04-05 00:00: 00 Abilify 5 2017-0 No 1mg mg tablet 04-05 00:00: 00 Abilify 5 2017-0 No 1mg mg tablet 04-05 00:00: 00 Abilify 5 2017-0 No 1mg mg tablet 04-05 00:00: 00 No known 2017-0 No No known [facility] No known 2017-0 No No known [facility] [facility] No known 2016-0 No No known [facility] 03-[address] [facility] No known 2017-0 No No known [facility] 03-[address] [facility] Flagyl 500 2017-0 No 1mg mg tablet 03-09 00:00: 00 Flagyl 500 2017-0 No 1mg mg tablet 03-09 00:00: 00 Flagyl 500 2017-0 No 1mg mg tablet 03-09 00:00: 00 Flagyl 500 2017-0 No 1mg mg tablet 03-09 00:00: 00 Abilify 5 2017-0 No 1mg mg tablet 02-26 00:00: 00 Prozac 40 2017-0 No 1mg mg capsule 02-26 00:00: 00 Prozac 40 2017-0 No 1mg mg capsule 02-26 00:00: 00 Abilify 5 2017-0 No 1mg mg tablet 02-26 00:00: 00 Prozac 40 2017-0 No 1mg mg capsule 02-26 00:00: 00 Abilify 5 2017-0 No 1mg mg tablet 02-26 00:00: 00 Prozac 40 2017-0 No 1mg mg capsule 02-26 00:00: 00 Prozac 40 2017-0 No 1mg mg capsule 02-26 00:00: 00 Prozac 40 2017-0 No 1mg mg capsule 02-26 00:00: 00 Abilify 5 2017-0 No 1mg mg tablet 02-26 00:00: 00 Prozac 40 2017-0 No 1mg mg capsule 02-26 00:00: 00 Prozac 40 2017-0 No 1mg mg capsule -25 00:00: 00 nitrofurant nitrofurant No nitrofuran [facility] monohydrate monohydrate monohydrat /macrocryst /macrocryst e/macrocry als 100 mg als 100 mg stals 100 capsule capsule mg capsule Take 1 Take 1 Take 1 capsule(s) capsule(s) capsule(s) after after after bladder bladder bladder testing, testing, testing, second second second capsule 12 capsule 12 capsule 12 hours later hours later hours later drospirenon drospirenon No 1 Q1D drospireno [facility] e 3 ne 3 [facility] mg-ethinyl mg-ethinyl mg-ethinyl estradiol estradiol estradiol 0.03 mg 0.03 mg 0.03 mg tablet Take tablet Take tablet 1 tablet 1 tablet Take 1 every day every day tablet by oral by oral every day route. route. by oral route. metformin metformin No metformin [facility] ER 500 mg ER 500 mg ER 500 mg Medical tablet,exte tablet,exte tablet,ext nded nded ended release 24 release 24 release 24 hr Take 2 hr Take 2 hr Take 2 tablets tablets tablets every day every day every day by oral by oral by oral route for route for route for 30 days. 30 days. 30 days. methenamine methenamine No 1 Q6H methenamin [facility] 81.6 mg-sod 81.6 mg-sod e 81.6 Medical phos 40.8 phos 40.8 mg-sod mg-methylen mg-methylen phos 40.8 e blue e blue mg-methyle 0.12mg-hyos 0.12mg-hyos ne blue tablet Take tablet Take 0.12mg-hyo 1 tablet 1 tablet s tablet every 6 every 6 Take 1 hours by hours by tablet oral route oral route every 6 for 5 days. for 5 days. hours by oral route for 5 days. nitrofurant nitrofurant No nitrofuran [facility] monohydrate monohydrate monohydrat /macrocryst /macrocryst e/macrocry als 100 mg als 100 mg stals 100 capsule capsule mg capsule Take 1 Take 1 Take 1 capsule(s) capsule(s) capsule(s) after after after bladder bladder bladder testing, testing, testing, second second second capsule 12 capsule 12 capsule 12 hours later hours later hours later drospirenon drospirenon No 1 Q1D drospireno [facility] e 3 ne 3 [facility] mg-ethinyl mg-ethinyl mg-ethinyl estradiol estradiol estradiol 0.03 mg 0.03 mg 0.03 mg tablet Take tablet Take tablet 1 tablet 1 tablet Take 1 every day every day tablet by oral by oral every day route. route. by oral route. metformin metformin No metformin [facility] ER 500 mg ER 500 mg ER 500 mg Medical tablet,exte tablet,exte tablet,ext nded nded ended release 24 release 24 release 24 hr Take 2 hr Take 2 hr Take 2 tablets tablets tablets every day every day every day by oral by oral by oral route for route for route for 30 days. 30 days. 30 days. methenamine methenamine No 1 Q6H methenamin [facility] 81.6 mg-sod 81.6 mg-sod e 81.6 Medical phos 40.8 phos 40.8 mg-sod mg-methylen mg-methylen phos 40.8 e blue e blue mg-methyle 0.12mg-hyos 0.12mg-hyos ne blue tablet Take tablet Take 0.12mg-hyo 1 tablet 1 tablet s tablet every 6 every 6 Take 1 hours by hours by tablet oral route oral route every 6 for 5 days. for 5 days. hours by oral route for 5 days. Immunizations Ordered Immunization Filled Immunization Date Status Commen ts Source Name Name Covid-19 Vaccine 2020-12-[address] [facility] MRNA (PF) 18yr+ 00:00:00 [facility] (Moderna)([id number]) Covid-19 Vaccine 2020-12-[address] [facility] MRNA (PF) 18yr+ 00:00:00 [facility] enter (Moderna)([id number]) Covid-19 Vaccine 2020-12-[address] [facility] MRNA (PF) 18yr+ 00:00:00 Medical C enter (Moderna)([id number]) Covid-19 Vaccine 2020-11-[address] [facility] MRNA (PF) 18yr+ 00:00:00 Medical C enter (Moderna)([id number]) Covid-19 Vaccine 2020-11-[address] [facility] MRNA (PF) 18yr+ 00:00:00 Medical C enter (Moderna)([id number]) Covid-19 Vaccine 2020-11-[address] [facility] M[facility] (PF) 18yr+ 00:00:00 Medical C enter (Moderna)([id number]) influenza, influenza, 2017-07-05 Completed [facility] injectable, injectable, 00:00:00 quadrivalent quadrivalent influenza, influenza, 2017-07-05 Completed [facility] injectable, injectable, 00:00:00 quadrivalent quadrivalent Influenza Virus 2017-07-05 Completed [facility] Vaccine, Split, up 00:00:00 - Exte rnal to age 3 Influenza Virus 2017-07-05 Completed [facility] salcedoold Vaccine, Split, up 00:00:00 - Exte rnal to age 3 Influenza Virus 2017-07-05 Completed [facility] Vaccine, Split, up 00:00:00 - Exte rnal to age 1 Tdap Tdap 2014-04-04 Completed [facility] 00:00:00 Tdap Tdap 2014-04-04 Completed [facility] 00:00:00 Tdap- (Boostrix, 2014-04-04 Completed [facility] Nguyen eybold Adacel) 00:00:00 - External Tdap- (Boostrix, 2014-04-04 Completed [facility] Nguyen eyottold Adacel) 00:00:00 - External Tdap- (Boostrix, 2014-04-04 Completed [facility] Nguyen eybold Adacel) 00:00:00 - External Vital Signs Vital Name Observation Time Observation Value Comments Source HEIGHT 2021-05-31 08:35:00 167.6 cm WEIGHT 2021-05-31 08:35:00 76.3 kg HEIGHT 2021-05-23 13:22:00 167.6 cm WEIGHT 2021-05-23 13:22:00 76.204 kg WEIGHT 2021-03-04 05:58:00 82.146 kg WEIGHT 2021-03-03 06:30:00 81.693 kg WEIGHT 2021-03-02 05:16:00 80.695 kg WEIGHT 2021-02-28 05:50:00 85.503 kg WEIGHT 2021-02-27 06:00:00 88.6 kg WEIGHT 2021-02-26 06:00:00 83.371 kg WEIGHT 2021-02-25 05:00:00 98.5 kg WEIGHT 2021-02-23 05:00:00 97.9 kg HEIGHT 2021-02-16 20:34:00 165.1 cm WEIGHT 2021-02-16 20:34:00 92.8 kg Systolic blood 2023-02-12 19:53:00 130 mm[Hg] Inge Seybold - pressure External Diastolic blood 2023-02-12 19:53:00 82 mm[Hg] Kelse y Seybold - pressure External Heart rate 2023-02-12 19:53:00 105 /min Inge S eybold - External Body temperature 2023-02-12 19:53:00 37.17 Tanisha Brandi ey Seybold - External Respiratory rate 2023-02-12 19:53:00 14 /min Brandi ey Seybold - External Body height 2023-02-12 19:53:00 167.6 cm Inge S eybold - External Body weight 2023-02-12 19:53:00 89.994 kg Inge S eybold - External BMI 2023-02-12 19:53:00 32.02 kg/m2 Inge S eybold - External Oxygen saturation in 2023-02-12 19:53:00 99 /min Inge Riveramatiasjaime - Arterial blood by External Pulse oximetry Systolic blood 2023-01-29 20:57:00 117 mm[Hg] Inge Seybold - pressure External Diastolic blood 2023-01-29 20:57:00 68 mm[Hg] Sheldonse y Seybold - pressure External Heart rate 2023-01-29 20:57:00 89 /min Inge S eybold - External Body temperature 2023-01-29 20:57:00 36.78 Tanisha Brandi ey Seybold - External Respiratory rate 2023-01-29 20:57:00 14 /min Brandi ey Seybold - External Body height 2023-01-29 20:57:00 167.6 cm Inge S eybold - External Body weight 2023-01-29 20:57:00 88.27 kg Inge S eybold - External BMI 2023-01-29 20:57:00 31.41 kg/m2 Inge S eybold - External Oxygen saturation in 2023-01-29 20:57:00 99 /min Inge [place] - Arterial blood by External Pulse oximetry Systolic blood 2022-12-24 14:12:00 116 mm[Hg] Inge Weinerold - pressure External Diastolic blood 2022-12-24 14:12:00 70 mm[Hg] Nena malone Seybold - pressure External Heart rate 2022-12-24 14:12:00 85 /min Inge yebold - External Body temperature 2022-12-24 14:12:00 36 Tanisha Brandi ye Seybold - External Respiratory rate 2022-12-24 14:12:00 14 /min Brandi ye Seybold - External Body height 2022-12-24 14:12:00 167.6 cm Inge yebold - External Body weight 2022-12-24 14:12:00 88.451 kg Inge Nguyen eybold - External BMI 2022-12-24 14:12:00 31.47 kg/m2 Inge yebold - External BP Diastolic 2022-08-21 00:00:00 74 mm[Hg] [facility] Height 2022-08-21 00:00:00 66 [in_i] [facility] BMI (Body Mass Index) 2022-08-21 00:00:00 31.5 kg/m2 [facility] BP Systolic 2022-08-21 00:00:00 127 mm[Hg] [facility] Body Weight 2022-08-21 00:00:00 195 [lb_av] [facility] Systolic blood 2021-09-18 19:11:00 112 mm[Hg] [facility] Medicine Diastolic blood 2021-09-18 19:11:00 73 mm[Hg] [facility] Medicine Heart rate 2021-09-18 19:11:00 82 [facility] 2021-09-18 19:11:[address] [facility] Body weight 2021-09-18 19:11:[address] [facility] BMI 2021-09-18 19:11:00 30.79 kg/m2 [facility] Systolic blood 2021-09-12 17:31:00 109 mm[Hg] [facility] pressure Medicine Diastolic blood 2021-09-12 17:31:00 74 mm[Hg] [facility] pressure Medicine Heart rate 2021-09-12 17:31:00 83 /min [facility] Body height 2021-09-12 17:31:00 165.1 cm [facility] Body weight 2021-09-12 17:31:00 83.915 kg [facility] BMI 2021-09-12 17:31:00 30.79 kg/m2 [facility] HEIGHT 2021-09-02 21:26:00 167.6 cm WEIGHT 2021-09-02 21:26:00 89.4 kg HEIGHT 2021-09-02 21:26:00 167.6 cm WEIGHT 2021-09-02 21:26:00 89.4 kg HEIGHT 2021-05-31 08:35:00 167.6 cm WEIGHT 2021-05-31 08:35:00 76.3 kg HEIGHT 2021-05-23 13:22:00 167.6 cm WEIGHT 2021-05-23 13:22:00 76.204 kg Systolic blood 2021-03-10 20:03:00 121 mm[Hg] [facility] Medicine Diastolic blood 2021-03-10 20:03:00 89 mm[Hg] [facility] Medicine Heart rate 2021-03-10 20:03:00 149 /min [facility] Body height 2021-03-10 20:03:00 165.1 cm [facility] Body weight 2021-03-10 20:03:00 80.287 kg [facility] BMI 2021-03-10 20:03:00 29.45 kg/m2 [facility] WEIGHT 2021-03-04 05:58:00 82.146 kg WEIGHT 2021-03-03 06:30:00 81.693 kg WEIGHT 2021-03-02 05:16:00 80.695 kg WEIGHT 2021-02-28 05:50:00 85.503 kg WEIGHT 2021-02-27 06:00:00 88.6 kg WEIGHT 2021-02-26 06:00:00 83.371 kg WEIGHT 2021-02-25 05:00:00 98.5 kg WEIGHT 2021-02-23 05:00:00 97.9 kg HEIGHT 2021-02-16 20:34:00 165.1 cm WEIGHT 2021-02-16 20:34:00 92.8 kg Systolic blood 2019-06-18 22:33:00 135 mm[Hg] [facility] pressure Medicine Diastolic blood 2019-06-18 22:33:00 78 mm[Hg] [facility] pressure Medicine Heart rate 2019-06-18 22:33:00 61 /min [facility] Body temperature 2019-06-18 22:33:00 36.83 [facility] Respiratory rate 2019-06-18 22:33:00 18 /min [facility] Body height 2019-06-18 22:33:[address] [facility] Body weight 2019-06-18 22:33:[address] [facility] BMI 2019-06-18 22:33:00 30[facility]73 [facility] 2019-06-18 22:33:00 135 mm[Hg] [facility] pressure Medicine Diastolic blood 2019-06-18 22:33:00 78 mm[Hg] [facility] Medicine Heart rate 2019-06-18 22:33:00 61 /min [facility] Body temperature 2019-06-18 22:33:00 36.83 Tanisha [facility] Respiratory rate 2019-06-18 22:33:00 18 /min [facility] Body height 2019-06-18 22:33:[address] [facility] Body weight 2019-06-18 22:33:[address] [facility] BMI 2019-06-18 22:33:00 30.73 kg/m2 [facility] BP Systolic 2022-10-17 17:11:00 BP Diastolic 2022-10-17 17:11:00 Weight Measured 2022-10-17 17:11:00 198.20 pounds Height Measured 2022-10-17 17:11:00 64.50 inches Body Temperature 2022-10-17 17:11:00 Heart Rate 2022-10-17 17:11:00 Respiratory Rate 2022-10-17 17:11:00 BP Systolic 2022-08-16 15:14:00 127 mm[Hg] BP Diastolic 2022-08-16 15:14:00 85 mm[Hg] Weight Measured 2022-08-16 15:14:00 198.20 pounds Height Measured 2022-08-16 15:14:00 64.50 inches Body Temperature 2022-08-16 15:14:00 98.30 degrees Heart Rate 2022-08-16 15:14:00 67.00 /min Respiratory Rate 2022-08-16 15:14:00 18.00 /min BP Systolic 2022-08-08 17:45:00 117 mm[Hg] BP Diastolic 2022-08-08 17:45:00 78 mm[Hg] Weight Measured 2022-08-08 17:45:00 204.40 pounds Height Measured 2022-08-08 17:45:00 64.50 inches Body Temperature 2022-08-08 17:45:00 98.10 degrees Heart Rate 2022-08-08 17:45:00 79.00 /min Respiratory Rate 2022-08-08 17:45:00 16.00 /min BP Systolic 2022-07-09 10:09:00 106 mm[Hg] BP Diastolic 2022-07-09 10:09:00 73 mm[Hg] Weight Measured 2022-07-09 10:09:00 205.40 pounds Height Measured 2022-07-09 10:09:00 64.50 inches Body Temperature 2022-07-09 10:09:00 97.70 degrees Heart Rate 2022-07-09 10:09:00 81.00 /min Respiratory Rate 2022-07-09 10:09:00 16.00 /min BP Systolic 2022-04-30 09:26:00 113 mm[Hg] BP Diastolic 2022-04-30 09:26:00 77 mm[Hg] Weight Measured 2022-04-30 09:26:00 206.40 pounds Height Measured 2022-04-30 09:26:00 64.50 inches Body Temperature 2022-04-30 09:26:00 98.10 degrees Heart Rate 2022-04-30 09:26:00 72.00 /min Respiratory Rate 2022-04-30 09:26:00 18.00 /min BP Systolic 2022-04-03 16:11:00 125 mm[Hg] BP Diastolic 2022-04-03 16:11:00 79 mm[Hg] Weight Measured 2022-04-03 16:11:00 203.00 pounds Height Measured 2022-04-03 16:11:00 64.50 inches Body Temperature 2022-04-03 16:11:00 98.20 degrees Heart Rate 2022-04-03 16:11:00 89.00 /min Respiratory Rate 2022-04-03 16:11:00 18.00 /min BP Systolic 2022-04-02 08:40:00 130 mm[Hg] BP Diastolic 2022-04-02 08:40:00 87 mm[Hg] Weight Measured 2022-04-02 08:40:00 202.00 pounds Height Measured 2022-04-02 08:40:00 64.50 inches Body Temperature 2022-04-02 08:40:00 98.20 degrees Heart Rate 2022-04-02 08:40:00 86.00 /min Respiratory Rate 2022-04-02 08:40:00 18.00 /min BP Systolic 2022-03-27 09:14:00 125 mm[Hg] BP Diastolic 2022-03-27 09:14:00 85 mm[Hg] Weight Measured 2022-03-27 09:14:00 204.20 pounds Height Measured 2022-03-27 09:14:00 64.50 inches Body Temperature 2022-03-27 09:14:00 98.30 degrees Heart Rate 2022-03-27 09:14:00 69.00 /min Respiratory Rate 2022-03-27 09:14:00 18.00 /min BP Systolic 2022-03-22 14:24:00 114 mm[Hg] BP Diastolic 2022-03-22 14:24:00 78 mm[Hg] Weight Measured 2022-03-22 14:24:00 204.20 pounds Height Measured 2022-03-22 14:24:00 64.50 inches Body Temperature 2022-03-22 14:24:00 98.30 degrees Heart Rate 2022-03-22 14:24:00 95.00 /min Respiratory Rate 2022-03-22 14:24:00 Systolic blood 2021-09-08 10:04:00 144 mm[Hg] [facility] Diastolic blood 2021-09-08 10:04:00 80 mm[Hg] [facility] Heart rate 2021-09-08 10:04:00 83 /min [facility] Body temperature 2021-09-08 10:04:00 36.67 Tanisha [facility] Respiratory rate 2021-09-08 10:04:00 18 /min [facility] Oxygen saturation in 2021-09-08 10:04:00 100 /min [facility] Arterial blood by Medical Ce nter Pulse oximetry Body height 2021-09-02 21:26:00 167.6 cm [facility] Body weight 2021-09-02 21:26:00 89.4 kg [facility] BMI 2021-09-02 21:26:00 31.81 kg/m2 [facility] BP Systolic 2019-03-28 15:08:00 137 mm[Hg] BP Diastolic 2019-03-28 15:08:00 89 mm[Hg] Weight Measured 2019-03-28 15:08:00 188.80 pounds Height Measured 2019-03-28 15:08:00 64.50 inches Body Temperature 2019-03-28 15:08:00 98.70 degrees Heart Rate 2019-03-28 15:08:00 84.00 /min Respiratory Rate 2019-03-28 15:08:00 16.00 /min BP Systolic 2018-12-15 15:16:00 148 mm[Hg] BP Diastolic 2018-12-15 15:16:00 88 mm[Hg] Weight Measured 2018-12-15 15:16:00 197.00 pounds Height Measured 2018-12-15 15:16:00 64.50 inches Body Temperature 2018-12-15 15:16:00 98.60 degrees Heart Rate 2018-12-15 15:16:00 113.00 /min Respiratory Rate 2018-12-15 15:16:00 18.00 /min BP Systolic 2018-12-09 15:54:00 135 mm[Hg] BP Diastolic 2018-12-09 15:54:00 87 mm[Hg] Weight Measured 2018-12-09 15:54:00 195.80 pounds Height Measured 2018-12-09 15:54:00 64.50 inches Body Temperature 2018-12-09 15:54:00 98.60 degrees Heart Rate 2018-12-09 15:54:00 96.00 /min Respiratory Rate 2018-12-09 15:54:00 18.00 /min BP Systolic 2018-10-30 09:11:00 147 mm[Hg] BP Diastolic 2018-10-30 09:11:00 104 mm[Hg] Weight Measured 2018-10-30 09:11:00 199.20 pounds Height Measured 2018-10-30 09:11:00 64.50 inches Body Temperature 2018-10-30 09:11:00 98.60 degrees Heart Rate 2018-10-30 09:11:00 58.00 /min Respiratory Rate 2018-10-30 09:11:00 18.00 /min Procedures Procedure Date / Time Performed Performing Clinician [facility] e ULTRASOUND OF PELVIS 2022-08-21 00:00:00 [facility] Medical MAMMO, screening, 2022-08-21 00:00:00 [facility] ical bilateral POCT-GLUCOSE METER 2021-09-08 10:31:00 Catherine, [facility] POCT-GLUCOSE METER 2021-09-08 07:10:00 Catherine, [facility] MAGNESIUM 2021-09-08 05:23:00 [facility] PHOSPHORUS 2021-09-08 05:23:00 [facility] CBC (HEMOGRAM ONLY) 2021-09-08 05:23:00 [facility] BASIC METABOLIC PANEL 2021-09-08 05:23:00 [facility] () [facility] POCT-GLUCOSE METER 2021-09-07 21:05:00 Catherine, [facility] POCT-GLUCOSE METER 2021-09-07 12:09:00 Catherine, [facility] MAGNESIUM 2021-09-07 05:30:[facility] 2021-09-07 05:30:00 [facility] CBC (HEMOGRAM ONLY) 2021-09-07 05:30:[facility] BASIC METABOLIC PANEL 2021-09-07 05:30:[address] POCT-GLUCOSE METER 2021-09-06 17:53:00 Catherine, [facility] POCT-GLUCOSE METER 2021-09-06 12:30:00 Catherine, [facility] POCT-GLUCOSE METER 2021-09-06 06:21:00 Adio, Joelbethel [facility] MAGNESIUM 2021-09-06 04:39:00 [facility] 2021-09-06 04:39:00 [facility] CBC (HEMOGRAM ONLY) 2021-09-06 04:39:00 [facility] BASIC METABOLIC PANEL 2021-09-06 04:39:[address] POCT-GLUCOSE METER 2021-09-05 22:47:00 Adio, Titilbethel [facility] POCT-GLUCOSE METER 2021-09-05 18:45:00 Adio, Titilola [facility] POCT-GLUCOSE METER 2021-09-05 12:39:00 [facility] 2021-09-05 06:23:00 Adio, Titilbethel [facility] MAGNESIUM 2021-09-05 04:23:00 Ankur, [facility] PHOSPHORUS 2021-09-05 04:23:[address] [facility] CBC (HEMOGRAM ONLY) 2021-09-05 04:23:00 [facility] BASIC METABOLIC PANEL 2021-09-05 04:23:00 [facility] [address] POCT-GLUCOSE METER 2021-09-04 22:41:00 [facility] 2021-09-04 16:48:00 [facility] 2021-09-04 11:03:00 [facility] 2021-09-04 04:28:[address] [facility] PHOSPHORUS 2021-09-04 04:28:[address] [facility] CBC (HEMOGRAM ONLY) 2021-09-04 04:28:00 Ankur [facility] BASIC METABOLIC PANEL 2021-09-04 04:28:[address] POCT-GLUCOSE METER 2021-09-04 04:16:00 Mary, [facility] POCT-GLUCOSE METER 2021-09-03 22:57:00 [facility] 2021-09-03 19:10:00 Mary [facility] TISSUE EXAM 2021-09-03 18:03:00 Dario Baldwin [facility] LAPAROTOMY, EXPLORATORY 2021-09-03 16:17:00 Dario Baldwin [facility] SCREEN, URINE 2021-09-03 11:17:00 Radha Moss [facility] POCT-GLUCOSE METER 2021-09-03 10:57:00 Mary [facility] XR ABDOMEN / KUB 1 VIEW 2021-09-03 06:54:00 [facility] 2021-09-03 05:43[facility] 2021-09-03 05:09:00 [place] [id number]) [facility] HEMOGLOBIN A1C 2021-09-03 05:09:00 [facility] ([facility] ONLY) 2021-09-03 05:09:00 Lin [facility] MAGNESIUM 2021-09-03 05:09:[address] [facility] PHOSPHORUS 2021-09-03 05:09:[address] [facility] [facility]/PELVIS 2021-09-03 01:49:00 Mari [facility] WITHOUT IV CONTRAST Medical Cent er POCT-GLUCOSE METER 2021-09-03 00:54:00 Ld [facility] SARS-COV2/RT-PCR ([facility] & 2021-09-02 23:46:00 [facility] CBC W/PLT COUNT & AUTO 2021-09-02 23:44:00 Mari [facility] BASIC METABOLIC PANEL 2021-09-02 23:44:00 Mari [facility] MAGNESIUM 2021-09-02 23:44:00 Mari [facility] PHOSPHORUS 2021-09-02 23:44:00 [facility] LACTIC ACID, VENOUS 2021-09-02 23:44:00 [facility] PROTHROMBIN TIME/INR 2021-09-02 23:44:00 [facility] APTT 2021-09-02 23:44:00 [facility] FIBRINOGEN 2021-09-02 23:44:00 [facility] TYPE AND SCREEN, 2021-09-02 23:44:00 Mari [facility] CBC W/PLT COUNT & AUTO 2021-09-02 23:44:00 MariWill [facility] XR ABDOMEN / KUB 1 VIEW 2021-09-02 23:19:00 Will Guerra [facility] Partial Removal of Colon 2021-07-05 00:00:00 Janet via Medical IRIS EXAM 2019-06-18 23:24:31 Natalya [facility] POCT HEMOGLOBIN A1C 2019-06-18 23:22:00 Natalya [facility] Plan of Care Planned Activity Planned Date Details Comments Source Future Scheduled 2024-03-[address] [facility] 00:[facility]:00 (procedure) [code = [facility] [id number]] Future Scheduled 2024-03-[address] [facility] Test 00:00:00 (procedure) [code = [facility] [id number]] Future Scheduled 2024-03-[address] [facility] Test 00:00:00 (procedure) [code = [facility] [id number]] Future Scheduled 2023-07-[address] [facility] Test 00:00:00 (Season Ended) [code = [facility] Center INFLUENZA VACCINE (Season Ended)] Future Scheduled 2023-02-02 BREAST CANCER [facility] Test 10:48:49 SCREENING [code = Hospital BREAST CANCER SCREENING] Future Scheduled 2023-02-02 COLONOSCOPY SCREENING [facility] 10:48:49 [code = COLONOSCOPY Hospital SCREENING] Future Scheduled 2023-02-02 INFLUENZA VACCINE Method ist Test 10:48:49 [code = INFLUENZA Hospital VACCINE] Future Scheduled 2023-02-02 COVID-19 VACCINE (#1) [facility] 10:48:49 [code = COVID-19 Hospital VACCINE (#1)] Future Scheduled 2023-02-02 Screening for [facility] Test 10:48:49 malignant neoplasm of Hospit al cervix (procedure) [code = 309015191] Future Scheduled 2022-11-[address] [facility] Test 00:00:00 (12+) [code = Medical Center DEPRESSION SCREENING (12+)] Future Scheduled 2022-10-20 COVID-19 VACCINE (#1) [facility] 03:28:43 [code = COVID-19 Hospital VACCINE (#1)] Future Scheduled 2022-10-20 BREAST CANCER [facility] Test 03:28:43 SCREENING [code = Hospital BREAST CANCER SCREENING] Future Scheduled 2022-10-20 COLONOSCOPY SCREENING [facility] 03:28:43 [code = COLONOSCOPY Hospital SCREENING] Future Scheduled 2022-10-20 INFLUENZA VACCINE [facility] Test 03:28:43 [code = INFLUENZA Hospital VACCINE] Diagnostic Test 2022-08-21 culture, urine [code = [facility] Pending 00:00:00 culture, urine] Diagnostic Test 2022-08-21 CBC w/ auto diff [code [facility]ending 00:00:00 = CBC w/ auto diff] Diagnostic Test 2022-08-21 glycohemoglobin, [facility] Pending 00:00:00 total, blood [code = glycohemoglobin, total, blood] Diagnostic Test 2022-08-21 pap, LB [code = pap, [facility] Pending 00:00:00 LB] Diagnostic Test 2022-08-21 HPV E6+E7 mRNA, reflex [facility] Pending 00:00:00 to HPV 16+18+45 [code = HPV E6+E7 mRNA, reflex to HPV 16+18+45] Future Scheduled 2022-07-06 INFLUENZA VACCINE [facility] Test 10:45:05 [code = INFLUENZA Hospital VACCINE] Future Scheduled 2022-07-06 HEPATITIS B VACCINES [facility] 10:45:05 (1 of 3 - 3-dose Hospital series) [code = HEPATITIS B VACCINES (1 of 3 - 3-dose series)] Future Scheduled 2022-07-06 COVID-19 VACCINE (#1) [facility] 10:45:05 [code = COVID-19 Hospital VACCINE (#1)] Future Scheduled 2022-07-06 Screening for [facility] Test 10:45:05 malignant neoplasm of Hospit al cervix (procedure) [code = 483538258] Future Scheduled 2022-07-06 BREAST CANCER [facility] Test 10:45:05 SCREENING [code = Hospital BREAST CANCER SCREENING] Future Scheduled 2022-07-06 COLONOSCOPY SCREENING [facility] 10:45:05 [code = COLONOSCOPY Hospital SCREENING] Future Scheduled 2022-07-06 INFLUENZA VACCINE Method [facility] Test 10:45:05 [code = INFLUENZA Hospital VACCINE] Future Scheduled 2022-07-06 HEPATITIS B VACCINES [facility] 10:45:05 (1 of 3 - 3-dose Hospital series) [code = HEPATITIS B VACCINES (1 of 3 - 3-dose series)] Future Scheduled 2022-07-06 COVID-19 VACCINE (#1) [facility] 10:45:05 [code = COVID-19 Hospital VACCINE (#1)] Future Scheduled 2022-07-06 Screening for [facility] Test 10:45:05 malignant neoplasm of Hospit al cervix (procedure) [code = 904164288] Future Scheduled 2022-07-06 BREAST CANCER [facility] Test 10:45:05 SCREENING [code = Hospital BREAST CANCER SCREENING] Future Scheduled 2022-07-06 COLONOSCOPY SCREENING [facility] 10:45:05 [code = COLONOSCOPY Hospital SCREENING] Future Scheduled 2022-07-06 INFLUENZA VACCINE [facility] Test 10:45:05 [code = INFLUENZA Hospital VACCINE] Future Scheduled 2022-07-06 HEPATITIS B VACCINES [facility] 10:45:05 (1 of 3 - 3-dose Hospital series) [code = HEPATITIS B VACCINES (1 of 3 - 3-dose series)] Future Scheduled 2022-07-06 COVID-19 VACCINE (#1) [facility] 10:45:05 [code = COVID-19 Hospital VACCINE (#1)] Future Scheduled 2022-07-06 Screening for [facility] Test 10:45:05 malignant neoplasm of Hospit al cervix (procedure) [code = 309598872] Future Scheduled 2022-07-06 BREAST CANCER [facility] Test 10:45:05 SCREENING [code = Hospital BREAST CANCER SCREENING] Future Scheduled 2022-07-06 COLONOSCOPY SCREENING [facility] 10:45:05 [code = COLONOSCOPY Hospital SCREENING] Future Scheduled 2022-07-05 INFLUENZA VACCINE (#1) [facility] [code = INFLUENZA Medical Ce nter VACCINE (#1)] Future Scheduled 2022-07-05 INFLUENZA VACCINE (#1) [facility] 00:00:00 [code = INFLUENZA Medical Ce nter VACCINE (#1)] Future Scheduled 2022-05-[address] [facility] Test 00:00:00 [facility]ing [facility] Medical Cent[facility] r Screening (12+) [code = Tobacco Cessation Counseling and Screening (12+)] Future Scheduled 2022-05-[address] [facility] Test 00:00:00 [facility] Cent[facility] r Screening (12+) [code = Tobacco Cessation Counseling and Screening (12+)] Future Scheduled 2022-03-[address] [facility]00 measurement Medical Center (procedure) [code = 21924788] Future Scheduled 2022-03-[address] [facility] 00[facility]00 measurement Medical Center (procedure) [code = 00616057] Future Scheduled 2022-03-[address] [facility] [facility] 00[facility]00 measurement Medical Center (procedure) [code = 17033806] Future Scheduled 2021-11-[address] [facility] Test 00:00:00 (12+) [code = Medical Center DEPRESSION SCREENING (12+)] Future Scheduled 2021-11-[address] [facility] Test 00:00:00 (12+) [code = Medical Center DEPRESSION SCREENING (12+)] Future Scheduled 2021-09-18 CT ABDOMEN PELVIS W 1 Occurrences [facility] Test 13:55:15 CONTRAST [code = starting [facility] 87450-5] 09/18/2021 until 09/18/2022 Future Scheduled 2021-09-18 BMI FOLLOW UP PLAN [employer] Test 13:50:42 [code = BMI FOLLOW UP of Med icine PLAN] Future Scheduled 2021-09-18 BMI FOLLOW UP PLAN [employer] Test 13:50:42 [code = BMI FOLLOW UP of Med icine PLAN] Future Scheduled 2021-09-18 ANNUAL DIABETIC [facility] Test 13:11:31 RETINOPATHY SCREENING of Med icine [code = ANNUAL DIABETIC RETINOPATHY SCREENING] Future Scheduled 2021-09-18 FLU VACCINE > 6 MONTHS [employer] Test 13:11:31 [code = FLU VACCINE > of Med icine 6 MONTHS] Future Scheduled 2021-09-18 Screening for [facility] Test 13:11:31 malignant neoplasm of of Med icine cervix (procedure) [code = 736187884] Future Scheduled 2021-09-18 TETANUS SHOT (ADULT) [employer] Test 13:11:31 [code = TETANUS SHOT of Medi cine (ADULT)] Future Scheduled 2021-09-18 Screening for [facility] Test 13:11:31 malignant neoplasm of of Med icine colon (procedure) [code = 836947077] Future Scheduled 2021-09-18 Screening for [facility] Test 13:11:31 malignant neoplasm of of Med icine breast (procedure) [code = 983879450] Future Scheduled 2021-09-18 Pneumococcal Combined Ba [facility] Test 13:11:31 (1 of 2 - PPSV23) of Medicin e [code = Pneumococcal Combined (1 of 2 - PPSV23)] Future Scheduled 2021-09-18 Hepatitis C screening [facility] Test 13:11:31 (procedure) [code = of Medic ine 957706964] Future Scheduled 2021-09-[address] [facility] Test 13:11:31 virus screening of Medicine (procedure) [code = 331383395] Future Scheduled 2021-09-18 Diabetic foot [facility] Test 13:11:31 examination of Medicine (regime/therapy) [code = 977812683] Future Scheduled 2021-09-18 ANNUAL DIABETIC [facility] Test 13:11:31 RETINOPATHY SCREENING of Med icine [code = ANNUAL DIABETIC RETINOPATHY SCREENING] Future Scheduled 2021-09-18 FLU VACCINE > [address] [facility] Test 13:11:31 [code = FLU VACCINE > of Med icine 6 MONTHS] Future Scheduled 2021-09-18 Screening for [facility] [employer] Test 13:11:31 malignant neoplasm of of Med icine cervix (procedure) [code = 373193811] Future Scheduled 2021-09-18 TETANUS SHOT (ADULT) [facility] Test 13:11:31 [code = TETANUS SHOT of Medi cine (ADULT)] Future Scheduled 2021-09-18 Screening for [facility] [employer] Test 13:11:31 malignant neoplasm of of Med icine colon (procedure) [code = 363489626] Future Scheduled 2021-09-18 Screening for [facility] Test 13:11:31 malignant neoplasm of of Med icine breast (procedure) [code = 358616069] Future Scheduled 2021-09-18 Pneumococcal Combined Ba [facility] Test 13:11:31 (1 of 2 - PPSV23) of Medicin e [code = Pneumococcal Combined (1 of 2 - PPSV23)] Future Scheduled 2021-09-18 Hepatitis C screening [employer] Test 13:11:31 (procedure) [code = of Medic ine 015419894] Future Scheduled 2021-09-18 Human immunodeficiency [employer] Test 13:11:31 virus screening of Medicine (procedure) [code = 011493662] Future Scheduled 2021-09-18 Diabetic foot [facility] Test 13:11:31 examination of Medicine (regime/therapy) [code = 756474873] Future Scheduled 2021-05-05 COVID-19 VACCINE ([facility] series) [code = COVID-19 VACCINE (3 - [facility]oster for [employer] series)] Future Scheduled 2021-05-05 COVID-19 VACCINE (3 - [facility]00 [facility] series) [code = COVID-19 VACCINE (3 - Booster for [employer] series)] Future Scheduled 2021-03-14 Screening for [facility] Test 02:37:33 malignant neoplasm of of Med icine breast (procedure) [code = 741247890] Future Scheduled 2021-03-14 COVID-19 Vaccine (1) [employer] Test 02:37:33 [code = COVID-19 of Medicine Vaccine (1)] Future Scheduled 2021-03-14 Hepatitis C screening [employer] Test 02:37:33 (procedure) [code = of Medic ine 904593324] Future Scheduled 2021-03-14 Human immunodeficiency [employer] Test 02:37:33 virus screening of Medicine (procedure) [code = 540652237] Future Scheduled 2021-03-14 Diabetic foot [facility] [employer] Test 02:37:33 examination of Medicine (regime/therapy) [code = 601507435] Future Scheduled 2021-03-14 ANNUAL DIABETIC [facility] Test 02:37:33 RETINOPATHY SCREENING of Med icine [code = ANNUAL DIABETIC RETINOPATHY SCREENING] Future Scheduled 2021-03-14 FLU VACCINE > 6 MONTHS [employer] Test 02:37:33 [code = FLU VACCINE > of Med icine 6 MONTHS] Future Scheduled 2021-03-14 BMI FOLLOW UP PLAN [employer] Test 02:37:33 [code = BMI FOLLOW UP of Med icine PLAN] Future Scheduled 2021-03-14 Screening for [facility] Test 02:37:33 malignant neoplasm of of Med icine cervix (procedure) [code = 443794068] Future Scheduled 2021-03-14 TETANUS SHOT (ADULT) [facility] Test 02:37:33 [code = TETANUS SHOT of Medi cine (ADULT)] Future Scheduled 2021-03-10 BASIC METABOLIC PANEL Ordered: [facility] Test 15:35:16 [code = 30906-4] 03/10/2021 of Medicine Future Scheduled 2021-01-31 COVID-19 VACCINE (3 - [facility] 00:[facility]00 [facility] series) [code = COVID-19 VACCINE (3 - [employer] for [employer] series)] Diagnostic Test 2019-06-18 MAMMO SCREENING Expected: [facility] Pending 00:00:00 BILATERAL [code = 06/18/2019, of Medicin e 51675-6] Expires: 12/19/2020 Future Scheduled [address] [facility] Test 00:00:00 malignant neoplasm of Medica l Center cervix (procedure) [code = 577840800] Future Scheduled [address] [facility] Test 00:00:00 malignant neoplasm of Medica l Center cervix (procedure) [code = 752912057] Future Scheduled [address] [facility] Test 00:00:00 malignant neoplasm of Medica l Center cervix (procedure) [code = 421830644] Future Scheduled 1992 DTAP/TDAP/TD VACCINES [facility] 00:00:00 (1 - Tdap) [code = Medical C enter DTAP/TDAP/TD VACCINES (1 - Tdap)] Future Scheduled 1992 DTAP/TDAP/TD VACCINES [facility] 00:00:00 (1 - Tdap) [code = Medical C enter DTAP/TDAP/TD VACCINES (1 - Tdap)] Future Scheduled 1992 DTAP/TDAP/TD VACCINES [facility] 00:00:00 (1 - Tdap) [code = Medical C enter DTAP/TDAP/TD VACCINES (1 - Tdap)] Future Scheduled 1991 HEPATITIS C [facility]CRE[facility]ING [facility] 00:00:00 [code = HEPATITIS C Medical Center SCREENING] Future Scheduled 1991 HEPATITIS C [facility]CRE[facility] 00:00:00 [code = HEPATITIS C Medical Center SCREENING] Future Scheduled 1991 HEPATITIS C [facility] 00:00:00 [code = HEPATITIS C Medical Center SCREENING] Future Scheduled [address] DIAB[address] EYE EXAM [facility] Test 00:00:00 [code = DIABETIC EYE Medical Center EXAM] Future Scheduled [address] [facility] examination [facility] (regime/therapy) [code = 755146169] Future Scheduled 1983 Urine screening for [facility] 00:[facility]:00 protein (procedure) [facility] Center [code = 588366494] Future Scheduled [address] EYE EXAM [facility] 00:00:00 [code = DIABETIC EYE Medical Center EXAM] Future Scheduled [address] [facility] examination Medical Center (regime/therapy) [code = 194339641] Future Scheduled 1983 Urine screening for [facility] 00:00:00 protein (procedure) [facility] Center [code = 988761508] Future Scheduled [address] EYE EXAM [facility] 00:00:00 [code = DIABETIC EYE Medical Center EXAM] Future Scheduled [address] [facility] examination Medical Center (regime/therapy) [code = 950868038] Future Scheduled 1983 Urine screening for [facility] 00:00:00 protein (procedure) Medical Center [code = 608116061] Future Scheduled [address] [facility] 00:00:00 0-64 YRS (1 - PCV) Medical C enter [code = PNEUMOCOCCAL VACCINE 0-64 YRS (1 - PCV)] Future Scheduled [address] [facility] 00:00:00 0-64 YRS (1 - PCV) Medical C enter [code = PNEUMOCOCCAL VACCINE 0-64 YRS (1 - PCV)] Future Scheduled [address] [facility] 00:00:00 0-64 YRS (1 - PCV) Medical C enter [code = PNEUMOCOCCAL VACCINE 0-64 YRS (1 - PCV)] Future Scheduled [address] [facility] 00:00:00 (combo) [code = CT Medical C enter Colonography (combo)] Future Scheduled [address] [facility] 00:[facility]:00 malignant neoplasm of [facility] Center colon (procedure) [code = 770974145] Future Scheduled [address] [facility] 00:00:00 malignant ne[facility] of [facility] colon (procedure) [code = 583162220] Future Scheduled [address] [facility] 00:00:00 malignant [facility] colon (procedure) [code = 549882807] Future Scheduled [address] [facility] 00:00:00 malignant neoplasm of [facility] Center colon (procedure) [code = 603488645] Future Scheduled 1973 Sigmoidoscopy [code [facility]] Medical Cente r Future Scheduled [address] [facility] 00:00:00 (combo) [code = CT Medical C enter Colonography (combo)] Future Scheduled [address] [facility] 00:00:00 malignant neoplasm of [facility] Center colon (procedure) [code = 893424788] Future Scheduled [address] [facility] 00:00:00 malignant neoplasm of [facility] colon (procedure) [code = 034357835] Future Scheduled [address] [facility] 00:00:00 malignant neoplasm of [facility] colon (procedure) [code = 112676892] Future Scheduled [address] [facility] 00:00:00 malignant neoplasm of [facility] Center colon (procedure) [code = 575261646] Future Scheduled 1973 Sigmoidoscopy [facility]code [facility]] Medical Cente r Future Scheduled [address] [facility] 00:00:00 (combo) [code = CT Medical C enter Colonography (combo)] Future Scheduled [address] [facility] [code = 836041786] Future Scheduled [address] [facility] 00:00:00 malignant neoplasm of Medica l Center colon (procedure) [code = 884766246] Future Scheduled [address] [facility] 00:00:00 malignant neoplasm of [facility]ica [facility] Center colon (procedure) [code = 637996232] Future Scheduled [address] [facility] 00:00:00 malignant neoplasm of [facility]ica [facility] Center colon (procedure) [code = 207752957] Future Scheduled 1973 Sigmoidoscopy [code [facility]] Medical Cente r Future Scheduled MICROALBUMIN/CREAT Ordered: [employer] URINE RATIO [code = 06/18/2019 of Medic ine 9318-7] Future Scheduled COMPREHENSIVE Ordered: [facility] Col lege Test METABOLIC PANEL [code 06/18/2019 of Med icine = 95510-3] Future Scheduled LIPID PANEL [code = Ordered: [employer] Test 99830-8] 06/18/2019 of Medicine Future Scheduled THINPREP AND HPV [code Ordered: [employer] Test = NOCPT] 06/18/2019 of Medicine Future Scheduled MAMMOGRAM ANNUAL [code [facility] [employer] Test = MAMMOGRAM ANNUAL] of Medic ine Future Scheduled TETANUS SHOT (ADULT) [employer] Test [code = TETANUS SHOT of Medi cine (ADULT)] Future Scheduled Diabetic foot [facility] Col lege Test examination of Medicine (regime/therapy) [code = 295023412] Future Scheduled ANNUAL DIABETIC [facility] C ollege Test RETINOPATHY SCREENING of Med icine [code = ANNUAL DIABETIC RETINOPATHY SCREENING] Future Scheduled HIV SCREENING [code = [employer] HIV SCREENING] of Medicine Future Scheduled CERVICAL CANCER [facility] C ollege Test SCREENING 3 YEAR of Medicine FOLLOW UP [code = CERVICAL CANCER SCREENING 3 YEAR FOLLOW UP] Future Scheduled FLU VACCINE > 6 MONTHS [employer] Test [code = FLU VACCINE > of Med icine 6 MONTHS] Future Scheduled BMI FOLLOW UP PLAN [employer] Test [code = BMI FOLLOW UP of Med icine PLAN] Goal Plan of Care Note [code = 75025-8] Goal Plan of Care Note [code = 03927-5] Goal Plan of Care Note [code = 32753-0] Goal Plan of Care Note [code = 77583-3] Goal Plan of Care Note [code = 84214-0] Goal Plan of Care Note [code = 10279-2] Goal Plan of Care Note [code = 31467-6] Goal Plan of Care Note [code = 60344-3] Goal Plan of Care Note [code = 74945-0] Goal Plan of Care Note [code = 78792-5] Goal Plan of Care Note [code = 28244-0] Goal Plan of Care Note [code = 87319-8] Goal Plan of Care Note [code = 81719-1] Goal Plan of Care Note [code = 96287-0] Goal Plan of Care Note [code = 78014-5] Goal Plan of Care Note [code = 78076-9] Goal Plan of Care Note [code = 42181-2] Goal Plan of Care Note [code = 06645-5] Goal Plan of Care Note [code = 94548-6] Goal Plan of Care Note [code = 89428-6] Goal Plan of Care Note [code = 02693-4] Goal Plan of Care Note [code = 37114-3] Goal Plan of Care Note [code = 92099-6] Goal Plan of Care Note [code = 72784-2] Goal Plan of Care Note [code = 19385-1] Goal Plan of Care Note [code = 37829-8] Goal Plan of Care Note [code = 07440-3] Goal Plan of Care Note [code = 41730-1] Goal Plan of Care Note [code = 42221-1] Goal Plan of Care Note [code = 68448-5] Goal Plan of Care Note [code = 78826-3] Goal Plan of Care Note [code = 77614-9] Goal Plan of Care Note [code = 08193-2] Goal Plan of Care Note [code = 63453-6] Goal Plan of Care Note [code = 60371-7] Goal Plan of Care Note [code = 45613-6] Goal Plan of Care Note [code = 81935-2] Goal Plan of Care Note [code = 93244-2] Goal Plan of Care Note [code = 96539-8] Goal Plan of Care Note [code = 87284-7] Goal Plan of Care Note [code = 85932-7] Goal Plan of Care Note [code = 29751-4] Goal Plan of Care Note [code = 96545-0] Goal Plan of Care Note [code = 69996-7] Goal Plan of Care Note [code = 99282-6] Goal Plan of Care Note [code = 05683-2] Goal Plan of Care Note [code = 88459-9] Goal Plan of Care Note [code = 75349-9] Goal Plan of Care Note [code = 94908-5] Goal Plan of Care Note [code = 58345-5] Goal Plan of Care Note [code = 86649-1] Goal Plan of Care Note [code = 12496-7] Goal Plan of Care Note [code = 94058-4] Goal Plan of Care Note [code = 03794-0] Goal Plan of Care Note [code = 43944-5] Goal Plan of Care Note [code = 12454-2] Goal Plan of Care Note [code = 31969-5] Goal Plan of Care Note [code = 25691-6] Goal Plan of Care Note [code = 87149-0] Goal Plan of Care Note [code = 96435-4] Goal Plan of Care Note [code = 65106-9] Goal Plan of Care Note [code = 26424-1] Goal Plan of Care Note [code = 93565-6] Goal Plan of Care Note [code = 70377-6] Goal Plan of Care Note [code = 86726-0] Goal Plan of Care Note [code = 46591-6] Goal Plan of Care Note [code = 64163-0] Goal Plan of Care Note [code = 58789-5] Goal Plan of Care Note [code = 25193-6] Goal Plan of Care Note [code = 68987-7] Goal Plan of Care Note [code = 65083-7] Goal Plan of Care Note [code = 07339-9] Goal Plan of Care Note [code = 61657-3] Goal Plan of Care Note [code = 56516-1] Goal Plan of Care Note [code = 93695-4] Goal Plan of Care Note [code = 67172-3] Goal Plan of Care Note [code = 46056-5] Goal Plan of Care Note [code = 82206-9] Goal Plan of Care Note [code = 60087-4] Goal Plan of Care Note [code = 78937-0] Goal Plan of Care Note [code = 69787-7] Goal Plan of Care Note [code = 27677-9] Goal Plan of Care Note [code = 89361-3] Goal Plan of Care Note [code = 69717-5] Goal Plan of Care Note [code = 19603-4] Goal Plan of Care Note [code = 38604-4] Goal Plan of Care Note [code = 78211-9] Goal Plan of Care Note [code = 30646-8] Goal Plan of Care Note [code = 20010-4] Goal Plan of Care Note [code = 82052-4] Goal Plan of Care Note [code = 57498-9] Goal Plan of Care Note [code = 61699-5] Goal Plan of Care Note [code = 29655-6] Goal Plan of Care Note [code = 47184-5] Goal Plan of Care Note [code = 56585-2] Goal Plan of Care Note [code = 92927-6] Goal Plan of Care Note [code = 56143-6] Goal Plan of Care Note [code = 81231-8] Goal Plan of Care Note [code = 58780-2] Goal Plan of Care Note [code = 21242-4] Goal Plan of Care Note [code = 85383-6] Goal Plan of Care Note [code = 18516-7] Goal Plan of Care Note [code = 92782-0] Goal Plan of Care Note [code = 24918-9] Goal Plan of Care Note [code = 31926-3] Goal Plan of Care Note [code = 20641-1] Goal Plan of Care Note [code = 35673-2] Goal Plan of Care Note [code = 42858-1] Goal Plan of Care Note [code = 51439-0] Goal Plan of Care Note [code = 12936-0] Goal Plan of Care Note [code = 19804-1] Goal Plan of Care Note [code = 86942-9] Goal Plan of Care Note [code = 07542-3] Goal Plan of Care Note [code = 25925-4] Goal Plan of Care Note [code = 52667-1] Goal Plan of Care Note [code = 08052-5] Goal Plan of Care Note [code = 01238-7] Goal Plan of Care Note [code = 46357-8] Goal Plan of Care Note [code = 39473-9] Goal Plan of Care Note [code = 92827-4] Goal Plan of Care Note [code = 52420-6] Goal Plan of Care Note [code = 00130-8] Goal Plan of Care Note [code = 60908-9] Goal Plan of Care Note [code = 42931-2] Encounters Start End Encounter Admission Attending Care Care Encounter Source Date/Time Date/Time Type Type Clinicians Facility Department ID 2023-02-26 Outpatient EL ALBA, [facility] Surgery [id number] SLE 14:35:01 JUAN LUIS 2021-08-13 Inpatient SARITA, [facility] Surgery [id number] SLE 04:05:24 GENNY 2021-02-16 Inpatient ER CATHERINE, [facility] Surgery [id number] SLE 20:19:00 KAYLYNN 2023-04-16 2023-04-16 Outpatient INGE ALBA [id number] Inge 11:00:00 11:00:00 JUAN LUIS Seybol d 2023-04-15 2023-04-15 Outpatient INGE AMADO [id number] Inge 13:40:00 13:40:00 JUANJOSE Seybol d 2023-04-15 2023-04-15 Outpatient INGE ROJAS [id number] Inge 08:30:00 08:30:00 RYLAN Seybol d 2023-03-21 2023-03-21 Outpatient INGE ALBA [id number] Inge 00:00:00 00:00:00 JUAN LUIS Seybol d 2023-03-18 2023-03-18 Outpatient LAB90 INGE BYNUM [id number] Inge 08:45:00 08:45:00 Seybol d 2023-03-18 2023-03-18 Outpatient IVETT PALOMO [id number] Inge 08:15:00 08:15:00 Seybol d 2023-03-18 2023-03-18 Outpatient INGE ALBA [id number] Inge 00:00:00 00:00:00 JUAN LUIS Seybol d 2023-03-16 2023-03-16 Outpatient INGE VEGA [id number] Inge 00:00:00 00:00:00 BRENTLY Seybol d 2023-03-13 2023-03-13 Outpatient INGE ALBA [id number] Inge 13:40:00 13:40:00 JUAN LUIS Seybol d 2023-03-07 2023-03-07 Outpatient INGE PETERSEN [id number] Inge 00:00:00 00:00:00 DOUG Seybol d 2023-03-05 2023-03-05 Outpatient JOE BYNUM [id number] Inge 00:00:00 00:00:00 MD FLAKITA Seybol d 2023-03-05 2023-03-05 Outpatient INGE PETERSEN [id number] Inge 00:00:00 00:00:00 DOUG Seybol d 2023-03-04 2023-03-04 Outpatient INGE SWANN [id number] Inge 14:45:00 14:45:00 AMIRHOSSEIN Se ybold 2023-02-28 2023-02-28 Outpatient KALA-MONICA BYNUM [id number] Inge 14:30:00 14:30:00 , CHRISTIAN Seybol d 2023-02-26 2023-02-26 Outpatient INGE ALBA [id number] Inge 00:00:00 00:00:00 JUAN LUIS Seybol d 2023-02-25 2023-02-25 Outpatient INGE ONEILL [id number] Inge 10:10:00 10:10:00 KEVIN Seybol d 2023-02-21 2023-02-21 Outpatient INGE ALBA [id number] Inge 10:15:00 10:15:00 JUAN LUIS Seybol d 2023-02-21 2023-02-21 Outpatient INGE BYNUM [id number] Inge 00:00:00 00:00:00 Seybol d 2023-02-19 2023-02-19 Outpatient INGE PETERSEN [id number] Inge 16:30:00 16:30:00 DOUG Seybol d 2023-02-13 2023-02-13 Outpatient PREBIN INGE BYNUM [id number] Inge 00:00:00 00:00:00 DOUG Seybol d 2023-02-12 2023-02-12 Outpatient INGE PETERSEN [id number] Inge 16:30:00 16:30:00 DOUG Seybol d 2023-02-08 2023-02-08 Outpatient LAB90 INGE BYNUM [id number] Inge 08:15:00 08:15:00 Seybol d 2023-02-08 2023-02-08 Outpatient LAB90 INGE BYNUM [id number] Inge 08:00:00 08:00:00 Seybol d 2023-02-08 2023-02-08 Outpatient INGE PETERSEN [id number] Inge 00:00:00 00:00:00 DOUG Seybol d 2023-02-05 2023-02-05 Outpatient INGE PETERSEN [id number] Inge 00:00:00 00:00:00 DOUG Seybol d 2023-01-30 2023-01-30 Outpatient PREINGE STEWARD [id number] Inge 00:00:00 00:00:00 DOUG Seybol d 2023-01-29 2023-01-29 Outpatient INGE PETERSEN [id number] Inge 16:15:00 16:15:00 DOUG Seybol d 2023-01-21 2023-01-21 Outpatient INGE RODRIGUEZ [id number] Inge 08:00:00 08:00:00 NADEGE Seybol d 2022-12-27 2022-12-27 Outpatient INGE RODRIGUEZ [id number] Inge 00:00:00 00:00:00 NADEGE Seybol d 2022-12-24 2022-12-24 Outpatient LAB90 INGE BYNUM [id number] Inge 09:15:00 09:15:00 Seybol d 2022-12-24 2022-12-24 Outpatient INGE RODRIGUEZ [id number] Inge 08:30:00 08:30:00 NADEGE Seybol d 2022-12-18 2022-12-18 [facility]IV [id number] [facility] 00:00:00 00:00:00 _Cathey [id number] Medica l 2022-12-17 2022-12-17 Outpatient INGE RODRIGUEZ INGE [id number] Inge 13:30:00 13:30:00 NADEGE Boucher betty 2022-11-20 2022-11-20 Outpatient [facility] PRIV PRIV 531 [id number] [facility] 00:00:00 00:00:00 _Cathey [id number] Medica l 2022-10-25 2022-10-25 Outpatient SFA SFA [id number] 022 Kevin 14:48:02 14:48:02 1222 F Ashvin 2022-10-24 2022-10-24 Outpatient [facility] PRIV PRIV 531 [id number] [facility] 00:00:00 00:00:00 _Cathey [id number] Medica l 2022-10-16 2022-10-16 Outpatient [id number] [id number] 00:00:00 00:00:00 Visit t621-9yl3 944-4bc5-9 -9166-8d3 [id number] 740iy7gl0 df9fa2 2022-09-04 2022-09-04 Outpatient [facility] PRIV PRIV 531 [id number] [facility] 00:00:00 00:00:00 _Cathey [id number] Medica l 2022-08-21 2022-08-21 Outpatient [facility] PRIV PRIV 531 [id number] [facility] 00:00:00 00:00:00 _Cathey [id number] Medica l 2022-08-21 2022-08-21 Karen [facility] 18 [facility] 00:00:00 00:00:00 [facility] Medic al Bea _[facility] : [address], [address]* [address], [place] [address] , Ph. [phone] 2022-08-17 2022-08-17 Outpatient [facility] PRIV PRIV 531 [id number] [facility] 00:00:00 00:00:00 _Cathey [id number] Medica l 2022-08-16 2022-08-16 Outpatient [facility] [id number] 022 Kevin 15:00:39 15:00:39 1013 F Ashvin 2022-08-16 2022-08-16 Outpatient [facility] PRIV PRIV 531 [id number] [facility] 00:00:00 00:00:00 _Cathey [id number] Medica l 2022-08-16 2022-08-16 Outpatient [id number] 00:00:00 00:00:00 Visit 3574-476e 574-476e-b -d8fe-zc5 7db-da6dba [id number] 1168-10-05 2022-08-08 Outpatient [facility] [id number] Kevin 17:39:26 17:39:26 1005 F Ashvin 2022-08-08 2022-08-08 Outpatient [id number] ab6byp-2 00:00:00 00:00:00 Visit 26be-465d 6be-465d-a -be50-1g2 e88-1n82v1 1g814b70i 26b65c 2022-07-09 2022-07-09 Outpatient [id number] 00:00:00 00:00:00 Visit q961-3134 346-4188-9 -9cff-9d5 cff-1j9464 8500bzpn1 8ecae2 2021-09-18 2021-09-18 Office [facility] 1.2.840.114 [id number] [facility] 13:30:00 16:10:23 Visit Darian AMBULATOR 350.1.13.21 College Y 0.2.7.2.686 of [id number] [facility] 815 e 2021-09-12 2021-09-12 Office [facility] 1.2.840.114 [id number] [facility] 11:17:32 14:04:36 Visit DARIAN AMBULATOR 350.1.13.21 College Y 0.2.7.2.686 of [id number] [facility] 815 e 2021-09-02 2021-09-08 Inpatient ER CATHERINE, [facility] Surgery [id number] SLE 20:53:00 11:46:00 [facility] 2021-09-02 2021-09-08 Hospital ER LdPatricia ma [facility] [id number] 20:53:00 11:46:00 Encounter Fernanda Hernandez [facility] 2021-09-03 2021-09-03 Anesthesia [facility] [id number] 16:32:00 18:47:00 Event [facility] 2021-09-03 2021-09-03 Surgery Baldwin, [facility] [id number] 15:45:00 18:16:00 [facility] 2021-09-03 2021-09-03 Travel [facility] [id number] [facility] 00:[facility]00 00:00:00 [facility] 2021-05-31 2021-05-[address] [facility] [id number] [facility] 00:00:00 23:59:00 Heidi 2021-05-23 2021-05-23 Outpatient [facility] [id number] [facility] 00:00:00 00:00:00 2021-05-01 2021-05-01 Outpatient [facility] [id number] [facility] 00:00:00 00:00:00 2021-03-10 2021-03-10 Office GALLO Watts 1.2.840.114 [id number] [facility] 14:55:20 15:41:57 Visit Darian AMBULATOR 350.1.13.21 College Y 0.2.7.2.686 of [id number] [facility] 815 e 2020-12-06 2020-12-06 Outpatient Jing [facility] [id number] [facility] 10:27:00 23:59:00 MATT Medica [facility] 2020-11-09 2020-11-09 Outpatient [facility] [id number] [place] 07:37:00 23:59:00 [facility] 2019-06-18 2019-06-19 Office GALLO Hoang 1.2.840.114 [id number] 17:27:50 07:41:30 Visit Aymer AMBULATOR 350.1.13.21 Y 0.2.7.2.686 [id number] 2019-06-18 2019-06-19 Office GALLO Hoang 1.2.840.114 [id number] [facility] 17:27:50 07:41:30 Visit Aymer AMBULATOR 350.1.13.21 College Y 0.2.7.2.686 of [id number] [facility] 800 e 2019-04-01 2019-04-01 [id number] [facility] 17:54:00 17:54:00 00 l Giovany 2019-04-01 2019-04-01 Outpatient [facility] [id number] [facility] 17:54:00 17:54:00 00 l Giovany Results Test Description Test Time Test Comments Results Result Comments Source pap, LB 2022-08-26 00:00:00 Test Item Value Reference Range Interpretation Comme nts Microscopic observation [Identifier] in Cervix by Cyto stain.thin a sc-US nilm A prep (test code = 13294-5) [facility] MedicalBacteria identified in Urine by [id number] 00:00:00 Test Item Value Reference Range Interpretation Comments Bacteria identified in Urine by no growth no growth Culture (test code = 630-4) [facility] MedicalSTI [id number] 00:00:00 Test Item Value Reference Range Interpretation Comments HPV thinprep (test code = HPV negative negative thinprep) [facility] MedicalHemoglobin A1c/Hemoglobin.total in Blood by [id number] 00:00:00 Test Item Value Reference Range Interpretation Comments Hemoglobin A1c/Hemoglobin.total in 6.3 % <5.7 H Blood (test code = 4548-4) [facility] - [id number] 00:00:00 Test Item Value Reference Range Interpretation Comments Leukocytes [#/volume] in Blood 8.10 x10(3)/uL 4.00-10.10 by Automated count (test code = 6690-2) Erythrocytes [#/volume] in 3.54 x10(6)/uL 3.58-5.19 L Blood by Automated count (test code = 789-8) Hemoglobin [Mass/volume] in 10.8 g/dL 11.0-15.5 L Blood (test code = 718-7) Hematocrit [Volume Fraction] 32.7 % 31.5-44.8 of Blood by Automated count (test code = 4544-3) MCV [Entitic volume] by 92.4 fL 78.0-98.0 Automated count (test code = 787-2) MCH [Entitic mass] by 30.5 pg 25.2-32.6 Automated count (test code = 785-6) MCHC [Mass/volume] by 33.0 g/dL 31.0-34.7 Automated count (test code = 786-4) Erythrocyte distribution width 12.8 % 12.0-15.5 [Ratio] by Automated count (test code = 788-0) Polymorphonuclear cells/100 52.4 % 37.1-78.1 leukocytes in Blood by Manual count (test code = 04109-6) Lymphocytes/100 leukocytes in 36.7 % 13.7-50.9 Blood by Automated count (test code = 736-9) Mononuclear cells/100 6.0 % 3.0-11.9 leukocytes in Blood by Manual count (test code = 94202-2) Eosinophils/100 leukocytes in 4.2 % 0.0-5.0 Blood by Automated count (test code = 713-8) Basophils/100 leukocytes in 0.5 % 0.0-1.0 Blood by Automated count (test code = 706-2) Immature granulocytes/100 0.2 % 0.0-1.0 leukocytes in Blood (test code = 03003-7) Platelets [#/volume] in Blood 335 x10(3)/uL 140-425 by Automated count (test code = 777-3) Platelet mean volume [Entitic 11.1 fL 8.6-12.1 volume] in Blood by Automated count (test code = 68177-2) [facility]2022-09-08 06:25:08 Test Item Value Reference Range Interpretation Comments TSH, THIRD 4.030 UIU/ML 0.400-4.100 UNLESS OTHERWI SE GENERATION (test INDICATED, ALL TESTING code = 2821) PERFORMED [facility], [facility] [address] [place] [address] [facility] DIRECTOR: NONA SO M.D. CLIA NUMBER [id number] CAP ACCREDITATION N O. [id number] LIPID [id number] 04:54:41 Test Item Value Reference Range Interpretation Comments CHOLESTEROL (test 175 MG/DL <200 code = 2210) TRIGLYCERIDES (test 997 MG/DL <150 H code = 2232) HDL CHOLESTEROL 24 MG/DL >39 L (test code = 2220) CALC LDL CHOL (test (NOTE) MG/DL <100 UNABLE T O CALCULATE A code = 2237) VALID LDL CHIQUIS STEROL WHEN THE TRIGLYCERIDEVAL UE IS GREATER THAN 40 0 MG/DL.UNABLE TO CALCULATE A AURA ID LDL CHOLESTEROL WHE N THE TRIGLYCERIDEVAL UE IS GREATER THAN 40 0 MG/DL. NOTE: CALCULATE D LDL IS BASED ON ADOLFO -BAUMANN METHOD WHICHINC LUDES ADJUSTABLE TRIGLYCERIDE:VL DL CHOLESTEROL RAT IO.THIS FACTOR VARIES B Y MEASURED TRIGLY CERIDE AND NON-HDLCHOL ESTEROL CONCENTRATIONS WITH INCREASED CALCU LATED LDL SEENIN HIGH ER TRIGLYCERIDE OR LOWER NON-HDL SPECIME NS. FOR MOREINFORMATION , SEE CLIENT ANNOUNCE MENT AT [email or web address] CalcLDL-C RISK RATIO LDL/HDL (NOTE) RATIO <3.22 UNABLE T O CALCULATE (test code = 2238) HEMOGLOBIN [id number] 04:34:07 Test Item Value Reference Range Interpretation Comments HEMOGLOBIN A1c (test 7.5 % 4.2-5.6 H [facility] CAN DIABETES code = 44011) ASSOCIATION IDELINES FOR HGB A1C: PREDIABETES/INC REASED RISK . . . . . . . 5.7 -6.4% DIAGNOSIS OF DI ABETES . . . . . . . . . >=6 .5% WITH CONFIRMATION OR APPROPRIATE SYMPTOMS NOTE: ASSAY MAY BE AFFECTED BY HEMOGLOBINOPATH IES (SICKLE CELL ANEMIA, S- C DISEASE, OTHERS) OR GERMAN FICIALLY LOWERED BY DECR EASED RED CELL SURVIVAL ( HEMOLYTIC ANEMIAS, BLOOD LOSS, ETC.). CONSIDER ALTERN ATE TESTING OR LABORATORY C ONSULTATION. HEMOGLOBIN [id number] 00:00:00 Test Item Value Reference Range Interpretation Comments HEMOGLOBIN A1c (test code = 22319) 7.5 % HEMOGLOBIN [id number] 00:00:00 Test Item Value Reference Range Interpretation Comments HEMOGLOBIN A1c (test code = 73664) 7.5 % HEMOGLOBIN [id number] 00:00:00 Test Item Value Reference Range Interpretation Comments HEMOGLOBIN A1c (test code = 41109) 7.5 % LIPID [id number] 00:00:00 Test Item Value Reference Range Interpretation Comments CHOLESTEROL (test code = 2210) 175 MG/DL TRIGLYCERIDES (test code = 2232) 997 MG/DL HDL CHOLESTEROL (test code = 24 MG/DL 2220) CALC LDL CHOL (test code = 2237) (NOTE) MG/DL RISK RATIO LDL/HDL (test code = (NOTE) RATIO 2238) LIPID [id number] 00:00:00 Test Item Value Reference Range Interpretation Comments CHOLESTEROL (test code = 2210) 175 MG/DL TRIGLYCERIDES (test code = 2232) 997 MG/DL HDL CHOLESTEROL (test code = 24 MG/DL 2220) CALC LDL CHOL (test code = 2237) (NOTE) MG/DL RISK RATIO LDL/HDL (test code = (NOTE) RATIO 2238) TSH, THIRD [id number] 00:00:00 Test Item Value Reference Range Interpretation Comments TSH, THIRD GENERATION (test code 4.030 UIU/ML = 2821) TSH, THIRD [id number] 00:00:00 Test Item Value Reference Range Interpretation Comments TSH, THIRD GENERATION (test code 4.030 UIU/ML = 2821) TSH, THIRD [id number] 00:00:00 Test Item Value Reference Range Interpretation Comments TSH, THIRD GENERATION (test code 4.030 UIU/ML = 2821) HEMOGLOBIN [id number] 00:00:00 Test Item Value Reference Range Interpretation Comments HEMOGLOBIN A1c (test code = 09669) 7.5 % HEMOGLOBIN [id number] 00:00:00 Test Item Value Reference Range Interpretation Comments HEMOGLOBIN A1c (test code = 89317) 7.5 % HEMOGLOBIN [id number] 00:00:00 Test Item Value Reference Range Interpretation Comments HEMOGLOBIN A1c (test code = 19064) 7.5 % LIPID [id number] 00:00:00 Test Item Value Reference Range Interpretation Comments CHOLESTEROL (test code = 2210) 175 MG/DL TRIGLYCERIDES (test code = 2232) 997 MG/DL HDL CHOLESTEROL (test code = 24 MG/DL 2220) CALC LDL CHOL (test code = 2237) (NOTE) MG/DL RISK RATIO LDL/HDL (test code = (NOTE) RATIO 2238) LIPID [id number] 00:00:00 Test Item Value Reference Range Interpretation Comments CHOLESTEROL (test code = 2210) 175 MG/DL TRIGLYCERIDES (test code = 2232) 997 MG/DL HDL CHOLESTEROL (test code = 24 MG/DL 2220) CALC LDL CHOL (test code = 2237) (NOTE) MG/DL RISK RATIO LDL/HDL (test code = (NOTE) RATIO 2238) TSH, THIRD [id number] 00:00:00 Test Item Value Reference Range Interpretation Comments TSH, THIRD GENERATION (test code 4.030 UIU/ML = 2821) TSH, THIRD [id number] 00:00:00 Test Item Value Reference Range Interpretation Comments TSH, THIRD GENERATION (test code 4.030 UIU/ML = 2821) TSH, THIRD [id number] 00:00:00 Test Item Value Reference Range Interpretation Comments TSH, THIRD GENERATION (test code 4.030 UIU/ML = 2821) HEMOGLOBIN [id number] 00:00:00 Test Item Value Reference Range Interpretation Comments HEMOGLOBIN A1c (test code = 58508) 7.5 % HEMOGLOBIN [id number] 00:00:00 Test Item Value Reference Range Interpretation Comments HEMOGLOBIN A1c (test code = 29455) 7.5 % HEMOGLOBIN [id number] 00:00:00 Test Item Value Reference Range Interpretation Comments HEMOGLOBIN A1c (test code = 80057) 7.5 % LIPID [id number] 00:00:00 Test Item Value Reference Range Interpretation Comments CHOLESTEROL (test code = 2210) 175 MG/DL TRIGLYCERIDES (test code = 2232) 997 MG/DL HDL CHOLESTEROL (test code = 24 MG/DL 2220) CALC LDL CHOL (test code = 2237) (NOTE) MG/DL RISK RATIO LDL/HDL (test code = (NOTE) RATIO 2238) LIPID [id number] 00:00:00 Test Item Value Reference Range Interpretation Comments CHOLESTEROL (test code = 2210) 175 MG/DL TRIGLYCERIDES (test code = 2232) 997 MG/DL HDL CHOLESTEROL (test code = 24 MG/DL 2220) CALC LDL CHOL (test code = 2237) (NOTE) MG/DL RISK RATIO LDL/HDL (test code = (NOTE) RATIO 2238) TSH, THIRD [id number] 00:00:00 Test Item Value Reference Range Interpretation Comments TSH, THIRD GENERATION (test code 4.030 UIU/ML = 2821) TSH, THIRD [id number] 00:00:00 Test Item Value Reference Range Interpretation Comments TSH, THIRD GENERATION (test code 4.030 UIU/ML = 2821) TSH, THIRD [id number] 00:00:00 Test Item Value Reference Range Interpretation Comments TSH, THIRD GENERATION (test code 4.030 UIU/ML = 2821) ALBUMIN/CREATININE RATIO, URINE, [id number] 08:28:09 Test Item Value Reference Range Interpretation Comments CREATININE, URINE, 172.7 MG/DL NOT ESTAB RANDOM (test code = 2072) ALBUMIN, URINE, 3.2 MG/DL NOT ESTAB RANDOM (test code = 62368) CALC 19 MG/G <30 Note: ALBUMIN/CREAT, RND Albumin/C reatinine ratio (test code = reference inter aura 17286) reflects ADA a nd NKF guidelines. UNL ESS OTHERWISE INDIC ATED, ALL TESTING PERFORM [facility], [place]. [address] [place] [address] LABORATORY DIRE CTOR: NONA SILVESTRE M.D. CLIA NUMBER [id number] [facility] [place] [id number] MICROALBUMIN/CREATININE, RANDOM AND [id number] 00:00:00 Test Item Value Reference Range Interpretation Comments CREATININE, URINE, RANDOM (test 172.7 MG/DL code = 2072) ALBUMIN, URINE, RANDOM (test code 3.2 MG/DL = 54213) CALC ALBUMIN/CREAT, RND (test 19 MG/G code = 06774) MICROALBUMIN/CREATININE, RANDOM AND [id number] 00:00:00 Test Item Value Reference Range Interpretation Comments CREATININE, URINE, RANDOM (test 172.7 MG/DL code = 2072) ALBUMIN, URINE, RANDOM (test code 3.2 MG/DL = 93093) CALC ALBUMIN/CREAT, RND (test 19 MG/G code = 65454) MICROALBUMIN/CREATININE, RANDOM AND [id number] 00:00:00 Test Item Value Reference Range Interpretation Comments CREATININE, URINE, RANDOM (test 172.7 MG/DL code = 2072) ALBUMIN, URINE, RANDOM (test code 3.2 MG/DL = 20204) CALC ALBUMIN/CREAT, RND (test 19 MG/G code = 52896) MICROALBUMIN/CREATININE, RANDOM AND [id number] 00:00:00 Test Item Value Reference Range Interpretation Comments CREATININE, URINE, RANDOM (test 172.7 MG/DL code = 2072) ALBUMIN, URINE, RANDOM (test code 3.2 MG/DL = 75096) CALC ALBUMIN/CREAT, RND (test 19 MG/G code = 99619) MICROALBUMIN/CREATININE, RANDOM AND [id number] 00:00:00 Test Item Value Reference Range Interpretation Comments CREATININE, URINE, RANDOM (test 172.7 MG/DL code = 2072) ALBUMIN, URINE, RANDOM (test code 3.2 MG/DL = 71162) CALC ALBUMIN/CREAT, RND (test 19 MG/G code = 21713) MICROALBUMIN/CREATININE, RANDOM AND [id number] 00:00:00 Test Item Value Reference Range Interpretation Comments CREATININE, URINE, RANDOM (test 172.7 MG/DL code = 2072) ALBUMIN, URINE, RANDOM (test code 3.2 MG/DL = 01361) CALC ALBUMIN/CREAT, RND (test 19 MG/G code = 12834) MICROALBUMIN/CREATININE, RANDOM AND [id number] 00:00:00 Test Item Value Reference Range Interpretation Comments CREATININE, URINE, RANDOM (test 172.7 MG/DL code = 2072) ALBUMIN, URINE, RANDOM (test code 3.2 MG/DL = 19398) CALC ALBUMIN/CREAT, RND (test 19 MG/G code = 01130) MICROALBUMIN/CREATININE, RANDOM AND [id number] 00:00:00 Test Item Value Reference Range Interpretation Comments CREATININE, URINE, RANDOM (test 172.7 MG/DL code = 2072) ALBUMIN, URINE, RANDOM (test code 3.2 MG/DL = 06963) CALC ALBUMIN/CREAT, RND (test 19 MG/G code = 98419) HEMOGLOBIN [id number] 07:13:34 Test Item Value Reference Range Interpretation Comments HEMOGLOBIN A1c (test 11.1 % 4.2-5.6 H [employer]IC AN DIABETES code = 54659) ASSOCIATION IDELINES FOR HGB A1C: PREDIABETES/INC REASED RISK . . . . . . . 5 .7-6.4% DIAGNOSIS OF DI ABETES . . . . . . . . . >=6 .5% WITH CONFIRMATION OR APPROPRIATE SYMPTOMS NOTE: ASSAY MAY BE AFFECTED BY HEMOGLOBINOPATH IES (SICKLE CELL ANEMIA, S- C DISEASE, OTHERS) OR GERMAN FICIALLY LOWERED BY DECR EASED RED CELL SURVIVAL ( HEMOLYTIC ANEMIAS, BLOOD LOSS, ETC.). CONSIDER ALTERN ATE TESTING OR LABORATORY C ONSULTATION. UNLESS OTHERWIS E INDICATED, ALL TESTING PER [facility] ATCLINICAL PATH [facility], [address] [address] LABORATORY DIRE CTOR: Gal WEBB. CLIA NUMBER [id number] CAP [place]. [id number] HEMOGLOBIN [id number] 00:00:00 Test Item Value Reference Range Interpretation Comments HEMOGLOBIN A1c (test code = 55518) 11.1 % HEMOGLOBIN [id number] 00:00:00 Test Item Value Reference Range Interpretation Comments HEMOGLOBIN A1c (test code = 33866) 11.1 % HEMOGLOBIN [id number] 00:00:00 Test Item Value Reference Range Interpretation Comments HEMOGLOBIN A1c (test code = 49823) 11.1 % HEMOGLOBIN [id number] 00:00:00 Test Item Value Reference Range Interpretation Comments HEMOGLOBIN A1c (test code = 93267) 11.1 % HEMOGLOBIN [id number] 00:00:00 Test Item Value Reference Range Interpretation Comments HEMOGLOBIN A1c (test code = 75488) 11.1 % HEMOGLOBIN [id number] 00:00:00 Test Item Value Reference Range Interpretation Comments HEMOGLOBIN A1c (test code = 58437) 11.1 % HEMOGLOBIN [id number] 00:00:00 Test Item Value Reference Range Interpretation Comments HEMOGLOBIN A1c (test code = 34344) 11.1 % HEMOGLOBIN [id number] 00:00:00 Test Item Value Reference Range Interpretation Comments HEMOGLOBIN A1c (test code = 15735) 11.1 % HEMOGLOBIN [id number] 00:00:00 Test Item Value Reference Range Interpretation Comments HEMOGLOBIN A1c (test code = 60529) 11.1 % HEMOGLOBIN [id number] 00:00:00 Test Item Value Reference Range Interpretation Comments HEMOGLOBIN A1c (test code = 03894) 11.1 % HEMOGLOBIN [id number] 00:00:00 Test Item Value Reference Range Interpretation Comments HEMOGLOBIN A1c (test code = 83103) 11.1 % HEMOGLOBIN [id number] 00:00:00 Test Item Value Reference Range Interpretation Comments HEMOGLOBIN A1c (test code = 09143) 11.1 % FSH + LH [id number] 04:11:00 Test Item Value Reference Range Interpretation Comments FOLLICLE STIM HORMONE 56.8 IU/L SEE BELOW EXPECTED (test code = 2700) VALUES FO R FSH FOR FEMALES >17 YEA RS MALES F EMALES >=18 YEARS 1.5 -12.4 IU/L FOLLICULAR 3.5-12.5 IU/L M ID-CYCLE PEAK 4.7-21.5 I U/L LUTEAL PHASE 1 .7-7.7 IU/L POSTMENOPA USAL 25.8-134.8 IU/L LUTEINIZING HORMONE 23.8 IU/L SEE BELOW EXPECTED (test code = 2776) VALUES FO R LH FOR FEMALES >17 YEA RS MALES F EMALES >=18 YEARS 1.8- 8.6 IU/L FOLLICULAR 2.4- 12.6 IU/L MID-CYCLE PEAK 14.0-95.6 IU/L LUTEAL PHASE 1.0-11.4 IU/L POSTMENOPAUSAL 7.7-58.5 IU/L UNLESS OTH ERWISE INDICATED, ALL TESTING [facility]FORMED [facility] [address] [place] [address] 8058 4 LABORATORY DIRE CTOR: NONA SILVESTRE M.D. CLIA NUMBER [id number] [place] [id number] FSH + LH [id number] 00:00:00 Test Item Value Reference Range Interpretation Comments FOLLICLE STIM HORMONE (test code = 56.8 IU/L 2700) LUTEINIZING HORMONE (test code = 23.8 IU/L 2776) FSH + LH [id number] 00:00:00 Test Item Value Reference Range Interpretation Comments FOLLICLE STIM HORMONE (test code = 56.8 IU/L 2700) LUTEINIZING HORMONE (test code = 23.8 IU/L 2776) FSH + LH [id number] 00:00:00 Test Item Value Reference Range Interpretation Comments FOLLICLE STIM HORMONE (test code = 56.8 IU/L 2700) LUTEINIZING HORMONE (test code = 23.8 IU/L 2776) FSH + LH [id number] 00:00:00 Test Item Value Reference Range Interpretation Comments FOLLICLE STIM HORMONE (test code = 56.8 IU/L 2700) LUTEINIZING HORMONE (test code = 23.8 IU/L 2776) FSH + LH [id number] 00:00:00 Test Item Value Reference Range Interpretation Comments FOLLICLE STIM HORMONE (test code = 56.8 IU/L 2700) LUTEINIZING HORMONE (test code = 23.8 IU/L 2776) FSH + LH [id number] 00:00:00 Test Item Value Reference Range Interpretation Comments FOLLICLE STIM HORMONE (test code = 56.8 IU/L 2700) LUTEINIZING HORMONE (test code = 23.8 IU/L 2776) FSH + LH [id number] 00:00:00 Test Item Value Reference Range Interpretation Comments FOLLICLE STIM HORMONE (test code = 56.8 IU/L 2700) LUTEINIZING HORMONE (test code = 23.8 IU/L 2776) FSH + LH [id number] 00:00:00 Test Item Value Reference Range Interpretation Comments FOLLICLE STIM HORMONE (test code = 56.8 IU/L 2700) LUTEINIZING HORMONE (test code = 23.8 IU/L 2776) Tissue [id number] 13:18:24 Test Item Value Reference Range Interpretation Comments Case Report (test code Surgical Pathology = 104) Report Case: [id number] Authorizing Provider: Dario Baldwin MD Collected: 09/03/2021 06:03 PM Ordering Location: [address] Received: 09/04/2021 09:18 AM Service Pathologist: Jannette Bhatia MD Specimen: Ileum, Distal Margin - Short Stitch DIAGNOSIS (test code = [id number] 3220) FuZzEwMzNcZnRuYmpcdWMx IHtccnRmMVxlcGljOTYwMV wxqrQwPMMdaJWhI5Cpqlhp SVdwES7uQF0cyLenrJRuwY NcALBqWnEiq5ocg626eCUk j1fnFAXPrcrsqGd0hUftY6 0pf1J0NfxmZ05jmRXbWCN2 XYPpCUOysNBoKGMsZWE1AV TclIMfB6yfDBBtSI9ihdea VNvtEYrhGTTjjUW5LDQzhD AiB4ZuLANkDGshTAOuuty4 CkTqJc0apZTcrPhkFYeoPW SnKKAmDZcpGGClFvAeEF1v RFtSGJ2jKKSQK9OBVYlUCs pccGFyICAgLSBTTUFMTCBC X7uLQOJVXZPYAVmYG1rFBL mYGSDBMD9NRKUUSbHdD3OL OSPLD6VPGMXVRX7IZqWEQO fVYUVijzMjQE5zH2FMMLBX YIwLVN1SFJ0ZHEITNLXFHX QKIl9OQNZmZL0ZQXBHKYKC CF6JMYTWDDABDOQBQ3RAY8 ulAHXvCYWzDYVIHr8REBOS L9tiAEQsOYMwZEYSRYMyOs ACFEdROJfJJRAPDK5ORYXD KBukAmIlTPFbusBpZV7aCy OGWIUQGsKcHd5MDF5HLIxY WaFBS7koyDVxgPskowDdCD kxf2NkBPqjJSYyOB4czFtr BJNvBJ8wCBAaQ6xmcX4oqa x3EdOcNQRcSlR0QOPofeX6 Kdc4JLMdFDprl1hlr8PqVT NoFGj1lIqxKfPtOGImu2el cyBcZmNoYXJzZXQwIEFyaW BeF900c7qpz3evswTieOU7 MUCqUIU5WVanzlAldiG1AR mimNXvCvX7RRukyhKxTNqo fkJkpvBhIef1JLPwQ232NM Y9gZohj4kyCFF0MGQnKSIq OeLbEa9jnOGzH269WJXzCW NYYYKjlNk8TMOgyaMwppBe eYQTu123D234l9yxWOWyqq CmzWfVxtpwc8jcJ338WDQw cGVydzEyMjQwXHBhcGVyaD M4QZBoQK1vtsfrIQnbKMie QMGkpvF5AKBdbFIrX3JqYO ZjHC4tbwpnHMK1LSgrVLUk HFV6JmTdIXBui2Onnek9Ma Jrvx1wlf50DDJ0t6ZeiGat ESK8WII3JkMtIy4yxZCvIX QrSR7jXbMnrJRwDTRglp69 aUjySYxvPYU5NXFgitCvl8 Qps7drVoYlktRtO5joT9Hu ZHJoZWFkXHBnYnJkcmZvb3 Eft5NhwOCkxGp7g1hqFMDh LCYuuWkts2zrYPY9PSYabU SsB9peiZ2xMSQmGS7cohqd r8nlOHkqLBhiNBGcwQE7gy S0ZIMawISpM2CynR7yKETh ZIgzDBCgxmz1WeDzBq7ngK VyeTcyMFxzYmtwYWdlXHBn bmNvbnRccGduZGVjXHBsYW luXHBsYWluXGYwXGZzMjRc cWxcbGFuZzEwMzNcaGljaF qmLRidQgIyDSZsKItoD5pt UmUpRaKzJjh0VERokVZqBP KtShs7OCJubVXzVTLVyMfx wO9mMRGgaIcuiI0cjMD5GD AaigKypBUSaT6fFXLGqZ5c OrJ0RNCzDcg0XXuzOCtolA FyfX0= CPT Code(s) (test code k3drdNZyLQGrrOZ7CwAeLF = 3357) Jhy3wxp5RofKBlgBDsSTxg bXEyifKmmp69aWH4bG87RN 6aDMXnTyX3HWQryxU1Mgn8 NELkIWAjeLYxE322f8lyv4 ruarOttQS6iLzdJOXxyefa FyV3IKamMWOjtkgoDOc1KK wdZRMizFZ0PWGwxHKrO0Kx MJPwQX2xegd2MNN7JCykZX BjAwS9KSSnuLRoDVBhzYtu TDfkj108ZDB8YiJdTZCfrc QwaBmgqA3cEaUkSFN2SOAg R3tvUSM5 CLINICAL HISTORY (test t5paoAGkSSPxhCA8LmLfXO code = 3356) Mxr2dxj2TqbRRxuSJyPFzk rKKuoyXiup27hCP4nR55YP 4yXXTvOwK6XREkkwD7Zyc4 QKIrUGDdsVTzO570r6enh2 xyolHkdHM8bMlqUNMrvvht RcZ6SLliWIViemidWJh9GB dzZRCewEY2JRMmxTVlN5Us LZCeOQ2qjla8SON3HGghHL OqJjC0REQkxFHsUEGpfMtb QOkxq439BZY1QvRoOBMcur JjaUjflF5zReXqUMWFpAYx xQLqy4izlWVuJpD4zpGdiD lvblxwYXJ9 SPECIMEN SOURCE (test b5oyjJAlTIUteTQ2OpQvCC code = 3377) Kih7slh3PeaOPikFNaZUpo fNJombUjkp89jJO0oH05EC 1aFDGlJyU3UTElogB0Huf5 XUKoUTJqsIZfA687x0xjz7 ukjmSjfPF8nEswSKEbmeih IlD5ZDcfVZDlgbuvFEp7PI pkILWblJF4HTDrrUKiA8Up ONTnXN6uxzf2KRT0DSwdZV ItKcY8BTXwbRYpBWHsjZlw EFmir468XYE3TmYdREWinc UaiCsouH6cSjKfJDTLVoCz RKnjmS1ldBVzjJ== GROSS DESCRIPTION (test n2fdiLCuAAKcgIE1JaYhEQ code = 3366) Umh6xkn1WtpNFztBYjGJpd hTYonaKpiv34yOH6kB42LI 2aBORuElC0LOZxaaY5Yqk3 VUUfEEDwvISlN759w8ani8 kreoOrqQE3VGDeEJRjS3Is NJ5nHTLjiEVzO65qiLHtXO Q2ICKzJLYqpMXkRLIwXYC7 FIWbqHInT4p1EpNeiOZbB1 J8VeKqhCHqZ3W4RvFckANk I2N9QnQfzQEwVRHbpAXeMy 6xmCQncMZjwSb9b4fnBNUi JCYqzNjcd4ggTMV2LHSzyW TzA3jreR27HmLjaDTuS4Iv sN70ObTajRIvR9XecQ09Oj OrzUJnF7FgdQ91JsStrKWt ZFxwbGFpblxmczIwXGNmMS UGVjBKDVIqHPImV5YjspBm IGZyZXNoXGNmMSAgbGFiZW xlZFxjZjAgIHdpdGggdGhl JOTxhCouxeEuqjVxCE8tGN UOZc8yXW3iOXCqGEKwNXY0 EcTgNDzmTSKpY9EgZVbzYN JySUEeRKe4KIBvXPLbAtd2 HEmbCLQzTNWaJCK3DpzdWH NmMSBjbVxjZjAgIGluIGxl yzb9tChupuIaN7oyOxNsqa 5xBVFcZtA0zbAuYcJyL54d XGNmMSBjbSBpbiBkaWFtZX ZnrgAaZLotFV43LJ0hZMbi RqGdf23ocCreAw09VKsgS1 UqBSY1kNTbVQjlXfGxoCJf jE4xCa61AEgwToYzD11zI1 TcXCVnDfshKrVeOBW4uEQc rQQlFZufKbGlgPNhBG18HT YnXaSfI0AnHSPmdH8sUKBs VUTsRZkcKYNfDaclC6qyt7 L9fSFjCXUah6kcenK1eX0r ROYlFWGgfQV9MHsxjTOvS4 luLlxwYXJccGFyIFRoZSBz NTJkj1PxmGBnE1TqLTGzJY OgjbCehqehimAay4hwwBli qnygr89wo5BdJUHrJMOstV ncfAGvpB8wGGcgvEkuWf5d BEbnBCMvYCYyk9SsZZNyPW Dax17pFHIuCBXgPCDGjCOd SZPqgaHzwtDrfzXyZF8fKO O2rhvghDLqKJKan5BmrUBe YXTbMePqxOKqud0dXBUxWW SmkAV0LJygsZUqS8kgFZCj RpLsW36nc35erCfrPRUah1 krzTUaNH8uudpcoiwmCM6y GECgRQFffUDkjw7eMCFkWR QeRQDqumIwsezgDV0rstow sl7gJDMdIHFxJCnnQBNpNH 94ADhhGB81AHpaZW4fMTDp snRohvJ0mO3oMJHdr0YfDC S9vREpJEMbJlucL1olmV5t ICTeL00pqDNpPPK5hNWjUF QomJ0pWUZnDVLmVxPhE74x w27qzLrkIUNzx0ZjfZImSZ QglG9oHLHyBzXiqQIgrf6f ZSTaIPVdpn97oI5bkYNnDR RncI7vFW5yHDQgGKXvaFEb fu4oEZFpRCMgJOBzxyGwzg baKU0zxdczfm7pEC4sHH7w NO2jjuepO7OyMUfsGRAuFL MeSCbeIqEiBF0nPHsdUI18 OEYoGUUfE4IvKUIgFFYny2 OtgOYvg0RxsUPkGEUtcmKg ZGVudGlmaWVkIDYuNCBjbV imMhXwTSGxg91yvZyvBJLf i2tsfUSoJL7gepuewufdOg AgIGFuZFxjZjEgIDEuMlxj CyYsKFuqQxFcB63sOjNpdC W4qOMaPWrzhYTaOCNbHHCb jKBmS2tgQCSbARFwJX4yYA Dli1IvCAWxT3Haf59fcvys VPFbVYAdq3HdyNOlwkIlUQ 6pAKptzK7vxtukZ9JhnKVy V2BsATQwItljVVCrKNJsoG J5cVsvm8dzMhViGJFfs72r oL5kFDU4rlS9cHPgkVYar0 BsBHTtRuEmO80yPlCmaTG5 wUTav7Mpx1XaGQTgTi1mTE ReOHRgn95dyDnhCW2cz4Xj sIUpfDJxyCRgA7fwXQFcDQ BzdWJqYWNlbnQgdGhlIHBy UGDmg4QluZnyCVFdQ3OiJj UhNSJhqvUghxA1hB5vXvlv ZjEgICBUaGVyZSBpcyBhID AwORX7CDIgZUV9SDNrRuCg tIR8GT7gbGFxnO27XEugqT ipO6slA2Zxr0SkuWPtQEHn k5FtpSFmBZEiXiAwSHZgEL cvF0O7HHVcMJ0bFYQkGYFt l33bxEraDFXnxa0eLIiwPB 9yAQZxMJAoq98fySptSPSu w1dimAMiMI1yypzhjsoyMX 4jSSTnFZQnk53ndWftVKCm j7WfvYYoWDJdwT2fJT4oOG YbVAAjgRCawo3rEFMxWXGo RLZkmuTfhmluZV0okntnjw 5ccGFyXHBhciBUaGUgcmVt SOcfhX7zLHzlZiGxvN9egg SxxXPfSXKkD0IgSK27W59b MLMvpwN8ZN3asQymlemaG6 5eI3KrtHSpKPhgdDgpvAbm WJ6hka4wcNJjj0htap0cOD 33tBQxoUinYXk2vEQwLA7t AFRsYFucfAfdkmB5oMMzVC Q8EWWcDCTcLzF8UFVeR5Pp IHJhbmdpbmcgXGNmMSBmcm 5uFLPuVRSmHW5wGJJsYWFu B3BhMZJzJVfjUNEdOKFujd FplERedBLsuN0xriOup61f YHBdEJmqAS06jBBgHPYqJL RLtWLqC6E4LED5jdAjO0Il j8BvhGbeBAuauulyv5NweF qfiPning9rIRHtAAcusHdq eVxjZjAgIHRhblxlbmRhc2 esnNbrrkXstaApvR4ny6ts rl61kx0zLZjix2BoQUSsk2 IgH0VwsZrpDQKaZPS7EZdu sf0rR3JxHFDdVcDipqSxHO 84OZNsnsDiz3FvbWycbkFg WKNaYAO4We4pfNGcTY1iJW zxQDFqnNMqOVedfgPac3Zu KsyncN4jSPKjMBByHsJYgN H0SRksdLJiQ9lgVAakhgWt Xco8LMriRYUciJxvWYtohD PbK7clZVamoiAzR3Smmmgf TmQWOHJiz2AotGhqdmwyhY 8gMMhtujUeF9VanUjgbsCa b3PpWzweqV8aNXZnKoLRoV E6UGokaSGrQ4niHBxpCIs0 zjWmkaZddwU2zYpeNA9tIe HgBFnshP4nILIgLwHNfl89 eO4bgQXhPVLrtE2pdS4weI CiFCLtkCvxKNX8SPLzkxQa SRIaLDeitoMpDJFrDC3aNE ZzVKI9MbGHm8wntCE4RRgd KPExFOCfh3Kvy1IltKM7bX LmFOdyRRn2gaBylqZkkzA7 iNujCSLpHREkWT3lPYLaWW E9WaLWr2ftvQE6NNyeUXQb vhWqgrF7nH0xKHUcvIThp8 VkcZO3zXRpDNTxZ8Qdi95h DTgczzKmWSjrQI2sFOZpGS P8IdJQj4xxnZH9IGwiNTJc w1Ohh8OflG3jiOPdEDDhzO syVGB6GYLrheMHCNtqBN7o duUroEDmVQZfz9anjXL6PA xsXGxpbmUgQTEwOiAxIGJp m9MsnYRgOJMso2HhOcwuTB n2cUHfVV5tYYLknYNkYBWm CFeuTMDorEAnV9TqFHZsy5 GcqFSxIZCxiQ5ktLYqh9Mc QIEicpMFBSS3KUJpbW02HE T0MYGhe5RfCotdMId1gMDo YW2cLZYeVKAcpvdcLFKmHM 3liYL4OWAYVrVPNBKpcSFi LCBNSlBccGFyfQ== MICROSCOPIC DESCRIPTION k7aodPEwRPVxyYA0ZbSoAV (test code = 3371) Hnm0xpb7WhgEIyzWHqOBxd jRNtfiVwsp60jJG1uK81PX 7lFGBkKjR2SBWdehF1Exu5 NRAnGRKjiUWdR886t2bru9 lvzyTcoVP8mIhuPITmwfgp YnF7INcjZMVsreqxVQe0WL ddHXAkqDI6OVYsjNVtJ3Cm YNMmQJ6dttz6IYI5EHdfRW KpJgU7NBSdlJEwUKWnlMwj SXhuy397JGT6VqSxQEZkdv ZagJzfvC9oEiWuCLUDUTJa x1IcLPCiTDMoub7= Gross assessment was [facility] performed at ([facility], = 2777) Department of Pathology, [address] [place] [address], Technical component was [facility] performed at ([facility], = 2778) Department of Pathology, [address] [place] [address], Professional component [facility] was performed at ([facility], code = 2779) Department of Pathology, [address] [place] [address], [facility] Center[facility] [id number] 13:18:24Surgical Pathology Report Case: [id number] Authorizing Provider: Dario Baldwin MD Collected: 09/03/2021 06:03 PM Ordering Location: [address] Received: 09/04/2021 09:18 AM Service Pathologist: Jannette Bhatia MD Specimen: Ileum, Distal Margin - Short Stitch A. ILEUM, RESECTION: - SMALL BOWEL WITH ISCHEMIC CHANGE AND SUBMUCOSAL HEMORRHAGE - SUTURE GRANULOMA WITH CHRONIC INFLAMMATION AND FIBROSIS - SEROSITIS - FOUR BENIGN LYMPH NODES (0/4) - NEGATIVE FOR MALIGNANCY Signing Pathologist Direct Phone Line: [phone] signed by Jannette Bhatia MD on 09/08/2021 at 1:18 [id number] bowel obstructionA. IleumA. Received fresh labeled with the patient's name, MRN and "ileum" is a 8.9 cm in length, ranging from 2.3 to 3.6 cm cm in diameter segment of small bowel with up to 2.7 cm of attached mesenteric fat. There is a black suture designating the distal margin.The serosa is lavenderpink, smooth and glistening with focal areas of adhesions. There is an area of stricture located 3.7 cm from the distal margin, 2.2 cm on the proximal margin, and 3.5 cm from the mesenteric margin. There is a 0.8 x 0.5 x 0.3 perforation closed with 3 black undesignated sutures located 1.1 cm on the distal margin, 6.6 cm from the proximal margin and 1.9 cm from the mesenteric margin. On opening, a 1.0 x 0.8 cm focal area of hemorrhage is identified 6.4 cm from the proximal margin and 1.2 cm from thedistal margin. On cross sectioning, the focal area of hemorrhage is 0.8 cm thick, confined to the mucosa, 0.4 cm from the serosa, 2.1 cm from the mesenteric margin and subjacent the previously described perforation. There is a 1.5 x 0.4 x 0.3 cm sanders-yellow well-circumscribed possible abscess located 0.2 cm from the serosa, 4.1 cm from the proximal margin, 4.2 cm from the distal margin and 3.4 cm from the mesenteric margin.The remaining uninvolved mucosa is sanders-pink, congested with the normal folds. Multiple lymph nodes within the attached fat, ranging from 0.3-0.5 cm in the greatest dimension are identified. The cut surface of the largest lymph nodes display tanpink and homogenous. Gross photographs are taken. Brick Off Bearer sections are submitted. Ink code:Black: Distal marginBlue: Proximal marginOrange: PerforationSection code:A1: Distal margin in its entirety, en faceA2: Proximal margin in its entirety, en sxkcA8G7: Bowel wall area of stricture in its bylwezvdB7J4: Bowel wall perforation outside industrial sales representative [id number]: Bowel wall abscess in its entiretyA9: Uninvolved bowel wallA10: 1 bisected possible lymph nodeA11: 1 bisected possible lymph nodeA12: 5 intact possible lymph nodesMonRobbi Huynhformed.[facility], Department of Pathology, [address] [place] [address], [facility], [facility], [address] [place] [address], [facility], [facility], [address] [place] [address], LZP-Glucose [id number] 10:42:40 Test Item Value Reference Range Interpretation Comments POC-Glucose Meter (test 152 mg/dL 70-110 H : TE STED AT [facility] code = 1538) [address] [facility] [place], 770 30: Business Intelligence Administrator/Techni lyudmila ID = [id number] for Shanti Dalal el Lab Interpretation (test Abnormal code = 25638-1) [facility] CenterPOCT-GLUCOSE [id number] 10:42:40 Test Item Value Reference Range Interpretation Comments POC-GLUCOSE METER 152 mg/dL 70-110 H : TESTED A T [facility] 6720 (BEAKER) (test code = [facility], 1538) 10[address]: Business Intelligence Administrator/Techni lyudmila ID = [id number] for Jb Gamboa POCT-GLUCOSE [id number] 07:21:03 Test Item Value Reference Range Interpretation Comments POC-GLUCOSE METER 125 mg/dL 70-110 H : [facility] (test code = [facility], 1538) [address]: Business Intelligence Administrator/Techni lyudmila ID = [id number] for Jb Gamboa [id number] 06:57:06 Test Item Value Reference Range Interpretation Comments Magnesium (test code = 1.8 mg/dL 1.6-2.6 18482-0) LUZ (test code = LUZ) Business Intelligence Administrator ID - BRAYDEN L Lab Interpretation (test Normal code = 30541-1) [facility] Center[facility]osphorus2021-11-05 06:57:06 Test Item Value Reference Range Interpretation Comments Phosphorus (test code = 3.4 mg/dL 2.3-4.7 2777-1) LUZ (test code = LUZ) Business Intelligence Administrator ID - BRAYDEN L Lab Interpretation (test Normal code = 96702-7) [facility] CenterMAGNESIUM2021-11-05 06:57:06 Test Item Value Reference Range Interpretation Comments MAGNESIUM (BEAKER) (test code = 1.8 mg/dL 1.6-2.6 627) Business Intelligence Administrator ID - BRAYDEN [id number] 06:57:06 Test Item Value Reference Range Interpretation Comments PHOSPHORUS (BEAKER) (test code = 3.4 mg/dL 2.3-4.7 604) Business Intelligence Administrator ID - BRAYDEN LBasic Metabolic Isjty0733-22-34 06:57:05 Test Item Value Reference Range Interpretation Comments Sodium (test code = 137 meq/L 059-685 4184-2) Potassium (test code = 3.4 meq/L 3.5-5.1 L 2823-3) Chloride (test code = 105 meq/L 98-107 2075-0) CO2 (test code = 25 meq/L 22-29 2028-9) BUN (test code = 4 mg/dL 7-21 L 3094-0) Creatinine (test code 0.57 mg/dL 0.57-1.25 = 2160-0) Glucose (test code = 128 mg/dL 70-105 H 2345-7) Calcium (test code = 8.6 mg/dL 8.4-10.2 28467-1) EGFR (test code = 114 mL/min/1.73 [place] [address]-0) NOT ACCURATE CREATININE CLEARANCE IN PREDICTING GLOMERULAR FILTRATION RATE . ESTIMATED GFR I S NOT APPLICABLE FOR DIALYSIS PATIENTS. LUZ (test code = LUZ) Business Intelligence Administrator ID - PIAYA L Lab Interpretation Abnormal (test code = 67920-4) [facility] METABOLIC [id number] 06:57:05 Test Item Value Reference Range Interpretation Comments SODIUM (BEAKER) 137 meq/L 136-145 (test code = 381) POTASSIUM (BEAKER) 3.4 meq/L 3.5-5.1 L (test code = 379) CHLORIDE (BEAKER) 105 meq/L 98-107 (test code = 382) CO2 (BEAKER) (test 25 meq/L 22-29 code = 355) BLOOD UREA NITROGEN 4 mg/dL 7-21 L (BEAKER) (test code = 354) CREATININE (BEAKER) 0.57 mg/dL 0.57-1.25 (test code = 358) GLUCOSE RANDOM 128 mg/dL 70-105 H (BEAKER) (test code = 652) CALCIUM (BEAKER) 8.6 mg/dL 8.4-10.2 (test code = 697) EGFR (BEAKER) (test 114 mL/min/1.73 ESTIM ATED GFR IS code = 1092) sq m NOT ACCURATE CREATININE CLEARANCE IN PREDICTING GLOMERULAR FILTRATION RATE . ESTIMATED GFR I S NOT APPLICABLE FOR DIALYSIS PATIEN TS. Business Intelligence Administrator ID - ISHMAELKEELEY [facility] (Hemogram only)2021-09-08 06:18:56 Test Item Value Reference Range Interpretation Comments WBC (test code = 6690-2) 8.2 See_Comment [A utomated message] The system [employer] generated this result transmitted ref erence range: 3.5 - 10 .5 K/L. The refe rence range was not u sed to interpret this result as normal/abnor mal. RBC (test code = 789-8) 3.56 See_Comment L [Au tomated message] The system [employer] generated this result transmitted ref erence range: 3.93 - 5 .22 M/L. The refe rence range was not u sed to interpret this result as normal/abnor mal. MCHC (test code = 786-4) 32.8 See_Comment L [A utomated message] The system [employer] generated this result transmitted ref erence range: 32.2 - 3 5.5 GM/DL. The refe rence range was not u sed to interpret this result as normal/abnor mal. Hematocrit (test code = 33.5 % 34.1-44.9 L 4544-3) MCV (test code = 787-2) 94.1 fL 79.4-94.8 MCH (test code = 785-6) 30.9 pg 25.6-32.2 RDW (test code = 788-0) 13.2 % 11.7-14.4 Platelets (test code = 262 See_Comment [Aut omated message] 777-3) The system [employer] generated this result transmitted ref erence range: 150 - 45 0 K/CU MM. The referen ce range was not u sed to interpret this result as normal/abnor mal. MPV (test code = 10.3 fL 9.4-12.3 94580-7) nRBC (test code = 413) 0 See_Comment [Aut omated message] The system [employer] generated this result transmitted ref erence range: 0 - 0 /1 00 WBC. The refere nce range was not u sed to interpret this result as normal/abnor mal. Lab Interpretation (test Abnormal code = 31545-3) [facility] 06:18:56 Test Item Value Reference Range Interpretation Comments WHITE BLOOD CELL COUNT (BEAKER) 8.2 K/ L 3.5-10.5 (test code = 775) RED BLOOD CELL COUNT (BEAKER) 3.56 M/ L 3.93-5.22 L (test code = 761) HEMOGLOBIN (BEAKER) (test code = 11.0 GM/DL 11.2-15.7 L 410) HEMATOCRIT (BEAKER) (test code = 33.5 % 34.1-44.9 L 411) MEAN CORPUSCULAR VOLUME (BEAKER) 94.1 fL 79.4-94.8 (test code = 753) MEAN CORPUSCULAR HEMOGLOBIN 30.9 pg 25.6-32.2 (BEAKER) (test code = 751) MEAN CORPUSCULAR HEMOGLOBIN CONC 32.8 GM/DL 32.2-35.5 (BEAKER) (test code = 752) RED CELL DISTRIBUTION WIDTH 13.2 % 11.7-14.4 (BEAKER) (test code = 412) PLATELET COUNT (BEAKER) (test 262 K/CU MM 150-450 code = 756) MEAN PLATELET VOLUME (BEAKER) 10.3 fL 9.4-12.3 (test code = 754) NUCLEATED RED BLOOD CELLS 0 /100 WBC 0-0 (BEAKER) (test code = 413) POCT-GLUCOSE [id number] 21:16:22 Test Item Value Reference Range Interpretation Comments POC-GLUCOSE METER 157 mg/dL 70-110 H : TESTED A T [facility] 6720 (BEAKER) (test code = [facility], 153) 03436: Business Intelligence Administrator/Techni lyudmila ID = [id number] for Jose Duffy POCT-GLUCOSE [id number] 12:21:16 Test Item Value Reference Range Interpretation Comments POC-GLUCOSE METER 134 mg/dL 70-110 H : TESTED A T [facility] 6720 (BEAKER) (test code = [facility], 153) 39954: Business Intelligence Administrator/Techni lyudmila ID = [id number] for Jabier dangeloGenny hui [id number] 06:42:03 Test Item Value Reference Range Interpretation Comments PHOSPHORUS (BEAKER) (test code = 2.6 mg/dL 2.3-4.7 604) Business Intelligence Administrator ID - GABRIELA MBASIC METABOLIC [id number] 06:42:02 Test Item Value Reference Range Interpretation Comments SODIUM (BEAKER) 137 meq/L 136-145 (test code = 381) POTASSIUM (BEAKER) 3.4 meq/L 3.5-5.1 L (test code = 379) CHLORIDE (BEAKER) 105 meq/L 98-107 (test code = 382) CO2 (BEAKER) (test 21 meq/L 22-29 L code = 355) BLOOD UREA NITROGEN 3 mg/dL 7-21 L (BEAKER) (test code = 354) CREATININE (BEAKER) 0.55 mg/dL 0.57-1.25 L (test code = 358) GLUCOSE RANDOM 130 mg/dL 70-105 H (BEAKER) (test code = 652) CALCIUM (BEAKER) 8.8 mg/dL 8.4-10.2 (test code = 697) EGFR (BEAKER) (test 118 mL/min/1.73 ESTIM ATED GFR IS code = 1092) sq m NOT ACCURATE CREATININE CLEARANCE IN PREDICTING GLOMERULAR FILTRATION RATE . ESTIMATED GFR I S NOT APPLICABLE FOR DIALYSIS PATIEN TS. Business Intelligence Administrator ID - GABRIELA [id number] 06:42:02 Test Item Value Reference Range Interpretation Comments MAGNESIUM (BEAKER) (test code = 1.8 mg/dL 1.6-2.6 627) Business Intelligence Administrator ID - GABRIELA [facility] (HEMOGRAM ONLY)2021-09-07 06:06:47 Test Item Value Reference Range Interpretation Comments WHITE BLOOD CELL COUNT (BEAKER) 7.7 K/ L 3.5-10.5 (test code = 775) RED BLOOD CELL COUNT (BEAKER) 3.53 M/ L 3.93-5.22 L (test code = 761) HEMOGLOBIN (BEAKER) (test code = 11.0 GM/DL 11.2-15.7 L 410) HEMATOCRIT (BEAKER) (test code = 33.0 % 34.1-44.9 L 411) MEAN CORPUSCULAR VOLUME (BEAKER) 93.5 fL 79.4-94.8 (test code = 753) MEAN CORPUSCULAR HEMOGLOBIN 31.2 pg 25.6-32.2 (BEAKER) (test code = 751) MEAN CORPUSCULAR HEMOGLOBIN CONC 33.3 GM/DL 32.2-35.5 (BEAKER) (test code = 752) RED CELL DISTRIBUTION WIDTH 13.2 % 11.7-14.4 (BEAKER) (test code = 412) PLATELET COUNT (BEAKER) (test 190 K/CU MM 150-450 code = 756) MEAN PLATELET VOLUME (BEAKER) 10.4 fL 9.4-12.3 (test code = 754) NUCLEATED RED BLOOD CELLS 0 /100 WBC 0-0 (BEAKER) (test code = 413) POCT-GLUCOSE [id number] 18:05:24 Test Item Value Reference Range Interpretation Comments POC-GLUCOSE METER 133 mg/dL 70-110 H : TESTED A T [facility] 6720 (BEAKER) (test code = [facility], 1538) 84838: Business Intelligence Administrator/Techni lyudmila ID = [id number] for An toine, Marnie POCT-GLUCOSE [id number] 12:42:07 Test Item Value Reference Range Interpretation Comments POC-GLUCOSE METER 127 mg/dL 70-110 H : TESTED A T [facility] 6720 (BEAKER) (test code = [facility], 1538) 13846: Business Intelligence Administrator/Techni lyudmila ID = [id number] for An toine, Marnie [id number] 07:10:49 Test Item Value Reference Range Interpretation Comments PHOSPHORUS (BEAKER) (test code = 1.6 mg/dL 2.3-4.7 L 604) Business Intelligence Administrator ID - GABRIELA MBASIC METABOLIC [id number] 07:10:49 Test Item Value Reference Range Interpretation Comments SODIUM (BEAKER) 135 meq/L 136-145 L (test code = 381) POTASSIUM (BEAKER) 3.3 meq/L 3.5-5.1 L (test code = 379) CHLORIDE (BEAKER) 104 meq/L 98-107 (test code = 382) CO2 (BEAKER) (test 20 meq/L 22-29 L code = 355) BLOOD UREA NITROGEN 3 mg/dL 7-21 L (BEAKER) (test code = 354) CREATININE (BEAKER) 0.56 mg/dL 0.57-1.25 L (test code = 358) GLUCOSE RANDOM 147 mg/dL 70-105 H (BEAKER) (test code = 652) CALCIUM (BEAKER) 8.4 mg/dL 8.4-10.2 (test code = 697) EGFR (BEAKER) (test 116 mL/min/1.73 ESTIM ATED GFR IS code = 1092) sq m NOT ACCURATE CREATININE CLEARANCE IN PREDICTING GLOMERULAR FILTRATION RATE . ESTIMATED GFR I S NOT APPLICABLE FOR DIALYSIS PATIEN TS. Business Intelligence Administrator ID - GABRIELA MSpecimen slightly [id number] 07:10:48 Test Item Value Reference Range Interpretation Comments MAGNESIUM (BEAKER) (test code = 1.9 mg/dL 1.6-2.6 627) Business Intelligence Administrator ID - GABRIELA MPOCT-GLUCOSE [id number] 06:32:52 Test Item Value Reference Range Interpretation Comments POC-GLUCOSE METER 124 mg/dL 70-110 H : TESTED A T [facility] (BEAKER) (test code = [facility] [place], 1538) 15675: Business Intelligence Administrator/Techni lyudmila ID = [id number] for Henrique Quinones CBC (HEMOGRAM ONLY)2021-09-06 05:31:08 Test Item Value Reference Range Interpretation Comments WHITE BLOOD CELL COUNT (BEAKER) 8.8 K/ L 3.5-10.5 (test code = 775) RED BLOOD CELL COUNT (BEAKER) 3.53 M/ L 3.93-5.22 L (test code = 761) HEMOGLOBIN (BEAKER) (test code = 11.0 GM/DL 11.2-15.7 L 410) HEMATOCRIT (BEAKER) (test code = 32.8 % 34.1-44.9 L 411) MEAN CORPUSCULAR VOLUME (BEAKER) 92.9 fL 79.4-94.8 (test code = 753) MEAN CORPUSCULAR HEMOGLOBIN 31.2 pg 25.6-32.2 (BEAKER) (test code = 751) MEAN CORPUSCULAR HEMOGLOBIN CONC 33.5 GM/DL 32.2-35.5 (BEAKER) (test code = 752) RED CELL DISTRIBUTION WIDTH 13.2 % 11.7-14.4 (BEAKER) (test code = 412) PLATELET COUNT (BEAKER) (test 167 K/CU MM 150-450 code = 756) MEAN PLATELET VOLUME (BEAKER) 10.7 fL 9.4-12.3 (test code = 754) NUCLEATED RED BLOOD CELLS 0 /100 WBC 0-0 (BEAKER) (test code = 413) POCT-GLUCOSE [id number] 22:58:39 Test Item Value Reference Range Interpretation Comments POC-GLUCOSE METER 148 mg/dL 70-110 H : TESTED A T [facility] 6720 (BEAKER) (test code = [facility], 1538) 65266: Business Intelligence Administrator/Techni lyudmila ID = [id number] for No Henrique patterson POCT-GLUCOSE [id number] 18:56:48 Test Item Value Reference Range Interpretation Comments POC-GLUCOSE METER 145 mg/dL 70-110 H : TESTED A T [facility] 6720 (BEAKER) (test code = [facility], 1538) 73123: Business Intelligence Administrator/Techni lyudmila ID = [id number] for An toMarnie art POCT-GLUCOSE [id number] 12:51:33 Test Item Value Reference Range Interpretation Comments POC-GLUCOSE METER 155 mg/dL 70-110 H : TESTED A T [facility] 6720 (BEAKER) (test code = [facility], 1538) 97585: Business Intelligence Administrator/Techni lyudmila ID = [id number] for An toflakita, Marnie BASIC METABOLIC [id number] 06:54:39 Test Item Value Reference Range Interpretation Comments SODIUM (BEAKER) 135 meq/L 136-145 L (test code = 381) POTASSIUM (BEAKER) 3.5 meq/L 3.5-5.1 (test code = 379) CHLORIDE (BEAKER) 107 meq/L 98-107 (test code = 382) CO2 (BEAKER) (test 19 meq/L 22-29 L code = 355) ANION GAP (BEAKER) 13 meq/L (test code = 345) BLOOD UREA NITROGEN 4 mg/dL 7-21 L (BEAKER) (test code = 354) CREATININE (BEAKER) 0.58 mg/dL 0.57-1.25 (test code = 358) BUN/CREATININE RATIO 6.9 (BEAKER) (test code = 1800) GLUCOSE RANDOM 166 mg/dL 70-105 H (BEAKER) (test code = 652) CALCIUM (BEAKER) 7.8 mg/dL 8.4-10.2 L (test code = 697) EGFR (BEAKER) (test 111 mL/min/1.73 ESTIM ATED GFR IS code = 1092) sq m NOT ACCURATE CREATININE CLEARANCE IN PREDICTING GLOMERULAR FILTRATION RATE . ESTIMATED GFR I S NOT APPLICABLE FOR DIALYSIS PATIEN TS. Business Intelligence Administrator ID - GABRIELA [id number] 06:48:58 Test Item Value Reference Range Interpretation Comments MAGNESIUM (BEAKER) (test code = 1.7 mg/dL 1.6-2.6 627) Business Intelligence Administrator ID - GABRIELA [id number] 06:48:58 Test Item Value Reference Range Interpretation Comments PHOSPHORUS (BEAKER) (test code = 1.6 mg/dL 2.3-4.7 L 604) Business Intelligence Administrator ID - GABRIELA MPOCT-GLUCOSE [id number] 06:34:36 Test Item Value Reference Range Interpretation Comments POC-GLUCOSE METER 184 mg/dL 70-110 H : TESTED A T [facility] (BEAKER) (test code = [facility] [place], 1538) 85402: Business Intelligence Administrator/Techni lyudmila ID = [id number] for Henrique Quinones CBC (HEMOGRAM ONLY)2021-09-05 04:45:37 Test Item Value Reference Range Interpretation Comments WHITE BLOOD CELL COUNT (BEAKER) 10.6 K/ L 3.5-10.5 H (test code = 775) RED BLOOD CELL COUNT (BEAKER) 3.58 M/ L 3.93-5.22 L (test code = 761) HEMOGLOBIN (BEAKER) (test code = 11.0 GM/DL 11.2-15.7 L 410) HEMATOCRIT (BEAKER) (test code = 34.1 % 34.1-44.9 411) MEAN CORPUSCULAR VOLUME (BEAKER) 95.3 fL 79.4-94.8 H (test code = 753) MEAN CORPUSCULAR HEMOGLOBIN 30.7 pg 25.6-32.2 (BEAKER) (test code = 751) MEAN CORPUSCULAR HEMOGLOBIN CONC 32.3 GM/DL 32.2-35.5 (BEAKER) (test code = 752) RED CELL DISTRIBUTION WIDTH 13.2 % 11.7-14.4 (BEAKER) (test code = 412) PLATELET COUNT (BEAKER) (test 187 K/CU MM 150-450 code = 756) MEAN PLATELET VOLUME (BEAKER) 10.5 fL 9.4-12.3 (test code = 754) NUCLEATED RED BLOOD CELLS 0 /100 WBC 0-0 (BEAKER) (test code = 413) POCT-GLUCOSE [id number] 22:53:04 Test Item Value Reference Range Interpretation Comments POC-GLUCOSE METER 150 mg/dL 70-110 H : TESTED A T [facility] 6720 (BEAKER) (test code = [facility], 1538) 95754: Business Intelligence Administrator/Techni lyudmila ID = [id number] for Henrique Quinones POCT-GLUCOSE [id number] 16:59:15 Test Item Value Reference Range Interpretation Comments POC-GLUCOSE METER 129 mg/dL 70-110 H : TESTED A T [facility] 6720 (BEAKER) (test code = [facility], 1538) 25688: Business Intelligence Administrator/Techni lyudmila ID = [id number] for Jb Gamboa POCT-GLUCOSE [id number] 11:15:20 Test Item Value Reference Range Interpretation Comments POC-GLUCOSE METER 137 mg/dL 70-110 H : TESTED A T [facility] 6720 (BEAKER) (test code = [facility], 1538) 98883: Business Intelligence Administrator/Techni lyudmila ID = [id number] for Jb Gamboa [id number] 05:43:23 Test Item Value Reference Range Interpretation Comments PHOSPHORUS (BEAKER) 3.5 mg/dL 2.3-4.7 Specimen slightly (test code = 604) hemolyzed Business Intelligence Administrator ID - DBBASIC METABOLIC [id number] 05:43:23 Test Item Value Reference Range Interpretation Comments SODIUM (BEAKER) 137 meq/L 136-145 (test code = 381) POTASSIUM (BEAKER) 4.3 meq/L 3.5-5.1 Specimen slightly (test code = 379) hemolyzed CHLORIDE (BEAKER) 108 meq/L 98-107 H (test code = 382) CO2 (BEAKER) (test 20 meq/L 22-29 L code = 355) BLOOD UREA NITROGEN 10 mg/dL 7-21 (BEAKER) (test code = 354) CREATININE (BEAKER) 0.70 mg/dL 0.57-1.25 Specimen slightly (test code = 358) hemolyzed GLUCOSE RANDOM 199 mg/dL 70-105 H (BEAKER) (test code = 652) CALCIUM (BEAKER) 8.0 mg/dL 8.4-10.2 L (test code = 697) EGFR (BEAKER) (test 90 mL/min/1.73 ESTIMA FRANSISCO GFR IS code = 1092) sq m NOT ACCURATE CREATININE CLEARANCE IN PREDICTING GLOMERULAR FILTRATION RATE . ESTIMATED GFR I S NOT APPLICABLE FOR DIALYSIS PATIEN TS. Business Intelligence Administrator ID - [id number] 05:43:22 Test Item Value Reference Range Interpretation Comments MAGNESIUM (BEAKER) 1.8 mg/dL 1.6-2.6 Specimen slightly (test code = 627) hemolyzed Business Intelligence Administrator ID - DBPOCT-GLUCOSE [id number] 05:40:11 Test Item Value Reference Range Interpretation Comments POC-GLUCOSE METER 186 mg/dL 70-110 H : TESTED A T [facility] (BEAKER) (test code = [facility] [place], 1538) 98271: Business Intelligence Administrator/Techni lyudmila ID = [id number] for NADEGE PADILLA CBC (HEMOGRAM ONLY)2021-09-04 04:59:38 Test Item Value Reference Range Interpretation Comments WHITE BLOOD CELL COUNT (BEAKER) 11.4 K/ L 3.5-10.5 H (test code = 775) RED BLOOD CELL COUNT (BEAKER) 3.94 M/ L 3.93-5.22 (test code = 761) HEMOGLOBIN (BEAKER) (test code = 12.0 GM/DL 11.2-15.7 410) HEMATOCRIT (BEAKER) (test code = 36.4 % 34.1-44.9 411) MEAN CORPUSCULAR VOLUME (BEAKER) 92.4 fL 79.4-94.8 (test code = 753) MEAN CORPUSCULAR HEMOGLOBIN 30.5 pg 25.6-32.2 (BEAKER) (test code = 751) MEAN CORPUSCULAR HEMOGLOBIN CONC 33.0 GM/DL 32.2-35.5 (BEAKER) (test code = 752) RED CELL DISTRIBUTION WIDTH 12.8 % 11.7-14.4 (BEAKER) (test code = 412) PLATELET COUNT (BEAKER) (test 186 K/CU MM 150-450 code = 756) MEAN PLATELET VOLUME (BEAKER) 10.7 fL 9.4-12.3 (test code = 754) NUCLEATED RED BLOOD CELLS 0 /100 WBC 0-0 (BEAKER) (test code = 413) POCT-GLUCOSE [id number] 23:17:36 Test Item Value Reference Range Interpretation Comments POC-GLUCOSE METER 176 mg/dL 70-110 H : TESTED A T [facility]20 (BEAKER) (test code = [facility], 1538) 76147: Business Intelligence Administrator/Techni lyudmila ID = [id number] for NADEGE PADILLA POCT-GLUCOSE [id number] 19:24:14 Test Item Value Reference Range Interpretation Comments POC-GLUCOSE METER 171 mg/dL 70-110 H : TESTED A T [facility] (BEAKER) (test code = [facility], 1538) 54614: Business Intelligence Administrator/Techni lyudmila ID = [id number] for PU A, DRU Screen, [id number] 11:45:16 Test Item Value Reference Range Interpretation Comments Preg Test, Ur (test code = 2112-1) [facility] [id number] 11:45:16 Test Item Value Reference Range Interpretation Comments TEST URINE (BEAKER) (test Negative code = 583) POCT-GLUCOSE [id number] 11:09:06 Test Item Value Reference Range Interpretation Comments POC-GLUCOSE METER 143 mg/dL 70-110 H : [facility]YOVANI[facility] (test code [facility], = 1538) 90532: Business Intelligence Administrator/Techni lyudmila ID = [id number] for ARIANA Tee PATRICIA SARS-CoV2/RT-PCR (Asymptomatic ONLY)2021-09-03 10:11:27 Test Item Value Reference Range Interpretation Comments SARS-COV2/RT-PCR Negative Not Detected, (test code = Negative, See 69438-5) external report for linked test SARS-COV-2 [facility] (test code = 36119-9) [facility] (test code = Negative result for [...] limit of detection for this assay is 800 copies/mL. This SARS CoV-2 test is a [...] revoked under Section 564(g) of the Act. Fact Sheet for Healthcare Providers:https://www.[employer]/sites/default/f tereso/product/documents/F act_Sheet_HC_Providers_L tab_LAQY-SoM-0.pdf Fact Sheet for Healthcare Patients:https://www.[employer]/sites/default/fi les/product/documents/Fa ct_Sheet_Patients_Lyra_S ARS-CoV-2.pdf Performing Laboratory:[facility] [place] [address] [facility] ([facility])2021-09-03 10:11:27 Test Item Value Reference Range Interpretation Comments SARS-COV2/RT-PCR (test Negative Not Detected, Negative, code = 8311107) See external report for linked test SARS-COV-[address] [facility] (test code = 1122321) Negative result for this test determines that [...] limit of detection for this assay is 800 copies/mL.This SARS CoV-2 test is a real-time RT-PCR test intended for the qualitative detection of nucleic acid from SARS-CoV-2 in a nasopharyngeal swab specimen collected from individuals suspected of COVID-19 by their healthcare provider.This test [...] justifying the authorization of the emergency use ofin vitro diagnostic tests for detection and/or diagnosis of COVID-19 is terminated under Section 564(b)(2) of the Act or the EUA is revoked under Section 564(g) of the Act.Fact Sheet for Healthcare Prov iders:https://www.[employer]/sites/default/files/product/documents/Fact_Sheet_HC _Yopnbojvf_Ijhq_HNRP-IyF-5.pdfFact Sheet for Healthcare Patients:https://www.[employer]/sites/default/files/product/docume nts/Kmaa_Reecj_Oeaypgww_Jwuf_BEDK-FlB-9.pdfPerforming Laboratory:[facility] [place] [address]Hhudxedgky [id number] 09:19:55 Test Item Value Reference Range Interpretation Comments Hemoglobin A1C (test code = 4548-4) 8.1 % 4.3-6.1 H Lab Interpretation (test code = Abnormal 73636-6) [facility]HE[facility] [id number] 09:19:55 Test Item Value Reference Range Interpretation Comments HEMOGLOBIN A1C (BEAKER) (test code = 8.1 % 4.3-6.1 H 368) RAD, ABDOMEN/KUB, 1 VIEW [id number] 07:16:00Reason for exam:->Assess passage of contrast, parital small bowel obstruction [facility] : 1975 Sex: FFINAL REPORT TECHNIQUE: One view of the abdomen. INDICATION: Assess passage of contrast, partial small bowel obstruction on CT scan. COMPARISON: Abdomen and pelvis CT from five hours prior, abdomen radiographs 09/02/2021. IMPRESSION:Previously administered enteric contrast is not clearly visualized, likely due to dilution. Nonobstructive bowel gas pattern. Nasogastric/orogastric tube tipterminates over the expected region of the proximal gastric body. No acute osseous abnormality. Unchanged clips project over the right lower quadrant. Signed: Loulou Latif MDReport Verified Date/Time: 09/03/2021 07:16:46 Reading Location: [address] Transitional Reading Room Electronically signedby: LOULOU LATIF MD on 09/03/2021 07:16 [id number] 06:50:19 Test Item Value Reference Range Interpretation Comments MAGNESIUM (BEAKER) (test code = 2.1 mg/dL 1.6-2.6 627) Business Intelligence Administrator ID - [id number] 06:50:19 Test Item Value Reference Range Interpretation Comments PHOSPHORUS (BEAKER) (test code = 3.6 mg/dL 2.3-4.7 604) Business Intelligence Administrator ID - DBBASIC METABOLIC [id number] 06:46:54 Test Item Value Reference Range Interpretation Comments SODIUM (BEAKER) 135 meq/L 136-145 L (test code = 381) POTASSIUM (BEAKER) 3.5 meq/L 3.5-5.1 (test code = 379) CHLORIDE (BEAKER) 105 meq/L 98-107 (test code = 382) CO2 (BEAKER) (test 21 meq/L 22-29 L code = 355) BLOOD UREA NITROGEN 14 mg/dL 7-21 (BEAKER) (test code = 354) CREATININE (BEAKER) 0.74 mg/dL 0.57-1.25 (test code = 358) GLUCOSE RANDOM 166 mg/dL 70-105 H (BEAKER) (test code = 652) CALCIUM (BEAKER) 8.8 mg/dL 8.4-10.2 (test code = 697) EGFR (BEAKER) (test 84 mL/min/1.73 ESTIMA FRANSISCO GFR IS code = 1092) sq m NOT ACCURATE CREATININE CLEARANCE IN PREDICTING GLOMERULAR FILTRATION RATE . ESTIMATED GFR I S NOT APPLICABLE FOR DIALYSIS PATIEN TS. Business Intelligence Administrator ID - [id number] 06:03:21 Test Item Value Reference Range Interpretation Comments POC-GLUCOSE METER 152 mg/dL 70-110 H : TESTED A T BSC 6720 (BEAKER) (test code = SHARLA KW[place], 1538) [id number]: Business Intelligence Administrator/Techni lyudmila ID = [id number] for ARIN ROJASNADEGE AGUILRA CBC (HEMOGRAM ONLY)2021-09-03 05:50:21 Test Item Value Reference Range Interpretation Comments WHITE BLOOD CELL COUNT (BEAKER) 12.3 K/ L 3.5-10.5 H (test code = 775) RED BLOOD CELL COUNT (BEAKER) 4.45 M/ L 3.93-5.22 (test code = 761) HEMOGLOBIN (BEAKER) (test code = 13.6 GM/DL 11.2-15.7 410) HEMATOCRIT (BEAKER) (test code = 41.2 % 34.1-44.9 411) MEAN CORPUSCULAR VOLUME (BEAKER) 92.6 fL 79.4-94.8 (test code = 753) MEAN CORPUSCULAR HEMOGLOBIN 30.6 pg 25.6-32.2 (BEAKER) (test code = 751) MEAN CORPUSCULAR HEMOGLOBIN CONC 33.0 GM/DL 32.2-35.5 (BEAKER) (test code = 752) RED CELL DISTRIBUTION WIDTH 12.9 % 11.7-14.4 (BEAKER) (test code = 412) PLATELET COUNT (BEAKER) (test 205 K/CU MM 150-450 code = 756) MEAN PLATELET VOLUME (BEAKER) 10.8 fL 9.4-12.3 (test code = 754) NUCLEATED RED BLOOD CELLS 0 /100 WBC 0-0 (BEAKER) (test code = 413) CT, [id number] 03:09:00CT abdomen and pelvis with PO but not IV contrastUnlisted Reason for Exam - Click Yes and Enter Reason Below- >YesUnlisted Reason for Exam->possible bowel obstructionWill this procedure require oral contrast?->Yes [facility] [place] : 1975 Sex: FFINAL REPORT CLINICAL HISTORY: Unlisted reason for exam, possible bowel obstruction FINDINGS: Multiple axial images of the abdomen and pelvis were performed without intravenous contrast. Oral contrast was given. This exam was performed according to our departmental dose-optimization program, which includes automated exposure control, adjustment of the mA and/or kV according to patient size and/or use of the iterative reconstruction technique. Comparison:02/22/2021 Lower chest: Clear lungs. No pleural effusion or pneumothorax. Visualized cardiac contours normal. Liver: Hepatomegaly. The right hepatic margin measures 19 cm in craniocaudal dimension at the midclavicular line. Hepatic steatosis. Gallbladder and biliary tree: No significant findings. Spleen: No significant findings. Adrenal Glands: No significant findings. Kidneys and ureters: No significant findings. Stomach and Duodenum: An enteric tube tip is present in the mid gastric lumen. Pancreas: No significant findings. Bowel: Interval laparotomy with anastomotic suture in a portion of small bowel in the anterior lower abdomen. There are several dilated small bowel loops proximal to the postsurgical changes with fecalization of small bowel content. There is a normal caliber in the distal small bowel. Anastomotic suture is also present in a loop of small bowel in the right lower quadrant and in the distal colon. Stool and gas is present in normal caliber colon. Appendix: Absent Bladder: Excreted IV contrast in the urinary bladder. Major vascular structures: No significant findings. Reproductive organs: No significant findings. Other: No free air, fluid or adenopathy Skeleton: No acute bony abnormality. IMPRESSION: Interval postsurgical changes in portions of the large and small bowel, as described. There is a segment of dilated small bowel in the anterior lower abdomen adjacent to anastomotic suture. The distal small bowel is normal in caliber and stool and gas is present in normal caliber colon. This appearance may reflect early, intermittent or partial small bowel obstruction. Hepatomegaly and hepatic steatosis. Signed: Pat Shah [facility] Verified Date/Time: 09/03/2021 03:09:01 RAD, ABDOMEN/KUB, 1 VIEW [id number] 01:13:00Reason for exam:- >Enteric tube placement [facility] 1975 Sex: FFINAL REPORT CLINICAL HISTORY: Enteric tube placement verification COMPARISON: 02/28/2021 FINDINGS: 2 images of the abdomen are submitted. The tip of an enteric tube overlies the left upperquadrant in the expected position of the stomach. The abdominal bowel gas pattern is nonspecific butgrossly unobstructed. There is excreted IV contrast in the renal collecting system. There is no acute bony abnormality. Signed: Pat Shah [facility] Verified Date/Time: 09/03/2021 01:13:34 POCT-GLUCOSE [id number] 01:06:29 Test Item Value Reference Range Interpretation Comments POC-GLUCOSE METER 136 mg/dL 70-110 H : TESTED A T [facility] (AKER) (test code = TOANDREW Shields [facility], 1538) 31739: Business Intelligence Administrator/Techni lyudmila ID = [id number] for [place] AJAY NADEGE Type and screen, [id number] 00:33:00 Test Item Value Reference Range Interpretation Comments ABO/RH AUTOMATED ([facility]) (test O POSITIVE code = 2260) Ab Scrn (test code = 890-4) [facility]IVE [facility] Test Item Value Reference Range Interpretation Comments PTT (test code = 98701-5) 26.8 See_Comment [ Automated message] The system Websense generated this result transmitted ref erence range: 22.5 - 3 6.0 seconds. The re ference range was not u sed to interpret this result as normal/abnor mal. Lab Interpretation (test Normal code = 02561-3) [facility]:14[facility]29 Test Item Value Reference Range Interpretation Comments PARTIAL THROMBOPLASTIN TIME 26.8 seconds 22.5-36.0 (BEAKER) (test code = 760) [id number] 00:14:07 Test Item Value Reference Range Interpretation Comments Fibrinogen (test code = 3255-7) 341 mg/dl 225-434 Lab Interpretation (test code = Normal 01345-3) [facility]21[facility] 00:14:07 Test Item Value Reference Range Interpretation Comments FIBRINOGEN LEVEL (BEAKER) (test 341 mg/dl 225-434 code = 658) Prothromin time/[id number] 00:13:47 Test Item Value Reference Interpretation Comments Range Protime (test code = 14.3 See_Comment H [Autom ated 5902-2) message] The system which generated this result transmitted reference range : 11.9 - 14.2 seconds. The reference range was not used to interpret this result as normal/abnormal . INR (test code = 1.13 See_Comment [Automated 6301-6) message] The system which generated this result transmitted reference range : <=5.90. The reference range was not used to interpret this result as normal/abnormal . LUZ (test code = RECOMMENDED LUZ) COUMADIN/WARFARIN INR THERAPY RANGESSTANDARD DOSE: 2.0 - 3.0 Includes: PROPHYLAXIS for venous thrombosis, systemic embolization; TREATMENT for venous thrombosis and/or pulmonary embolus.HIGH RISK: Target INR is 2.5-3.5 for patients with mechanical heart valves. Lab Interpretation Abnormal (test code = 93496-0) [facility]/[id number] 00:13:47 Test Item Value Reference Range Interpretation Comments PROTIME (BEAKER) 14.3 seconds 11.9-14.2 H (test code = 759) INR (BEAKER) (test 1.13 See_Comment [Automat ed message] code = 370) The system [employer] h generated this result transmitted ref erence range: <=5.90. The reference range was not used to int erpret this result as normal/abnormal . RECOMMENDED COUMADIN/WARFARIN INR THERAPY RANGESSTANDARD DOSE: 2.0 - 3.0 Includes: PROPHYLAXIS for venous thrombosis, systemic embolization; TREATMENT for venous thrombosis and/or pulmonary embolus.HIGH RISK: Target INR is 2.5-3.5 for patients with mechanical heart valves.[id number] 00:13:07 Test Item Value Reference Range Interpretation Comments PHOSPHORUS (BEAKER) (test code = 4.4 mg/dL 2.3-4.7 604) Business Intelligence Administrator ID - DBBASIC METABOLIC [id number] 00:13:06 Test Item Value Reference Range Interpretation Comments SODIUM (BEAKER) 134 meq/L 136-145 L (test code = 381) POTASSIUM (BEAKER) 3.8 meq/L 3.5-5.1 (test code = 379) CHLORIDE (BEAKER) 102 meq/L 98-107 (test code = 382) CO2 (BEAKER) (test 21 meq/L 22-29 L code = 355) BLOOD UREA NITROGEN 13 mg/dL 7-21 (BEAKER) (test code = 354) CREATININE (BEAKER) 0.78 mg/dL 0.57-1.25 (test code = 358) GLUCOSE RANDOM 150 mg/dL 70-105 H (BEAKER) (test code = 652) CALCIUM (BEAKER) 8.9 mg/dL 8.4-10.2 (test code = 697) EGFR (BEAKER) (test 79 mL/min/1.73 ESTIMA FRANSISCO GFR IS code = 1092) sq m NOT ACCURATE CREATININE CLEARANCE IN PREDICTING GLOMERULAR FILTRATION RATE . ESTIMATED GFR I S NOT APPLICABLE FOR DIALYSIS PATIEN TS. Business Intelligence Administrator ID - [id number] 00:13:06 Test Item Value Reference Range Interpretation Comments MAGNESIUM (BEAKER) (test code = 2.1 mg/dL 1.6-2.6 627) Business Intelligence Administrator ID - DBLactic acid, [id number] 00:08:48 Test Item Value Reference Range Interpretation Comments Lactate, Venous (test code = 1.94 mmol/L 0.50-2.20 2872) LUZ (test code = LUZ) Business Intelligence Administrator ID - DB Lab Interpretation (test Normal code = 77001-3) [facility] CenterLACT[facility] ACID, [id number] 00:08:48 Test Item Value Reference Range Interpretation Comments LACTATE BLOOD VENOUS (2) (BEAKER) 1.94 mmol/L 0.50-2.20 (test code = 2872) Business Intelligence Administrator ID - DBCBC with platelet count + automated [id number] 23:57:47 Test Item Value Reference Range Interpretation Comments WBC (test code = 6690-2) 11.8 See_Comment H [A utomated message] The system Webs[employer] generated this result transmitted ref erence range: 3.5 - 10 .5 K/L. The refe rence range was not u sed to interpret this result as normal/abnor mal. RBC (test code = 789-8) 4.33 See_Comment [Au tomated message] The system We[employer] generated this result transmitted ref erence range: 3.93 - 5 .22 M/L. The refe rence range was not u sed to interpret this result as normal/abnor mal. MCHC (test code = 786-4) 33.5 See_Comment [A utomated message] The system [employer] generated this result transmitted ref erence range: 32.2 - 3 5.5 GM/DL. The refe rence range was not u sed to interpret this result as normal/abnor mal. Hematocrit (test code = 39.7 % 34.1-44.9 4544-3) MCV (test code = 787-2) 91.7 fL 79.4-94.8 MCH (test code = 785-6) 30.7 pg 25.6-32.2 RDW (test code = 788-0) 12.8 % 11.7-14.4 Platelets (test code = 217 See_Comment [Aut omated message] 777-3) The system [employer] generated this result transmitted ref erence range: 150 - 45 0 K/CU MM. The referen ce range was not u sed to interpret this result as normal/abnor mal. MPV (test code = 10.7 fL 9.4-12.3 58178-1) nRBC (test code = 413) 0 See_Comment [Aut omated message] The system [employer] generated this result transmitted ref erence range: 0 - 0 /1 00 WBC. The refere nce range was not u sed to interpret this result as normal/abnor mal. % Neutros (test code = 65 % 429) % Lymphs (test code = 26 % 430) % Monos (test code = 6 % 431) % Eos (test code = 432) 2 % % Baso (test code = 437) 1 % # Neutros (test code = 7.69 See_Comment H [Aut omated message] 670) The system [employer] generated this result transmitted ref erence range: 1.56 - 6 .13 K/L. The refe rence range was not u sed to interpret this result as normal/abnor mal. # Lymphs (test code = 3.06 See_Comment [Auto mated message] 414) The system [employer] generated this result transmitted ref erence range: 1.18 - 3 .74 K/L. The refe rence range was not u sed to interpret this result as normal/abnor mal. # Monos (test code = 0.71 See_Comment H [Autom ated message] 415) The system [employer] generated this result transmitted ref erence range: 0.24 - 0 .36 K/L. The refe rence range was not u sed to interpret this result as normal/abnor mal. # Eos (test code = 416) 0.23 See_Comment [Au tomated message] The system We[employer] generated this result transmitted ref erence range: 0.04 - 0 .36 K/L. The refe rence range was not u sed to interpret this result as normal/abnor mal. # Baso (test code = 417) 0.06 See_Comment [A utomated message] The system Webs[employer] generated this result transmitted ref erence range: 0.01 - 0 .08 K/L. The refe rence range was not u sed to interpret this result as normal/abnor mal. Immature 0 % 0-1 Granulocytes-Relative (test code = 2801) Lab Interpretation (test Abnormal code = 43135-4) [facility] W/PLT COUNT & AUTO [id number] 23:57:47 Test Item Value Reference Range Interpretation Comments WHITE BLOOD CELL COUNT (BEAKER) 11.8 K/ L 3.5-10.5 H (test code = 775) RED BLOOD CELL COUNT (BEAKER) 4.33 M/ L 3.93-5.22 (test code = 761) HEMOGLOBIN (BEAKER) (test code = 13.3 GM/DL 11.2-15.7 410) HEMATOCRIT (BEAKER) (test code = 39.7 % 34.1-44.9 411) MEAN CORPUSCULAR VOLUME (BEAKER) 91.7 fL 79.4-94.8 (test code = 753) MEAN CORPUSCULAR HEMOGLOBIN 30.7 pg 25.6-32.2 (BEAKER) (test code = 751) MEAN CORPUSCULAR HEMOGLOBIN CONC 33.5 GM/DL 32.2-35.5 (BEAKER) (test code = 752) RED CELL DISTRIBUTION WIDTH 12.8 % 11.7-14.4 (BEAKER) (test code = 412) PLATELET COUNT (BEAKER) (test 217 K/CU MM 150-450 code = 756) MEAN PLATELET VOLUME (BEAKER) 10.7 fL 9.4-12.3 (test code = 754) NUCLEATED RED BLOOD CELLS 0 /100 WBC 0-0 (BEAKER) (test code = 413) NEUTROPHILS RELATIVE PERCENT 65 % (BEAKER) (test code = 429) LYMPHOCYTES RELATIVE PERCENT 26 % (BEAKER) (test code = 430) MONOCYTES RELATIVE PERCENT 6 % (BEAKER) (test code = 431) EOSINOPHILS RELATIVE PERCENT 2 % (BEAKER) (test code = 432) BASOPHILS RELATIVE PERCENT 1 % (BEAKER) (test code = 437) NEUTROPHILS ABSOLUTE COUNT 7.69 K/ L 1.56-6.13 H (BEAKER) (test code = 670) LYMPHOCYTES ABSOLUTE COUNT 3.06 K/ L 1.18-3.74 (BEAKER) (test code = 414) MONOCYTES ABSOLUTE COUNT (BEAKER) 0.71 K/ L 0.24-0.36 H (test code = 415) EOSINOPHILS ABSOLUTE COUNT 0.23 K/ L 0.04-0.36 (BEAKER) (test code = 416) BASOPHILS ABSOLUTE COUNT (BEAKER) 0.06 K/ L 0.01-0.08 (test code = 417) IMMATURE GRANULOCYTES-RELATIVE 0 % 0-1 PERCENT (BEAKER) (test code = 2801) TISSUE [id number] 18:26:00Surgical Pathology Report Case: [id number] Authorizing Provider: Genny Oconnor MD Collected: 05/31/2021 10:33 AM Ordering Location: [facility] Received: 05/31/2021 01:12 PM SERVICES Pat hologist: Tony Sy MD Specimen: Small Bowel, NOS SMALL BOWEL AND CUTANEOUS TISSUE, ILEOSTOMY, TAKEDOWN:- MILD CHRONIC INFLAMMATION- NEGATIVE FOR DYSPLASIA OR MALIGNANCY Signing Pathologist Direct Phone Line: [phone] signed by Tony Sy MD on 06/02/2021t 6:26 [id number] Preop diagnosis: diverticulitis Small bowel, NOSReceived fresh labeled with the patient's name, accession number and "small bowel, NOS" is a 4.7 cm in length x 2.5 cm in diameter unoriented small bowel with up to 1.0 cm of attached mesenteric fat. The serosa is sanders-pink, predominantly surfaced by multiple adhesions and displays a 4.0 cm transmural defect with up to 0.4 cm of attached sanders skin, which is consistent with an ileostomy site. The ileostomy site is located 1.4 cm from the closest margin (inked blue) and 2.0 cm from the opposing end. The specimen is opened to reveal a sanders-pink mucosa but displays normal folds. No discrete lesions are identified. Brick Off Bearer section are s ubmitted as follows:Section code: A1 - small bowel margins en face, one inked blueA2 - ileostomy site. PA/pl Performed. [facility], Department of Pathology, [address] [place] [address], [facility], [address] [place] [address], [facility], [facility], [address] [place] [address], QQQN-GLUCOSE [id number] 10:55:00 Test Item Value Reference Range Interpretation Comments POC-GLUCOSE METER 144 mg/dL 70-110 H : TESTED A T [facility] 6720 (BEAKER) (test code = [facility], 153) 64311: Business Intelligence Administrator/Techni lyudmila ID = [id number] for Ib gonzálezJb POCT-GLUCOSE [id number] 08:01:00 Test Item Value Reference Range Interpretation Comments POC-GLUCOSE METER 120 mg/dL 70-110 H : TESTED A T [facility] 6720 (BEAKER) (test code = [facility], 153) 57402: Business Intelligence Administrator/Techni lyudmila ID = [id number] for Ib Jb claudio BASIC METABOLIC [id number] 05:45:00 Test Item Value Reference Range Interpretation Comments SODIUM (BEAKER) 140 meq/L 136-145 (test code = 381) POTASSIUM (BEAKER) 3.3 meq/L 3.5-5.1 L (test code = 379) CHLORIDE (BEAKER) 109 meq/L 98-107 H (test code = 382) CO2 (BEAKER) (test 22 meq/L 22-29 code = 355) BLOOD UREA NITROGEN 6 mg/dL 7-21 L (BEAKER) (test code = 354) CREATININE (BEAKER) 0.57 mg/dL 0.57-1.25 (test code = 358) GLUCOSE RANDOM 116 mg/dL 70-105 H (BEAKER) (test code = 652) CALCIUM (BEAKER) 7.9 mg/dL 8.4-10.2 L (test code = 697) EGFR (BEAKER) (test 114 mL/min/1.73 ESTIM ATED GFR IS code = 1092) sq m NOT ACCURATE CREATININE CLEARANCE IN PREDICTING GLOMERULAR FILTRATION RATE . ESTIMATED GFR I S NOT APPLICABLE FOR DIALYSIS PATIEN TS. Business Intelligence Administrator ID - PIAYA LCBC W/PLT COUNT & AUTO [id number] 05:20:00 Test Item Value Reference Range Interpretation Comments WHITE BLOOD CELL COUNT (BEAKER) 7.4 K/ L 3.5-10.5 (test code = 775) RED BLOOD CELL COUNT (BEAKER) 3.49 M/ L 3.93-5.22 L (test code = 761) HEMOGLOBIN (BEAKER) (test code = 10.9 GM/DL 11.2-15.7 L 410) HEMATOCRIT (BEAKER) (test code = 32.1 % 34.1-44.9 L 411) MEAN CORPUSCULAR VOLUME (BEAKER) 92.0 fL 79.4-94.8 (test code = 753) MEAN CORPUSCULAR HEMOGLOBIN 31.2 pg 25.6-32.2 (BEAKER) (test code = 751) MEAN CORPUSCULAR HEMOGLOBIN CONC 34.0 GM/DL 32.2-35.5 (BEAKER) (test code = 752) RED CELL DISTRIBUTION WIDTH 13.4 % 11.7-14.4 (BEAKER) (test code = 412) PLATELET COUNT (BEAKER) (test 171 K/CU MM 150-450 code = 756) MEAN PLATELET VOLUME (BEAKER) 10.0 fL 9.4-12.3 (test code = 754) NUCLEATED [...] (test code = 437) NEUTROPHILS ABSOLUTE COUNT 3.98 K/ L 1.56-6.13 (BEAKER) (test code = 670) LYMPHOCYTES ABSOLUTE COUNT 2.74 K/ L 1.18-3.74 (BEAKER) (test code = 414) MONOCYTES ABSOLUTE COUNT (BEAKER) 0.44 K/ L 0.24-0.36 H (test code = 415) EOSINOPHILS ABSOLUTE COUNT 0.16 K/ L 0.04-0.36 (BEAKER) (test code = 416) BASOPHILS ABSOLUTE COUNT (BEAKER) 0.03 K/ L 0.01-0.08 (test code = 417) IMMATURE GRANULOCYTES-RELATIVE 0 % 0-1 PERCENT (BEAKER) (test code = 2801) POCT-GLUCOSE [id number] 22:03:00 Test Item Value Reference Range Interpretation Comments POC-GLUCOSE METER 122 mg/dL 70-110 H : TESTED A T [facility] 6720 (BEAKER) (test code = [facility], 153) 00748: Business Intelligence Administrator/Techni lyudmila ID = [id number] for No rman, Henrique POCT-GLUCOSE [id number] 16:48:00 Test Item Value Reference Range Interpretation Comments POC-GLUCOSE METER 126 mg/dL 70-110 H : TESTED A T [facility] 6720 (BEAKER) (test code = [facility], 153) 07839: Business Intelligence Administrator/Techni lyudmila ID = [id number] for Ur rutia (pca2), Jeannie POCT-GLUCOSE [id number] 11:22:00 Test Item Value Reference Range Interpretation Comments POC-GLUCOSE METER 114 mg/dL 70-110 H : TESTED A T [facility] 6720 (BEAKER) (test code = [facility], 153) 03727: Business Intelligence Administrator/Techni lyudmila ID = [id number] for Ur rutia (pca2), Jeannie POCT-GLUCOSE [id number] 07:45:00 Test Item Value Reference Range Interpretation Comments POC-GLUCOSE METER 112 mg/dL 70-110 H : TESTED A T [facility] 6720 (BEAKER) (test code = [facility] [place], 1538) 10551: Business Intelligence Administrator/Techni lyudmila ID = [id number] for Rafi mcgovern (pca2)Jeannie BASIC METABOLIC [id number] 06:16:00 Test Item Value Reference Range Interpretation Comments SODIUM (BEAKER) 138 meq/L 136-145 (test code = 381) POTASSIUM (BEAKER) 3.5 meq/L 3.5-5.1 (test code = 379) CHLORIDE (BEAKER) 105 meq/L 98-107 (test code = 382) CO2 (BEAKER) (test 24 meq/L 22-29 code = 355) BLOOD UREA NITROGEN 8 mg/dL 7-21 (BEAKER) (test code = 354) CREATININE (BEAKER) 0.64 mg/dL 0.57-1.25 (test code = 358) GLUCOSE RANDOM 110 mg/dL 70-105 H (BEAKER) (test code = 652) CALCIUM (BEAKER) 8.3 mg/dL 8.4-10.2 L (test code = 697) EGFR (BEAKER) (test 99 mL/min/1.73 ESTIMA FRANSISCO GFR IS code = 1092) sq m NOT ACCURATE CREATININE CLEARANCE IN PREDICTING GLOMERULAR FILTRATION RATE . ESTIMATED GFR I S NOT APPLICABLE FOR DIALYSIS PATIEN TS. Business Intelligence Administrator ID - SHARMAINE WCBC W/PLT COUNT & AUTO [id number] 05:48:00 Test Item Value Reference Range Interpretation Comments WHITE BLOOD CELL COUNT (BEAKER) 9.7 K/ L 3.5-10.5 (test code = 775) RED BLOOD CELL COUNT (BEAKER) 3.67 M/ L 3.93-5.22 L (test code = 761) HEMOGLOBIN (BEAKER) (test code = 11.3 GM/DL 11.2-15.7 410) HEMATOCRIT (BEAKER) (test code = 33.1 % 34.1-44.9 L 411) MEAN CORPUSCULAR VOLUME (BEAKER) 90.2 fL 79.4-94.8 (test code = 753) MEAN CORPUSCULAR HEMOGLOBIN 30.8 pg 25.6-32.2 (BEAKER) (test code = 751) MEAN CORPUSCULAR HEMOGLOBIN CONC 34.1 GM/DL 32.2-35.5 (BEAKER) (test code = 752) RED CELL DISTRIBUTION WIDTH 13.2 % 11.7-14.4 (BEAKER) (test code = 412) PLATELET COUNT (BEAKER) (test 190 K/CU MM 150-450 code = 756) MEAN PLATELET VOLUME (BEAKER) 10.0 fL 9.4-12.3 (test code = 754) NUCLEATED [...] (test code = 437) NEUTROPHILS ABSOLUTE COUNT 6.96 K/ L 1.56-6.13 H (BEAKER) (test code = 670) LYMPHOCYTES ABSOLUTE COUNT 1.99 K/ L 1.18-3.74 (BEAKER) (test code = 414) MONOCYTES ABSOLUTE COUNT (BEAKER) 0.62 K/ L 0.24-0.36 H (test code = 415) EOSINOPHILS ABSOLUTE COUNT 0.03 K/ L 0.04-0.36 L (BEAKER) (test code = 416) BASOPHILS ABSOLUTE COUNT (BEAKER) 0.03 K/ L 0.01-0.08 (test code = 417) IMMATURE GRANULOCYTES-RELATIVE 0 % 0-1 PERCENT (BEAKER) (test code = 2801) POCT-GLUCOSE [id number] 21:41:00 Test Item Value Reference Range Interpretation Comments POC-GLUCOSE METER 131 mg/dL 70-110 H : TESTED A T [facility] 6720 (BEAKER) (test code = [facility], 1538) 68386: Business Intelligence Administrator/Techni lyudmila ID = [id number] for NADEGE PADILLA POCT-GLUCOSE [id number] 16:35:00 Test Item Value Reference Range Interpretation Comments POC-GLUCOSE METER 158 mg/dL 70-110 H : TESTED A T [facility] 6720 (BEAKER) (test code = [facility], 1538) 75506: Business Intelligence Administrator/Techni lyudmila ID = [id number] for CO RTEZ, GYPSY POCT-GLUCOSE [id number] 15:14:00 Test Item Value Reference Range Interpretation Comments POC-GLUCOSE METER 158 mg/dL 70-110 H : TESTED A T [facility] ([facility]) (test code = [facility], 1538) 10174: Business Intelligence Administrator/Techni lyudmila ID = [id number] for Pa Dionicio arthura POCT-GLUCOSE [id number] 09:00:00 Test Item Value Reference Range Interpretation Comments POC-GLUCOSE METER 105 mg/dL 70-110 : TESTED A T [facility] ([facility]) (test code = [facility], 1538) 47311: Business Intelligence Administrator/Techni lyudmila ID = [id number] for SUSAN LEBRON (V)CLARISSA FL, [id number] 11:15:00Reason for Exam:->[facility] strict[facility] 1975 Sex: FFINAL REPORT EXAM: Enema with water-soluble contrast INDICATION: Colonic stricture. COMPARISON: None. FINDINGS: Machine Gun Mechanic film shows Right-sided ostomy. Surgical staple line related to prior anastomosis. The entire colon is coated with water-soluble contrast. There is no extraluminal leak of contrast or narrowing to suggest stricture. Fluoroscopy time: 1.3 minutesNumber of images: 11 IMPRESSION:No colonic leak or stricture. Signed: Nina Hunter Verified Date/Time: 05/01/2021 11:15:28 AFB CULTURE + SMEAR (NON-SPUTUM) 2021-04-11 10:29:00 Test Item Value Reference Range Interpretation Comments CULTURE (BEAKER) (test No acid-fast bacilli code = 1095) isolated in 42 days AFB SMEAR (BEAKER) No acid fast bacilli (test code = 994) seen FUNGUS CULTURE + [id number] 00:37:00 Test Item Value Reference Range Interpretation Comments CULTURE (BEAKER) (test No fungus isolated in code = 1095) 28 days FUNGUS SMEAR (BEAKER) No fungi seen (test code = 1406) POCT-GLUCOSE [id number] 07:50:00 Test Item Value Reference Range Interpretation Comments POC-GLUCOSE METER 146 mg/dL 70-110 H : TESTED A T [facility] (BEAKER) (test code = [facility] [place], 1538) 02398: Business Intelligence Administrator/Techni lyudmila ID = [id number] for DAPHNE GHOTRA BASIC METABOLIC [id number] 05:39:00 Test Item Value Reference Range Interpretation [...] 1092) DATA TO CALCULA TE ESTIMATED GFR. Business Intelligence Administrator ID - [id number] 05:34:00 Test Item Value Reference Range Interpretation Comments MAGNESIUM (BEAKER) 1.6 mg/dL 1.6-2.6 Specimen moderately (test code = 627) hemolyzed Business Intelligence Administrator ID - [id number] 05:34:00 Test Item Value Reference Range Interpretation Comments PHOSPHORUS (BEAKER) 4.5 mg/dL 2.3-4.7 Specimen moderately (test code = 604) hemolyzed Business Intelligence Administrator ID - ADMINCBC W/PLT COUNT & AUTO [id number] 05:25:00 Test Item Value Reference Range Interpretation [...] PERCENT (BEAKER) (test code = 2801) POCT-GLUCOSE [id number] 21:44:00 Test Item Value Reference Range Interpretation Comments POC-GLUCOSE METER 156 mg/dL 70-110 H : TESTED A T [facility] 6720 (BEAKER) (test code = [facility], 153) 13581: Business Intelligence Administrator/Techni lyudmila ID = [id number] for CORNELIO BENAVIDEZ POCT-GLUCOSE [id number] 11:50:00 Test Item Value Reference Range Interpretation Comments POC-GLUCOSE METER 136 mg/dL 70-110 H : TESTED A T [facility] 6720 (BEAKER) (test code = [facility], 153) 81088: Business Intelligence Administrator/Techni lyudmila ID = [id number] for JESU SAMANIEGO POCT-GLUCOSE [id number] 08:06:00 Test Item Value Reference Range Interpretation Comments POC-GLUCOSE METER 141 mg/dL 70-110 H : TESTED A T [facility] 6720 (BEAKER) (test code = [facility], 1538) 53723: Business Intelligence Administrator/Techni lyudmila ID = [id number] for JESU SAMANIEGO BASIC METABOLIC [id number] 06:35:00 Test Item Value Reference Range Interpretation [...] 1092) DATA TO CALCULA TE ESTIMATED GFR. Business Intelligence Administrator ID - [id number] 06:21:00 Test Item Value Reference Range Interpretation Comments MAGNESIUM (BEAKER) (test code = 1.5 mg/dL 1.6-2.6 L 627) Business Intelligence Administrator ID - [id number] 06:21:00 Test Item Value Reference Range Interpretation Comments PHOSPHORUS (BEAKER) (test code = 4.4 mg/dL 2.3-4.7 604) Business Intelligence Administrator ID - ADMINCBC W/PLT COUNT & AUTO [id number] 06:03:00 Test Item Value Reference Range Interpretation [...] LYMPHOCYTES ABSOLUTE COUNT 2.54 K/ L 1.18-3.74 (BEAKER) (test code = 414) MONOCYTES ABSOLUTE COUNT (BEAKER) 0.68 K/ L 0.24-0.36 H (test code = 415) EOSINOPHILS ABSOLUTE COUNT 0.43 K/ L 0.04-0.36 H (BEAKER) (test code = 416) BASOPHILS ABSOLUTE COUNT (BEAKER) 0.06 K/ L 0.01-0.08 (test code = 417) IMMATURE GRANULOCYTES-RELATIVE 0 % 0-1 PERCENT (BEAKER) (test code = 2801) POCT-GLUCOSE [id number] 21:18:00 Test Item Value Reference Range Interpretation Comments POC-GLUCOSE METER 136 mg/dL 70-110 H : Notified RN/MD: ([facility]) (test code = TESTED AT [place] [address] 1537) [facility], [address]: Business Intelligence Administrator/Techni lyudmila ID = [id number] for Sa nchez, Ozzie POCT-GLUCOSE [id number] 17:37:00 Test Item Value Reference Range Interpretation Comments POC-GLUCOSE METER 98 mg/dL 70-110 : TESTED [place] T [place] [id number] ([facility]) (test code = [facility], 153) [address]: Business Intelligence Administrator/Techni lyudmila ID = [id number] for REBEKA S, MICHAEL POCT-GLUCOSE [id number] 12:03:00 Test Item Value Reference Range Interpretation Comments POC-GLUCOSE METER 117 mg/dL 70-110 H : TESTED A T [facility] 6720 ([facility]) (test code = [facility], 153) [address]: Business Intelligence Administrator/Techni lyudmila ID = [id number] for RA MOS, MICHAEL CBC (HEMOGRAM ONLY)2021-03-04 11:22:00 Test Item Value Reference [...] 0-0 (BEAKER) (test code = 413) POCT-GLUCOSE [id number] 07:52:00 Test Item Value Reference Range Interpretation Comments POC-GLUCOSE METER 142 mg/dL 70-110 H : [facility] (BEAKER[facility] (test code = [place], 1538) [address]: Business Intelligence Administrator/Techni lyudmila ID = [id number] for RA MOS, MICHAEL CBC W/PLT COUNT & AUTO [id number] 06:32:00 Test Item Value Reference Range Interpretation [...] (BEAKER) (test code = 2801) BASIC METABOLIC [id number] 06:20:00 Test Item Value Reference Range Interpretation [...] 1092) DATA TO CALCULA TE ESTIMATED GFR. Business Intelligence Administrator ID - GABRIELA [id number] 06:19:00 Test Item Value Reference Range Interpretation Comments MAGNESIUM (BEAKER) (test code = 1.5 mg/dL 1.6-2.6 L 627) Business Intelligence Administrator ID - GABRIELA [id number] 06:19:00 Test Item Value Reference Range Interpretation Comments PHOSPHORUS (BEAKER) (test code = 4.6 mg/dL 2.3-4.7 604) Business Intelligence Administrator ID - GABRIELA MPOCT-GLUCOSE [id number] 21:19:00 Test Item Value Reference Range Interpretation Comments POC-GLUCOSE METER 112 mg/dL 70-110 H : TESTED A T [facility] 6720 (BEAKER) (test code = [facility], 153) [address]: Business Intelligence Administrator/Techni lyudmila ID = [id number] for Cindy Cordova POCT-GLUCOSE [id number] 16:56:00 Test Item Value Reference Range Interpretation Comments POC-GLUCOSE METER 133 mg/dL 70-110 H : TESTED A T [facility] 6720 (BEAKER) (test code = [facility], 153) [address]: Business Intelligence Administrator/Techni lyudmila ID = [id number] for JESU SAMANIEGO POCT-GLUCOSE [id number] 11:45:00 Test Item Value Reference Range Interpretation Comments POC-GLUCOSE METER 180 mg/dL 70-110 H : TESTED A T [facility] 6720 (BEAKER) (test code = [facility], 153) [address]: Business Intelligence Administrator/Techni lyudmila ID = [id number] for JESU SAMANIEGO BASIC METABOLIC [id number] 05:49:00 Test Item Value Reference Range Interpretation [...] 1092) DATA TO CALCULA TE ESTIMATED GFR. Business Intelligence Administrator ID - [id number] 05:45:00 Test Item Value Reference Range Interpretation Comments MAGNESIUM (BEAKER) (test code = 1.6 mg/dL 1.6-2.6 627) Business Intelligence Administrator ID - [id number] 05:45:00 Test Item Value Reference Range Interpretation Comments PHOSPHORUS (BEAKER) (test code = 4.6 mg/dL 2.3-4.7 604) Business Intelligence Administrator ID - EDASIHEPATIC FUNCTION [id number] 05:45:00 Test Item Value Reference Range Interpretation [...] (test code = 23 U/L 6-55 347) Business Intelligence Administrator ID - EDASICBC W/PLT COUNT & AUTO [id number] 05:33:00 Test Item Value Reference Range Interpretation [...] PERCENT (BEAKER) (test code = 2801) POCT-GLUCOSE [id number] 05:10:00 Test Item Value Reference Range Interpretation Comments POC-GLUCOSE METER 114 mg/dL 70-110 H : TESTED A T [facility] 67[address] (BEAKER) (test code = [place], 1538) [address]: Business Intelligence Administrator/Techni lyudmila ID = [id number] for AN CORNELIO HICKEY SARS-COV2/RT-PCR ([facility])2021-03-03 04:28:00 Test Item Value Reference Range Interpretation Comments SARS-COV2/RT-PCR (test Negative Not Detected, Negative, code = 1742731) See external report for linked test SARS-COV-[address] [facility] MARK (test code = 4173924) Negative result for this test determines that [...] individuals suspected of COVID-19 by their healthcare provider.This test [...] justifying the authorization of the emergency use ofin vitro diagnostic tests for detection and/or diagnosis of COVID-19 is terminated under Section 564(b)(2) of the Act or the EUA is revoked under Section 564(g) of the Act.Testing was performed using the Mcmillan SARS-CoV-2 assay.Fact Sheet for Healthcare Providers:https://www.[employer].mcmillan/dave/RT_SAR A-ZeB-6_JRQ_Mloj_Ucquq_08-105154.pdfFact Sheet for Healthcare Patients:https://www.[employer].mcmillan/s al/TS_VTHZ-BsF-2_Pzlcdro_Hxgq_Rxrra_LD_38-210607M5.pdfPerforming Laboratory:[address] [place] [address] POCT-GLUCOSE [id number] 22:25:00 Test Item Value Reference Range Interpretation Comments POC-GLUCOSE METER 96 mg/dL 70-110 : TESTED A T [facility] 6720 (BEAKER) (test code = [facility], 153) [address]: Business Intelligence Administrator/Techni lyudmila ID = [id number] for CORNELIO BATISTA POCT-GLUCOSE [id number] 18:30:00 Test Item Value Reference Range Interpretation Comments POC-GLUCOSE METER 127 mg/dL 70-110 H : TESTED A T [facility] 6720 (BEAKER) (test code = [facility], 153) [address]: Business Intelligence Administrator/Techni lyudmila ID = [id number] for DUANE SAMANIEGOON POCT-GLUCOSE [id number] 12:08:00 Test Item Value Reference Range Interpretation Comments POC-GLUCOSE METER 130 mg/dL 70-110 H : TESTED A T [facility] 6720 (BEAKER) (test code = [facility], 153) [address]: Business Intelligence Administrator/Techni lyudmila ID = [id number] for WH ITMAN, JESU POCT-GLUCOSE [id number] 05:33:00 Test Item Value Reference Range Interpretation Comments POC-GLUCOSE METER 106 mg/dL 70-110 : TESTED A T [facility] 6720 (BEAKER) (test code = [facility], 153) [address]: Business Intelligence Administrator/Techni lyudmila ID = [id number] for Cindy Cordova BASIC METABOLIC [id number] 04:26:00 Test Item Value Reference Range Interpretation [...] 1092) DATA TO CALCULA TE ESTIMATED GFR. Business Intelligence Administrator ID - GABRIELA [id number] 04:21:00 Test Item Value Reference Range Interpretation Comments MAGNESIUM (BEAKER) (test code = 1.6 mg/dL 1.6-2.6 627) Business Intelligence Administrator ID - GABRIELA [id number] 04:21:00 Test Item Value Reference Range Interpretation Comments PHOSPHORUS (BEAKER) (test code = 4.4 mg/dL 2.3-4.7 604) Business Intelligence Administrator ID - GABRIELA MCBC W/PLT COUNT & AUTO [id number] 04:06:00 Test Item Value Reference Range Interpretation [...] PERCENT (BEAKER) (test code = 2801) POCT-GLUCOSE [id number] 00:07:00 Test Item Value Reference Range Interpretation Comments POC-GLUCOSE METER 104 mg/dL 70-110 : TESTED A T [facility] 6720 (BEAKER) (test code = [facility], 1538) [address]: Business Intelligence Administrator/Techni lyudmila ID = [id number] for Cindy Cordova POCT-GLUCOSE [id number] 18:05:00 Test Item Value Reference Range Interpretation Comments POC-GLUCOSE METER 91 mg/dL 70-110 : TESTED A T [facility] 6720 (BEAKER) (test code = [facility], 1538) [address]: Business Intelligence Administrator/Techni lyudmila ID = [id number] for Jennifer Lehman POCT-GLUCOSE [id number] 12:19:00 Test Item Value Reference Range Interpretation Comments POC-GLUCOSE METER 96 mg/dL 70-110 : TESTED A T [facility] 6720 (BEAKER) (test code = [facility], 1538) [address]: Business Intelligence Administrator/Techni lyudmila ID = [id number] for Rj nguyen Jennifer POCT-GLUCOSE [id number] 06:42:00 Test Item Value Reference Range Interpretation Comments POC-GLUCOSE METER 117 mg/dL 70-110 H : TESTED A T [facility] 6720 (BEAKER) (test code = [facility], 1538) [address]: Business Intelligence Administrator/Techni lyudmila ID = [id number] for ISHMAEL CAMARILLO, WHEELER BASIC METABOLIC [id number] 05:29:00 Test Item Value Reference Range Interpretation [...] 1092) DATA TO CALCULA TE ESTIMATED GFR. Business Intelligence Administrator ID - GABRIELA [id number] 05:27:00 Test Item Value Reference Range Interpretation Comments MAGNESIUM (BEAKER) (test code = 1.8 mg/dL 1.6-2.6 627) Business Intelligence Administrator ID - GABRIELA [id number] 05:27:00 Test Item Value Reference Range Interpretation Comments PHOSPHORUS (BEAKER) (test code = 4.8 mg/dL 2.3-4.7 H 604) Business Intelligence Administrator ID - GABRIELA MCBC W/PLT COUNT & AUTO [id number] 04:57:00 Test Item Value Reference Range Interpretation [...] PERCENT (BEAKER) (test code = 2801) POCT-GLUCOSE [id number] 00:37:00 Test Item Value Reference Range Interpretation Comments POC-GLUCOSE METER 120 mg/dL 70-110 H : TESTED A T [facility] (YOVANI) (test code = [place], 1538) [address]: Business Intelligence Administrator/Techni lyudmila ID = [id number] for PI RABIA, ADA RAD, ABDOMEN/KUB, 1 VIEW [id number] 19:30:00Reason for exam:->nausea, vomiting, abdominal distentionShould this be performed at the bedside?->[facility] 1975 Sex: FFINAL REPORT CLINICAL HISTORY: Nausea, vomiting and abdominal distention COMPARISON: None. FINDINGS: 2 supine images of the abdomen are submitted. There are several gas dilated loops of small bowel in the central abdomen. The appearance is nonspecific and could reflect ileus though a small bowel obstruction is a consideration, depending on clinical presentation. A surgical drain overliesthe pelvis. There is radiographic evidence of organomegaly. No acute bony abnormality is present. Please note that a supine examination is insensitive in the detection of free intraperitoneal air. Signed: Pat Shah Verified Date/Time: 02/28/2021 19:30:20 POCT-GLUCOSE [id number] 18:10:00 Test Item Value Reference Range Interpretation Comments POC-GLUCOSE METER 156 mg/dL 70-110 H : TESTED A T [facility] 6720 (BEAKER) (test code = [facility], 1538) [address]: Business Intelligence Administrator/Techni lyudmila ID = [id number] for Shayla Padilla POCT-GLUCOSE [id number] 11:48:00 Test Item Value Reference Range Interpretation Comments POC-GLUCOSE METER 122 mg/dL 70-110 H : TESTED A T [facility] 6720 (BEAKER) (test code = [facility], 1538) 209[address]: Business Intelligence Administrator/Techni lyudmila ID = [id number] for Christian Padillaa ANAEROBIC [id number] 07:22:00 Test Item Value Reference Range Interpretation Comments CULTURE (BEAKER) (test No anaerobes isolated code = 1095) POCT-GLUCOSE [id number] 06:17:00 Test Item Value Reference Range Interpretation Comments POC-GLUCOSE METER 136 mg/dL 70-110 H : TESTED A T [facility] 6720 (BEAKER) (test code = [facility], 1538) [address]: Business Intelligence Administrator/Techni lyudmila ID = [id number] for Cindy Cordova BASIC METABOLIC [id number] 05:12:00 Test Item Value Reference Range Interpretation [...] 1092) DATA TO CALCULA TE ESTIMATED GFR. Business Intelligence Administrator ID - GABRIELA [id number] 05:07:00 Test Item Value Reference Range Interpretation Comments MAGNESIUM (BEAKER) (test code = 1.8 mg/dL 1.6-2.6 627) Business Intelligence Administrator ID - GABRIELA [id number] 05:07:00 Test Item Value Reference Range Interpretation Comments PHOSPHORUS (BEAKER) (test code = 3.6 mg/dL 2.3-4.7 604) Business Intelligence Administrator ID - GABRIELA MHEPATIC FUNCTION [id number] 05:07:00 Test Item Value Reference Range Interpretation [...] (test code = 16 U/L 6-55 347) Business Intelligence Administrator ID - GABRIELA MCBC W/PLT COUNT & AUTO [id number] 04:48:00 Test Item Value Reference Range Interpretation [...] PERCENT (BEAKER) (test code = 2801) POCT-GLUCOSE [id number] 00:20:00 Test Item Value Reference Range Interpretation Comments POC-GLUCOSE METER 133 mg/dL 70-110 H : TESTED A T [facility] 6720 (BEAKER) (test code = [facility], 153) [address]: Business Intelligence Administrator/Techni lyudmila ID = [id number] for Cindy Cordova POCT-GLUCOSE [id number] 18:26:00 Test Item Value Reference Range Interpretation Comments POC-GLUCOSE METER 131 mg/dL 70-110 H : TESTED A T [facility] 6720 (BEAKER) (test code = [facility], 153) [address]: Business Intelligence Administrator/Techni lyudmila ID = [id number] for Pavel Boyle TISSUE [id number] 18:09:00Surgical Pathology Report Case: [id number] Authorizing Provider: Genny Oconnor MD Collected: 02/24/2021 10:11 AM Ordering Location: [facility] Received: 02/24/2021 01:24 PM SERVICES Pat hologist: Tony Sy MD Specimens: A) - Large Intestine, Colon - Sigmoid, sigmoid colon B) - Biopsy, Anastomotic Site, anastomotic rings C) - Small Bowel, NOS D) - Omentum A. COLON, SIGMOID, RESECTION:- DIVERTICULITIS WITH PERFORATION- SURGICAL MARGINS VIABLE- TWO BENIGN LYMPH NODES (0/2)B. COLON, ANASTOMOTIC RINGS, EXCISION:- NO PATHOLOGIC DIAGNOSISC. SMALL BOWEL, RESECTION:- SMALL BOWEL WITH PERFORATION, ACUTE INFLAMMATION, FIBROSIS AND GRANULATION TISSUE- SURGICAL MARGINS VIABLED.OMENTUM, EXCISION:- BENIGN FIBROADIPOSE TISSUE WITH FIBROSIS, GRANULATION TISSUE AND ACUTE INFLAMMATION Signing Pathologist Direct Phone Line: [phone] signed by Tony Sy MD on 02/27/2021 at 6:09 [id number]. Sigmoid colonB. Anastomotic siteC. Small bowel, NOSD. OmentumA. Received fresh labeled the patient's name, accession number and "sigmoidcolon" are 2 unoriented segments of colon that range from 13.5-16.0 cm in greatest length by 3.0 cm in diameter.The longer segment (S1) serosa is red-pink, hyperemic and displays a 0.2 x 0.2 cm transmural defect with surrounding adhesions that is 4.2 cm from the closest margin (inked blue), and 11.0 cm from the opposing end (black). The specimen is opened to reveal a sanders-pink mucosa that displays normal folds. No discrete lesions are grossly appreciated. Sectioning reveals multiple diverticuli throug hout the entire colon. The wall measures up to 0.4 cm thick.The shorter segment (S2) serosa is sanders-pink, hyperemic and predominantly surfaced by multiple adhesions. The specimen is opened to reveal a sanders-pink mucosa that displays normal to flattened folds. No discrete lesions are grossly appreciated. S ectioning reveals a wall that measures up to 0.2 cm thick. No discrete lesions or perforations are grossly appreciated. Brick Off Bearer sections are submitted as follows:Section codeA1-S1 colon margins en face, differentially inked blue and knaarO7-C9-O7 transmural ciosvnP0-S8-A7 diverticulaA6-S2 colonmargins en face, differentially inked blue and blackA7-outside industrial sales representative Z8H3-eradjccl lymph nodesB. Received fresh labeled the patient's name, accession number and "anastomotic rings" are 2 unoriented, annular portions of colon that range from 1.7-2.6 cm in greatest diameter, and are partially surfaced by sanders-pink, focally erythematous, smooth mucosa. The margins are differentially inked blue and black, and the specimens are radially sectioned. Brick Off Bearer sections are submitted in B1-B2.Ink codeSutured ring: BlueStapled ring: BlackC. Received fresh labeled the patient's name, accession number and"small bowel, NOS" are 3 unoriented segments of small bowel that range from 7.8-11.0 cm in greatest l ength by 3.0 cm in diameter. The serosa [...] wall measures up to 0.4 cm thick. Brick Off Bearer sections are submitted as follows:Section codeC1-longest segment margins en face, differentially inked blue and gagczQ7-B9-wzzijdv segment transmural defectC4-longest segment adhesionsC5-second longest segment margins en face, differentially ixmt-ddfmxN4-zmodax longest segment transmural defectC7-shortest segment margins en face, differentially inked blue and qgvuxY7-B7-qecixkdb segment transmural defectD. Received fresh labeled the patient's name, accession number and "omentum" is a 16.0 x 6.7 x 2.2 cm portion of sanders-yellow, focally hemorrhagic, fibrofatty, partially indurated omentum. Sectioning reveals a sanders-yellow, fibrofatty cut surface. No discrete lesions are grossly appreciated. Brick Off Bearer sections are submitted in D1-D3.SARIKA Song, HT (ASCP)Performed.[facility], Department of Pathology, [address] [place] [address], [facility], Department of [facility], [address] [place] [address], [facility], [facility], [address] [place] [address], XOSDFYRJIS AND [id number] 15:16:00 Test Item Value Reference Range Interpretation Comments HEMOGLOBIN (BEAKER) (test code = 8.4 GM/DL 11.2-15.7 L 410) HEMATOCRIT (BEAKER) (test code = 26.4 % 34.1-44.9 L 411) Business Intelligence Administrator ID - [id number]-GLUCOSE [id number] 12:07:00 Test Item Value Reference Range Interpretation Comments POC-GLUCOSE METER 136 mg/dL 70-110 H : TESTED A T [facility] 6720 (BEAKER) (test code = [facility], 153) 29169: Business Intelligence Administrator/Techni lyudmila ID = [id number] for Pavel Boyle POCT-GLUCOSE [id number] 05:38:00 Test Item Value Reference Range Interpretation Comments POC-GLUCOSE METER 144 mg/dL 70-110 H : TESTED A T [facility] 6720 (BEAKER) (test code = [facility], 153) 16086: Business Intelligence Administrator/Techni lyudmila ID = [id number] for ARIN KIEARNNADEGE BASIC METABOLIC [id number] 04:04:00 Test Item Value Reference Range Interpretation [...] 1092) DATA TO CALCULA TE ESTIMATED GFR. Business Intelligence Administrator ID - GABRIELA MCBC W/PLT COUNT & AUTO [id number] 04:02:00 Test Item Value Reference Range Interpretation [...] 0-1 PERCENT (BEAKER) (test code = 2801) [id number] 04:02:00 Test Item Value Reference Range Interpretation Comments MAGNESIUM (BEAKER) (test code = 1.9 mg/dL 1.6-2.6 627) Business Intelligence Administrator ID - GABRIELA [id number] 04:02:00 Test Item Value Reference Range Interpretation Comments PHOSPHORUS (BEAKER) (test code = 3.1 mg/dL 2.3-4.7 604) Business Intelligence Administrator ID - GABRIELA MHEMOGLOBIN AND [id number] 03:43:00 Test Item Value Reference Range Interpretation Comments HEMOGLOBIN (BEAKER) (test code = 8.7 GM/DL 11.2-15.7 L 410) HEMATOCRIT (BEAKER) (test code = 27.3 % 34.1-44.9 L 411) POCT-GLUCOSE [id number] 00:19:00 Test Item Value Reference Range Interpretation Comments POC-GLUCOSE METER 125 mg/dL 70-110 H : [facility] (BEAKER) (test code = [place], 1538) [address]: Business Intelligence Administrator/Techni lyudmila ID = [id number] for ARIN NADEGE MOSS CBC (HEMOGRAM ONLY)2021-02-26 14:43:00 Test Item Value Reference [...] WBC 0-0 (BEAKER) (test code = 413) SURGICALLY OBTAINED CULTURE + GRAM [id number] 11:42:00 Test Item Value Reference Range Interpretation Comments CULTURE (BEAKER) (test code No growth = 1095) GRAM STAIN RESULT (BEAKER) <1+ WBCs (test code = 1123) GRAM STAIN RESULT (BEAKER) No organisms seen (test code = 64854) POCT-GLUCOSE [id number] 11:20:00 Test Item Value Reference Range Interpretation Comments POC-GLUCOSE METER 135 mg/dL 70-110 H : TESTED A T [facility] 6720 (BEAKER) (test code = [facility], 153) 645[address]: Business Intelligence Administrator/Techni lyudmila ID = [id number] for PRINCESS JEOVANNY POCT-GLUCOSE [id number] 06:19:00 Test Item Value Reference Range Interpretation Comments POC-GLUCOSE METER 152 mg/dL 70-110 H : TESTED A T [facility] 6720 (BEAKER) (test code = [facility], 153) 49468: Business Intelligence Administrator/Techni lyudmila ID = [id number] for Cindy Cordova BASIC METABOLIC [id number] 05:55:00 Test Item Value Reference Range Interpretation [...] 1092) DATA TO CALCULA TE ESTIMATED GFR. Business Intelligence Administrator ID - [id number] 05:22:00 Test Item Value Reference Range Interpretation Comments MAGNESIUM (BEAKER) (test code = 2.2 mg/dL 1.6-2.6 627) Business Intelligence Administrator ID - [id number] 05:22:00 Test Item Value Reference Range Interpretation Comments PHOSPHORUS (BEAKER) (test code = 2.5 mg/dL 2.3-4.7 604) Business Intelligence Administrator ID - DBCBC W/PLT COUNT & AUTO [id number] 05:00:00 Test Item Value Reference Range Interpretation [...] PERCENT (BEAKER) (test code = 2801) POCT-GLUCOSE [id number] 00:53:00 Test Item Value Reference Range Interpretation Comments POC-GLUCOSE METER 165 mg/dL 70-110 H : TESTED A T [facility] ([facility]) (test code = [facility], 153) 0[address]: Business Intelligence Administrator/Techni lyudmila ID = [id number] for Se yenyano, Cindy POCT-GLUCOSE [id number] 19:10:00 Test Item Value Reference Range Interpretation Comments POC-GLUCOSE METER 151 mg/dL 70-110 H : Notified RN/MD: ([facility]) (test code = TESTED AT [place] [address]) [facility], [address]: Business Intelligence Administrator/Techni lyudmila ID = [id number] for Sa jessica, Ozzie POCT-GLUCOSE [id number] 18:50:00 Test Item Value Reference Range Interpretation Comments POC-GLUCOSE METER 148 mg/dL 70-110 H : Notified RN/MD: ([facility]) (test code = TESTED AT [place] [address] 153) [facility], [address]: Business Intelligence Administrator/Techni lyudmila ID = [id number] for Ozzie Soto POCT-GLUCOSE [id number] 18:22:00 Test Item Value Reference Range Interpretation Comments POC-GLUCOSE METER 156 mg/dL 70-110 H : TESTED A T [facility] 6720 (BEAKER) (test code = SHARLA Shields [facility], 1538) [address]: Business Intelligence Administrator/Techni lyudmila ID = [id number] for NADEGE PADILLA SPIN/CONCENTRATION [id number] 09:26:00 Test Item Value Reference Range Interpretation Comments CONCENTRATION CHARGED (BEAKER) (test Done code = 2657) [id number] 06:37:00 Test Item Value Reference Range Interpretation Comments PHOSPHORUS (BEAKER) (test code = 1.5 mg/dL 2.3-4.7 LL 604) Business Intelligence Administrator ID - GABRIELA [id number] 06:32:00 Test Item Value Reference Range Interpretation Comments MAGNESIUM (BEAKER) (test code = 2.1 mg/dL 1.6-2.6 627) Business Intelligence Administrator ID - GABRIELA MHEPATIC FUNCTION [id number] 06:32:00 Test Item Value Reference Range Interpretation [...] (test code = 21 U/L 6-55 347) Business Intelligence Administrator ID - GABRIELA MBASIC METABOLIC [id number] 06:32:00 Test Item Value Reference Range Interpretation [...] 1092) DATA TO CALCULA TE ESTIMATED GFR. Business Intelligence Administrator ID - GABRIELA MCBC W/PLT COUNT & AUTO [id number] 05:52:00 Test Item Value Reference Range Interpretation [...] 0-1 PERCENT (BEAKER) (test code = 2801) CALCIUM, [id number] 05:34:00 Test Item Value Reference Range Interpretation Comments CALCIUM IONIZED (BEAKER) (test 1.20 mmol/L 1.12-1.27 code = 698) PH, BLOOD (BEAKER) (test code = 7.37 1810) POCT-GLUCOSE [id number] 23:05:00 Test Item Value Reference Range Interpretation Comments POC-GLUCOSE METER 181 mg/dL 70-110 H : TESTED A T [facility] 6720 (BEAKER) (test code = [facility], 153) 52211: Business Intelligence Administrator/Techni lyudmila ID = [id number] for NADEGE PADILLA POCT-GLUCOSE [id number] 18:56:00 Test Item Value Reference Range Interpretation Comments POC-GLUCOSE METER 273 mg/dL 70-110 H : TESTED A T [facility] 6720 (BEAKER) (test code = [facility], 153) 62767: Business Intelligence Administrator/Techni lyudmila ID = [id number] for PRINCESS JEOVANNY POCT-GLUCOSE [id number] 17:26:00 Test Item Value Reference Range Interpretation Comments POC-GLUCOSE METER 328 mg/dL 70-110 H : TESTED A T [facility] 6720 (BEAKER) (test code = [facility], 153) 96519: Business Intelligence Administrator/Techni lyudmila ID = [id number] for PRINCESS JEOVANNY POCT-GLUCOSE [id number] 14:36:00 Test Item Value Reference Range Interpretation Comments POC-GLUCOSE METER 300 mg/dL 70-110 H : TESTED A T [facility] 6720 (BEAKER) (test code = SHARLA Shields [facility], 1538) 54716: Business Intelligence Administrator/Techni lyudmila ID = [id number] for PAULINE ECHEVERRIA POCT-GLUCOSE [id number] 12:42:00 Test Item Value Reference Range Interpretation Comments POC-GLUCOSE METER 267 mg/dL 70-110 H : TESTED A T [facility] 6720 (BEAKER) (test code ZULEIKA [facility], = 1538) 53893: Business Intelligence Administrator/Techni lyudmila ID = [id number] for JESSE ZMARYAN SCREEN, [id number] 05:54:00 Test Item Value Reference Range Interpretation Comments TEST URINE (BEAKER) (test Negative code = 583) SARS-COV2/RT-PCR ([facility])2021-02-24 05:23:00 Test Item Value Reference Range Interpretation Comments SARS-COV2/RT-PCR (test Negative Not Detected, Negative, code = 9517483) See external report for linked test SARS-COV-2 PERFORMING LAB [facility] (test code = 0321376) Negative result for this test determines that [...] individuals suspected of COVID-19 by their healthcare provider.This test [...] justifying the authorization of the emergency use ofin vitro diagnostic tests for detection and/or diagnosis of COVID-19 is terminated under Section 564(b)(2) of the Act or the EUA is revoked under Section 564(g) of the Act.Testing was performed using the Mcmillan SARS-CoV-2 assay.Fact Sheet for Healthcare Providers:https://www.Resilinc.Advizzer/dave/RT_SAR X-GtU-9_FSH_Ttyy_Ynztz_45-107224.pdfFact Sheet for Healthcare Patients:https://www.NetVision/s al/OY_UMZR-YeW-8_Vkuwgyo_Wmsa_Nxwnb_II_84-873788B4.pdfPerforming Laboratory:[place] [address] [place] [address] BASIC METABOLIC [id number] 05:05:00 Test Item Value Reference Range Interpretation [...] 1092) DATA TO CALCULA TE ESTIMATED GFR. Business Intelligence Administrator ID - [id number] 05:03:00 Test Item Value Reference Range Interpretation Comments MAGNESIUM (BEAKER) (test code = 2.3 mg/dL 1.6-2.6 627) Business Intelligence Administrator ID - [id number] 05:03:00 Test Item Value Reference Range Interpretation Comments PHOSPHORUS (BEAKER) (test code = 3.1 mg/dL 2.3-4.7 604) Business Intelligence Administrator ID - DBCBC W/PLT COUNT & AUTO [id number] 04:44:00 Test Item Value Reference Range Interpretation [...] PERCENT (BEAKER) (test code = 2801) POCT-GLUCOSE [id number] 00:23:00 Test Item Value Reference Range Interpretation Comments POC-GLUCOSE METER 105 mg/dL 70-110 : Notified RN/MD: (YOVANI) (test code = TESTED AT [facility] 1293 6390) [facility], [address]: Business Intelligence Administrator/Techni lyudmila ID = [id number] for Sa minaz, Ozzie ANG, NON-TUNNELED CATH/PICC >5 Y.O. WITH [id number] 18:20:00Reason for exam:->Need for TPN; PICC team unable to complete procedure bedside due to poor peripheral targets [facility] 1975 Sex: FFINAL REPORT PICC placement, 02/23/2021. History: Need for TPN. Plastic Boat Buffer: Camryn. Loan Officer Assistant: None. Modality: Sonography and fluoroscopy. Sedation: None. [...] needle into the right atrium. A 5 South Sudanese peel-away sheath was placed. The 5 South Sudanese double- lumen PICC line was measured and [...] using sonographic and fluoroscopic guidance. Signed: Toney Srinivasan Verified Date/Time: 02/23/2021 18:20:46 Reading Location: [place] [address] Angio Body Reading Room POCT-GLUCOSE [id number] 17:52:00 Test Item Value Reference Range Interpretation Comments POC-GLUCOSE METER 103 mg/dL 70-110 : TESTED A T [facility] 6720 (BEAKER) (test code = [facility] [place], 1538) 30214: Business Intelligence Administrator/Techni lyudmila ID = [id number] for Shayla Padilla WOUND CULTURE + GRAM [id number] 15:09:00 Test Item Value Reference Range Interpretation Comments CULTURE (BEAKER) A 2+ Streptoc occus (test code = constellatus 1095) GRAM STAIN 2+ WBCs RESULT (BEAKER) (test code = 1123) GRAM STAIN No organisms seen RESULT (BEAKER) (test code = 04581) POCT-GLUCOSE [id number] 13:36:00 Test Item Value Reference Range Interpretation Comments POC-GLUCOSE METER 93 mg/dL 70-110 : TESTED A T [facility] 6720 (BEAKER) (test code = [facility], 1538) 95622: Business Intelligence Administrator/Techni lyudmila ID = [id number] for Shayla Khoury POCT-GLUCOSE [id number] 06:31:00 Test Item Value Reference Range Interpretation Comments POC-GLUCOSE METER 107 mg/dL 70-110 : TESTED A T [facility] 6720 (BEAKER) (test code = [facility], 1538) 46095: Business Intelligence Administrator/Techni lyudmila ID = [id number] for NADEGE PADILLA [id number] 06:14:00 Test Item Value Reference Range Interpretation Comments MAGNESIUM (BEAKER) (test code = 2.0 mg/dL 1.6-2.6 627) Business Intelligence Administrator ID - GABRIELA [id number] 06:14:00 Test Item Value Reference Range Interpretation Comments PHOSPHORUS (BEAKER) (test code = 3.7 mg/dL 2.3-4.7 604) Business Intelligence Administrator ID - GABRIELA [id number] 06:14:00 Test Item Value Reference Range Interpretation Comments TRIGLYCERIDES (BEAKER) (test code = 171 mg/dL 540) TRIGLYCERIDE REFERENCE RANGELow Risk <150Borderline Risk 150-199High Risk 200-499Very High Risk >=500Operator ID - GABRIELA MBASIC METABOLIC PANEL 2021-02-23 06:14:00 Test Item Value Reference Range Interpretation [...] 1092) DATA TO CALCULA TE ESTIMATED GFR. Business Intelligence Administrator ID - GABRIELA MCBC W/PLT COUNT & AUTO [id number] 06:01:00 Test Item Value Reference Range Interpretation [...] PERCENT (BEAKER) (test code = 2801) POCT-GLUCOSE [id number] 00:44:00 Test Item Value Reference Range Interpretation Comments POC-GLUCOSE METER 88 mg/dL 70-110 : TESTED A T [facility] 6720 (BEAKER) (test code = [facility], 1538) 29495: Business Intelligence Administrator/Techni lyudmila ID = [id number] for NADEGE KHOURY POCT-GLUCOSE [id number] 18:28:00 Test Item Value Reference Range Interpretation Comments POC-GLUCOSE METER 74 mg/dL 70-110 : TESTED A T [facility] 6720 (BEAKER) (test code = [facility], 1538) 81186: Business Intelligence Administrator/Techni lyudmila ID = [id number] for [facility] CT, [id number] 17:22:00Unlisted Reason for Exam - Click Yes and Enter Reason Below->YesUnlisted Reason for Exam->Perforated diverticulitis with abdominal distention / tympanitic abdomen; evalaute for interval changes in abdominal fluid collection as well as bowel distentionWill this procedure require oral contrast?->Yes [facility] : 1975 Sex: FFINAL REPORT CT, ABDOMEN \\T\\ PELVIS, WITH IV CONTRAST HISTORY: Unlisted Reason for ExamPerforated diverticulitis with abdominal distention / tympanitic abdomen; evaluate for interval changes in abdominal fluid collection as well as bowel distention COMPARISON: CT pelvis 02/17/[address] abdomen and pelvis 02/16/2021 TECHNIQUE: CT of the abdomen and pelvis WITH intravenous contrastand WITH oral contrast. The examination was performed according to the departmental dose-optimization program, which includes automated exposure control, adjustment of the mA and/or kV according to patient size and/or use of iterative reconstruction technique. FINDINGS: Lower thorax: Unremarkable.Liver: Focal fat deposition along the falciform ligament.Gallbladder and bile ducts: Unremarkable.Spleen:Unremarkable.Pancreas: Unremarkable.Adrenals: UnremarkableKidneys and ureters: Unremarkable.Bowel: Sigmoid colon [...] in the left lower quadrant and pelvisVessels: Unremarkable.Abdominal wall: Unremarkable.Bones: Unremarkable. IMPRESSION: 1.A lowgrade small bowel obstruction, transition point in the mid ileum in the anterior upper midline pelvis near the drainage catheter. 2.No residual fluid about the drainage catheter tip. Diminished free fluid in the pelvis. No residual drainable fluid collections. 3.Moderately improved inflammatory changes in the pelvis and of the sigmoid colon Signed: Silvia Loveeport Verified Date/Time: 02/22/2021 17 :22:00 Reading Location: [address] Transitional Reading Room POCT-GLUCOSE METER 2021-02-22 11:28:00 Test Item Value Reference Range Interpretation Comments POC-GLUCOSE METER 105 mg/dL 70-110 : TESTED A T [facility] 6720 (BEAKER) (test code = TOHI Alyson [place], 1538) 886[address]: Business Intelligence Administrator/Techni lyudmila ID = [id number] for PRINCESS JEOVANNY POCT-GLUCOSE [id number] 06:08:00 Test Item Value Reference Range Interpretation Comments POC-GLUCOSE METER 117 mg/dL 70-110 H : TESTED A T [facility] 6720 (BEAKER) (test code = [facility], 1538) 28744: Business Intelligence Administrator/Techni lyudmila ID = [id number] for Cindy Cordova BASIC METABOLIC [id number] 04:42:00 Test Item Value Reference Range Interpretation [...] 1092) DATA TO CALCULA TE ESTIMATED GFR. Business Intelligence Administrator ID - SHARMAINE [id number] 04:40:00 Test Item Value Reference Range Interpretation Comments MAGNESIUM (BEAKER) (test code = 1.9 mg/dL 1.6-2.6 627) Business Intelligence Administrator ID - SHARMAINE [id number] 04:40:00 Test Item Value Reference Range Interpretation Comments PHOSPHORUS (BEAKER) (test code = 3.5 mg/dL 2.3-4.7 604) Business Intelligence Administrator ID Allyson SCHMID WCBC W/PLT COUNT & AUTO [id number] 04:17:00 Test Item Value Reference Range Interpretation [...] PERCENT (BEAKER) (test code = 2801) POCT-GLUCOSE [id number] 00:19:00 Test Item Value Reference Range Interpretation Comments POC-GLUCOSE METER 108 mg/dL 70-110 : TESTED A T [facility] 6720 (BEAKER) (test code = [facility], 1538) 00564: Business Intelligence Administrator/Techni lyudmila ID = [id number] for Cindy Cordova POCT-GLUCOSE [id number] 18:24:00 Test Item Value Reference Range Interpretation Comments POC-GLUCOSE METER 100 mg/dL 70-110 : TESTED A T [facility] 6720 (BEAKER) (test code = [facility], 1538) 38844: Business Intelligence Administrator/Techni lyudmila ID = [id number] for Wi lliams, Areiona POCT-GLUCOSE [id number] 12:01:00 Test Item Value Reference Range Interpretation Comments POC-GLUCOSE METER 119 mg/dL 70-110 H : TESTED A T [facility] 6720 (BEAKER) (test code = [facility], 1538) 32264: Business Intelligence Administrator/Techni lyudmila ID = [id number] for Wi lliams, Areiona BASIC METABOLIC [id number] 06:41:00 Test Item Value Reference Range Interpretation [...] 1092) DATA TO CALCULA TE ESTIMATED GFR. Business Intelligence Administrator ID - GABRIELA [id number] 06:28:00 Test Item Value Reference Range Interpretation Comments MAGNESIUM (BEAKER) (test code = 1.8 mg/dL 1.6-2.6 627) Business Intelligence Administrator ID - GABRIELA [id number] 06:28:00 Test Item Value Reference Range Interpretation Comments PHOSPHORUS (BEAKER) (test code = 3.4 mg/dL 2.3-4.7 604) Business Intelligence Administrator ID - GABRIELA MPOCT-GLUCOSE [id number] 06:08:00 Test Item Value Reference Range Interpretation Comments POC-GLUCOSE METER 98 mg/dL 70-110 : TESTED A T [facility] 6720 (BEAKER) (test code = [facility] [place], 1538) 19518: Business Intelligence Administrator/Techni lyudmila ID = [id number] for Cindy Mckeon CBC W/PLT COUNT & AUTO [id number] 06:04:00 Test Item Value Reference Range Interpretation [...] PERCENT (BEAKER) (test code = 2801) POCT-GLUCOSE [id number] 00:30:00 Test Item Value Reference Range Interpretation Comments POC-GLUCOSE METER 105 mg/dL 70-110 : TESTED A T [facility] 6720 (BEAKER) (test code = [facility], 153) 08296: Business Intelligence Administrator/Techni lyudmila ID = [id number] for Se rrano, Cindy POCT-GLUCOSE [id number] 18:09:00 Test Item Value Reference Range Interpretation Comments POC-GLUCOSE METER 116 mg/dL 70-110 H : TESTED A T [facility] 6720 (BEAKER) (test code = [facility], 153) 05612: Business Intelligence Administrator/Techni lyudmila ID = [id number] for Wi lliams, Areiona POCT-GLUCOSE [id number] 11:51:00 Test Item Value Reference Range Interpretation Comments POC-GLUCOSE METER 112 mg/dL 70-110 H : TESTED A T [facility] 6720 (BEAKER) (test code = [facility], 153) 90167: Business Intelligence Administrator/Techni lyudmila ID = [id number] for Wi lliams, Areiona RAD, ABDOMEN/KUB, 1 VIEW [id number] 07:48:00Reason for exam:->Persistent distention and tympanitic; eval for ileus v pSBOShould this be performed at the bedside?->Yes[facility] : 1975 Sex: FFINAL REPORT RAD, ABDOMEN/KUB, 1 VIEW AP CLINICAL INDICATION: Persistent distention andtympanitic; eval for ileus v pSBO COMPARISON: None TECHNIQUE: Single, frontal radiograph of the abdomen. FINDINGS: The bowel gas pattern demonstrates multiple distended loops of small bowel. There is relative decompression of distal loops and low-grade obstruction is difficult to exclude radiographically. A single air-filled loop of colon is noted in the right lower quadrant with adjacent surgical clips. Catheter overlies the mid pelvis. Evaluation for free air is limited by portable supine technique. Within these limitations, no free air is identified. Signed: Clarissa Matt MDReport Verified Date/Time: 02/20/2021 07:48:55 Reading Location: [facility] Radiology Reading Room BASIC METABOLIC [id number] 05:43:00 Test Item Value Reference Range Interpretation [...] 1092) DATA TO CALCULA TE ESTIMATED GFR. Business Intelligence Administrator ID - [id number] 05:42:00 Test Item Value Reference Range Interpretation Comments MAGNESIUM (BEAKER) (test code = 1.7 mg/dL 1.6-2.6 627) Business Intelligence Administrator ID - [id number] 05:42:00 Test Item Value Reference Range Interpretation Comments PHOSPHORUS (BEAKER) (test code = 3.9 mg/dL 2.3-4.7 604) Business Intelligence Administrator ID - ADMINPOCT-GLUCOSE [id number] 05:22:00 Test Item Value Reference Range Interpretation Comments POC-GLUCOSE METER 106 mg/dL 70-110 : TESTED A T [facility] 6720 (BEAKER) (test code = [facility] [place], 1538) 94853: Business Intelligence Administrator/Techni lyudmila ID = [id number] for NADEGE PADILLA CBC W/PLT COUNT & AUTO [id number] 05:10:00 Test Item Value Reference Range Interpretation [...] PERCENT (BEAKER) (test code = 2801) POCT-GLUCOSE [id number] 23:39:00 Test Item Value Reference Range Interpretation Comments POC-GLUCOSE METER 128 mg/dL 70-110 H : TESTED A T [facility] 6720 (BEAKER) (test code = [facility], 153) 01220: Business Intelligence Administrator/Techni lyudmila ID = [id number] for NADEGE PADILLA POCT-GLUCOSE [id number] 18:05:00 Test Item Value Reference Range Interpretation Comments POC-GLUCOSE METER 127 mg/dL 70-110 H : TESTED A T [facility] 6720 (BEAKER) (test code = [facility], 153) 15321: Business Intelligence Administrator/Techni lyudmila ID = [id number] for JESU SAMANIEGO POCT-GLUCOSE [id number] 12:26:00 Test Item Value Reference Range Interpretation Comments POC-GLUCOSE METER 134 mg/dL 70-110 H : TESTED A T [facility] 6720 (BEAKER) (test code = [facility], 1538) 87075: Business Intelligence Administrator/Techni lyudmila ID = [id number] for JESU SAMANIEGO POCT-GLUCOSE [id number] 05:53:00 Test Item Value Reference Range Interpretation Comments POC-GLUCOSE METER 71 mg/dL 70-110 : TESTED A T [facility] 6720 (BEAKER) (test code = [facility] Alyson [facility], 1538) 73546: Business Intelligence Administrator/Techni lyudmila ID = [id number] for NADEGE KHOURY [id number] 05:03:00 Test Item Value Reference Range Interpretation Comments MAGNESIUM (BEAKER) (test code = 1.6 mg/dL 1.6-2.6 627) Business Intelligence Administrator ID - [id number] 05:03:00 Test Item Value Reference Range Interpretation Comments PHOSPHORUS (BEAKER) (test code = 3.8 mg/dL 2.3-4.7 604) Business Intelligence Administrator ID - EDASIBASIC METABOLIC [id number] 05:03:00 Test Item Value Reference Range Interpretation [...] 1092) DATA TO CALCULA TE ESTIMATED GFR. Business Intelligence Administrator ID - EDASICBC W/PLT COUNT & AUTO [id number] 04:36:00 Test Item Value Reference Range Interpretation [...] PERCENT (BEAKER) (test code = 2801) POCT-GLUCOSE [id number] 23:27:00 Test Item Value Reference Range Interpretation Comments POC-GLUCOSE METER 76 mg/dL 70-110 : TESTED A T [facility] 6720 (BEAKER) (test code = [facility], 1538) 95378: Business Intelligence Administrator/Techni lyudmila ID = [id number] for NADEGE KHOURY POCT-GLUCOSE [id number] 18:35:00 Test Item Value Reference Range Interpretation Comments POC-GLUCOSE METER 82 mg/dL 70-110 : TESTED A T [facility] 6720 (BEAKER) (test code = [facility], 1538) 32963: Business Intelligence Administrator/Techni lyudmila ID = [id number] for JESU JIMENEZ POCT-GLUCOSE [id number] 11:58:00 Test Item Value Reference Range Interpretation Comments POC-GLUCOSE METER 97 mg/dL 70-110 : TESTED A T [facility] 6720 (BEAKER) (test code = [facility], 1538) 04723: Business Intelligence Administrator/Techni lyudmila ID = [id number] for JESU JIMENEZ BASIC METABOLIC [id number] 10:46:00 Test Item Value Reference Range Interpretation [...] 1092) DATA TO CALCULA TE ESTIMATED GFR. Business Intelligence Administrator ID - GABRIELA [id number] 10:40:00 Test Item Value Reference Range Interpretation Comments MAGNESIUM (BEAKER) (test code = 1.7 mg/dL 1.6-2.6 627) Business Intelligence Administrator ID - GABRIELA [id number] 10:40:00 Test Item Value Reference Range Interpretation Comments PHOSPHORUS (BEAKER) (test code = 3.8 mg/dL 2.3-4.7 604) Business Intelligence Administrator ID - GABRIELA MCBC W/PLT COUNT & AUTO [id number] 10:26:00 Test Item Value Reference Range Interpretation [...] PERCENT (BEAKER) (test code = 2801) POCT-GLUCOSE [id number] 17:33:00 Test Item Value Reference Range Interpretation Comments POC-GLUCOSE METER 109 mg/dL 70-110 : TESTED A T [facility] 6720 (BEAKER) (test code = [facility], 1538) 784[address]: Business Intelligence Administrator/Techni lyudmila ID = [id number] for RA MOS, MICHAEL CT, DRAINAGE, [id number] 15:00:00Reason for exam:->Pelvic abscess 2/2 perforated sigmoid diverticulitis ([place] Ib / II) [facility] 1975 Sex: FFINAL REPORT CT-guided drainage catheter placement dated 02/17/2021 Name of practitioner performing procedure:Juan Luis Nolan M.D. Names of pier master assistant:None Procedure: Drainage catheter placement into the sigmoid diverticula abscess Preprocedure diagnosis:Sigmoid diverticulitis with peridiverticular abscess Postprocedure diagnosis:Sigmoid diverticula abscess Specimens removed:10 cc of purulentmaterial removed Estimated blood loss:None Complication:None Conscious sedation: 1 mg Versed and [address] Juan Luis Nolan was responsible for the moderate sedation. Total sedation time: 20 minutes Anesthesia: 1% Xylocaine local anesthesia. Graft/Implants:None Technique: This exam was performed ac cording to our departmental dose-optimization program, which includes automated exposure control, adjustment of the mA and/or kV according to patient size and/or use of interactive reconstruction technique. After obtaining informed consent, CT-guided drainage catheter placement was performed under usual sterile technique. After placing introducer needle and guidewire, the tract was dilated with a 6 and 8 South Sudanese dilators. An 8 [place]ese drainage catheter was placed. The drainage catheter was left in place, secured skin with suture, and connected to bulb suction. Patient tolerated the procedure well. Impression: Successful CT- guided drainage catheter placement into the sigmoid diverticula abscess. Signed: Juan Luis Nolanort Verified Date/Time: 02/17/2021 15:00:00 Reading Location: [facility] C013Y CT Body Reading Room HEMOGLOBIN [id number] 08:28:00 Test Item Value Reference Range Interpretation Comments HEMOGLOBIN A1C (BEAKER) (test code = 7.6 % 4.3-6.1 H 368) POCT-GLUCOSE [id number] 05:35:00 Test Item Value Reference Range Interpretation Comments POC-GLUCOSE METER 134 mg/dL 70-110 H : TESTED A T [facility] 6720 (BEAKER) (test [facility] = [facility], 1538) 86047: Business Intelligence Administrator/Techni lyudmila ID = [id number] for SHERRY WALLACE BASIC METABOLIC [id number] 05:32:00 Test Item Value Reference Range Interpretation [...] 1092) DATA TO CALCULA TE ESTIMATED GFR. Business Intelligence Administrator ID - [id number] 05:29:00 Test Item Value Reference Range Interpretation Comments MAGNESIUM (BEAKER) (test code = 1.8 mg/dL 1.6-2.6 627) Business Intelligence Administrator ID - DBHEPATIC FUNCTION [id number] 05:29:00 Test Item Value Reference Range Interpretation [...] (test code = 11 U/L 6-55 347) Business Intelligence Administrator ID - DBPROTHROMBIN [id number] 05:06:00 Test Item Value Reference Range Interpretation Comments PROTIME (BEAKER) 15.4 seconds 11.9-14.2 H (test code = 759) INR (BEAKER) (test 1.26 See_Comment [Automat ed message] code = 370) The system Webs[employer] generated this result transmitted ref erence range: <=5.90. The reference range was not used to int erpret this result as normal/abnormal . Effective 04/01/2019: PT Reference Range ChangeNew: 11.9-14.2 Previous: 11.7- 14.7RECOMMENDED COUMADIN/WARFARIN INR THERAPY RANGESSTANDARD DOSE: 2.0-3.0 Includes: PROPHYLAXIS for venous thrombosis, systemic embolization; TREATMENT for venous thrombosis and/or pulmonary embolus.HIGH RISK: Target INR is 2.5-3.5 for patients wiht mechanical heart valves.CBC W/PLT COUNT & AUTO [id number] 05:02:00 Test Item Value Reference Range Interpretation [...] PERCENT (BEAKER) (test code = 2801) SCREEN, [id number] 01:12:00 Test Item Value Reference Range Interpretation Comments TEST URINE (BEAKER) (test Negative code = 583) POCT-GLUCOSE [id number] 23:41:00 Test Item Value Reference Range Interpretation Comments POC-GLUCOSE METER 127 mg/dL 70-110 H : TESTED A T [facility] 6720 (BEAKER) (test code = [facility] [place], 1538) 26701: Business Intelligence Administrator/Techni lyudmila ID = [id number] for SHERRY WALLACE [id number] 14:15:09 Test Item Value Reference Range Interpretation Comments SEVERITY (test code = NORMAL 61261) RIGHTDIABRETIN (test None code = 49869) RIGHTMACEDEMA (test None code = 38840) RIGHTOTHERRETIN (test None code = 29277) RIGHTQUALAPP (test Gradable Image code = 94472) LEFTDIABRETIN (test None code = 76464) LEFTMACEDEMA (test None code = 85788) LEFTOTHERRETIN (test None code = 88402) LEFTQUALAPP (test code Gradable Image = 68735) RESULT (test code = Retinal Study Result for 3012) JADE HORNE CYNTHIA, a 43 y/o, F (: 1975, )presented to [facility] on 06-18-2019 for a retinal imaging study of the left and right eyes. Based on the findings of the study, the following is recommended for Victorino HORNE Study: Return for follow up exam in 12 months or next calendar year. Interpreting Provider's Comments: No comments providedDiagnoses Present: E11.9 - Type 2 diabetes mellitus without complications Right Eye Findings:Normal Result. Negative for Diabetic Retinopathy. Left Eye Findings:Normal Result. Negative for Diabetic Retinopathy. This result was electronically signed by Daria Gutiérrez MD, , Taxonomy: [id number] on 06-19-2019 02:15:09 [facility] time. NOTE: Any pathology noted on this diabetic retinal evaluation should be confirmed by an appropriate ophthalmic examination. [facility] [id number] 23:22:00 Test Item Value Reference Range Interpretation Comments HEMOGLOBIN A1C (test code = 4548-4) 7.4 % 4-5.6 A Lab Interpretation (test code = Abnormal 07829-5) [facility] RANDOM AND [id number] 00:00:00 Test Item Value Reference Range Interpretation Comments CREATININE, URINE, CONC. (test 386.2 MG/DL code = 2072) ALBUMIN, URINE, RANDOM (test code 6.7 MG/DL = 69204) CALC ALBUMIN/CREAT, RND (test 17 MG/G code = 88892) MICROALBUMIN/CREATININE, RANDOM AND [id number] 00:00:00 Test Item Value Reference Range Interpretation Comments CREATININE, URINE, CONC. (test 386.2 MG/DL code = 2072) ALBUMIN, URINE, RANDOM (test code 6.7 MG/DL = 56771) CALC ALBUMIN/CREAT, RND (test 17 MG/G code = 79957) MICROALBUMIN/CREATININE, RANDOM AND [id number] 00:00:00 Test Item Value Reference Range Interpretation Comments CREATININE, URINE, CONC. (test 386.2 MG/DL code = 2072) ALBUMIN, URINE, RANDOM (test code 6.7 MG/DL = 60093) CALC ALBUMIN/CREAT, RND (test 17 MG/G code = 61478) MICROALBUMIN/CREATININE, RANDOM AND [id number] 00:00:00 Test Item Value Reference Range Interpretation Comments CREATININE, URINE, CONC. (test 386.2 MG/DL code = 2072) ALBUMIN, URINE, RANDOM (test code 6.7 MG/DL = 72952) CALC ALBUMIN/CREAT, RND (test 17 MG/G code = 42990) MICROALBUMIN/CREATININE, RANDOM AND [id number] 00:00:00 Test Item Value Reference Range Interpretation Comments CREATININE, URINE, CONC. (test 386.2 MG/DL code = 2072) ALBUMIN, URINE, RANDOM (test code 6.7 MG/DL = 44617) CALC ALBUMIN/CREAT, RND (test 17 MG/G code = 83145) MICROALBUMIN/CREATININE, RANDOM AND [id number] 00:00:00 Test Item Value Reference Range Interpretation Comments CREATININE, URINE, CONC. (test 386.2 MG/DL code = 2072) ALBUMIN, URINE, RANDOM (test code 6.7 MG/DL = 66185) CALC ALBUMIN/CREAT, RND (test 17 MG/G code = 19868) MICROALBUMIN/CREATININE, RANDOM AND [id number] 00:00:00 Test Item Value Reference Range Interpretation Comments CREATININE, URINE, CONC. (test 386.2 MG/DL code = 2072) ALBUMIN, URINE, RANDOM (test code 6.7 MG/DL = 58432) CALC ALBUMIN/CREAT, RND (test 17 MG/G code = 64343) MICROALBUMIN/CREATININE, RANDOM AND [id number] 00:00:00 Test Item Value Reference Range Interpretation Comments CREATININE, URINE, CONC. (test 386.2 MG/DL code = 2072) ALBUMIN, URINE, RANDOM (test code 6.7 MG/DL = 10530) CALC ALBUMIN/CREAT, RND (test 17 MG/G code = 52442) LIPID [id number] 00:00:00 Test Item Value Reference Range Interpretation Comments CHOLESTEROL (test code = 2210) 160 MG/DL TRIGLYCERIDES (test code = 2232) 726 MG/DL HDL CHOLESTEROL (test code = 22 MG/DL 2220) CALC LDL CHOL (test code = 2237) NOTE MG/DL RISK RATIO LDL/HDL (test code = (NOTE) RATIO 2238) COMPREHENSIVE METABOLIC [id number] 00:00:00 Test Item Value Reference Range Interpretation Comments GLUCOSE (test code = 2217) 190 MG/DL BUN (test code = 2208) 14 MG/DL CREATININE (test code = 2214) 0.76 MG/DL eGFR AMER. (test code 110 ML/MIN/1.73 = 42553) eGFR NON- AMER. (test 95 ML/MIN/1.73 code = 86641) CALC BUN/CREAT (test code = 18 RATIO 2235) SODIUM (test code = 2231) 139 MEQ/L POTASSIUM (test code = 2228) 3.9 MEQ/L CHLORIDE (test code = 2215) 99 MEQ/L CARBON DIOXIDE (test code = 24 MEQ/L 2205) CALCIUM (test code = 2209) 9.6 MG/DL PROTEIN, TOTAL (test code = 7.6 G/DL 222) ALBUMIN (test code = 2201) 4.2 G/DL CALC GLOBULIN (test code = 3.4 G/DL 2240) CALC A/G RATIO (test code = 1.2 RATIO 2234) BILIRUBIN, TOTAL (test code = 0.7 MG/DL 2206) ALKALINE PHOSPHATASE (test 117 U/L code = 220) AST (test code = 2218) 37 U/L ALT (test code = 2219) 42 U/L COMPREHENSIVE METABOLIC [id number] 00:00:00 Test Item Value Reference Range Interpretation Comments GLUCOSE (test code = 2217) 190 MG/DL BUN (test code = 2208) 14 MG/DL CREATININE (test code = 2214) 0.76 MG/DL eGFR AMER. (test code 110 ML/MIN/1.73 = 71692) eGFR NON- AMER. (test 95 ML/MIN/1.73 code = 09923) CALC BUN/CREAT (test code = 18 RATIO 2235) SODIUM (test code = 2231) 139 MEQ/L POTASSIUM (test code = 2228) 3.9 MEQ/L CHLORIDE (test code = 2215) 99 MEQ/L CARBON DIOXIDE (test code = 24 MEQ/L 2205) CALCIUM (test code = 2209) 9.6 MG/DL PROTEIN, TOTAL (test code = 7.6 G/DL 2228) ALBUMIN (test code = 2201) 4.2 G/DL CALC GLOBULIN (test code = 3.4 G/DL 2240) CALC A/G RATIO (test code = 1.2 RATIO 2234) BILIRUBIN, TOTAL (test code = 0.7 MG/DL 2206) ALKALINE PHOSPHATASE (test 117 U/L code = 2204) AST (test code = 2218) 37 U/L ALT (test code = 2219) 42 U/L VITAMIN D, 25 [id number] 00:00:00 Test Item Value Reference Range Interpretation Comments VITAMIN D, 25 OH (test code = 4958) 26 NG/ML VITAMIN D, 25 [id number] 00:00:00 Test Item Value Reference Range Interpretation Comments VITAMIN D, 25 OH (test code = 4958) 26 NG/ML HEMOGLOBIN [id number] 00:00:00 Test Item Value Reference Range Interpretation Comments HEMOGLOBIN A1c (test code = 10095) 7.8 % HEMOGLOBIN [id number] 00:00:00 Test Item Value Reference Range Interpretation Comments HEMOGLOBIN A1c (test code = 43791) 7.8 % HEMOGLOBIN [id number] 00:00:00 Test Item Value Reference Range Interpretation Comments HEMOGLOBIN A1c (test code = 15658) 7.8 % LIPID [id number] 00:00:00 Test Item Value Reference Range Interpretation Comments CHOLESTEROL (test code = 2210) 160 MG/DL TRIGLYCERIDES (test code = 2232) 726 MG/DL HDL CHOLESTEROL (test code = 22 MG/DL 2220) CALC LDL CHOL (test code = 2237) NOTE MG/DL RISK RATIO LDL/HDL (test code = (NOTE) RATIO 2238) LIPID [id number] 00:00:00 Test Item Value Reference Range Interpretation Comments CHOLESTEROL (test code = 2210) 160 MG/DL TRIGLYCERIDES (test code = 2232) 726 MG/DL HDL CHOLESTEROL (test code = 22 MG/DL 2220) CALC LDL CHOL (test code = 2237) NOTE MG/DL RISK RATIO LDL/HDL (test code = (NOTE) RATIO 2238) COMPREHENSIVE METABOLIC [id number] 00:00:00 Test Item Value Reference Range Interpretation Comments GLUCOSE (test code = 2217) 190 MG/DL BUN (test code = 2208) 14 MG/DL CREATININE (test code = 2214) 0.76 MG/DL eGFR AMER. (test code 110 ML/MIN/1.73 = 58660) eGFR NON- AMER. (test 95 ML/MIN/1.73 code = 76785) CALC BUN/CREAT (test code = 18 RATIO 2235) SODIUM (test code = 2231) 139 MEQ/L POTASSIUM (test code = 2228) 3.9 MEQ/L CHLORIDE (test code = 2215) 99 MEQ/L CARBON DIOXIDE (test code = 24 MEQ/L 220) CALCIUM (test code = 2209) 9.6 MG/DL PROTEIN, TOTAL (test code = 7.6 G/DL 2228) ALBUMIN (test code = 2201) 4.2 G/DL CALC GLOBULIN (test code = 3.4 G/DL 2240) CALC A/G RATIO (test code = 1.2 RATIO 2234) BILIRUBIN, TOTAL (test code = 0.7 MG/DL 2206) ALKALINE PHOSPHATASE (test 117 U/L code = 2204) AST (test code = 2218) 37 U/L ALT (test code = 2219) 42 U/L COMPREHENSIVE METABOLIC [id number] 00:00:00 Test Item Value Reference Range Interpretation Comments GLUCOSE (test code = 2217) 190 MG/DL BUN (test code = 2208) 14 MG/DL CREATININE (test code = 2214) 0.76 MG/DL eGFR AMER. (test code 110 ML/MIN/1.73 = 31588) eGFR NON- AMER. (test 95 ML/MIN/1.73 code = 46936) CALC BUN/CREAT (test code = 18 RATIO 2235) SODIUM (test code = 2231) 139 MEQ/L POTASSIUM (test code = 2228) 3.9 MEQ/L CHLORIDE (test code = 2215) 99 MEQ/L CARBON DIOXIDE (test code = 24 MEQ/L 220) CALCIUM (test code = 2209) 9.6 MG/DL PROTEIN, TOTAL (test code = 7.6 G/DL 2228) ALBUMIN (test code = 2201) 4.2 G/DL CALC GLOBULIN (test code = 3.4 G/DL 2240) CALC A/G RATIO (test code = 1.2 RATIO 2234) BILIRUBIN, TOTAL (test code = 0.7 MG/DL 7) ALKALINE PHOSPHATASE (test 117 U/L code = 2204) AST (test code = 2218) 37 U/L ALT (test code = 2219) 42 U/L VITAMIN D, 25 [id number] 00:00:00 Test Item Value Reference Range Interpretation Comments VITAMIN D, 25 OH (test code = 4958) 26 NG/ML VITAMIN D, 25 [id number] 00:00:00 Test Item Value Reference Range Interpretation Comments VITAMIN D, 25 OH (test code = 4958) 26 NG/ML HEMOGLOBIN [id number] 00:00:00 Test Item Value Reference Range Interpretation Comments HEMOGLOBIN A1c (test code = 47177) 7.8 % HEMOGLOBIN [id number] 00:00:00 Test Item Value Reference Range Interpretation Comments HEMOGLOBIN A1c (test code = 43214) 7.8 % HEMOGLOBIN [id number] 00:00:00 Test Item Value Reference Range Interpretation Comments HEMOGLOBIN A1c (test code = 62494) 7.8 % LIPID [id number] 00:00:00 Test Item Value Reference Range Interpretation Comments CHOLESTEROL (test code = 2210) 160 MG/DL TRIGLYCERIDES (test code = 2232) 726 MG/DL HDL CHOLESTEROL (test code = 22 MG/DL 2220) CALC LDL CHOL (test code = 2237) NOTE MG/DL RISK RATIO LDL/HDL (test code = (NOTE) RATIO 2238) LIPID [id number] 00:00:00 Test Item Value Reference Range Interpretation Comments CHOLESTEROL (test code = 2210) 160 MG/DL TRIGLYCERIDES (test code = 2232) 726 MG/DL HDL CHOLESTEROL (test code = 22 MG/DL 2220) CALC LDL CHOL (test code = 2237) NOTE MG/DL RISK RATIO LDL/HDL (test code = (NOTE) RATIO 2238) COMPREHENSIVE METABOLIC [id number] 00:00:00 Test Item Value Reference Range Interpretation Comments GLUCOSE (test code = 2217) 190 MG/DL BUN (test code = 2208) 14 MG/DL CREATININE (test code = 2214) 0.76 MG/DL eGFR AMER. (test code 110 ML/MIN/1.73 = 01176) eGFR NON- AMER. (test 95 ML/MIN/1.73 code = 85579) CALC BUN/CREAT (test code = 18 RATIO 2235) SODIUM (test code = 2231) 139 MEQ/L POTASSIUM (test code = 2228) 3.9 MEQ/L CHLORIDE (test code = 2215) 99 MEQ/L CARBON DIOXIDE (test code = 24 MEQ/L 2205) CALCIUM (test code = 2209) 9.6 MG/DL PROTEIN, TOTAL (test code = 7.6 G/DL 2228) ALBUMIN (test code = 2201) 4.2 G/DL CALC GLOBULIN (test code = 3.4 G/DL 2239) CALC A/G RATIO (test code = 1.2 RATIO 2234) BILIRUBIN, TOTAL (test code = 0.7 MG/DL 2206) ALKALINE PHOSPHATASE (test 117 U/L code = 2204) AST (test code = 2218) 37 U/L ALT (test code = 2219) 42 U/L COMPREHENSIVE METABOLIC [id number] 00:00:00 Test Item Value Reference Range Interpretation Comments GLUCOSE (test code = 2217) 190 MG/DL BUN (test code = 2208) 14 MG/DL CREATININE (test code = 2214) 0.76 MG/DL eGFR AMER. (test code 110 ML/MIN/1.73 = 82418) eGFR NON- AMER. (test 95 ML/MIN/1.73 code = 15999) CALC BUN/CREAT (test code = 18 RATIO 2235) SODIUM (test code = 2231) 139 MEQ/L POTASSIUM (test code = 2228) 3.9 MEQ/L CHLORIDE (test code = 2215) 99 MEQ/L CARBON DIOXIDE (test code = 24 MEQ/L 2205) CALCIUM (test code = 2209) 9.6 MG/DL PROTEIN, TOTAL (test code = 7.6 G/DL 2228) ALBUMIN (test code = 2201) 4.2 G/DL CALC GLOBULIN (test code = 3.4 G/DL 2240) CALC A/G RATIO (test code = 1.2 RATIO 2234) BILIRUBIN, TOTAL (test code = 0.7 MG/DL 2206) ALKALINE PHOSPHATASE (test 117 U/L code = 2204) AST (test code = 2218) 37 U/L ALT (test code = 2219) 42 U/L VITAMIN D, 25 [id number] 00:00:00 Test Item Value Reference Range Interpretation Comments VITAMIN D, 25 OH (test code = 4958) 26 NG/ML VITAMIN D, 25 [id number] 00:00:00 Test Item Value Reference Range Interpretation Comments VITAMIN D, 25 OH (test code = 4958) 26 NG/ML HEMOGLOBIN [id number] 00:00:00 Test Item Value Reference Range Interpretation Comments HEMOGLOBIN A1c (test code = 47893) 7.8 % HEMOGLOBIN [id number] 00:00:00 Test Item Value Reference Range Interpretation Comments HEMOGLOBIN A1c (test code = 76863) 7.8 % HEMOGLOBIN [id number] 00:00:00 Test Item Value Reference Range Interpretation Comments HEMOGLOBIN A1c (test code = 82270) 7.8 % LIPID [id number] 00:00:00 Test Item Value Reference Range Interpretation Comments CHOLESTEROL (test code = 2210) 160 MG/DL TRIGLYCERIDES (test code = 2232) 726 MG/DL HDL CHOLESTEROL (test code = 22 MG/DL 2220) CALC LDL CHOL (test code = 2237) NOTE MG/DL RISK RATIO LDL/HDL (test code = (NOTE) RATIO 2238) LIPID [id number] 00:00:00 Test Item Value Reference Range Interpretation Comments CHOLESTEROL (test code = 2210) 160 MG/DL TRIGLYCERIDES (test code = 2232) 726 MG/DL HDL CHOLESTEROL (test code = 22 MG/DL 2220) CALC LDL CHOL (test code = 2237) NOTE MG/DL RISK RATIO LDL/HDL (test code = (NOTE) RATIO 2238) COMPREHENSIVE METABOLIC [id number] 00:00:00 Test Item Value Reference Range Interpretation Comments GLUCOSE (test code = 2217) 190 MG/DL BUN (test code = 2208) 14 MG/DL CREATININE (test code = 2214) 0.76 MG/DL eGFR AMER. (test code 110 ML/MIN/1.73 = 89674) eGFR NON- AMER. (test 95 ML/MIN/1.73 code = 38014) CALC BUN/CREAT (test code = 18 RATIO 2235) SODIUM (test code = 2231) 139 MEQ/L POTASSIUM (test code = 2228) 3.9 MEQ/L CHLORIDE (test code = 2215) 99 MEQ/L CARBON DIOXIDE (test code = 24 MEQ/L 2205) CALCIUM (test code = 2209) 9.6 MG/DL PROTEIN, TOTAL (test code = 7.6 G/DL 2228) ALBUMIN (test code = 2201) 4.2 G/DL CALC GLOBULIN (test code = 3.4 G/DL 2240) CALC A/G RATIO (test code = 1.2 RATIO 2234) BILIRUBIN, TOTAL (test code = 0.7 MG/DL 2206) ALKALINE PHOSPHATASE (test 117 U/L code = 2204) AST (test code = 2218) 37 U/L ALT (test code = 2219) 42 U/L COMPREHENSIVE METABOLIC [id number] 00:00:00 Test Item Value Reference Range Interpretation Comments GLUCOSE (test code = 2217) 190 MG/DL BUN (test code = 2208) 14 MG/DL CREATININE (test code = 2214) 0.76 MG/DL eGFR AMER. (test code 110 ML/MIN/1.73 = 58504) eGFR NON- AMER. (test 95 ML/MIN/1.73 code = 42797) CALC BUN/CREAT (test code = 18 RATIO 2235) SODIUM (test code = 2231) 139 MEQ/L POTASSIUM (test code = 2228) 3.9 MEQ/L CHLORIDE (test code = 2215) 99 MEQ/L CARBON DIOXIDE (test code = 24 MEQ/L 2205) CALCIUM (test code = 2209) 9.6 MG/DL PROTEIN, TOTAL (test code = 7.6 G/DL 2228) ALBUMIN (test code = 2201) 4.2 G/DL CALC GLOBULIN (test code = 3.4 G/DL 2239) CALC A/G RATIO (test code = 1.2 RATIO 2233) BILIRUBIN, TOTAL (test code = 0.7 MG/DL 2206) ALKALINE PHOSPHATASE (test 117 U/L code = 2204) AST (test code = 2218) 37 U/L ALT (test code = 2219) 42 U/L VITAMIN D, 25 [id number] 00:00:00 Test Item Value Reference Range Interpretation Comments VITAMIN D, 25 OH (test code = 4958) 26 NG/ML VITAMIN D, 25 [id number] 00:00:00 Test Item Value Reference Range Interpretation Comments VITAMIN D, 25 OH (test code = 4958) 26 NG/ML HEMOGLOBIN [id number] 00:00:00 Test Item Value Reference Range Interpretation Comments HEMOGLOBIN A1c (test code = 10857) 7.8 % HEMOGLOBIN [id number] 00:00:00 Test Item Value Reference Range Interpretation Comments HEMOGLOBIN A1c (test code = 03539) 7.8 % HEMOGLOBIN [id number] 00:00:00 Test Item Value Reference Range Interpretation Comments HEMOGLOBIN A1c (test code = 46125) 7.8 % LIPID [id number] 00:00:00 Test Item Value Reference Range Interpretation Comments CHOLESTEROL (test code = 2210) 160 MG/DL TRIGLYCERIDES (test code = 2232) 726 MG/DL HDL CHOLESTEROL (test code = 22 MG/DL 2220) CALC LDL CHOL (test code = 2237) NOTE MG/DL RISK RATIO LDL/HDL (test code = (NOTE) RATIO 2238) VITAMIN [id number] 00:00:00 Test Item Value Reference Range Interpretation Comments VITAMIN B-12 (test code = 2840) 954 PG/ML VITAMIN [id number] 00:00:00 Test Item Value Reference Range Interpretation Comments VITAMIN B-12 (test code = 2840) 954 PG/ML VITAMIN [id number] 00:00:00 Test Item Value Reference Range Interpretation Comments VITAMIN B-12 (test code = 2840) 954 PG/ML ACUTE HEPATITIS [id number] 00:00:00 Test Item Value Reference Range Interpretation Comments HEPATITIS A IgM (test code = NON-REACTIVE 80145) HEPATITIS B CORE IgM (test code NON-REACTIVE = 4644) HEPATITIS B SURF AG (test code = NON-REACTIVE 2739) HEPATITIS C ANTIBODY (test code NON-REACTIVE = 4675) INTERPRETATION HEPATITIS A: (NOTE) (test code = 2552) INTERPRETATION HEPATITIS B: (NOTE) (test code = 58765) INTERPRETATION HEPATITIS C: (NOTE) (test code = 30691) ACUTE HEPATITIS [id number] 00:00:00 Test Item Value Reference Range Interpretation Comments HEPATITIS A IgM (test code = NON-REACTIVE 99777) HEPATITIS B CORE IgM (test code NON-REACTIVE = 4644) HEPATITIS B SURF AG (test code = NON-REACTIVE 2739) HEPATITIS C ANTIBODY (test code NON-REACTIVE = 4675) INTERPRETATION HEPATITIS A: (NOTE) (test code = 2552) INTERPRETATION HEPATITIS B: (NOTE) (test code = 84150) INTERPRETATION HEPATITIS C: (NOTE) (test code = 00834) VITAMIN [id number] 00:00:00 Test Item Value Reference Range Interpretation Comments VITAMIN B-12 (test code = 2840) 954 PG/ML VITAMIN [id number] 00:00:00 Test Item Value Reference Range Interpretation Comments VITAMIN B-12 (test code = 2840) 954 PG/ML VITAMIN [id number] 00:00:00 Test Item Value Reference Range Interpretation Comments VITAMIN B-12 (test code = 2840) 954 PG/ML ACUTE HEPATITIS [id number] 00:00:00 Test Item Value Reference Range Interpretation Comments HEPATITIS A IgM (test code = NON-REACTIVE 14907) HEPATITIS B CORE IgM (test code NON-REACTIVE = 4644) HEPATITIS B SURF AG (test code = NON-REACTIVE 2739) HEPATITIS C ANTIBODY (test code NON-REACTIVE = 4675) INTERPRETATION HEPATITIS A: (NOTE) (test code = 2552) INTERPRETATION HEPATITIS B: (NOTE) (test code = 95641) INTERPRETATION HEPATITIS C: (NOTE) (test code = 42688) ACUTE HEPATITIS [id number] 00:00:00 Test Item Value Reference Range Interpretation Comments HEPATITIS A IgM (test code = NON-REACTIVE 03988) HEPATITIS B CORE IgM (test code NON-REACTIVE = 4644) HEPATITIS B SURF AG (test code = NON-REACTIVE 2739) HEPATITIS C ANTIBODY (test code NON-REACTIVE = 4675) INTERPRETATION HEPATITIS A: (NOTE) (test code = 2552) INTERPRETATION HEPATITIS B: (NOTE) (test code = 23063) INTERPRETATION HEPATITIS C: (NOTE) (test code = 84779) VITAMIN [id number] 00:00:00 Test Item Value Reference Range Interpretation Comments VITAMIN B-12 (test code = 2840) 954 PG/ML VITAMIN [id number] 00:00:00 Test Item Value Reference Range Interpretation Comments VITAMIN B-12 (test code = 2840) 954 PG/ML VITAMIN [id number] 00:00:00 Test Item Value Reference Range Interpretation Comments VITAMIN B-12 (test code = 2840) 954 PG/ML ACUTE HEPATITIS [id number] 00:00:00 Test Item Value Reference Range Interpretation Comments HEPATITIS A IgM (test code = NON-REACTIVE 84335) HEPATITIS B CORE IgM (test code NON-REACTIVE = 4644) HEPATITIS B SURF AG (test code = NON-REACTIVE 2739) HEPATITIS C ANTIBODY (test code NON-REACTIVE = 4675) INTERPRETATION HEPATITIS A: (NOTE) (test code = 2552) INTERPRETATION HEPATITIS B: (NOTE) (test code = 18709) INTERPRETATION HEPATITIS C: (NOTE) (test code = 44622) ACUTE HEPATITIS [id number] 00:00:00 Test Item Value Reference Range Interpretation Comments HEPATITIS A IgM (test code = NON-REACTIVE 30201) HEPATITIS B CORE IgM (test code NON-REACTIVE = 4644) HEPATITIS B SURF AG (test code = NON-REACTIVE 2739) HEPATITIS C ANTIBODY (test code NON-REACTIVE = 4675) INTERPRETATION HEPATITIS A: (NOTE) (test code = 2552) INTERPRETATION HEPATITIS B: (NOTE) (test code = 46766) INTERPRETATION HEPATITIS C: (NOTE) (test code = 21009) ACUTE HEPATITIS [id number] 00:00:00 Test Item Value Reference Range Interpretation Comments HEPATITIS A IgM (test code = NON-REACTIVE 66902) HEPATITIS B CORE IgM (test code NON-REACTIVE = 4644) HEPATITIS B SURF AG (test code = NON-REACTIVE 2739) HEPATITIS C ANTIBODY (test code NON-REACTIVE = 4675) INTERPRETATION HEPATITIS A: (NOTE) (test code = 2552) INTERPRETATION HEPATITIS B: (NOTE) (test code = 53487) INTERPRETATION HEPATITIS C: (NOTE) (test code = 39688) VITAMIN [id number] 00:00:00 Test Item Value Reference Range Interpretation Comments VITAMIN B-12 (test code = 2840) 954 PG/ML VITAMIN [id number] 00:00:00 Test Item Value Reference Range Interpretation Comments VITAMIN B-12 (test code = 2840) 954 PG/ML VITAMIN [id number] 00:00:00 Test Item Value Reference Range Interpretation Comments VITAMIN B-12 (test code = 2840) 954 PG/ML ACUTE HEPATITIS [id number] 00:00:00 Test Item Value Reference Range Interpretation Comments HEPATITIS A IgM (test code = NON-REACTIVE 10826) HEPATITIS B CORE IgM (test code NON-REACTIVE = 4644) HEPATITIS B SURF AG (test code = NON-REACTIVE 2739) HEPATITIS C ANTIBODY (test code NON-REACTIVE = 4675) INTERPRETATION HEPATITIS A: (NOTE) (test code = 2552) INTERPRETATION HEPATITIS B: (NOTE) (test code = 69895) INTERPRETATION HEPATITIS C: (NOTE) (test code = 59800) CULTURE, [id number] 00:00:00 Test Item Value Reference Range Interpretation Comments CULTURE, URINE (test SPECIMEN NUMBER: code = 80650) [id number] CULTURE, [id number] 00:00:00 Test Item Value Reference Range Interpretation Comments CULTURE, URINE (test SPECIMEN NUMBER: code = 47949) [id number] CULTURE, [id number] 00:00:00 Test Item Value Reference Range Interpretation Comments CULTURE, URINE (test SPECIMEN NUMBER: code = 28238) [id number] CULTURE, [id number] 00:00:00 Test Item Value Reference Range Interpretation Comments CULTURE, URINE (test SPECIMEN NUMBER: code = 60034) [id number] CULTURE, [id number] 00:00:00 Test Item Value Reference Range Interpretation Comments CULTURE, URINE (test SPECIMEN NUMBER: code = 31987) [id number] CULTURE, [id number] 00:00:00 Test Item Value Reference Range Interpretation Comments CULTURE, URINE (test SPECIMEN NUMBER: code = 67762) [id number] CULTURE, [id number] 00:00:00 Test Item Value Reference Range Interpretation Comments CULTURE, URINE (test SPECIMEN NUMBER: code = 77555) [id number] CULTURE, [id number] 00:00:00 Test Item Value Reference Range Interpretation Comments CULTURE, URINE (test SPECIMEN NUMBER: code = 30365) [id number] COMPREHENSIVE METABOLIC [id number] 00:00:00 Test Item Value Reference Range Interpretation Comments GLUCOSE (test code = 2217) 388 MG/DL BUN (test code = 2208) 10 MG/DL CREATININE (test code = 2214) 0.66 MG/DL eGFR AMER. (test code 125 ML/MIN/1.73 = 76890) eGFR NON- AMER. (test 107 ML/MIN/1.73 code = 51239) CALC BUN/CREAT (test code = 15 RATIO 223) SODIUM (test code = 2231) 133 MEQ/L POTASSIUM (test code = 2228) 4.2 MEQ/L CHLORIDE (test code = 2215) 96 MEQ/L CARBON DIOXIDE (test code = 21 MEQ/L 2205) CALCIUM (test code = 2209) 9.7 MG/DL PROTEIN, TOTAL (test code = 7.8 G/DL 2228) ALBUMIN (test code = 2201) 4.5 G/DL CALC GLOBULIN (test code = 3.3 G/DL 2239) CALC A/G RATIO (test code = 1.4 RATIO 2234) BILIRUBIN, TOTAL (test code = 0.5 MG/DL 2206) ALKALINE PHOSPHATASE (test 140 U/L code = 2204) AST (test code = 2218) 41 U/L ALT (test code = 2219) 57 U/L VITAMIN B 12 AND FOLIC [id number] 00:00:00 Test Item Value Reference Range Interpretation Comments VITAMIN B-12 (test code = 2840) 1283 PG/ML FOLIC ACID (test code = 2695) 14.7 UG/L VITAMIN B 12 AND FOLIC [id number] 00:00:00 Test Item Value Reference Range Interpretation Comments VITAMIN B-12 (test code = 2840) 1283 PG/ML FOLIC ACID (test code = 2695) 14.7 UG/L HEMOGLOBIN [id number] 00:00:00 Test Item Value Reference Range Interpretation Comments HEMOGLOBIN A1c (test code = 66430) 11.4 % HEMOGLOBIN [id number] 00:00:00 Test Item Value Reference Range Interpretation Comments HEMOGLOBIN A1c (test code = 41899) 11.4 % HEMOGLOBIN [id number] 00:00:00 Test Item Value Reference Range Interpretation Comments HEMOGLOBIN A1c (test code = 93307) 11.4 % VITAMIN D, 25 [id number] 00:00:00 Test Item Value Reference Range Interpretation Comments VITAMIN D, 25 OH (test code = 4958) 26 NG/ML VITAMIN D, 25 [id number] 00:00:00 Test Item Value Reference Range Interpretation Comments VITAMIN D, 25 OH (test code = 4958) 26 NG/ML COMPREHENSIVE METABOLIC [id number] 00:00:00 Test Item Value Reference Range Interpretation Comments GLUCOSE (test code = 2217) 388 MG/DL BUN (test code = 2208) 10 MG/DL CREATININE (test code = 2214) 0.66 MG/DL eGFR AMER. (test code 125 ML/MIN/1.73 = 16686) eGFR NON- AMER. (test 107 ML/MIN/1.73 code = 01015) CALC BUN/CREAT (test code = 15 RATIO 2235) SODIUM (test code = 2231) 133 MEQ/L POTASSIUM (test code = 2228) 4.2 MEQ/L CHLORIDE (test code = 2215) 96 MEQ/L CARBON DIOXIDE (test code = 21 MEQ/L 2206) CALCIUM (test code = 2209) 9.7 MG/DL PROTEIN, TOTAL (test code = 7.8 G/DL 222) ALBUMIN (test code = 2201) 4.5 G/DL CALC GLOBULIN (test code = 3.3 G/DL 2240) CALC A/G RATIO (test code = 1.4 RATIO 2234) BILIRUBIN, TOTAL (test code = 0.5 MG/DL 2207) ALKALINE PHOSPHATASE (test 140 U/L code = 2204) AST (test code = 2218) 41 U/L ALT (test code = 2219) 57 U/L COMPREHENSIVE METABOLIC [id number] 00:00:00 Test Item Value Reference Range Interpretation Comments GLUCOSE (test code = 2217) 388 MG/DL BUN (test code = 2208) 10 MG/DL CREATININE (test code = 2214) 0.66 MG/DL eGFR AMER. (test code 125 ML/MIN/1.73 = 49853) eGFR NON- AMER. (test 107 ML/MIN/1.73 code = 67353) CALC BUN/CREAT (test code = 15 RATIO 2235) SODIUM (test code = 2231) 133 MEQ/L POTASSIUM (test code = 2228) 4.2 MEQ/L CHLORIDE (test code = 2215) 96 MEQ/L CARBON DIOXIDE (test code = 21 MEQ/L 2205) CALCIUM (test code = 2209) 9.7 MG/DL PROTEIN, TOTAL (test code = 7.8 G/DL 2228) ALBUMIN (test code = 2201) 4.5 G/DL CALC GLOBULIN (test code = 3.3 G/DL 2240) CALC A/G RATIO (test code = 1.4 RATIO 2234) BILIRUBIN, TOTAL (test code = 0.5 MG/DL 2207) ALKALINE PHOSPHATASE (test 140 U/L code = 2204) AST (test code = 2218) 41 U/L ALT (test code = 2219) 57 U/L VITAMIN B 12 AND FOLIC [id number] 00:00:00 Test Item Value Reference Range Interpretation Comments VITAMIN B-12 (test code = 2840) 1283 PG/ML FOLIC ACID (test code = 2695) 14.7 UG/L VITAMIN B 12 AND FOLIC [id number] 00:00:00 Test Item Value Reference Range Interpretation Comments VITAMIN B-12 (test code = 2840) 1283 PG/ML FOLIC ACID (test code = 2695) 14.7 UG/L HEMOGLOBIN [id number] 00:00:00 Test Item Value Reference Range Interpretation Comments HEMOGLOBIN A1c (test code = 77376) 11.4 % HEMOGLOBIN [id number] 00:00:00 Test Item Value Reference Range Interpretation Comments HEMOGLOBIN A1c (test code = 27683) 11.4 % HEMOGLOBIN [id number] 00:00:00 Test Item Value Reference Range Interpretation Comments HEMOGLOBIN A1c (test code = 49922) 11.4 % VITAMIN D, 25 [id number] 00:00:00 Test Item Value Reference Range Interpretation Comments VITAMIN D, 25 OH (test code = 4958) 26 NG/ML VITAMIN D, 25 [id number] 00:00:00 Test Item Value Reference Range Interpretation Comments VITAMIN D, 25 OH (test code = 4958) 26 NG/ML COMPREHENSIVE METABOLIC [id number] 00:00:00 Test Item Value Reference Range Interpretation Comments GLUCOSE (test code = 2217) 388 MG/DL BUN (test code = 2208) 10 MG/DL CREATININE (test code = 2214) 0.66 MG/DL eGFR AMER. (test code 125 ML/MIN/1.73 = 13879) eGFR NON- AMER. (test 107 ML/MIN/1.73 code = 48128) CALC BUN/CREAT (test code = 15 RATIO 2235) SODIUM (test code = 2231) 133 MEQ/L POTASSIUM (test code = 2228) 4.2 MEQ/L CHLORIDE (test code = 2215) 96 MEQ/L CARBON DIOXIDE (test code = 21 MEQ/L 2205) CALCIUM (test code = 2209) 9.7 MG/DL PROTEIN, TOTAL (test code = 7.8 G/DL 2228) ALBUMIN (test code = 2201) 4.5 G/DL CALC GLOBULIN (test code = 3.3 G/DL 2239) CALC A/G RATIO (test code = 1.4 RATIO 2234) BILIRUBIN, TOTAL (test code = 0.5 MG/DL 2206) ALKALINE PHOSPHATASE (test 140 U/L code = 2204) AST (test code = 2218) 41 U/L ALT (test code = 2219) 57 U/L COMPREHENSIVE METABOLIC [id number] 00:00:00 Test Item Value Reference Range Interpretation Comments GLUCOSE (test code = 2217) 388 MG/DL BUN (test code = 2208) 10 MG/DL CREATININE (test code = 2214) 0.66 MG/DL eGFR AMER. (test code 125 ML/MIN/1.73 = 34767) eGFR NON- AMER. (test 107 ML/MIN/1.73 code = 76855) CALC BUN/CREAT (test code = 15 RATIO 2235) SODIUM (test code = 2231) 133 MEQ/L POTASSIUM (test code = 2228) 4.2 MEQ/L CHLORIDE (test code = 2215) 96 MEQ/L CARBON DIOXIDE (test code = 21 MEQ/L 2205) CALCIUM (test code = 2209) 9.7 MG/DL PROTEIN, TOTAL (test code = 7.8 G/DL 2228) ALBUMIN (test code = 2201) 4.5 G/DL CALC GLOBULIN (test code = 3.3 G/DL 224) CALC A/G RATIO (test code = 1.4 RATIO 2233) BILIRUBIN, TOTAL (test code = 0.5 MG/DL 2206) ALKALINE PHOSPHATASE (test 140 U/L code = 2204) AST (test code = 2218) 41 U/L ALT (test code = 2219) 57 U/L VITAMIN B 12 AND FOLIC [id number] 00:00:00 Test Item Value Reference Range Interpretation Comments VITAMIN B-12 (test code = 2840) 1283 PG/ML FOLIC ACID (test code = 2695) 14.7 UG/L VITAMIN B 12 AND FOLIC [id number] 00:00:00 Test Item Value Reference Range Interpretation Comments VITAMIN B-12 (test code = 2840) 1283 PG/ML FOLIC ACID (test code = 2695) 14.7 UG/L HEMOGLOBIN [id number] 00:00:00 Test Item Value Reference Range Interpretation Comments HEMOGLOBIN A1c (test code = 19769) 11.4 % HEMOGLOBIN [id number] 00:00:00 Test Item Value Reference Range Interpretation Comments HEMOGLOBIN A1c (test code = 13964) 11.4 % HEMOGLOBIN [id number] 00:00:00 Test Item Value Reference Range Interpretation Comments HEMOGLOBIN A1c (test code = 20156) 11.4 % VITAMIN D, 25 [id number] 00:00:00 Test Item Value Reference Range Interpretation Comments VITAMIN D, 25 OH (test code = 4958) 26 NG/ML VITAMIN D, 25 [id number] 00:00:00 Test Item Value Reference Range Interpretation Comments VITAMIN D, 25 OH (test code = 4958) 26 NG/ML COMPREHENSIVE METABOLIC [id number] 00:00:00 Test Item Value Reference Range Interpretation Comments GLUCOSE (test code = 2217) 388 MG/DL BUN (test code = 2208) 10 MG/DL CREATININE (test code = 2214) 0.66 MG/DL eGFR AMER. (test code 125 ML/MIN/1.73 = 39680) eGFR NON- AMER. (test 107 ML/MIN/1.73 code = 74556) CALC BUN/CREAT (test code = 15 RATIO 2235) SODIUM (test code = 2231) 133 MEQ/L POTASSIUM (test code = 2228) 4.2 MEQ/L CHLORIDE (test code = 2215) 96 MEQ/L CARBON DIOXIDE (test code = 21 MEQ/L 2205) CALCIUM (test code = 2209) 9.7 MG/DL PROTEIN, TOTAL (test code = 7.8 G/DL 2228) ALBUMIN (test code = 2201) 4.5 G/DL CALC GLOBULIN (test code = 3.3 G/DL 2240) CALC A/G RATIO (test code = 1.4 RATIO 2234) BILIRUBIN, TOTAL (test code = 0.5 MG/DL 2206) ALKALINE PHOSPHATASE (test 140 U/L code = 2204) AST (test code = 2218) 41 U/L ALT (test code = 2219) 57 U/L COMPREHENSIVE METABOLIC [id number] 00:00:00 Test Item Value Reference Range Interpretation Comments GLUCOSE (test code = 2217) 388 MG/DL BUN (test code = 2208) 10 MG/DL CREATININE (test code = 2214) 0.66 MG/DL eGFR AMER. (test code 125 ML/MIN/1.73 = 57656) eGFR NON- AMER. (test 107 ML/MIN/1.73 code = 42829) CALC BUN/CREAT (test code = 15 RATIO 2235) SODIUM (test code = 2231) 133 MEQ/L POTASSIUM (test code = 2228) 4.2 MEQ/L CHLORIDE (test code = 2215) 96 MEQ/L CARBON DIOXIDE (test code = 21 MEQ/L 2205) CALCIUM (test code = 2209) 9.7 MG/DL PROTEIN, TOTAL (test code = 7.8 G/DL 2228) ALBUMIN (test code = 2201) 4.5 G/DL CALC GLOBULIN (test code = 3.3 G/DL 2239) CALC A/G RATIO (test code = 1.4 RATIO 2233) BILIRUBIN, TOTAL (test code = 0.5 MG/DL 2206) ALKALINE PHOSPHATASE (test 140 U/L code = 220) AST (test code = 2218) 41 U/L ALT (test code = 2219) 57 U/L VITAMIN B 12 AND FOLIC [id number] 00:00:00 Test Item Value Reference Range Interpretation Comments VITAMIN B-12 (test code = 2840) 1283 PG/ML FOLIC ACID (test code = 2695) 14.7 UG/L VITAMIN B 12 AND FOLIC [id number] 00:00:00 Test Item Value Reference Range Interpretation Comments VITAMIN B-12 (test code = 2840) 1283 PG/ML FOLIC ACID (test code = 2695) 14.7 UG/L HEMOGLOBIN [id number] 00:00:00 Test Item Value Reference Range Interpretation Comments HEMOGLOBIN A1c (test code = 78625) 11.4 % HEMOGLOBIN [id number] 00:00:00 Test Item Value Reference Range Interpretation Comments HEMOGLOBIN A1c (test code = 46391) 11.4 % HEMOGLOBIN [id number] 00:00:00 Test Item Value Reference Range Interpretation Comments HEMOGLOBIN A1c (test code = 10081) 11.4 % VITAMIN D, 25 [id number] 00:00:00 Test Item Value Reference Range Interpretation Comments VITAMIN D, 25 OH (test code = 4958) 26 NG/ML VITAMIN D, 25 [id number] 00:00:00 Test Item Value Reference Range Interpretation Comments VITAMIN D, 25 OH (test code = 4958) 26 NG/ML COMPREHENSIVE METABOLIC [id number] 00:00:00 Test Item Value Reference Range Interpretation Comments GLUCOSE (test code = 2217) 388 MG/DL BUN (test code = 2208) 10 MG/DL CREATININE (test code = 2214) 0.66 MG/DL eGFR AMER. (test code 125 ML/MIN/1.73 = 11403) eGFR NON- AMER. (test 107 ML/MIN/1.73 code = 60890) CALC BUN/CREAT (test code = 15 RATIO 2235) SODIUM (test code = 2231) 133 MEQ/L POTASSIUM (test code = 2228) 4.2 MEQ/L CHLORIDE (test code = 2215) 96 MEQ/L CARBON DIOXIDE (test code = 21 MEQ/L 2205) CALCIUM (test code = 2209) 9.7 MG/DL PROTEIN, TOTAL (test code = 7.8 G/DL 2228) ALBUMIN (test code = 2201) 4.5 G/DL CALC GLOBULIN (test code = 3.3 G/DL 2239) CALC A/G RATIO (test code = 1.4 RATIO 2233) BILIRUBIN, TOTAL (test code = 0.5 MG/DL 2206) ALKALINE PHOSPHATASE (test 140 U/L code = 2204) AST (test code = 2218) 41 U/L ALT (test code = 2219) 57 U/L CBC W/AUTO [id number] 00:00:00 Test Item Value Reference Range Interpretation Comments WBC (test code = 1001) 5.8 K/UL RBC (test code = 1002) 4.08 M/UL HEMOGLOBIN (test code = 1003) 12.9 G/DL HEMATOCRIT (test code = 1004) 37.6 % MCV (test code = 1005) 92.2 fL MCH (test code = 1006) 31.6 PG MCHC (test code = 1007) 34.3 G/DL RDW (test code = 1038) 13.0 % NEUTROPHILS (test code = 1008) 51.8 % LYMPHOCYTES (test code = 1010) 38.0 % MONOCYTES (test code = 1011) 6.7 % EOSINOPHILS (test code = 1012) 2.8 % BASOPHILS (test code = 1013) 0.7 % PLATELET COUNT (test code = 1015) 182 K/UL CBC W/AUTO [id number] 00:00:00 Test Item Value Reference Range Interpretation Comments WBC (test code = 1001) 5.8 K/UL RBC (test code = 1002) 4.08 M/UL HEMOGLOBIN (test code = 1003) 12.9 G/DL HEMATOCRIT (test code = 1004) 37.6 % MCV (test code = 1005) 92.2 fL MCH (test code = 1006) 31.6 PG MCHC (test code = 1007) 34.3 G/DL RDW (test code = 1038) 13.0 % NEUTROPHILS (test code = 1008) 51.8 % LYMPHOCYTES (test code = 1010) 38.0 % MONOCYTES (test code = 1011) 6.7 % EOSINOPHILS (test code = 1012) 2.8 % BASOPHILS (test code = 1013) 0.7 % PLATELET COUNT (test code = 1015) 182 K/UL CBC W/AUTO [id number] 00:00:00 Test Item Value Reference Range Interpretation Comments WBC (test code = 1001) 5.8 K/UL RBC (test code = 1002) 4.08 M/UL HEMOGLOBIN (test code = 1003) 12.9 G/DL HEMATOCRIT (test code = 1004) 37.6 % MCV (test code = 1005) 92.2 fL MCH (test code = 1006) 31.6 PG MCHC (test code = 1007) 34.3 G/DL RDW (test code = 1038) 13.0 % NEUTROPHILS (test code = 1008) 51.8 % LYMPHOCYTES (test code = 1010) 38.0 % MONOCYTES (test code = 1011) 6.7 % EOSINOPHILS (test code = 1012) 2.8 % BASOPHILS (test code = 1013) 0.7 % PLATELET COUNT (test code = 1015) 182 K/UL CBC W/AUTO [id number] 00:00:00 Test Item Value Reference Range Interpretation Comments WBC (test code = 1001) 5.8 K/UL RBC (test code = 1002) 4.08 M/UL HEMOGLOBIN (test code = 1003) 12.9 G/DL HEMATOCRIT (test code = 1004) 37.6 % MCV (test code = 1005) 92.2 fL MCH (test code = 1006) 31.6 PG MCHC (test code = 1007) 34.3 G/DL RDW (test code = 1038) 13.0 % NEUTROPHILS (test code = 1008) 51.8 % LYMPHOCYTES (test code = 1010) 38.0 % MONOCYTES (test code = 1011) 6.7 % EOSINOPHILS (test code = 1012) 2.8 % BASOPHILS (test code = 1013) 0.7 % PLATELET COUNT (test code = 1015) 182 K/UL CBC W/AUTO [id number] 00:00:00 Test Item Value Reference Range Interpretation Comments WBC (test code = 1001) 5.8 K/UL RBC (test code = 1002) 4.08 M/UL HEMOGLOBIN (test code = 1003) 12.9 G/DL HEMATOCRIT (test code = 1004) 37.6 % MCV (test code = 1005) 92.2 fL MCH (test code = 1006) 31.6 PG MCHC (test code = 1007) 34.3 G/DL RDW (test code = 1038) 13.0 % NEUTROPHILS (test code = 1008) 51.8 % LYMPHOCYTES (test code = 1010) 38.0 % MONOCYTES (test code = 1011) 6.7 % EOSINOPHILS (test code = 1012) 2.8 % BASOPHILS (test code = 1013) 0.7 % PLATELET COUNT (test code = 1015) 182 K/UL CBC W/AUTO [id number] 00:00:00 Test Item Value Reference Range Interpretation Comments WBC (test code = 1001) 5.8 K/UL RBC (test code = 1002) 4.08 M/UL HEMOGLOBIN (test code = 1003) 12.9 G/DL HEMATOCRIT (test code = 1004) 37.6 % MCV (test code = 1005) 92.2 fL MCH (test code = 1006) 31.6 PG MCHC (test code = 1007) 34.3 G/DL RDW (test code = 1038) 13.0 % NEUTROPHILS (test code = 1008) 51.8 % LYMPHOCYTES (test code = 1010) 38.0 % MONOCYTES (test code = 1011) 6.7 % EOSINOPHILS (test code = 1012) 2.8 % BASOPHILS (test code = 1013) 0.7 % PLATELET COUNT (test code = 1015) 182 K/UL CBC W/AUTO [id number] 00:00:00 Test Item Value Reference Range Interpretation Comments WBC (test code = 1001) 5.8 K/UL RBC (test code = 1002) 4.08 M/UL HEMOGLOBIN (test code = 1003) 12.9 G/DL HEMATOCRIT (test code = 1004) 37.6 % MCV (test code = 1005) 92.2 fL MCH (test code = 1006) 31.6 PG MCHC (test code = 1007) 34.3 G/DL RDW (test code = 1038) 13.0 % NEUTROPHILS (test code = 1008) 51.8 % LYMPHOCYTES (test code = 1010) 38.0 % MONOCYTES (test code = 1011) 6.7 % EOSINOPHILS (test code = 1012) 2.8 % BASOPHILS (test code = 1013) 0.7 % PLATELET COUNT (test code = 1015) 182 K/UL CBC W/AUTO [id number] 00:00:00 Test Item Value Reference Range Interpretation Comments WBC (test code = 1001) 5.8 K/UL RBC (test code = 1002) 4.08 M/UL HEMOGLOBIN (test code = 1003) 12.9 G/DL HEMATOCRIT (test code = 1004) 37.6 % MCV (test code = 1005) 92.2 fL MCH (test code = 1006) 31.6 PG MCHC (test code = 1007) 34.3 G/DL RDW (test code = 1038) 13.0 % NEUTROPHILS (test code = 1008) 51.8 % LYMPHOCYTES (test code = 1010) 38.0 % MONOCYTES (test code = 1011) 6.7 % EOSINOPHILS (test code = 1012) 2.8 % BASOPHILS (test code = 1013) 0.7 % PLATELET COUNT (test code = 1015) 182 K/UL CBC W/AUTO [id number] 00:00:00 Test Item Value Reference Range Interpretation Comments WBC (test code = 1001) 5.8 K/UL RBC (test code = 1002) 4.08 M/UL HEMOGLOBIN (test code = 1003) 12.9 G/DL HEMATOCRIT (test code = 1004) 37.6 % MCV (test code = 1005) 92.2 fL MCH (test code = 1006) 31.6 PG MCHC (test code = 1007) 34.3 G/DL RDW (test code = 1038) 13.0 % NEUTROPHILS (test code = 1008) 51.8 % LYMPHOCYTES (test code = 1010) 38.0 % MONOCYTES (test code = 1011) 6.7 % EOSINOPHILS (test code = 1012) 2.8 % BASOPHILS (test code = 1013) 0.7 % PLATELET COUNT (test code = 1015) 182 K/UL CBC W/AUTO [id number] 00:00:00 Test Item Value Reference Range Interpretation Comments WBC (test code = 1001) 5.8 K/UL RBC (test code = 1002) 4.08 M/UL HEMOGLOBIN (test code = 1003) 12.9 G/DL HEMATOCRIT (test code = 1004) 37.6 % MCV (test code = 1005) 92.2 fL MCH (test code = 1006) 31.6 PG MCHC (test code = 1007) 34.3 G/DL RDW (test code = 1038) 13.0 % NEUTROPHILS (test code = 1008) 51.8 % LYMPHOCYTES (test code = 1010) 38.0 % MONOCYTES (test code = 1011) 6.7 % EOSINOPHILS (test code = 1012) 2.8 % BASOPHILS (test code = 1013) 0.7 % PLATELET COUNT (test code = 1015) 182 K/UL CBC W/AUTO [id number] 00:00:00 Test Item Value Reference Range Interpretation Comments WBC (test code = 1001) 5.8 K/UL RBC (test code = 1002) 4.08 M/UL HEMOGLOBIN (test code = 1003) 12.9 G/DL HEMATOCRIT (test code = 1004) 37.6 % MCV (test code = 1005) 92.2 fL MCH (test code = 1006) 31.6 PG MCHC (test code = 1007) 34.3 G/DL RDW (test code = 1038) 13.0 % NEUTROPHILS (test code = 1008) 51.8 % LYMPHOCYTES (test code = 1010) 38.0 % MONOCYTES (test code = 1011) 6.7 % EOSINOPHILS (test code = 1012) 2.8 % BASOPHILS (test code = 1013) 0.7 % PLATELET COUNT (test code = 1015) 182 K/UL CBC W/AUTO [id number] 00:00:00 Test Item Value Reference Range Interpretation Comments WBC (test code = 1001) 5.8 K/UL RBC (test code = 1002) 4.08 M/UL HEMOGLOBIN (test code = 1003) 12.9 G/DL HEMATOCRIT (test code = 1004) 37.6 % MCV (test code = 1005) 92.2 fL MCH (test code = 1006) 31.6 PG MCHC (test code = 1007) 34.3 G/DL RDW (test code = 1038) 13.0 % NEUTROPHILS (test code = 1008) 51.8 % LYMPHOCYTES (test code = 1010) 38.0 % MONOCYTES (test code = 1011) 6.7 % EOSINOPHILS (test code = 1012) 2.8 % BASOPHILS (test code = 1013) 0.7 % PLATELET COUNT (test code = 1015) 182 K/UL CHLAMYDIA, AMPLIFIED, [id number] 00:00:00 Test Item Value Reference Range Interpretation Comments CHLAMYDIA, TMA (test code = 12871) NEGATIVE CHLAMYDIA, AMPLIFIED, [id number] 00:00:00 Test Item Value Reference Range Interpretation Comments CHLAMYDIA, TMA (test code = 92553) NEGATIVE GC, AMPLIFIED, [id number] 00:00:00 Test Item Value Reference Range Interpretation Comments GONORRHEA, TMA (test code = 78633) NEGATIVE GC, AMPLIFIED, [id number] 00:00:00 Test Item Value Reference Range Interpretation Comments GONORRHEA, TMA (test code = 21617) NEGATIVE CHLAMYDIA, AMPLIFIED, [id number] 00:00:00 Test Item Value Reference Range Interpretation Comments CHLAMYDIA, TMA (test code = 62687) NEGATIVE CHLAMYDIA, AMPLIFIED, [id number] 00:00:00 Test Item Value Reference Range Interpretation Comments CHLAMYDIA, TMA (test code = 81590) NEGATIVE GC, AMPLIFIED, [id number] 00:00:00 Test Item Value Reference Range Interpretation Comments GONORRHEA, TMA (test code = 49555) NEGATIVE GC, AMPLIFIED, [id number] 00:00:00 Test Item Value Reference Range Interpretation Comments GONORRHEA, TMA (test code = 24762) NEGATIVE CHLAMYDIA, AMPLIFIED, [id number] 00:00:00 Test Item Value Reference Range Interpretation Comments CHLAMYDIA, TMA (test code = 51596) NEGATIVE CHLAMYDIA, AMPLIFIED, [id number] 00:00:00 Test Item Value Reference Range Interpretation Comments CHLAMYDIA, TMA (test code = 60782) NEGATIVE GC, AMPLIFIED, [id number] 00:00:00 Test Item Value Reference Range Interpretation Comments GONORRHEA, TMA (test code = 45271) NEGATIVE GC, AMPLIFIED, [id number] 00:00:00 Test Item Value Reference Range Interpretation Comments GONORRHEA, TMA (test code = 37795) NEGATIVE CHLAMYDIA, AMPLIFIED, [id number] 00:00:00 Test Item Value Reference Range Interpretation Comments CHLAMYDIA, TMA (test code = 82814) NEGATIVE CHLAMYDIA, AMPLIFIED, [id number] 00:00:00 Test Item Value Reference Range Interpretation Comments CHLAMYDIA, TMA (test code = 39915) NEGATIVE GC, AMPLIFIED, [id number] 00:00:00 Test Item Value Reference Range Interpretation Comments GONORRHEA, TMA (test code = 73639) NEGATIVE GC, AMPLIFIED, [id number] 00:00:00 Test Item Value Reference Range Interpretation Comments GONORRHEA, TMA (test code = 38597) NEGATIVE [id number] 00:00:00 Test Item Value Reference Range Interpretation Comments RPR RESULT (test code = NON-REACTIVE 3501) RPR TITER (test code = 3500) NOT INDIC. TITER [id number] 00:00:00 Test Item Value Reference Range Interpretation Comments RPR RESULT (test code = NON-REACTIVE 3501) RPR TITER (test code = 3500) NOT INDIC. TITER [id number] 00:00:00 Test Item Value Reference Range Interpretation Comments RPR RESULT (test code = NON-REACTIVE 3501) RPR TITER (test code = 3500) NOT INDIC. TITER RUBELLA ANTIBODY [id number] 00:00:00 Test Item Value Reference Range Interpretation Comments RUBELLA ANTIBODY SCREEN (test code = 38 IU/ML 4600) RUBELLA IgG INTERP (test code = REACTIVE 42974) RUBELLA ANTIBODY [id number] 00:00:00 Test Item Value Reference Range Interpretation Comments RUBELLA ANTIBODY SCREEN (test code = 38 IU/ML 4600) RUBELLA IgG INTERP (test code = REACTIVE 10336) ACUTE HEPATITIS [id number] 00:00:00 Test Item Value Reference Range Interpretation Comments HEPATITIS A IgM (test code = NON-REACTIVE 98891) HEPATITIS B CORE IgM (test code NON-REACTIVE = 4644) HEPATITIS B SURF AG (test code = NON-REACTIVE 2739) HEPATITIS C ANTIBODY (test code NON-REACTIVE = 4675) INTERPRETATION HEPATITIS A: (NOTE) (test code = 2552) INTERPRETATION HEPATITIS B: (NOTE) (test code = 19700) INTERPRETATION HEPATITIS C: (NOTE) (test code = 19894) ACUTE HEPATITIS [id number] 00:00:00 Test Item Value Reference Range Interpretation Comments HEPATITIS A IgM (test code = NON-REACTIVE 74083) HEPATITIS B CORE IgM (test code NON-REACTIVE = 4644) HEPATITIS B SURF AG (test code = NON-REACTIVE 2739) HEPATITIS C ANTIBODY (test code NON-REACTIVE = 4675) INTERPRETATION HEPATITIS A: (NOTE) (test code = 2552) INTERPRETATION HEPATITIS B: (NOTE) (test code = 73094) INTERPRETATION HEPATITIS C: (NOTE) (test code = 28639) HIV AB/AG COMBO RFLX [id number] 00:00:00 Test Item Value Reference Range Interpretation Comments HIV 1/2 4TH GEN, RFLX CONF (test NON-REACTIVE code = 3514) HIV AB/AG COMBO RFLX [id number] 00:00:00 Test Item Value Reference Range Interpretation Comments HIV 1/2 4TH GEN, RFLX CONF (test NON-REACTIVE code = 3514) [id number] 00:00:00 Test Item Value Reference Range Interpretation Comments RPR RESULT (test code = NON-REACTIVE 3501) RPR TITER (test code = 3500) NOT INDIC. TITER [id number] 00:00:00 Test Item Value Reference Range Interpretation Comments RPR RESULT (test code = NON-REACTIVE 3501) RPR TITER (test code = 3500) NOT INDIC. TITER [id number] 00:00:00 Test Item Value Reference Range Interpretation Comments RPR RESULT (test code = NON-REACTIVE 3501) RPR TITER (test code = 3500) NOT INDIC. TITER RUBELLA ANTIBODY [id number] 00:00:00 Test Item Value Reference Range Interpretation Comments RUBELLA ANTIBODY SCREEN (test code = 38 IU/ML 4600) RUBELLA IgG INTERP (test code = REACTIVE 83590) RUBELLA ANTIBODY [id number] 00:00:00 Test Item Value Reference Range Interpretation Comments RUBELLA ANTIBODY SCREEN (test code = 38 IU/ML 4600) RUBELLA IgG INTERP (test code = REACTIVE 59760) ACUTE HEPATITIS [id number] 00:00:00 Test Item Value Reference Range Interpretation Comments HEPATITIS A IgM (test code = NON-REACTIVE 98587) HEPATITIS B CORE IgM (test code NON-REACTIVE = 4644) HEPATITIS B SURF AG (test code = NON-REACTIVE 2739) HEPATITIS C ANTIBODY (test code NON-REACTIVE = 4675) INTERPRETATION HEPATITIS A: (NOTE) (test code = 2552) INTERPRETATION HEPATITIS B: (NOTE) (test code = 96457) INTERPRETATION HEPATITIS C: (NOTE) (test code = 94247) ACUTE HEPATITIS [id number] 00:00:00 Test Item Value Reference Range Interpretation Comments HEPATITIS A IgM (test code = NON-REACTIVE 93687) HEPATITIS B CORE IgM (test code NON-REACTIVE = 4644) HEPATITIS B SURF AG (test code = NON-REACTIVE 2739) HEPATITIS C ANTIBODY (test code NON-REACTIVE = 4675) INTERPRETATION HEPATITIS A: (NOTE) (test code = 2552) INTERPRETATION HEPATITIS B: (NOTE) (test code = 71115) INTERPRETATION HEPATITIS C: (NOTE) (test code = 31833) HIV AB/AG COMBO RFLX [id number] 00:00:00 Test Item Value Reference Range Interpretation Comments HIV 1/2 4TH GEN, RFLX CONF (test NON-REACTIVE code = 3514) HIV AB/AG COMBO RFLX [id number] 00:00:00 Test Item Value Reference Range Interpretation Comments HIV 1/2 4TH GEN, RFLX CONF (test NON-REACTIVE code = 3514) [id number] 00:00:00 Test Item Value Reference Range Interpretation Comments RPR RESULT (test code = NON-REACTIVE 3501) RPR TITER (test code = 3500) NOT INDIC. TITER [id number] 00:00:00 Test Item Value Reference Range Interpretation Comments RPR RESULT (test code = NON-REACTIVE 3501) RPR TITER (test code = 3500) NOT INDIC. TITER [id number] 00:00:00 Test Item Value Reference Range Interpretation Comments RPR RESULT (test code = NON-REACTIVE 3501) RPR TITER (test code = 3500) NOT INDIC. TITER RUBELLA ANTIBODY [id number] 00:00:00 Test Item Value Reference Range Interpretation Comments RUBELLA ANTIBODY SCREEN (test code = 38 IU/ML 4600) RUBELLA IgG INTERP (test code = REACTIVE 69345) RUBELLA ANTIBODY [id number] 00:00:00 Test Item Value Reference Range Interpretation Comments RUBELLA ANTIBODY SCREEN (test code = 38 IU/ML 4600) RUBELLA IgG INTERP (test code = REACTIVE 58802) ACUTE HEPATITIS [id number] 00:00:00 Test Item Value Reference Range Interpretation Comments HEPATITIS A IgM (test code = NON-REACTIVE 96731) HEPATITIS B CORE IgM (test code NON-REACTIVE = 4644) HEPATITIS B SURF AG (test code = NON-REACTIVE 2739) HEPATITIS C ANTIBODY (test code NON-REACTIVE = 4675) INTERPRETATION HEPATITIS A: (NOTE) (test code = 2552) INTERPRETATION HEPATITIS B: (NOTE) (test code = 39569) INTERPRETATION HEPATITIS C: (NOTE) (test code = 23291) ACUTE HEPATITIS [id number] 00:00:00 Test Item Value Reference Range Interpretation Comments HEPATITIS A IgM (test code = NON-REACTIVE 41990) HEPATITIS B CORE IgM (test code NON-REACTIVE = 4644) HEPATITIS B SURF AG (test code = NON-REACTIVE 2739) HEPATITIS C ANTIBODY (test code NON-REACTIVE = 4675) INTERPRETATION HEPATITIS A: (NOTE) (test code = 2552) INTERPRETATION HEPATITIS B: (NOTE) (test code = 56244) INTERPRETATION HEPATITIS C: (NOTE) (test code = 41789) HIV AB/AG COMBO RFLX [id number] 00:00:00 Test Item Value Reference Range Interpretation Comments HIV 1/2 4TH GEN, RFLX CONF (test NON-REACTIVE code = 3514) HIV AB/AG COMBO RFLX [id number] 00:00:00 Test Item Value Reference Range Interpretation Comments HIV 1/2 4TH GEN, RFLX CONF (test NON-REACTIVE code = 3514) [id number] 00:00:00 Test Item Value Reference Range Interpretation Comments RPR RESULT (test code = NON-REACTIVE 3501) RPR TITER (test code = 3500) NOT INDIC. TITER [id number] 00:00:00 Test Item Value Reference Range Interpretation Comments RPR RESULT (test code = NON-REACTIVE 3501) RPR TITER (test code = 3500) NOT INDIC. TITER [id number] 00:00:00 Test Item Value Reference Range Interpretation Comments RPR RESULT (test code = NON-REACTIVE 3501) RPR TITER (test code = 3500) NOT INDIC. TITER RUBELLA ANTIBODY [id number] 00:00:00 Test Item Value Reference Range Interpretation Comments RUBELLA ANTIBODY SCREEN (test code = 38 IU/ML 4600) RUBELLA IgG INTERP (test code = REACTIVE 68771) RUBELLA ANTIBODY [id number] 00:00:00 Test Item Value Reference Range Interpretation Comments RUBELLA ANTIBODY SCREEN (test code = 38 IU/ML 4600) RUBELLA IgG INTERP (test code = REACTIVE 27246) ACUTE HEPATITIS [id number] 00:00:00 Test Item Value Reference Range Interpretation Comments HEPATITIS A IgM (test code = NON-REACTIVE 31385) HEPATITIS B CORE IgM (test code NON-REACTIVE = 4644) HEPATITIS B SURF AG (test code = NON-REACTIVE 2739) HEPATITIS C ANTIBODY (test code NON-REACTIVE = 4675) INTERPRETATION HEPATITIS A: (NOTE) (test code = 2552) INTERPRETATION HEPATITIS B: (NOTE) (test code = 73856) INTERPRETATION HEPATITIS C: (NOTE) (test code = 24626) ACUTE HEPATITIS [id number] 00:00:00 Test Item Value Reference Range Interpretation Comments HEPATITIS A IgM (test code = NON-REACTIVE 50373) HEPATITIS B CORE IgM (test code NON-REACTIVE = 4644) HEPATITIS B SURF AG (test code = NON-REACTIVE 2739) HEPATITIS C ANTIBODY (test code NON-REACTIVE = 4675) INTERPRETATION HEPATITIS A: (NOTE) (test code = 2552) INTERPRETATION HEPATITIS B: (NOTE) (test code = 56469) INTERPRETATION HEPATITIS C: (NOTE) (test code = 95968) HIV AB/AG COMBO RFLX [id number] 00:00:00 Test Item Value Reference Range Interpretation Comments HIV 1/2 4TH GEN, RFLX CONF (test NON-REACTIVE code = 3514) HIV AB/AG COMBO RFLX [id number] 00:00:00 Test Item Value Reference Range Interpretation Comments HIV 1/2 4TH GEN, RFLX CONF (test NON-REACTIVE code = 3514) PAP TEST, THINPREP, [id number] 00:00:00 Test Item Value Reference Range Interpretation Comments SOURCE: (test code = Cervical/Endocervical 8001) SLIDES: (test code = 1 8011) LMP: (test code = 02/2017) SPECIMEN ADEQUACY: (NOTE) (test code = 24636) INTERPRETATION: (test NO EPITHELIAL code = 21236) ABNORMALITY SEE BELOW OTHER COMMENTS: (test (NOTE) code = 8081) HANDLING TECH: DAVID Todd(ASCP)IAC (test code = 8101) LOCATION: (test code (NOTE) = 57554) CPT: (test code = (NOTE) 8140) PAP TEST, THINPREP, [id number] 00:00:00 Test Item Value Reference Range Interpretation Comments SOURCE: (test code = Cervical/Endocervical 8001) SLIDES: (test code = 1 8011) LMP: (test code = 02/2017) SPECIMEN ADEQUACY: (NOTE) (test code = 75306) INTERPRETATION: (test NO EPITHELIAL code = 12026) ABNORMALITY SEE BELOW OTHER COMMENTS: (test (NOTE) code = 8081) HANDLING TECH: DAVID Todd(ASCP)IAC (test code = 8101) LOCATION: (test code (NOTE) = 08985) CPT: (test code = (NOTE) 8140) HPV HIGH RISK WITH GENOTYPE, [id number] 00:00:00 Test Item Value Reference Range Interpretation Comments HPV HIGH RISK INTERP (test code = NEGATIVE 28101) HPV 16 (test code = 69110) NEGATIVE HPV 18 (test code = 23828) NEGATIVE HPV, HR, OTHER GENOTYPES (test code NEGATIVE = 10658) HPV HIGH RISK WITH GENOTYPE, [id number] 00:00:00 Test Item Value Reference Range Interpretation Comments HPV HIGH RISK INTERP (test code = NEGATIVE 47266) HPV 16 (test code = 94195) NEGATIVE HPV 18 (test code = 76553) NEGATIVE HPV, HR, OTHER GENOTYPES (test code NEGATIVE = 31287) PAP TEST, THINPREP, [id number] 00:00:00 Test Item Value Reference Range Interpretation Comments SOURCE: (test code = Cervical/Endocervical 8001) SLIDES: (test code = 1 8011) LMP: (test code = 02/2017) SPECIMEN ADEQUACY: (NOTE) (test code = 67625) INTERPRETATION: (test NO EPITHELIAL code = 34714) ABNORMALITY SEE BELOW OTHER COMMENTS: (test (NOTE) code = 8081) HANDLING TECH: DAVID Todd(ASCP)IAC (test code = 8101) LOCATION: (test code (NOTE) = 45405) CPT: (test code = (NOTE) 8140) PAP TEST, THINPREP, [id number] 00:00:00 Test Item Value Reference Range Interpretation Comments SOURCE: (test code = Cervical/Endocervical 8001) SLIDES: (test code = 1 8011) LMP: (test code = 02/2017) SPECIMEN ADEQUACY: (NOTE) (test code = 38124) INTERPRETATION: (test NO EPITHELIAL code = 29051) ABNORMALITY SEE BELOW OTHER COMMENTS: (test (NOTE) code = 8081) HANDLING TECH: DAVID Todd(ASCP)IAC (test code = 8101) LOCATION: (test code (NOTE) = 22715) CPT: (test code = (NOTE) 8140) HPV HIGH RISK WITH GENOTYPE, [id number] 00:00:00 Test Item Value Reference Range Interpretation Comments HPV HIGH RISK INTERP (test code = NEGATIVE 97014) HPV 16 (test code = 79092) NEGATIVE HPV 18 (test code = 13078) NEGATIVE HPV, HR, OTHER GENOTYPES (test code NEGATIVE = 88298) HPV HIGH RISK WITH GENOTYPE, [id number] 00:00:00 Test Item Value Reference Range Interpretation Comments HPV HIGH RISK INTERP (test code = NEGATIVE 13975) HPV 16 (test code = 83432) NEGATIVE HPV 18 (test code = 74862) NEGATIVE HPV, HR, OTHER GENOTYPES (test code NEGATIVE = 57874) PAP TEST, THINPREP, [id number] 00:00:00 Test Item Value Reference Range Interpretation Comments SOURCE: (test code = Cervical/Endocervical 8001) SLIDES: (test code = 1 8011) LMP: (test code = 02/2017) SPECIMEN ADEQUACY: (NOTE) (test code = 59811) INTERPRETATION: (test NO EPITHELIAL code = 43312) ABNORMALITY SEE BELOW OTHER COMMENTS: (test (NOTE) code = 8081) HANDLING TECH: DAVID Todd(ASCP)IAC (test code = 8101) LOCATION: (test code (NOTE) = 83090) CPT: (test code = (NOTE) 8140) PAP TEST, THINPREP, [id number] 00:00:00 Test Item Value Reference Range Interpretation Comments SOURCE: (test code = Cervical/Endocervical 8001) SLIDES: (test code = 1 8011) LMP: (test code = 02/2017 80) SPECIMEN ADEQUACY: (NOTE) (test code = 29828) INTERPRETATION: (test NO EPITHELIAL code = 95718) ABNORMALITY SEE BELOW OTHER COMMENTS: (test (NOTE) code = 8081) HANDLING TECH: DAVID Todd(ASCP)IAC (test code = 8101) LOCATION: (test code (NOTE) = 56887) CPT: (test code = (NOTE) 8140) HPV HIGH RISK WITH GENOTYPE, [id number] 00:00:00 Test Item Value Reference Range Interpretation Comments HPV HIGH RISK INTERP (test code = NEGATIVE 66402) HPV 16 (test code = 52546) NEGATIVE HPV 18 (test code = 81239) NEGATIVE HPV, HR, OTHER GENOTYPES (test code NEGATIVE = 32881) HPV HIGH RISK WITH GENOTYPE, [id number] 00:00:00 Test Item Value Reference Range Interpretation Comments HPV HIGH RISK INTERP (test code = NEGATIVE 99001) HPV 16 (test code = 46346) NEGATIVE HPV 18 (test code = 61061) NEGATIVE HPV, HR, OTHER GENOTYPES (test code NEGATIVE = 88251) PAP TEST, THINPREP, [id number] 00:00:00 Test Item Value Reference Range Interpretation Comments SOURCE: (test code = Cervical/Endocervical 8001) SLIDES: (test code = 1 8011) LMP: (test code = 02/2017 80) SPECIMEN ADEQUACY: (NOTE) (test code = 31718) INTERPRETATION: (test NO EPITHELIAL code = 28717) ABNORMALITY SEE BELOW OTHER COMMENTS: (test (NOTE) code = 8081) HANDLING TECH: DAVID Todd(ASCP)IAC (test code = 8101) LOCATION: (test code (NOTE) = 36773) CPT: (test code = (NOTE) 8140) PAP TEST, THINPREP, [id number] 00:00:00 Test Item Value Reference Range Interpretation Comments SOURCE: (test code = Cervical/Endocervical 8001) SLIDES: (test code = 1 8011) LMP: (test code = 02/2017 8021) SPECIMEN ADEQUACY: (NOTE) (test code = 54421) INTERPRETATION: (test NO EPITHELIAL code = 97894) ABNORMALITY SEE BELOW OTHER COMMENTS: (test (NOTE) code = 8081) HANDLING TECH: DAVID Todd(ASCP)IAC (test code = 8101) LOCATION: (test code (NOTE) = 85690) CPT: (test code = (NOTE) 8140) HPV HIGH RISK WITH GENOTYPE, [id number] 00:00:00 Test Item Value Reference Range Interpretation Comments HPV HIGH RISK INTERP (test code = NEGATIVE 57266) HPV 16 (test code = 96210) NEGATIVE HPV 18 (test code = 40867) NEGATIVE HPV, HR, OTHER GENOTYPES (test code NEGATIVE = 03507) HPV HIGH RISK WITH GENOTYPE, [id number] 00:00:00 Test Item Value Reference Range Interpretation Comments HPV HIGH RISK INTERP (test code = NEGATIVE 54686) HPV 16 (test code = 61184) NEGATIVE HPV 18 (test code = 31732) NEGATIVE HPV, HR, OTHER GENOTYPES (test code NEGATIVE = 87745) VAGINAL PATHOGENS DNA [id number] 00:00:00 Test Item Value Reference Range Interpretation Comments DAYLIN SPECIES (test code = 04624) NEGATIVE G. VAGINALIS (test code = 45359) POSITIVE T. VAGINALIS (test code = 02432) NEGATIVE VAGINAL PATHOGENS DNA [id number] 00:00:00 Test Item Value Reference Range Interpretation Comments DAYLIN SPECIES (test code = 95111) NEGATIVE G. VAGINALIS (test code = 04354) POSITIVE T. VAGINALIS (test code = 63222) NEGATIVE VAGINAL PATHOGENS DNA [id number] 00:00:00 Test Item Value Reference Range Interpretation Comments DAYLIN SPECIES (test code = 77686) NEGATIVE G. VAGINALIS (test code = 47532) POSITIVE T. VAGINALIS (test code = 42010) NEGATIVE VAGINAL PATHOGENS DNA [id number] 00:00:00 Test Item Value Reference Range Interpretation Comments DAYLIN SPECIES (test code = 60049) NEGATIVE G. VAGINALIS (test code = 56872) POSITIVE T. VAGINALIS (test code = 55998) NEGATIVE VAGINAL PATHOGENS DNA [id number] 00:00:00 Test Item Value Reference Range Interpretation Comments DAYLIN SPECIES (test code = ) NEGATIVE G. VAGINALIS (test code = 52938) POSITIVE T. VAGINALIS (test code = 63421) NEGATIVE VAGINAL PATHOGENS DNA [id number] 00:00:00 Test Item Value Reference Range Interpretation Comments DAYLIN SPECIES (test code = ) NEGATIVE G. VAGINALIS (test code = 89073) POSITIVE T. VAGINALIS (test code = 23347) NEGATIVE VAGINAL PATHOGENS DNA [id number] 00:00:00 Test Item Value Reference Range Interpretation Comments DAYLIN SPECIES (test code = ) NEGATIVE G. VAGINALIS (test code = 07023) POSITIVE T. VAGINALIS (test code = 77939) NEGATIVE VAGINAL PATHOGENS DNA [id number] 00:00:00 Test Item Value Reference Range Interpretation Comments DAYLIN SPECIES (test code = ) NEGATIVE G. VAGINALIS (test code = 08297) POSITIVE T. VAGINALIS (test code = 67521) NEGATIVE RUBELLA ANTIBODY [id number] 00:00:00 Test Item Value Reference Range Interpretation Comments RUBELLA ANTIBODY TEST NOT PERFORMED SCREEN (test code = IU/ML 4600) RUBELLA IgG INTERP TEST NOT PERFORMED (test code = 98458) HEPATITIS PROFILE (A,B,C)2017-03-08 00:00:00 Test Item Value Reference Range Interpretation Comments HEPATITIS A TOTAL AB (test TEST NOT PERFORMED code = 2725) HEPATITIS B SURF AG (test TEST NOT PERFORMED code = 2739) HBSAG CONFIRMATION TEST TEST NOT PERFORMED (test code = 2741) HEP B CORE TOTAL AB (test TEST NOT PERFORMED code = 2729) HEPATITIS B SURFACE AB TEST NOT PERFORMED (test code = 2737) HEPATITIS C ANTIBODY (test TEST NOT PERFORMED code = 4675) INTERPRETATION HEPATITIS TEST NOT PERFORMED A: (test code = 2552) INTERPRETATION HEPATITIS TEST NOT PERFORMED B: (test code = 40894) INTERPRETATION HEPATITIS TEST NOT PERFORMED C: (test code = 92709) HEPATITIS PROFILE (A,B,C)2017-03-08 00:00:00 Test Item Value Reference Range Interpretation Comments HEPATITIS A TOTAL AB (test TEST NOT PERFORMED code = 2725) HEPATITIS B SURF AG (test TEST NOT PERFORMED code = 2739) HBSAG CONFIRMATION TEST TEST NOT PERFORMED (test code = 2741) HEP B CORE TOTAL AB (test TEST NOT PERFORMED code = 2729) HEPATITIS B SURFACE AB TEST NOT PERFORMED (test code = 2737) HEPATITIS C ANTIBODY (test TEST NOT PERFORMED code = 4675) INTERPRETATION HEPATITIS TEST NOT PERFORMED A: (test code = 2552) INTERPRETATION HEPATITIS TEST NOT PERFORMED B: (test code = 89810) INTERPRETATION HEPATITIS TEST NOT PERFORMED C: (test code = 26624) [id number] 00:00:00 Test Item Value Reference Range Interpretation Comments RPR RESULT (test code TEST NOT PERFORMED = 3501) RPR TITER (test code TEST NOT PERFORMED TITER = 3500) [id number] 00:00:00 Test Item Value Reference Range Interpretation Comments RPR RESULT (test code TEST NOT PERFORMED = 3501) RPR TITER (test code TEST NOT PERFORMED TITER = 3500) [id number] 00:00:00 Test Item Value Reference Range Interpretation Comments RPR RESULT (test code TEST NOT PERFORMED = 3501) RPR TITER (test code TEST NOT PERFORMED TITER = 3500) HIV AB/AG COMBO RFLX [id number] 00:00:00 Test Item Value Reference Range Interpretation Comments HIV 1/2 4TH GEN, RFLX CONF TEST NOT PERFORMED (test code = 3514) HIV AB/AG COMBO RFLX [id number] 00:00:00 Test Item Value Reference Range Interpretation Comments HIV 1/2 4TH GEN, RFLX CONF TEST NOT PERFORMED (test code = 3514) RUBELLA ANTIBODY [id number] 00:00:00 Test Item Value Reference Range Interpretation Comments RUBELLA ANTIBODY TEST NOT PERFORMED SCREEN (test code = IU/ML 4600) RUBELLA IgG INTERP TEST NOT PERFORMED (test code = 79339) RUBELLA ANTIBODY [id number] 00:00:00 Test Item Value Reference Range Interpretation Comments RUBELLA ANTIBODY TEST NOT PERFORMED SCREEN (test code = IU/ML 4600) RUBELLA IgG INTERP TEST NOT PERFORMED (test code = 52509) HEPATITIS PROFILE (A,B,C)2017-03-08 00:00:00 Test Item Value Reference Range Interpretation Comments HEPATITIS A TOTAL AB (test TEST NOT PERFORMED code = 2725) HEPATITIS B SURF AG (test TEST NOT PERFORMED code = 2739) HBSAG CONFIRMATION TEST TEST NOT PERFORMED (test code = 2741) HEP B CORE TOTAL AB (test TEST NOT PERFORMED code = 2729) HEPATITIS B SURFACE AB TEST NOT PERFORMED (test code = 2737) HEPATITIS C ANTIBODY (test TEST NOT PERFORMED code = 4675) INTERPRETATION HEPATITIS TEST NOT PERFORMED A: (test code = 2552) INTERPRETATION HEPATITIS TEST NOT PERFORMED B: (test code = 14404) INTERPRETATION HEPATITIS TEST NOT PERFORMED C: (test code = 14422) HEPATITIS PROFILE (A,B,C)2017-03-08 00:00:00 Test Item Value Reference Range Interpretation Comments HEPATITIS A TOTAL AB (test TEST NOT PERFORMED code = 2725) HEPATITIS B SURF AG (test TEST NOT PERFORMED code = 2739) HBSAG CONFIRMATION TEST TEST NOT PERFORMED (test code = 2741) HEP B CORE TOTAL AB (test TEST NOT PERFORMED code = 2729) HEPATITIS B SURFACE AB TEST NOT PERFORMED (test code = 2737) HEPATITIS C ANTIBODY (test TEST NOT PERFORMED code = 4675) INTERPRETATION HEPATITIS TEST NOT PERFORMED A: (test code = 2552) INTERPRETATION HEPATITIS TEST NOT PERFORMED B: (test code = 03224) INTERPRETATION HEPATITIS TEST NOT PERFORMED C: (test code = 78923) [id number] 00:00:00 Test Item Value Reference Range Interpretation Comments RPR RESULT (test code TEST NOT PERFORMED = 3501) RPR TITER (test code TEST NOT PERFORMED TITER = 3500) [id number] 00:00:00 Test Item Value Reference Range Interpretation Comments RPR RESULT (test code TEST NOT PERFORMED = 3501) RPR TITER (test code TEST NOT PERFORMED TITER = 3500) [id number] 00:00:00 Test Item Value Reference Range Interpretation Comments RPR RESULT (test code TEST NOT PERFORMED = 3501) RPR TITER (test code TEST NOT PERFORMED TITER = 3500) HIV AB/AG COMBO RFLX [id number] 00:00:00 Test Item Value Reference Range Interpretation Comments HIV 1/2 4TH GEN, RFLX CONF TEST NOT PERFORMED (test code = 3514) HIV AB/AG COMBO RFLX [id number] 00:00:00 Test Item Value Reference Range Interpretation Comments HIV 1/2 4TH GEN, RFLX CONF TEST NOT PERFORMED (test code = 3514) RUBELLA ANTIBODY [id number] 00:00:00 Test Item Value Reference Range Interpretation Comments RUBELLA ANTIBODY TEST NOT PERFORMED SCREEN (test code = IU/ML 4600) RUBELLA IgG INTERP TEST NOT PERFORMED (test code = 04566) RUBELLA ANTIBODY [id number] 00:00:00 Test Item Value Reference Range Interpretation Comments RUBELLA ANTIBODY TEST NOT PERFORMED SCREEN (test code = IU/ML 4600) RUBELLA IgG INTERP TEST NOT PERFORMED (test code = 38153) HEPATITIS PROFILE (A,B,C)2017-03-08 00:00:00 Test Item Value Reference Range Interpretation Comments HEPATITIS A TOTAL AB (test TEST NOT PERFORMED code = 2725) HEPATITIS B SURF AG (test TEST NOT PERFORMED code = 2739) HBSAG CONFIRMATION TEST TEST NOT PERFORMED (test code = 2741) HEP B CORE TOTAL AB (test TEST NOT PERFORMED code = 2729) HEPATITIS B SURFACE AB TEST NOT PERFORMED (test code = 2737) HEPATITIS C ANTIBODY (test TEST NOT PERFORMED code = 4675) INTERPRETATION HEPATITIS TEST NOT PERFORMED A: (test code = 2552) INTERPRETATION HEPATITIS TEST NOT PERFORMED B: (test code = 94158) INTERPRETATION HEPATITIS TEST NOT PERFORMED C: (test code = 22684) HEPATITIS PROFILE (A,B,C)2017-03-08 00:00:00 Test Item Value Reference Range Interpretation Comments HEPATITIS A TOTAL AB (test TEST NOT PERFORMED code = 2725) HEPATITIS B SURF AG (test TEST NOT PERFORMED code = 2739) HBSAG CONFIRMATION TEST TEST NOT PERFORMED (test code = 2741) HEP B CORE TOTAL AB (test TEST NOT PERFORMED code = 2729) HEPATITIS B SURFACE AB TEST NOT PERFORMED (test code = 2737) HEPATITIS C ANTIBODY (test TEST NOT PERFORMED code = 4675) INTERPRETATION HEPATITIS TEST NOT PERFORMED A: (test code = 2552) INTERPRETATION HEPATITIS TEST NOT PERFORMED B: (test code = 30000) INTERPRETATION HEPATITIS TEST NOT PERFORMED C: (test code = 59214) [id number] 00:00:00 Test Item Value Reference Range Interpretation Comments RPR RESULT (test code TEST NOT PERFORMED = 3501) RPR TITER (test code TEST NOT PERFORMED TITER = 3500) [id number] 00:00:00 Test Item Value Reference Range Interpretation Comments RPR RESULT (test code TEST NOT PERFORMED = 3501) RPR TITER (test code TEST NOT PERFORMED TITER = 3500) [id number] 00:00:00 Test Item Value Reference Range Interpretation Comments RPR RESULT (test code TEST NOT PERFORMED = 3501) RPR TITER (test code TEST NOT PERFORMED TITER = 3500) HIV AB/AG COMBO RFLX [id number] 00:00:00 Test Item Value Reference Range Interpretation Comments HIV 1/2 4TH GEN, RFLX CONF TEST NOT PERFORMED (test code = 3514) HIV AB/AG COMBO RFLX [id number] 00:00:00 Test Item Value Reference Range Interpretation Comments HIV 1/2 4TH GEN, RFLX CONF TEST NOT PERFORMED (test code = 3514) RUBELLA ANTIBODY [id number] 00:00:00 Test Item Value Reference Range Interpretation Comments RUBELLA ANTIBODY TEST NOT PERFORMED SCREEN (test code = IU/ML 4600) RUBELLA IgG INTERP TEST NOT PERFORMED (test code = 76392) RUBELLA ANTIBODY [id number] 00:00:00 Test Item Value Reference Range Interpretation Comments RUBELLA ANTIBODY TEST NOT PERFORMED SCREEN (test code = IU/ML 4600) RUBELLA IgG INTERP TEST NOT PERFORMED (test code = 94331) HEPATITIS PROFILE (A,B,C)2017-03-08 00:00:00 Test Item Value Reference Range Interpretation Comments HEPATITIS A TOTAL AB (test TEST NOT PERFORMED code = 2725) HEPATITIS B SURF AG (test TEST NOT PERFORMED code = 2739) HBSAG CONFIRMATION TEST TEST NOT PERFORMED (test code = 2741) HEP B CORE TOTAL AB (test TEST NOT PERFORMED code = 2729) HEPATITIS B SURFACE AB TEST NOT PERFORMED (test code = 2737) HEPATITIS C ANTIBODY (test TEST NOT PERFORMED code = 4675) INTERPRETATION HEPATITIS TEST NOT PERFORMED A: (test code = 2552) INTERPRETATION HEPATITIS TEST NOT PERFORMED B: (test code = 11980) INTERPRETATION HEPATITIS TEST NOT PERFORMED C: (test code = 17885) HEPATITIS PROFILE (A,B,C)2017-03-08 00:00:00 Test Item Value Reference Range Interpretation Comments HEPATITIS A TOTAL AB (test TEST NOT PERFORMED code = 2725) HEPATITIS B SURF AG (test TEST NOT PERFORMED code = 2739) HBSAG CONFIRMATION TEST TEST NOT PERFORMED (test code = 2741) HEP B CORE TOTAL AB (test TEST NOT PERFORMED code = 2729) HEPATITIS B SURFACE AB TEST NOT PERFORMED (test code = 2737) HEPATITIS C ANTIBODY (test TEST NOT PERFORMED code = 4675) INTERPRETATION HEPATITIS TEST NOT PERFORMED A: (test code = 2552) INTERPRETATION HEPATITIS TEST NOT PERFORMED B: (test code = 86741) INTERPRETATION HEPATITIS TEST NOT PERFORMED C: (test code = 56537) [id number] 00:00:00 Test Item Value Reference Range Interpretation Comments RPR RESULT (test code TEST NOT PERFORMED = 3501) RPR TITER (test code TEST NOT PERFORMED TITER = 3500) [id number] 00:00:00 Test Item Value Reference Range Interpretation Comments RPR RESULT (test code TEST NOT PERFORMED = 3501) RPR TITER (test code TEST NOT PERFORMED TITER = 3500) [id number] 00:00:00 Test Item Value Reference Range Interpretation Comments RPR RESULT (test code TEST NOT PERFORMED = 3501) RPR TITER (test code TEST NOT PERFORMED TITER = 3500) HIV AB/AG COMBO RFLX [id number] 00:00:00 Test Item Value Reference Range Interpretation Comments HIV 1/2 4TH GEN, RFLX CONF TEST NOT PERFORMED (test code = 3514) HIV AB/AG COMBO RFLX [id number] 00:00:00 Test Item Value Reference Range Interpretation Comments HIV 1/2 4TH GEN, RFLX CONF TEST NOT PERFORMED (test code = 3514) RUBELLA ANTIBODY [id number] 00:00:00 Test Item Value Reference Range Interpretation Comments RUBELLA ANTIBODY TEST NOT PERFORMED SCREEN (test code = IU/ML 4600) RUBELLA IgG INTERP TEST NOT PERFORMED (test code = 98524)
[2023-03-21 21:01] LABS: Absolute Lymphocytes (CBC) 2.8 K/uL (0.7-4.9); Hematocrit 34.6 % (36.0-45.0); Lymphocytes % 32.8 % (15.3-44.8); MCV 75.8 fL (80-100); MPV 9.6 fL (7.6-11.3); RBC Red Blood Cell Count 4.56 M/uL (3.86-4.86)
[2023-03-21 21:03] LABS: Specific Gravity 1.028 (1.005-1.030)
[2023-03-21] MEDS ORDERED: FAMOTIDINE 20 MG/2 ML VIAL IV ONE (21:03)
[2023-03-21] MEDS ORDERED: MORPHINE 4 MG/ML SYR ONE (21:03)
[2023-03-21] MEDS ORDERED: ONDANSETRON 4 MG/2 ML VIAL ONE (21:03)
[2023-03-21 21:04] LABS: Specific Gravity 1.028 (1.005-1.030); Urine Bacteria None Seen /HPF (<20); Urine Bilirubin NEGATIVE (Negative); Urine Blood Negative (Negative); Urine Clarity Clear (Clear); Urine Color Light-Yellow (Yellow); Urine Glucose NEGATIVE (Negative); Urine Mucus Slight /HPF (None Seen); Urine Protein TRACE (Negative); Urine RBC <5 /HPF (None Seen); Urine Urobilinogen Normal (Normal); Urine pH 6.5 (5.0-7.0)
[2023-03-21] MEDS ORDERED: NA CHLORIDE 0.9% 1,000 ML ONE (21:04)
[2023-03-21 21:17] LABS: Albumin 3.8 g/dL (3.4-5.0); Bilirubin Total 0.4 mg/dL (0.2-1.0); Potassium 3.4 mEq/L (3.5-5.1); Protein, Total 8.5 g/dL (6.4-8.2)
--- NOTE | 2023-03-21 21:55 | RAD REPORT ---
EXAM DESCRIPTION: CT - Abdomen Pelvis W Contrast - 03/21/2023 9:34 pm CLINICAL HISTORY: ABD PAIN COMPARISON: No comparisonsNo comparisonsAbdomen Pelvis W Contrast dated 10/06/2021; Abdomen Pelvi s W Contrast dated 03/13/2021 TECHNIQUE: Thin cut axial CT imaging of the abdomen and pelvis was performed following intravenous a dministration of Isovue 300. Multiplanar reformats were generated and reviewed. All CT scans are performed using dose optimization technique as appropriate and may include automated exposure control or mA/KV adjustment according to patient size. FINDINGS: No suspicious findings in the lung bases. The liver, spleen, and pancreas show no suspicious findings. Gallbladder and biliary tree are also wi thout suspicious finding. Symmetric renal function is seen with no hydronephrosis or suspicious renal mass. No dilated bowel loops or bowel wall thickening. Sequelae of partial distal colectomy and small-bowel resection. Ventral hernias including a supraumbilical hernia containing small amount of nondistended small bowel, as well as a right paramidline, possibly port site, hernia, containing a short segment small bowel loop adjacent to the anastomosis. No free air, free fluid or inflammatory stranding. No h ernia, mass or bulky lymphadenopathy. The urinary bladder is without significant finding. Coarse calc ification along the left ovary again seen. Central ill-defined hypoattenuation near the uterine fundus. The endometrium is not well delineated o r well evaluated. No suspicious bony findings. IMPRESSION: No acute intra-abdominal process. The ventral abdominal wall hernias as above. Other fin dings as above.
--- NOTE | 2023-03-21 22:22 | ER ---
Nurse's Notes [facility] Name: Sylwia Boogie Age: 47 yrs Sex: Female : 1975 Arrival Date: 03/21/2023 Time: 20:04 Bed 16 Private MD: Diagnosis: Abdominal pain, unspecified;Nausea;Ventral hernia without obstruction or gangrene Presentation: 03/21 20:27 Chief complaint: Patient states: RLQ pain x 2 weeks with N/V/D, states colostomy bag vg1 was removed about a year ago and is concerned it may be diverticulitis again. Also states has a hernia near the area of pain. Coronavirus screen: Vaccine status: Patient reports receiving the 2nd dose of the covid vaccine. Client denies travel out of the [place] in the last 14 days. Ebola Screen: Patient negative for fever greater than or equal to 101.5 degrees Fahrenheit, and additional compatible Ebola Virus Disease symptoms Patient denies exposure to infectious person. Patient denies travel to an Ebola-affected area in the 21 days before illness onset. Initial Sepsis Screen: Does the patient meet any 2 criteria? HR > 90 bpm. Does the patient have a suspected source of infection? No. Patient's initial sepsis screen is negative. Risk Assessment: Do you want to hurt yourself or someone else? Patient reports no desire to harm self or others. Onset of symptoms was March 07, 2023. 20:27 Method Of Arrival: Ambulatory vg1 20:27 Acuity: ALEJANDRO 3 vg1 Triage Assessment: 20:29 General: Appears in no apparent distress. uncomfortable, Behavior is calm, cooperative. vg1 Pain: Complains of pain in right lower quadrant and back Pain currently is 7 out of 10 on a pain scale. GI: Abdomen is round Reports diarrhea, nausea, vomiting. 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 - Social history:: Smoking status: Patient denies any tobacco usage or history of. Screenin:01 [facility] ED Fall Risk Assessment (Adult) History of falling in the last 3 months, jb4 including since admission No falls in past 3 months (0 pts) Confusion or Disorientation No (0 pts) Score/Fall Risk Level 0 - 2 = Low Risk Oriented to surroundings, Maintained a safe environment. Abuse screen: Denies threats or abuse. Nutritional screening: No deficits noted. Tuberculosis screening: No symptoms or risk factors identified. Assessment: 20:45 General: Appears in no apparent distress. comfortable, Behavior is calm, cooperative, jb4 appropriate for age. Pain: Complains of pain in abdomen Pain radiates to mid back area Pain currently is 7 out of 10 on a pain scale. Neuro: Level of Consciousness is awake, alert, obeys commands, Oriented to person, place, time, situation. Cardiovascular: Patient's skin is warm and dry. Respiratory: Airway is patent Respiratory effort is even, unlabored, Respiratory pattern is regular, symmetrical. GI: Abdomen is round non-distended, obese. : No signs and/or symptoms were reported regarding the genitourinary system. EENT: No signs and/or symptoms were reported regarding the EENT system. Derm: Skin is intact, Skin is pink, warm \T\ dry. 22:00 Reassessment: Patient appears in no apparent distress at this time. Patient and/or jb4 family updated on plan of care and expected duration. Pain level reassessed. Patient is alert, oriented x 3, equal unlabored respirations, skin warm/dry/pink. 23:00 Reassessment: Patient appears in no apparent distress at this time. Patient and/or jb4 family updated on plan of care and expected duration. Pain level reassessed. Patient is alert, oriented x 3, equal unlabored respirations, skin warm/dry/pink. Vital Signs: 20:27 BP 153 / 89; Pulse 96; Resp 16; Temp 98.6; Pulse Ox 98% ; Weight 88.45 kg; Height 5 ft. vg1 6 in. ; Pain 7/10; 23:00 BP 132 / 87; Pulse 87; Resp 16; Pulse Ox 97% on R/A; jb4 20:27 Body Mass Index 31.47 (88.45 kg, 167.64 cm) vg1 20:27 Pain Scale: Adult vg1 ED Course: 20:05 Patient arrived in ED. jj6 20:12 Gold Ley PA is PHCP. cp 20:12 Carlos Mart MD is Attending Physician. cp 20:29 Triage completed. vg1 20:29 Arm band placed on. vg1 20:42 Radiology exam delayed due to lab results not completed at this time. (BUN/Creatinine) jg10 test not completed at this time. IV insertion attempt and/or patient not having appropriate IV at this time. 20:43 Initial lab(s) drawn, by me, sent to lab. Inserted saline lock: 18 gauge in left jb4 antecubital area, using aseptic technique. Blood collected. 20:52 Nate Kim, RN is Primary Nurse. jb4 20:52 CBC with Diff Sent. jb4 20:52 CMP Sent. jb4 20:52 Lipase Sent. jb4 20:52 Test, Urine Sent. jb4 20:52 Urinalysis w/ reflexes Sent. jb4 21:36 CT Abd/Pelvis - IV Contrast Only In Process Unspecified. EDMS 23:01 Patient has correct armband on for positive identification. Bed in low position. Call jb4 light in reach. Side rails up X 1. 23:02 No provider procedures requiring assistance completed. IV discontinued, intact, jb4 bleeding controlled, No redness/swelling at site. Pressure dressing applied. Administered Medications: 21:10 Drug: NS 0.9% IV 1000 ml Route: IV; Rate: 1 bolus; Site: left antecubital; jb4 21:10 Drug: Famotidine IVP 20 mg Route: IVP; Site: left antecubital; jb4 21:10 Drug: Ondansetron IVP 4 mg Route: IVP; Site: left antecubital; jb4 21:10 Drug: morphine IVP or IV 4 mg Route: IVP; Infused Over: 4 mins; Site: left antecubital; jb4 22:53 Drug: Potassium PO Effervescent Tablet 50 mEq Route: PO; jb4 Outcome: 22:21 Discharge ordered by . cp 23:02 Discharged to home ambulatory, with family. jb4 23:02 Condition: stable 23:02 Discharge instructions given to patient, Instructed on discharge instructions, follow up and referral plans. medication usage, Demonstrated understanding of instructions, follow-up care, medications, Prescriptions given X 2. 23:02 Patient left the ED. jb4 Signatures: Dispatcher [employer] EDMS Gold Ley PA PA cp Bryson, James RN RN jb4 Kylie Iglesias RN RN vg1 Janette Flores jj6 Tamika Peralta jg10 Corrections: (The following items were deleted from the chart) 20:42 20:41 Radiology exam delayed due to lab results not completed at this time. jg10 (BUN/Creatinine) IV insertion attempt and/or patient not having appropriate IV at this time. jg10
--- NOTE | 2023-03-21 22:22 | EDPHYS ---
Physician Documentation [facility] Name: Sylwia Boogie Age: 47 yrs Sex: Female : 1975 Arrival Date: 03/21/2023 Time: 20:04 Bed 16 Private MD: ED Physician Carlos Mart HPI: 03/21 20:50 This 47 yrs old Female presents to ER via Ambulatory with complaints of cp Abdominal Pain, Abdominal Problem, Nausea. 20:50 The patient presents with abdominal pain in the lower abdomen, mid abdomen. Onset: The cp symptoms/episode began/occurred 2 week(s) ago. The symptoms do not radiate. Associated signs and symptoms: Pertinent positives: nausea, back pain, Pertinent negatives: constipation, diarrhea, fever, vomiting. The symptoms are described as described as bloating. 20:50 The patient has experienced similar episodes in the past, a few times, today's symptoms cp are similar, to when the patient was apparently diagnosed with diverticulitis. 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 - Social history:: Smoking status: Patient denies any tobacco usage or history of. ROS: 20:55 Constitutional: Negative for body aches, chills, fever, poor PO intake. cp 20:55 Eyes: Negative for injury, pain, redness, and discharge. cp 20:55 ENT: Negative for drainage from ear(s), ear pain, sore throat, difficulty swallowing, difficulty handling secretions. 20:55 Cardiovascular: Negative for chest pain, edema, palpitations. 20:55 Respiratory: Negative for cough, shortness of breath, wheezing. 20:55 Abdomen/GI: Positive for abdominal pain, nausea, Negative for vomiting, diarrhea, constipation, anorexia, black/tarry stool, rectal bleeding. 20:55 Back: Positive for pain at rest, Negative for radiated pain. 20:55 : Negative for urinary symptoms. 20:55 Skin: Negative for rash. 20:55 Neuro: Negative for altered mental status, dizziness, headache, numbness, syncope, weakness. 20:55 All other systems are negative. Exam: 21:00 Constitutional: The patient appears in no acute distress, alert, awake, cp non-diaphoretic, non-toxic, well developed, well nourished, overweight 21:00 Head/Face: Normocephalic, atraumatic. cp 21:00 Eyes: Periorbital structures: appear normal, Conjunctiva: normal, no exudate, no injection, Sclera: no appreciated abnormality, Lids and lashes: appear normal, bilaterally. 21:00 ENT: External ear(s): are unremarkable, Nose: is normal, Mouth: Lips: moist, Oral mucosa: pink and intact, moist, Posterior pharynx: is normal, airway is patent, no erythema, no exudate. 21:00 Neck: ROM/movement: is normal, is supple, without pain, no range of motions limitations. 21:00 Chest/axilla: Inspection: normal. 21:00 Cardiovascular: Rate: normal, Rhythm: regular, Edema: is not appreciated, JVD: is not appreciated. 21:00 Respiratory: the patient does not display signs of respiratory distress, Respirations: normal, no use of accessory muscles, no retractions, labored breathing, is not present, Breath sounds: are clear throughout, no decreased breath sounds, no stridor, no wheezing. 21:00 Abdomen/GI: Inspection: abdomen appears normal, Bowel sounds: active, all quadrants, Palpation: soft, in all quadrants, mild abdominal tenderness, in the right lower quadrant and left lower quadrant, rebound tenderness, is not appreciated, involuntary guarding, is not appreciated. 21:00 Back: pain, that is mild, of the mid back area, ROM is normal. 21:00 Neuro: Orientation: to person, place \T\ time. Mentation: is normal, Motor: moves all fours, strength is normal, Sensation: is normal. Vital Signs: 20:27 BP 153 / 89; Pulse 96; Resp 16; Temp 98.6; Pulse Ox 98% ; Weight 88.45 kg; Height 5 ft. vg1 6 in. ; Pain 7/10; 23:00 BP 132 / 87; Pulse 87; Resp 16; Pulse Ox 97% on R/A; jb4 20:27 Body Mass Index 31.47 (88.45 kg, 167.64 cm) vg1 20:27 Pain Scale: Adult vg1 MDM: 20:31 Patient medically screened. 22:20 Data reviewed: vital signs, nurses notes, lab test result(s), radiologic studies, CT cp scan. 22:20 Consideration of Admission/Observation Escalation of care including cp admission/observation considered. I considered the following discharge prescriptions or medication management in the emergency department Medications were administered in the Emergency Department. See MAR. Care significantly affected by the following chronic conditions: Diabetes, Hypertension. Counseling: I had a detailed discussion with the patient and/or guardian regarding: the historical points, exam findings, and any diagnostic results supporting the discharge/admit diagnosis, lab results, radiology results, to return to the emergency department if symptoms worsen or persist or if there are any questions or concerns that arise at home. Response to treatment: the patient's symptoms have markedly improved after treatment, VSS. Pain and nausea markedly improved. CT abdomen/pelvis negative for acute findings. Will discharge to home for continued monitoring. 03/21 20:40 Order name: CBC with Diff; Complete Time: 21:53 03/21 21:53 Interpretation: Normal except: HGB 10.9; HCT 34.6; MCV 75.8; MCH 23.9; MCHC 31.5; RDW cp 20.9; EOSINOPHIL % 4.6. 03/21 20:40 Order name: CMP; Complete Time: 21:53 03/21 21:53 Interpretation: Normal except: NA 134; K 3.4; GLUC 227; GFR 88; TP 8.5; GLOB 4.7; A/G cp 0.8. 03/21 20:40 Order name: Lipase; Complete Time: 21:53 cp 03/21 20:40 Order name: Test, Urine; Complete Time: 21:53 cp 03/21 20:40 Order name: Urinalysis w/ reflexes; Complete Time: 21:53 03/21 21:53 Interpretation: Normal except: UPROT TRACE; UESTR 25. 03/21 20:40 Order name: CT Abd/Pelvis - IV Contrast Only; Complete Time: 21:59 cp 03/21 22:00 Interpretation: Report reviewed. 03/21 20:40 Order name: IV Saline Lock; Complete Time: 20:52 03/21 20:40 Order name: Labs collected and sent; Complete Time: 20:52 cp 03/21 22:01 Order name: PO challenge; Complete Time: 22:53 cp Administered Medications: 21:10 Drug: NS 0.9% IV 1000 ml Route: IV; Rate: 1 bolus; Site: left antecubital; jb4 21:10 Drug: Famotidine IVP 20 mg Route: IVP; Site: left antecubital; jb4 21:10 Drug: Ondansetron IVP 4 mg Route: IVP; Site: left antecubital; jb4 21:10 Drug: morphine IVP or IV 4 mg Route: IVP; Infused Over: 4 mins; Site: left antecubital; jb4 22:53 Drug: Potassium PO Effervescent Tablet 50 mEq Route: PO; jb4 Disposition Summary: 03/21/23 22:21 Discharge Ordered Location: Home cp Problem: new cp Symptoms: have improved cp Condition: Stable cp Diagnosis - Abdominal pain, unspecified cp - Nausea cp - Ventral hernia without obstruction or gangrene cp Followup: cp - With: Private Physician - When: 1 - 2 days - Reason: Worsening of condition Discharge Instructions: - Discharge Summary Sheet cp - Abdominal Pain, Adult cp - Nausea, Adult cp Forms: - Medication Reconciliation Form cp - Thank You Letter cp - Antibiotic Education cp - Prescription Opioid Use cp Prescriptions: - Zofran 4 mg Oral Tablet - take 1 tablet by ORAL route every 12 hours As needed; 20 tablet; Refills: 0, cp Product Selection Permitted - dicyclomine 20 mg Oral Tablet - take 1 tablet by ORAL route 4 times per day; 30 tablet; Refills: 0, Product cp Selection Permitted Signatures: Dispatcher [employer] EDMD Gold Ley PA PA cp Nate Kim, RN RN jb4 Kylie Iglesias RN RN vg1 Corrections: (The following items were deleted from the chart) 22:22 22:21 Other specified abdominal hernia without obstruction or gangrene cp cp
[2023-03-21] MEDS ORDERED: POTASSIUM 25 MEQ EFFERV TAB ONE (22:48)
[2023-03-21 23:28] VITALS: TEMP 98.6
[2023-03-21 23:30] VITALS: BP 132/87; O2SAT 97
== END 2023-03-21 23:02 | disposition home or self-care (01) ==
LOC: ER 20:04
DX: K43.9 Ventral hernia without obstruction or gangrene (principal); R11.0 Nausea; I10 Essential (primary) hypertension
CPT/HCPCS: 85025; 81001; 36415; 81025; 83690; 80053; 74177; 96375; 96374; 99284; Q9967; J2405; J7030

== ENCOUNTER 2024-12-31 09:34 | Emergency (ER) | payer BC ==
[2024-12-31 10:54] LABS: Absolute Basophils 0.1 K/uL (0-0.5); Absolute Eosinophils 0.2 K/uL (0-0.5); Absolute Lymphocytes (CBC) 2.4 K/uL (0.7-4.9); Absolute Monocytes 0.3 K/uL (0.1-1.3); Absolute Neutrophil 4.4 K/uL (1.8-8.0); Basophils % 0.7 % (0-1.3); Eosinophils % 2.8 % (0-4.4); Hematocrit 39.9 % (36.0-45.0); Hemoglobin 13.6 g/dL (12.0-15.0); Lymphocytes % 32.2 % (15.3-44.8); MCH 30.3 pg (27.0-35.0); MPV 9.3 fL (7.6-11.3); Monocytes % 4.7 % (3.3-12.3); Neutrophils % 59.6 % (41.7-73.7); Platelets 253 thou/uL (152-406); RBC Red Blood Cell Count 4.48 M/uL (3.86-4.86); Red Cell Distribution Width 14.7 % (12.1-15.2)
[2024-12-31 10:57] LABS: Specific Gravity 1.011 (1.005-1.030); Urine Bilirubin NEGATIVE (Negative); Urine Blood Negative (Negative); Urine Clarity Clear (Clear); Urine Color Light-Yellow (Yellow); Urine Glucose NEGATIVE (Negative); Urine Ketones NEGATIVE (Negative); Urine Microscopic Reflex YN NO UMIC; Urine Nitrite NEGATIVE (Negative); Urine Protein NEGATIVE (Negative); Urine Urobilinogen Normal (Normal)
[2024-12-31 11:03] LABS: PT Prothrombin Time 11.4 SECONDS (10.0-13.0); PTT, Activated Partial Thromb 34.1 SECONDS (24.3-36.9)
[2024-12-31 11:07] LABS: Barbiturates NEGATIVE (NEGATIVE); Benzodiazepines NEGATIVE (NEGATIVE); Cocaine NEGATIVE (NEGATIVE); METHAMPHETAM NEGATIVE (NEGATIVE); Methadone NEGATIVE (NEGATIVE); Opiates NEGATIVE (NEGATIVE); Phencyclidine NEGATIVE (NEGATIVE); THC Cannibis NEGATIVE (NEGATIVE)
[2024-12-31 11:14] LABS: ALT/SGPT 59 U/L (13-56); AST/SGOT 40 U/L (15-37); Albumin 3.9 g/dL (3.4-5.0); Albumin/Globulin Ratio 0.8 (1.1-1.8); Alkaline Phosphatase 123 U/L (45-117); Anion Gap 10.6 mEq/L (5.0-15.0); BUN Blood Urea Nitrogen 17 mg/dL (7-18); Bicarbonate 27 mEq/L (21-32); Bilirubin Direct 0.2 mg/dL (0-0.2); Bilirubin Indirect, Calculated 0.4 mg/dL (0.2-0.8); Bilirubin Total 0.6 mg/dL (0.2-1.0); Globulin 5.1 g/dL (2.3-3.5); Glomerular Filtration Rate 101 ml/min (=/>90); Glucose Level 118 mg/dL (74-106); Potassium 3.6 mEq/L (3.5-5.1); Sodium Level 136 mEq/L (136-145)
--- NOTE | 2024-12-31 11:15 | ER ---
Nurse's Notes [facility] Name: Sylwia Boogie Age: 49 yrs Sex: Female : 1975 Arrival Date: 12/31/2024 Time: 09:34 Bed 16 Private MD: Diagnosis: Suicidal ideation, major depression Presentation: 12/31 09:55 Chief complaint: "I have been feeling like the world would be better without me" hb Reports thoughts of suicide but no specific plan. Hx of depression, takes fluoxetine 60 mg daily. Denies previous attempts/self harm. Daily drinker, last ETOH was yesterday. Coronavirus screen: At this time, the client does not indicate any symptoms associated with coronavirus-19. Ebola Screen: No symptoms or risks identified at this time. Initial Sepsis Screen: Does the patient meet any 2 criteria? No. Patient's initial sepsis screen is negative. Does the patient have a suspected source of infection? No. Patient's initial sepsis screen is negative. Risk Assessment: Do you want to hurt yourself or someone else? Patient reports no desire to harm self or others. Onset of symptoms was December 30, 2024. 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 - Infectious Disease History:: Denies. - Social history:: Smoking status: Patient denies any tobacco usage or history of. Patient uses alcohol, on a daily basis. Screenin:44 [facility] ED Fall Risk Assessment (Adult) History of falling in the last 3 months, cm10 including since admission No falls in past 3 months (0 pts) Confusion or Disorientation No (0 pts) Intoxicated or Sedated No (0 pts) Impaired Gait No (0 pts) Mobility Assist Device Used No (0 pt) Altered Elimination No (0 pt) Score/Fall Risk Level 0 - 2 = Low Risk Oriented to surroundings, Maintained a safe environment, Hourly rounding (assess needs \\T\\ fall precautionary measures) done. Abuse screen: Denies threats or abuse. Denies injuries from another. Nutritional screening: No deficits noted. Tuberculosis screening: No symptoms or risk factors identified. Assessment: 10:00 General: Appears in no apparent distress. comfortable, Behavior is calm, cooperative, cm10 appropriate for age. Pain: Denies pain. Neuro: No deficits noted. Level of Consciousness is awake, alert, obeys commands, Oriented to person, place, time, situation, Appropriate for age. Respiratory: No deficits noted. Airway is patent Respiratory effort is even, unlabored, Respiratory pattern is regular, symmetrical. Derm: No deficits noted. Skin is healthy with good turgor, Skin is pink, warm \\T\\ dry. Musculoskeletal: No deficits noted. Range of motion: intact in all extremities. 12:24 General: Pt's at bedside stating that he is calling the operations and maintenance technican and that he is cm10 taking his home. Pt reports that she does want to go to the psych facility to get the help that she needs. pt reports that she is worried that this will show up on her record. Explained to patient that her visit is confidential. Pt agrees to be transferred and pt leaving with [facility]. Pt A\\T\\Ox4, respirations even and unlabored at the time of departure. Pt belongings given to , PCT Igna witnessed.. Psych: 09:55 [place] Suicide Severity Screening: In the past month, have you wished you were cm10 or wished you could go to sleep and not wake up? Patient responds "yes." Based off the client's responses additional C-SSRS screening is required. "In the past month, have you actually had any thoughts of killing yourself?" Patient responds "yes." Based off the client's response additional [place] suicide severity screening questions to be further documented on paper forms. "In your lifetime, have you ever done anything, started to do anything, or prepared to do anything to end your life?" Patient responds "no.". 09:55 Subjective: Patient's mood is hopeless, Delusions are denied, Hallucinations are denied cm10 Having thoughts of suicide. Denies suicidal plan. Objective: Patient is cooperative, Speech is normal, Affect is appropriate. Interventions: Removed personal items and placed in bag. Patient placed in hospital gown. Urine collected and sent for urine drug test. Belonging list filled out. Safety Checks: Personal items have been removed. Door is open. No visitors are present at this time. Pt denies substance abuse. Commitment: Patient will be a voluntary commitment. Vital Signs: 09:55 BP 154 / 97; Pulse 75; Resp 16; Temp 98.3; Pulse Ox 100% on R/A; Weight 86.18 kg; hb Height 5 ft. 6 in. ; Pain 0/10; 12:03 BP 138 / 82; Pulse 73; Resp 16; Temp 98.1; Pulse Ox 100% ; rk3 09:55 Body Mass Index 30.67 (86.18 kg, 167.64 cm) hb 09:55 Pain Scale: Adult hb ED Course: 09:36 Patient arrived in ED. mr 09:38 Alfredo Rios MD is Attending Physician. rn 09:38 Attending Physician role handed off by Alfredo Rios MD sp3 09:38 Carlos Mart MD is Attending Physician. sp3 09:55 Safety Checks: Personal items have been removed. The door is open or patient has been cm10 placed in a hallway bed/chair. Sitter present at this time. 09:55 Patient has correct armband on for positive identification. Bed in low position. cm10 Valuables inventory done. Locked in safe. See valuables checklist. 09:58 Triage completed. hb 09:59 Arm band placed on. hb 10:14 Adelita Moura, RN is Primary Nurse. cm10 10:43 Urine Drug Screen Sent. cm10 10:43 Urinalysis w/ reflexes Sent. cm10 10:43 Salicylate Sent. cm10 10:43 Test, Urine Sent. cm10 10:43 PT-INR Sent. cm10 10:43 Hepatic Function Sent. cm10 10:43 ETOH Level Sent. cm10 10:43 CBC with Diff Sent. cm10 10:43 Basic Metabolic Panel Sent. cm10 10:43 Acetaminophen Sent. cm10 10:43 Initial lab(s) drawn, by ED staff, sent to lab. Urine collected: clean catch specimen. cm10 Inserted saline lock: 20 gauge in right antecubital area, using aseptic technique. Blood collected. Flushed with 10 mL NS. 11:22 faved over all clinicals too, [facility], [facility], [place], and [facility]. bc6 11:31 NURSE TO NURSE COMPLETED WITH [facility]. cm10 11:35 accepted to [facility] with Dr. Antoine Mart. bc6 11:45 Provided Education on: Need for transfer. cm10 11:49 Drea with [facility] accepted transfer. bc6 12:28 No provider procedures requiring assistance completed. IV discontinued, intact, cm10 bleeding controlled, No redness/swelling at site. Pressure dressing applied. Administered Medications: No medications were administered Medication: 10:45 VIS not applicable for this client. cm10 Outcome: 11:15 ER care complete, transfer ordered by . sp3 12:27 Transferred by ground EMS [facility]. [facility]. Transfer form completed. 12:27 Condition: good 12:27 Instructed on the need for transfer, 12:28 Patient left the ED. cm10 Signatures: Carlyn Crowe, Reg Reg mr Alfredo Rios MD MD rn Baxter, Heather, RN RN Carlos Mart MD MD spEbonie Ayers [facility] Adelita Moura RN RN 10 Elidia Castellon 3
--- NOTE | 2024-12-31 11:16 | EDPHYS ---
Physician Documentation [facility] Name: Sylwia Boogie Age: 49 yrs Sex: Female : 1975 Arrival Date: 12/31/2024 Time: 09:34 Bed 16 Private MD: ED Physician Carlos Mart HPI: 12/31 10:31 This 49 yrs old Female presents to ER via Ambulatory with complaints of sp3 Depression. 10:31 49-year-old female with history of anxiety, depression, diabetes, hypertension now sp3 presents to the ED with chief complaint suicidal ideation of "wanting to leave the world" since last 48 hours not getting worse. Patient states there is no inciting event, emotional challenge, family disruption or any other inciting event. She denies homicidal ideation, psychosis, fever, head, neck pain, chest pain, shortness breath, abdominal pain, vomiting, diarrhea, syncope, near syncope, rash, travel history, drug use, substance use, or any other signs or symptoms on ROS at this time.. 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 - Infectious Disease History:: Denies. - Social history:: Smoking status: Patient denies any tobacco usage or history of. Patient uses alcohol, on a daily basis. ROS: 10:32 Constitutional: Negative for fever, chills, and weight loss, Eyes: Negative for injury, sp3 pain, redness, and discharge, ENT: Negative for injury, pain, and discharge, Neck: Negative for injury, pain, and swelling, Cardiovascular: Negative for chest pain, palpitations, and edema, Respiratory: Negative for shortness of breath, cough, wheezing, and pleuritic chest pain, Abdomen/GI: Negative for abdominal pain, nausea, vomiting, diarrhea, and constipation, Back: Negative for injury and pain, MS/Extremity: Negative for injury and deformity, Skin: Negative for injury, rash, and discoloration, Neuro: Negative for headache, weakness, numbness, tingling, and seizure, Allergy/Immunology: Negative for hives, rash, and allergies, Endocrine: Negative for neck swelling, polydipsia, polyuria, polyphagia, and marked weight changes, Hematologic/Lymphatic: Negative for swollen nodes, abnormal bleeding, and unusual bruising, 10:32 All other systems are negative, Exam: 10:32 Constitutional: This is a well developed, well nourished patient who is awake, alert, sp3 and in no acute distress. Head/Face: Normocephalic, atraumatic. Eyes: Pupils equal round and reactive to light, extra-ocular motions intact. Lids and lashes normal. Conjunctiva and sclera are non-icteric and not injected. Cornea within normal limits. Periorbital areas with no swelling, redness, or edema. ENT: Nares patent. No nasal discharge, no septal abnormalities noted. External auditory canals are clear. Oropharynx with no redness, swelling, or masses, exudates, or evidence of obstruction, uvula midline. Mucous membranes moist. Neck: Trachea midline, no thyromegaly or masses palpated, and no cervical lymphadenopathy. Supple, full range of motion without nuchal rigidity, or vertebral point tenderness. No Meningismus. Chest/axilla: Normal chest wall appearance and motion. Nontender with no deformity. No lesions are appreciated. Cardiovascular: Regular rate and rhythm with a normal S1 and S2. No gallops, murmurs, or rubs. Normal PMI, no JVD. No pulse deficits. Respiratory: Lungs have equal breath sounds bilaterally, clear to auscultation and percussion. No rales, rhonchi or wheezes noted. No increased work of breathing, no retractions or nasal flaring. Abdomen/GI: Soft, non-tender, with normal bowel sounds. No distension or tympany. No guarding or rebound. No evidence of tenderness throughout. Back: No spinal tenderness. No costovertebral tenderness. Full range of motion. Skin: Warm, dry with normal turgor. Normal color with no rashes, no lesions, and no evidence of cellulitis. MS/ Extremity: Pulses equal, no cyanosis. Neurovascular intact. Full, normal range of motion. Neuro: Awake and alert, GCS 15, oriented to person, place, time, and situation. Cranial nerves II-XII grossly intact. Motor strength 5/5 in all extremities. Sensory grossly intact. Cerebellar exam normal. Normal gait. 10:32 Psych: Patient is sad, tearful with continued statements o suicidal ideation without specific plan. She denies homicidal ideation, psychosis or any other symptoms. . 11:14 ECG was reviewed by the Attending Physician. EKG demonstrates normal sinus rhythm at 70 sp3 bpm with normal intervals, normal QRS, normal axis, normal ST's ST segments without evidence of acute ischemia. Vital Signs: 09:55 BP 154 / 97; Pulse 75; Resp 16; Temp 98.3; Pulse Ox 100% on R/A; Weight 86.18 kg; hb Height 5 ft. 6 in. ; Pain 0/10; 12:03 BP 138 / 82; Pulse 73; Resp 16; Temp 98.1; Pulse Ox 100% ; rk3 09:55 Body Mass Index 30.67 (86.18 kg, 167.64 cm) hb 09:55 Pain Scale: Adult hb MDM: 09:54 Medical Screening Exam initiated sp3 10:33 Data reviewed: vital signs, nurses notes, lab test result(s). ED course: 49-year-old sp3 female with PMH above now with continued worsening depression and today with suicidal ideation. Differential diagnosis include suicidal ideation, major depression, other psychiatric problem, or medical somatic issue. Will rule out any medical contributory factors with standard workup with disposition voluntary transfer to psychiatric facility.. 12/31 10:13 Order name: Acetaminophen; Complete Time: 11:12/31 10:13 Order name: Basic Metabolic Panel; Complete Time: :12/31 10:13 Order name: CBC with Diff; Complete Time: 11:12/31 10:13 Order name: ETOH Level; Complete Time: 11:3 12/31 10:13 Order name: Hepatic Function; Complete Time: 11:18 12/31 10:13 Order name: PT-INR; Complete Time: 11:12/31 10:13 Order name: Test, Urine; Complete Time: 11:12/31 10:13 Order name: Ptt, Activated; Complete Time: 11:12/31 10:13 Order name: Salicylate; Complete Time: :12/31 10:13 Order name: Urinalysis w/ reflexes; Complete Time: 11:15 sp3 12/31 10:13 Order name: Urine Drug Screen; Complete Time: 11:15 sp3 12/31 10:13 Order name: EKG - Nurse/Tech; Complete Time: 10:47 sp3 12/31 10:13 Order name: IV Saline Lock; Complete Time: 10:43 sp3 12/31 10:13 Order name: Labs collected and sent; Complete Time: 10:43 sp3 12/31 10:13 Order name: Suicide Precautions; Complete Time: 10:43 sp3 12/31 10:13 Order name: Suicide Screening ([place]); Complete Time: 10:43 sp3 Administered Medications: No medications were administered Disposition Summary: 12/31/24 11:15 Transfer Ordered Notes: Transfer Location: Psych Facility sp3 Reason: Higher level of care sp3 Condition: Stable sp3 Problem: an acute exacerbation sp3 Symptoms: have worsened sp3 Accepting Physician: HECTOR Psych(12/31/24 12:28) cm10 Diagnosis - Suicidal ideation, major depression sp3 Forms: - Medication Reconciliation Form sp3 - SBAR form sp3 Signatures: Dispatcher [employer] EDMS Khloe Rocha RN RN hb Carlos Mart MD MD sp3 Adelita Moura RN RN cm10 Corrections: (The following items were deleted from the chart) 10:13 10:13 ACETAMINOPHEN+C.LAB.BRZ ordered. EDMS EDMS 10:13 10:13 BASIC METABOLIC PANEL+C.LAB.BRZ ordered. EDMS EDMS 10:13 10:13 CBC+H.LAB.BRZ ordered. EDMS EDMS 10:13 10:13 ETHANOL+C.LAB.BRZ ordered. EDMS EDMS 10:13 10:13 HEPATIC FUNCTION+C.LAB.BRZ ordered. EDMS EDMS 10:13 10:13 PROTIME (+INR)+COAG.LAB.BRZ ordered. EDMS EDMS 10:13 10:13 Test, Urine+UC.LAB.BRZ ordered. EDMS EDMS 10:13 10:13 PTT, ACTIVATED+COAG.LAB.BRZ ordered. EDMS EDMS 10:13 10:13 SALICYLATE+C.LAB.BRZ ordered. EDMS EDMS 10:13 10:13 Urinalysis+U.LAB.BRZ ordered. EDMS EDMS 10:13 10:13 URINE DRUG SCREEN+UC.LAB.BRZ ordered. EDMS EDMS 12: 11:15 TBD Psych sp3 cm10
[2024-12-31 12:54] VITALS: O2SAT 100
[2024-12-31 12:56] VITALS: BP 138/82; TEMP 98.1
--- NOTE | 2025-01-04 12:17 | EKG ---
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
== END 2024-12-31 12:28 ==
LOC: ER 09:34
DX: R45.851 Suicidal ideations (principal); F32.9 Major depressive disorder, single episode, unspecified; I10 Essential (primary) hypertension
CPT/HCPCS: 36415; 80048; 80076; 80143; 80179; 80307; 81003; 81025; 82077; 85025; 85610; 85730; 93005; 99285